=== PATIENT | male | born 1985 | race Two or more races ===

== ENCOUNTER 2020-05-29 01:31 | Emergency (ER) | payer MEDICAID, SELFPAY ==
[2020-05-29 01:34] VITALS: BP 135/74; PULSE 59; RESP 16; TEMP 36.5; O2SAT 98; BMI 35.4
--- NOTE | 2020-05-29 02:01 | PC.NURSE ---
REPORTS LEFT SIDED MID BACK PAIN STARTING 4 HOURS AGO. DENIES HISTORY OF KIDNEY STONES.
--- NOTE | 2020-05-29 03:25 | ED_ITS ---
HPI - Back Pain/Injury General Chief Complaint: Back Pain/Injury Stated Complaint: Back pain/No inj Time Seen by Provider: 05/29/20 03:25 History of Present Illness HPI Narrative: This is a 34-year-old male who presents with persistent back pain since 4:00 p.m. yesterday and history of known back problems. He states he took a muscle relaxer prior to coming in but was not getting good pain relief. He describes it is localized to the left back area without radiation and not associated with fevers, chills, nausea, vomiting, diarrhea, urinary pain /burning / frequency. Related Data Allergies Allergy/AdvReac Type Severity Reaction Status Date / Time No Known Allergies Allergy Verified 05/29/20 01:36 Review of Systems Review of Systems: Pertinent positives and negatives as stated in HPI 10 point review of systems is otherwise negative. PMFSH Past Medical History Source: nursing notes reviewed Social History Social History Advance Directives: No Physical Exam Vital Signs: Vital Signs: Vital Signs Temp Pulse Resp BP Pulse Ox 05/29/20 01:34 97.7 F 59 16 135/74 98 Body Mass Index 35.4 VITAL SIGNS: Reviewed. GENERAL: Well developed, well nourished, in no acute distress. HEAD: Normocephalic/atraumatic, EYES: PERRLA, EOMI intact without pain, no nystagmus/pallor/icterus noted EARS: Ext canals without abnormality, TMs non-bulging and non-erythematous NOSE: Nares patent bilateral OROPHARYNX: no oral lesions noted, posterior pharynx clear and non-erythematous without noted tonsillar enlargement/erythema/exudates NECK: Supple, no adenopathy LUNGS: Normal breath sounds. No adventitious sounds or accessory muscle use. SpO2<98%> CARDIOVASCULAR: Regular rate and rhythm without noted murmurs, no JVD or lower extremity edema. ABDOMEN: Soft, non-tender, non-distended with bowel sounds. No rigidity. No guarding. No palpable masses or hernias noted MUSCULOSKELETAL: No tenderness, deformities, or effusions noted on gross inspection. EXTREMITIES: No cyanosis, clubbing or edema. SKIN: Inspection of the skin reveals no rashes, ulcerations, jaundice, pallor, or petechiae. NEUROLOGIC: Alert and oriented x 4. Strength and sensation to light touch were grossly intact x 4. Course Course Course Narrative: This is a 34-year-old male with history and clinical presentation suggestive of possible renal colic but suspect more likely muscle spasm and doubt any acute intra-abdominal infection. On review of all investigation despite finding a leukocytosis there is no corresponding left shift and neither the CT scan or urinalysis indicate any source. Patient has had good pain control on re-evaluation will be discharged home for suspected muscle spasm. MDM - Back Pain/Injury Lab Data Result diagrams: 05/29/20 03:38 05/29/20 03:38 Labs: Lab Results 05/29/20 05/29/20 05/29/20 Range/Units 03:15 03:38 03:38 WBC 13.9 H (4.8-10.8) X10*3/uL RBC 4.31 L (4.60-5.80) X10*6/uL Hgb 13.2 L (14.0-18.0) g/dl Hct 38.5 L (42-52) % MCV 89.3 (80-98) fL MCH 30.6 (27.0-33.0) pg MCHC 34.3 (31.0-36.0) g/dl RDW 13.0 (11.0-16.0) % Plt Count 322 (160-400) X10*3/uL MPV 9.3 L (9.4-12.4) fL Immature Gran % (Auto) 0.2 (0.0-0.4) % Neut % (Auto) 62.8 (45-73) % Lymph % (Auto) 24.9 (20-40) % [place] % (Auto) 10.0 (2-11) % Eos % (Auto) 1.5 (0-4) % Baso % (Auto) 0.6 (0-2) % Lymph # (Auto) 3.5 (1.2-4.9) X10*3/uL [place] # (Auto) 1.4 H (0.1-1.2) X10*3/uL Eos # (Auto) 0.2 (0.0-0.4) X10*3/uL Baso # (Auto) 0.1 (0.0-0.2) X10*3/uL Abs Immat Gran (auto) 0.03 (0.00-0.03) X10*3/uL Absolute Neuts (auto) 8.7 H (2.0-8.3) X10*3/uL Absolute Nucleated RBC 0.000 (0.0-0.012) X10*3/uL Nucleated RBC % (auto) 0.0 (0.0-0.2) /100WBC Sodium 139 (135-145) mmol/L Potassium 4.0 (3.3-5.1) mmol/l Chloride 104 (96-108) mmol/L Carbon Dioxide 27 (22-29) mmol/L Anion Gap 12 (12-20) BUN 13 (9-16) mg/dL Creatinine 0.77 (0.5-1.4) mg/dL Estim Creat Clear Calc 165.9 Estimated GFR > 60 Random Glucose 98 (60-115) mg/dL Calcium 8.8 (8.4-10.2) mg/dL Urine Color YELLOW Urine Appearance CLEAR Urine pH 6.0 (5.0-8.0) Ur Specific [place] >= 1.030 H (1.005-1.025) Urine Protein NEG (NEG-TRACE) MG/DL Urine Glucose (UA) NEG (NEG) MG/DL Urine Ketones NEG (NEG) MG/DL Urine Blood NEG (NEG) Urine Nitrite NEG (NEG) Ur Leukocyte Esterase NEG (NEG) Discharge Plan Discharge Clinical Impression: Muscle spasm Patient Disposition: Home, Self-Care Instructions: Lower Back Exercises (ED), Back Pain (ED) Additional Instructions: 1. Tylenol 1000 mg, por v?a oral, cada 6 horas seg?n sea necesario para controlar el dolor. No exceda los 4000 mg en 24 horas. 2. ibuprofeno 400 mg, por v?a oral con leche o alimentos, cada 6 horas seg?n sea necesario para controlar el dolor. 3. parche de lidoca?na, est? disponible en todas las farmacias y se puede aplicar en el ?katelyn de m?xima sensibilidad mauricio se indica en el empaque exterior. El paciente y / o la lea reconocen que comprenden los resultados (seg?n corresponda), el diagn?stico, el plan de tratamiento, la necesidad de seguimiento y los s?ntomas que deber?an impulsar el regreso a la ronald de emergencias. Referrals: Ngozi Payne, [Primary Care Provider] - 2 days (Back pain)
[2020-05-29 03:30] LABS: Glucose Urine UA NEG (NEG); Leukocyte Esterase Urine NEG (NEG); Nitrite Urine NEG (NEG); Specific Gravity - Urine >= 1.030 (1.005-1.025); Urine Blood NEG (NEG); Urine Ketones NEG (NEG); Urine Protein NEG (NEG-TRACE)
[2020-05-29 03:38] LABS: Appearance Urine CLEAR; Color Urine YELLOW; UACC Culture Trigger NO
[2020-05-29 03:42] LABS: MANUAL DIFF FLAG NO
[2020-05-29 03:43] LABS: Basophils Absolute Auto 0.1 X10*3/uL (0.0-0.2); Basophils Percent Auto 0.6 % (0-2); Eosinophils Absolute Auto 0.2 X10*3/uL (0.0-0.4); Eosinophils Percent Auto 1.5 % (0-4); Hematocrit 38.5 % (42-52); Hemoglobin 13.2 g/dl (14.0-18.0); Imm Gran Abs Auto 0.03 X10*3/uL (0.00-0.03); Imm Gran Pct Auto 0.2 % (0.0-0.4); Lymphocytes Absolute Auto 3.5 X10*3/uL (1.2-4.9); Lymphocytes Percent Auto 24.9 % (20-40); Mean Corpuscular HGB Conc 34.3 g/dl (31.0-36.0); Mean Corpuscular Hemoglobin 30.6 pg (27.0-33.0); Mean Corpuscular Volume 89.3 fL (80-98); Mean Platelet Volume 9.3 fL (9.4-12.4); Monocytes Absolute Auto 1.4 X10*3/uL (0.1-1.2); Neutrophils Absolute Auto 8.7 X10*3/uL (2.0-8.3); Neutrophils Percent Auto 62.8 % (45-73); Platelet Count 322 X10*3/uL (160-400); Red Blood Count 4.31 X10*6/uL (4.60-5.80); White Blood Count 13.9 X10*3/uL (4.8-10.8)
--- NOTE | 2020-05-29 03:53 | CT_ITS ---
EXAMINATION: CT ABDOMEN AND PELVIS WITHOUT CONTRAST CLINICAL INFORMATION: Left flank pain COMPARISON: 04/30/2010 TECHNIQUE: Multidetector volumetric imaging was performed from the superior aspect of the liver through the pubic symphysis. Sagittal and coronal reformatted images were obtained on the technologist's workstation. This CT examination was performed using dose optimization techniques as appropriate, variously including the following: *Automated exposure control *Adjustment of mA and/or kV according to patient size (this includes techniques or standardized protocols for targeted exams where dose is matched to indication/reason for exam; i.e. extremities or head) *Use of iterative reconstruction technique DLP: 780 mGy-cm FINDINGS: LUNG BASES: There is curvilinear left basilar atelectasis along with a calcified granuloma. LIVER, GALLBLADDER, AND BILIARY TREE: The liver is normal in size, shape, and attenuation. No focal hepatic lesion or biliary ductal dilatation is present. The gallbladder is unremarkable with no evidence of radiopaque gallstones, gallbladder wall thickening, or obvious pericholecystic inflammatory changes. PANCREAS: Unremarkable. SPLEEN: Unremarkable. ADRENAL GLANDS: Unremarkable. KIDNEYS AND URETERS: The kidneys are normal in size, shape, and attenuation. No hydronephrosis, hydroureter, or calculi seen. No perinephric stranding. BLADDER: Unremarkable. GASTROINTESTINAL TRACT: The small and large bowel are unremarkable. The appendix is unremarkable. No free fluid or free air is seen. ABDOMINAL WALL: No significant hernia is appreciated. LYMPH NODES: Normal. VASCULAR: Unremarkable. PELVIC VISCERA: Unremarkable. OSSEOUS STRUCTURES: Unremarkable. IMPRESSION: No acute findings identified in the abdomen/pelvis. No hydronephrosis or calculus seen.
[2020-05-29 04:25] LABS: Anion Gap 12 (12-20); Blood Urea Nitrogen 13 mg/dL (9-16); Calcium 8.8 mg/dL (8.4-10.2); Carbon Dioxide 27 mmol/L (22-29); Chloride 104 mmol/L (96-108); Creatinine Clr Calc Pharmacy 165.9; Estimated Glomerular Filt Rate > 60; Glucose Random 98 mg/dL (60-115); Sodium 139 mmol/L (135-145)
[2020-05-29] MEDS: Ketorolac Tromethamine 15 MG/ML VIAL IM (04:34)
[2020-05-29] MEDS: Acetaminophen 325 MG TABLET 975 MG PO (04:35)
[2020-05-29] MEDS: Lidocaine 4 % Patch ADH..PATCH 1 PATCH TRANSDERMA (04:35)
--- NOTE | 2020-05-29 05:02 | PC.NURSE ---
pt back from ct, medicated and sound asleep with snoring heard from room.
== END 2020-05-29 05:57 | disposition home or self-care (01) ==
PROVIDERS: Emergency Provider Student in an Organized Health Care Education/Training Program; PCP Family Medicine
DX: M62.830 Muscle spasm of back (principal); M54.5 Low back pain
CPT/HCPCS: 36415; 74176; 80048; 81003; 85025; 96372; 99283; 99284; J1885

== ENCOUNTER 2020-07-24 10:36 | Outpatient (REF) | payer MEDICAID, SELFPAY | END 2020-07-24 10:37 | disposition home or self-care (01) | LOC: HO.LAB 10:36 | PROVIDERS: PCP Family Medicine; Visit Provider Internal Medicine | DX: Z20.828 Contact with and (suspected) exposure to other viral communicable diseases (principal) | CPT/HCPCS: C9803; U0003 ==

== ENCOUNTER 2020-08-25 08:50 | Outpatient (REF) | payer MEDICAID, SELFPAY | END 2020-08-25 08:51 | disposition home or self-care (01) | LOC: HO.LAB 08:50 | PROVIDERS: Visit Provider Internal Medicine | DX: Z20.822 Contact with and (suspected) exposure to COVID-19 (principal) | CPT/HCPCS: 36415; C9803; U0003 ==

== ENCOUNTER 2020-09-05 13:52 | Outpatient (REF) | payer MEDICAID, SELFPAY ==
--- NOTE | 2020-09-05 13:57 | XR_ITS ---
EXAMINATION: XR CHEST CLINICAL INFORMATION: Chest pain COMPARISON: Previous chest x-ray February 2019 TECHNIQUE: 2 views of the chest were obtained. FINDINGS: No significant abnormality is noted involving the heart, lungs, mediastinum, bony thorax or soft tissues. XR/XR chest 2V IMPRESSION: Unremarkable examination.
== END 2020-09-05 13:53 | disposition home or self-care (01) ==
LOC: HO.LAB 13:52
PROVIDERS: Referring Provider Family Medicine; Visit Provider Family Medicine
DX: R07.1 Chest pain on breathing (principal)
CPT/HCPCS: 71046

== ENCOUNTER 2020-09-18 11:13 | Outpatient (REF) | payer MEDICAID, SELFPAY | END 2020-09-18 11:14 | disposition home or self-care (01) | LOC: HO.LAB 11:13 | PROVIDERS: Visit Provider Internal Medicine | DX: Z20.822 Contact with and (suspected) exposure to COVID-19 (principal) | CPT/HCPCS: 36415; C9803; U0003; U0005 ==

== ENCOUNTER 2020-10-16 08:21 | Outpatient (REF) | payer MEDICAID, SELFPAY | END 2020-10-16 08:22 | disposition home or self-care (01) | LOC: HO.LAB 08:21 | PROVIDERS: Visit Provider Internal Medicine | DX: Z20.822 Contact with and (suspected) exposure to COVID-19 (principal) | CPT/HCPCS: 36415; C9803; U0003; U0005 ==

== ENCOUNTER 2020-10-30 08:21 | Outpatient (REF) | payer MEDICAID, SELFPAY | END 2020-10-30 08:22 | disposition home or self-care (01) | LOC: HO.LAB 08:21 | PROVIDERS: Visit Provider Internal Medicine | DX: Z20.822 Contact with and (suspected) exposure to COVID-19 (principal) | CPT/HCPCS: 36415; C9803; U0003; U0005 ==

== ENCOUNTER 2020-12-01 07:57 | Outpatient (REF) | payer MEDICAID, SELFPAY | END 2020-12-01 07:58 | disposition home or self-care (01) | LOC: HO.LAB 07:57 | PROVIDERS: Visit Provider Internal Medicine | DX: Z20.822 Contact with and (suspected) exposure to COVID-19 (principal) | CPT/HCPCS: C9803; U0003; U0005 ==

== ENCOUNTER 2021-04-20 15:28 | Outpatient (REF) | payer MEDICAID, SELFPAY | END 2021-04-20 15:29 | disposition home or self-care (01) | LOC: HO.LAB 15:28 | PROVIDERS: Visit Provider Internal Medicine | DX: Z20.822 Contact with and (suspected) exposure to COVID-19 (principal) | CPT/HCPCS: C9803; U0003; U0005 ==

== ENCOUNTER 2021-05-01 10:32 | Outpatient (REF) | payer MEDICAID, SELFPAY ==
[2021-05-01 11:46] LABS: MANUAL DIFF FLAG NO
[2021-05-01 11:52] LABS: Basophils Absolute Auto 0.1 X10*3/uL (0.0-0.2); Basophils Percent Auto 0.7 % (0-2); Eosinophils Absolute Auto 0.2 X10*3/uL (0.0-0.4); Eosinophils Percent Auto 1.3 % (0-4); Hematocrit 45.3 % (42-52); Hemoglobin 15.4 g/dl (14.0-18.0); Imm Gran Abs Auto 0.02 X10*3/uL (0.00-0.03); Imm Gran Pct Auto 0.2 % (0.0-0.4); Lymphocytes Percent Auto 34.6 % (20-40); Mean Corpuscular Volume 88.1 fL (80-98); Mean Platelet Volume 10.7 fL (9.4-12.4); Monocytes Percent Auto 8.7 % (2-11); Neutrophils Absolute Auto 6.4 X10*3/uL (2.0-8.3); Neutrophils Percent Auto 54.5 % (45-73); Platelet Count 320 X10*3/uL (160-400); Red Blood Count 5.14 X10*6/uL (4.60-5.80); Red Cell Distribution Width 12.8 % (11.0-16.0); White Blood Count 11.7 X10*3/uL (4.8-10.8)
== END 2021-05-01 10:33 | disposition home or self-care (01) ==
LOC: HO.LAB 10:32
PROVIDERS: PCP Family Medicine; Visit Provider Internal Medicine Pulmonary Disease
DX: J45.909 Unspecified asthma, uncomplicated (principal); Z91.09 Other allergy status, other than to drugs and biological substances; R94.2 Abnormal results of pulmonary function studies; J84.9 Interstitial pulmonary disease, unspecified; G47.33 Obstructive sleep apnea (adult) (pediatric)
CPT/HCPCS: 36415; 82785; 85025; 86003; 99202

== ENCOUNTER 2021-05-01 11:09 | Outpatient (REF) | payer MEDICAID, SELFPAY | END 2021-05-01 11:10 | disposition home or self-care (01) | LOC: HO.LAB 11:09 | PROVIDERS: PCP Family Medicine; Visit Provider Internal Medicine | DX: Z20.822 Contact with and (suspected) exposure to COVID-19 (principal) | CPT/HCPCS: C9803; U0003; U0005 ==

== ENCOUNTER 2021-06-01 08:20 | Outpatient (REF) | payer MEDICAID, SELFPAY ==
--- NOTE | ~2021-06-01 | CT_ITS ---
EXAMINATION: CT CHEST WITHOUT CONTRAST CLINICAL INFORMATION: Interstitial pulmonary disease COMPARISON: Previous chest x-rays most recent August [address] of the abdomen and pelvis May 2020 TECHNIQUE: Multidetector volumetric CT imaging of the chest was done. Axial MIP volume rendering provided. Sagittal and coronal reformatted images were obtained. This CT examination was performed using dose optimization techniques as appropriate, variously including the following: *Automated exposure control *Adjustment of mA and/or kV according to patient size (this includes techniques or standardized protocols for targeted exams where dose is matched to indication/reason for exam; i.e. 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 There is a 2 mm right upper lobe nodule axial image 31 series 9. There is a 2 mm right upper lobe nodule axial image 33 series 9. There is a 3 mm right upper lobe nodule axial image 48 series 9. There is a 3 mm right lower lobe nodule axial image 74 series 9. There is a 3 x 7 mm heterogeneous or semisolid right upper lobe nodule axial image 79 series 9. There are clustered small right upper lobe nodules largest measuring 3 mm axial image 81 series 9 suggestive of tree-in-bud appearance or airways disease. There is a 3 mm semisolid peripheral right upper lobe nodule axial image 85 series 9. There is a 2 mm right middle lobe nodule axial image 99 series 9. There is a 2 mm peripheral or subpleural left lower lobe nodule axial image 99 series 9. There are 2 clustered 3 mm right lower lobe nodules axial image 99 series 9. There is a 2 mm peripheral or subpleural right middle lobe nodule axial image 110 series 9. There is a 3 mm peripheral or subpleural semisolid right lower lobe nodule axial image 111 series 9. There is a 5 mm calcified left lower lobe nodule axial image 11 series 9. There is no evidence of emphysema, interstitial lung disease or bronchiectasis. No endobronchial or endotracheal lesion is seen. MEDIASTINUM: The mediastinum is normal. There is increased attenuation in the anterior superior mediastinum likely representing residual thymic tissue that is appropriate for age. PLEURA: There is no pleural effusion. No pleural mass or thickening. AXILLA: No lymphadenopathy. There is bilateral gynecomastia. UPPER ABDOMEN: There may be fatty infiltration of the liver. OSSEOUS STRUCTURES: Unremarkable. CT/CT chest wo con IMPRESSION: No evidence of interstitial lung disease. Small bilateral pulmonary nodules. Largest pulmonary nodule is a 5 mm calcified left lower lobe nodule. According to the UPDATED 2017 Fleischner Society recommendations, the advised follow-up imaging for less than 6 mm nodule: Low risk, no chest CT follow-up and high risk, optional chest CT follow-up in one year. Bilateral gynecomastia.
--- NOTE | 2021-06-01 17:15 | PFT_ITS ---
INDICATIONS: ILD and asthma. SPIROMETRY: The FEV1 to FVC 91% with an FEV1 of 4.08 L, which is 96% predicted, and an FVC of 4.5 L, which is predicted. No significant response to bronchodilators noted. Maximum voluntary ventilation 105% predicted. LUNG VOLUMES: Total lung capacity 90% predicted with an expiratory reserve volume of 38% predicted. DIFFUSION CAPACITY: DLCO 71% predicted. It does correct to 81% when corrected for the alveolar volume. COMPARISONS: PFTs from 2019. INTERPRETATION: No obstructive nor restrictive ventilatory defects have been identified. No significant response to bronchodilators noted. Normal maximum voluntary ventilation. Lung volumes with a decrease in the expiratory reserve volume secondary to an elevated BMI. The patient also has a mild diffusion impairment likely to some degree secondary to his body habitus, although need to also consider his underlying interstitial lung disease history. When compared to his previous PFTs in 2019, there is a significant decrease in his FVC, a significant decrease in the FEV1, a trend increase in the total lung capacity, and trend decrease in the diffusing capacity. Clinical correlation warranted. MD YANDEL Montalvo/BRENDAN / [id number]
== END 2021-06-01 08:21 | disposition home or self-care (01) ==
LOC: HO.CT 08:20
PROVIDERS: PCP Family Medicine; Visit Provider Internal Medicine Pulmonary Disease
DX: J84.9 Interstitial pulmonary disease, unspecified (principal); J45.909 Unspecified asthma, uncomplicated
CPT/HCPCS: 71250; 94060; 94727; 94729

== ENCOUNTER → 2021-06-14 14:44 | Outpatient (BNVA) | payer MEDICAID, SELFPAY | PROVIDERS: PCP Family Medicine; Visit Provider Internal Medicine Pulmonary Disease | DX: J45.909 Unspecified asthma, uncomplicated (principal); G47.33 Obstructive sleep apnea (adult) (pediatric); R91.8 Other nonspecific abnormal finding of lung field | CPT/HCPCS: 99212 ==

== ENCOUNTER 2021-08-11 14:42 | Emergency (ER) | payer MEDICAID, SELFPAY ==
[2021-08-11 16:18] LABS: COVID-19 Test Negative (Negative)
[2021-08-11 18:02] VITALS: BP 131/66; PULSE 84; RESP 18; TEMP 36.6; O2SAT 98; BMI 38.4
--- NOTE | 2021-08-11 18:42 | ED.GENADULT ---
HPI - General Adult General Chief complaint: General Medical Stated complaint: headache abd pain exposed to COVID Time Seen by Provider: 08/11/21 18:42 History of Present Illness HPI narrative: Patient without complaint is here for COVID testing after COVID exposure, no cough no shortness of breath no nausea Related Data Previous Rx's Medication Instructions Recorded fluticasone 250 mcg-salmeterol 50 1 inh INHALATION BID 30 Days #1 ea 05/01/21 mcg/dose blistr powdr for inhalation (Wixela Inhub) Allergies Allergy/AdvReac Type Severity Reaction Status Date / Time No Known Allergies Allergy Verified 08/11/21 18:02 Review of Systems Review of Systems: No fever no chills no runny nose no headache cough no sore throat no difficulty breathing no nausea no vomiting Yes all other systems are reviewed and are negative PMFSH Past Medical History Source: nursing notes reviewed Social History Social History Advance Directives: No Advance Directives Information Provided: Yes Physical Exam Vital Signs: Vital Signs: Last Vital Signs Temp 97.9 F 08/11/21 18:02 Pulse 84 08/11/21 18:02 Resp 18 08/11/21 18:02 BP 131/66 08/11/21 18:02 Pulse Ox 98 08/11/21 18:02 BMI result Body Mass Index 38.4 General appearance no acute distress The neck is supple Respiratory no distress Extremities full range of motion x4 Course Course Course Narrative: Well-appearing patient who denies any symptom or complaint had a negative COVID test Medical Decision Making Lab Data Labs: Lab Results 08/11/21 Range/Units 15:51 COVID-19 ([facility]) Negative (Negative) COVID-19 Clin Com See Note Discharge Plan Discharge Clinical Impression: Encounter for laboratory testing for COVID-19 virus Patient Disposition: Home, Self-Care Additional Instructions: COVID test was negative, return any time if worse Prescriptions: No Action fluticasone propion-salmeterol [Wixela Inhub] 250-50 mcg/dose blister with device 1 inh inhalation BID 30 Days Qty: 1 RF: 6
== END 2021-08-11 18:55 | disposition home or self-care (01) ==
PROVIDERS: Emergency Provider Internal Medicine
DX: R51.9 Headache, unspecified (principal); R10.9 Unspecified abdominal pain; Z20.822 Contact with and (suspected) exposure to COVID-19; Z79.899 Other long term (current) drug therapy
CPT/HCPCS: 36415; 87635; 99282; 99283

== ENCOUNTER 2021-09-03 11:21 | Outpatient (REF) | payer MEDICAID, SELFPAY ==
[2021-09-03 12:01] LABS: Binax Internal Control QC Valid; Binax Now Covid-19 Ag Negative (Negative)
== END 2021-09-03 11:22 | disposition home or self-care (01) ==
LOC: HO.LAB 11:21
PROVIDERS: Visit Provider Internal Medicine
DX: Z20.822 Contact with and (suspected) exposure to COVID-19 (principal)
CPT/HCPCS: C9803

== ENCOUNTER 2021-12-13 09:00 | Outpatient (REF) | payer MEDICAID, SELFPAY ==
--- NOTE | ~2021-12-13 | CT_ITS ---
EXAMINATION: CT chest wo con. CLINICAL INFORMATION: Reason for Exam PULMONARY NODULE COMPARISON: Multiple prior CTs most recent May 2021 TECHNIQUE: Multidetector volumetric CT imaging of the chest was done. Axial MIP volume rendering provided. Sagittal and coronal reformatted images were obtained. This CT examination was performed using dose optimization techniques as appropriate, variously including the following: *Automated exposure control *Adjustment of mA and/or kV according to patient size (this includes techniques or standardized protocols for targeted exams where dose is matched to indication/reason for exam; i.e. extremities or head) *Use of iterative reconstruction technique CONTRAST: Noncontrasted study. 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 LUNGS: Lung parenchyma: No evidence of significant interstitial disease. Lung nodules/masses: 3 mm density right upper lobe image 26 series 8 unchanged. There are several additional calcified and noncalcified nodules bilaterally the largest is a calcified nodule left lower lobe image 91 series 8, they have not significantly changed from prior exams. No suspicious spiculated nodule. AIRWAYS: Trachea and bronchi are normal. PLEURA: No pleural effusion or pneumothorax. MEDIASTINUM AND ROXANA: No mediastinal, hilar or axillary lymphadenopathy. No mediastinal mass. VESSELS: HEART AND PERICARDIUM: Thoracic aorta is normal in size. Heart is normal in size. No pericardial effusion. Pulmonary arteries are normal in size. LOWER NECK, AXILLA: The visualized thyroid gland is unremarkable. No axillary mass or adenopathy. VISUALIZED ABDOMEN: Diffusely hypodense liver suggesting hepatic steatosis. Otherwise unremarkable. CHEST WALL AND BONES: No chest wall mass. The visualized bony thorax is within normal limits. CT/CT chest wo con IMPRESSION: *No suspicious lung mass or suspicious nodules. *Redemonstration of scattered tiny calcified and noncalcified lung nodules 5 mm or less, they have not significantly changed from prior exam. *Diffusely hypodense liver suggesting hepatic steatosis. Various management parameters for solitary pulmonary nodules are in the literature. According to the UPDATED 2017 Fleischner Society recommendations, the advised follow-up imaging for solid nodules < 6 mm is: LOW RISK PATIENT: No routine follow-up. HIGH RISK PATIENT: Optional CT at 12 months. Reference: Guidelines for Management of Incidental Pulmonary Nodules Detected on CT Images: From the Fleischner Society 2017.
== END 2021-12-13 09:01 | disposition home or self-care (01) ==
LOC: HO.CT 09:00
PROVIDERS: PCP Family Medicine; Visit Provider Internal Medicine Pulmonary Disease
DX: R91.8 Other nonspecific abnormal finding of lung field (principal)
CPT/HCPCS: 71250

== ENCOUNTER → 2021-12-19 15:24 | Outpatient (BNVA) | payer MEDICAID, SELFPAY | PROVIDERS: PCP Family Medicine; Visit Provider Internal Medicine Pulmonary Disease | DX: J45.909 Unspecified asthma, uncomplicated (principal); G47.33 Obstructive sleep apnea (adult) (pediatric); R91.8 Other nonspecific abnormal finding of lung field | CPT/HCPCS: 99212 ==

== ENCOUNTER 2021-12-25 12:15 | Emergency (ER) | payer MEDICAID, SELFPAY ==
--- NOTE | 2021-12-25 | ECG_ITS ---
Test Reason : CHEST PAIN Blood Pressure : / mmHG Vent. Rate : 065 BPM Atrial Rate : 065 BPM P-R Int : 128 ms QRS Dur : 098 ms QT Int : 398 ms P-R-T Axes : 045 051 034 degrees QTc Int : 413 ms Normal sinus rhythm Normal ECG When compared with ECG of 01-MAY-2016 12:42, No significant change was found Referred By: Harshal Causey Electronically Signed By:QUAN PENNINGTON
--- NOTE | ~2021-12-25 | XR_ITS ---
EXAMINATION: XR CHEST CLINICAL INFORMATION: Chest pain COMPARISON: Previous chest CT 12/13/2021 and chest x-ray August 2020 TECHNIQUE: Frontal view of the chest was obtained. FINDINGS: The cardiac silhouette is upper normal in size. Hilar and mediastinal contours are normal.. The lungs are clear. There is no pleural effusion or pneumothorax. Bony structures are normal. XR/XR chest 1V IMPRESSION: Upper normal-size cardiac silhouette.
[2021-12-25 12:28] VITALS: BP 110/80; PULSE 80; O2SAT 98
[2021-12-25 12:33] VITALS: BP 109/73; PULSE 69; RESP 20; TEMP 36.7; BMI 37.8
--- NOTE | 2021-12-25 12:47 | ED_ITS ---
HPI - Chest Pain General Chief Complaint: Chest Pain Stated Complaint: L CP X'S 1 WEEK FROM WALK IN CLINIC Time Seen by Provider: 12/25/21 12:45 Source: patient Mode of arrival: ambulatory Limitations: no limitations History of Present Illness HPI narrative: this is a 36 years old male presented to the emergency department with a chief complaint of left-sided chest pain which has been going on for about a week. He was seen in the urgent care referred her to the ED for evaluation. He states the there is no radiation of the pain, pt is not diaphoretic; there is no exertional pain complaint: chest pain Onset (ago): week(s) (1) Timing of current episode: episodic Prior episodes: No Onset: during rest Pain location: substernal Pain radiation: none Quality: aching Exacerbating factors: nothing Risk Factors Coronary artery disease risk factors: hypertension Thoracic aortic dissection risk factors: none Related Data Previous Rx's Medication Instructions Recorded fluticasone furoate 200 1 inh INHALATION DAILY 30 Days #1 12/19/21 mcg-vilanterol 25 mcg/dose ea inhalation powder (Breo Ellipta) Allergies Allergy/AdvReac Type Severity Reaction Status Date / Time No Known Allergies Allergy Verified 12/19/21 15:26 Review of Systems Review of Systems: Yes all other systems are reviewed and are negative ENT: Reports system reviewed and no additional complaints, except as documented Cardiovascular: Cardiovascular: Reports no additional cardiovascular complaints Respiratory: Respiratory: Reports no additional respiratory complaints Gastrointestinal: Gastrointestinal: Reports no additional gastrointestinal complaints Neurologic: Reports system reviewed and no additional complaints, except as documented PENDING SALE TO [facility] Social History Social History Patient Tobacco Use Status: Current everyday Tobacco user Use of substances other than those prescribed or required for medical reasons: Yes Substance Use Type: Marijuana Substance Use Frequency: Daily Advance Directives: No Physical Exam Vital Signs: Vital Signs: Last Vital Signs Temp 98.2 F 12/25/21 14:57 Pulse 86 12/25/21 16:05 Resp 16 12/25/21 16:05 BP 123/73 12/25/21 16:05 Pulse Ox 99 12/25/21 16:05 BMI result Body Mass Index 37.8 Const: General: cooperative Orientation/consciousness: patient oriented x3 HEENT: Head: Yes normal to inspection Ears: hearing grossly normal bilaterally General nose exam: Normal external nose present Face and sinus: Yes normal facial exam Mouth: Normal oral and palatal mucosa present Neck: Neck: Yes normal visual inspection Chest: Chest palpation & inspection: normal inspection of the chest and normal palpation of entire chest wall Resp: Effort & Inspection: normal respiratory effort and able to speak in complete sentences Auscultation: clear to auscultation bilaterally Percussion: percussion normal Cardio: Jugular venous distension: no JVD Rate: regular rate Rhythm: regular rhythm GI: Inspection: Yes normal to inspection Palpation (GI): Soft to palpation, not firm, nontender and no guarding Auscultation: normal bowel sounds Skin: General skin exam: no rashes or lesions noted Lesions: no lesions Rashes: no rashes Neuro: General: patient oriented x3 Course Reevaluation(s) Reevaluation #1: re-examining is doing well his pain is been going on for a week, delta trochanter a D-dimer is negative I think he can be discharged home with follow- up with Cardiology in the outpatient the ETT MDM - Chest Pain Lab Data Attestation: I reviewed the patient's lab results. Result diagrams: 12/25/21 13:00 12/25/21 13:00 Labs: Lab Results 12/25/21 12/25/21 12/25/21 Range/Units 13:00 13:00 13:00 WBC 10.1 (4.8-10.8) X10*3/uL RBC 4.68 (4.60-5.80) X10*6/uL Hgb 14.2 (14.0-18.0) g/dl Hct 41.3 L (42.0-52.0) % MCV 88.2 (80.0-98.0) fL MCH 30.3 (27.0-33.0) pg MCHC 34.4 (31.0-36.0) g/dl RDW 12.8 (11.0-16.0) % Plt Count 276 (160-400) X10*3/uL MPV 10.1 (9.4-12.4) fL Immature Gran % (Auto) 0.3 (0.0-0.4) % Neut % (Auto) 57.1 (45-73) % Lymph % (Auto) 31.3 (20-40) % [place]eman % (Auto) 9.4 (2-11) % Eos % (Auto) 1.3 (0-4) % Baso % (Auto) 0.6 (0-2) % Lymph # (Auto) 3.2 (1.2-4.9) X10*3/uL [place]eman # (Auto) 1.0 (0.1-1.2) X10*3/uL Eos # (Auto) 0.1 (0.0-0.4) X10*3/uL Baso # (Auto) 0.1 (0.0-0.2) X10*3/uL Abs Immat Gran (auto) 0.03 (0.00-0.03) X10*3/uL Absolute Neuts (auto) 5.8 (2.0-8.3) x10*3/uL Absolute Nucleated RBC 0.000 (0.0-0.012) X10*3/uL Nucleated RBC % (auto) 0.0 (0.0-0.2) /100WBC D-Dimer High Sensitivty < 150 NG/ML Sodium 139 (135-145) mmol/L Potassium 4.8 (3.3-5.1) mmol/L Chloride 107 (96-108) mmol/L Carbon Dioxide 24 (22-29) mmol/L Anion Gap 13 (12-20) BUN 11 (9-16) mg/dL Creatinine 0.81 (0.5-1.4) mg/dL Estim Creat Clear Calc 159.9 Estimated GFR > 60 Random Glucose 101 (60-115) mg/dL Calcium 9.4 D (8.4-10.2) mg/dL Total Bilirubin 0.6 (0.0-1.0) mg/dL AST 35 (5-37) U/L ALT 46 H (0-40) U/L Alkaline Phosphatase 91 (39-117) U/L Troponin I High Sens (<3.5-35.0) ng/L Total Protein 6.8 (6.5-8.0) g/dL Albumin 4.2 (3.5-5.0) g/dL 12/25/21 12/25/21 Range/Units 13:00 15:01 WBC (4.8-10.8) X10*3/uL RBC (4.60-5.80) X10*6/uL Hgb (14.0-18.0) g/dl Hct (42.0-52.0) % MCV (80.0-98.0) fL MCH (27.0-33.0) pg MCHC (31.0-36.0) g/dl RDW (11.0-16.0) % Plt Count (160-400) X10*3/uL MPV (9.4-12.4) fL Immature Gran % (Auto) (0.0-0.4) % Neut % (Auto) (45-73) % Lymph % (Auto) (20-40) % [place]eman % (Auto) (2-11) % Eos % (Auto) (0-4) % Baso % (Auto) (0-2) % Lymph # (Auto) (1.2-4.9) X10*3/uL [place]eman # (Auto) (0.1-1.2) X10*3/uL Eos # (Auto) (0.0-0.4) X10*3/uL Baso # (Auto) (0.0-0.2) X10*3/uL Abs Immat Gran (auto) (0.00-0.03) X10*3/uL Absolute Neuts (auto) (2.0-8.3) x10*3/uL Absolute Nucleated RBC (0.0-0.012) X10*3/uL Nucleated RBC % (auto) (0.0-0.2) /100WBC D-Dimer High Sensitivty NG/ML Sodium (135-145) mmol/L Potassium (3.3-5.1) mmol/L Chloride (96-108) mmol/L Carbon Dioxide (22-29) mmol/L Anion Gap (12-20) BUN (9-16) mg/dL Creatinine (0.5-1.4) mg/dL Estim Creat Clear Calc Estimated GFR Random Glucose (60-115) mg/dL Calcium (8.4-10.2) mg/dL Total Bilirubin (0.0-1.0) mg/dL AST (5-37) U/L ALT (0-40) U/L Alkaline Phosphatase (39-117) U/L Troponin I High Sens 6.0 9.5 D (<3.5-35.0) ng/L Total Protein (6.5-8.0) g/dL Albumin (3.5-5.0) g/dL Imaging Data Chest x-ray: Radiologist's impression: EXAMINATION: XR CHEST CLINICAL INFORMATION: Chest pain COMPARISON: Previous chest CT 12/13/2021 and chest x-ray August 2020 TECHNIQUE: Frontal view of the chest was obtained. FINDINGS: The cardiac silhouette is upper normal in size. Hilar and mediastinal contours are normal.. The lungs are clear. There is no pleural effusion or pneumothorax. Bony structures are normal. XR/XR chest 1V IMPRESSION: Upper normal-size cardiac silhouette. ? Dictated By: Iris Ambriz MD Signed By: <Electronically signed by Iris Ambriz MD in OV> 12/25/21 1323 ECG Data ECG #1: ECG interpretation date: 12/25/21 ECG interpretation time: 12:51 Interpretation: normal sinus rhythm a rate is 65 intraventricular conduction delay present Discharge Plan Discharge Clinical Impression: Chest pain Patient Disposition: Home, Self-Care Instructions: Chest Pain (DC) Additional Instructions: follow-up with laboratory monitor please return to emergency room if you worse any concern Prescriptions: No Action Breo Ellipta 200-25 mcg/dose blister with device 1 inh inhalation DAILY 30 Days Qty: 1 6RF Referrals: Brandon Seaman MD [Physician] - 2 days Interventions: ED Discharge Assessment Last Done: 12/25/21 16:05 Discharge Date/Time: 12/25/21 16:06
[2021-12-25 13:04] LABS: MANUAL DIFF FLAG NO
[2021-12-25 13:05] LABS: Basophils Absolute Auto 0.1 X10*3/uL (0.0-0.2); Basophils Percent Auto 0.6 % (0-2); Eosinophils Absolute Auto 0.1 X10*3/uL (0.0-0.4); Eosinophils Percent Auto 1.3 % (0-4); Hematocrit 41.3 % (42.0-52.0); Hemoglobin 14.2 g/dl (14.0-18.0); Imm Gran Abs Auto 0.03 X10*3/uL (0.00-0.03); Imm Gran Pct Auto 0.3 % (0.0-0.4); Lymphocytes Absolute Auto 3.2 X10*3/uL (1.2-4.9); Lymphocytes Percent Auto 31.3 % (20-40); Mean Corpuscular HGB Conc 34.4 g/dl (31.0-36.0); Mean Corpuscular Hemoglobin 30.3 pg (27.0-33.0); Mean Corpuscular Volume 88.2 fL (80.0-98.0); Mean Platelet Volume 10.1 fL (9.4-12.4); Monocytes Percent Auto 9.4 % (2-11); Neutrophils Absolute Auto 5.8 x10*3/uL (2.0-8.3); Neutrophils Percent Auto 57.1 % (45-73); Platelet Count 276 X10*3/uL (160-400); Red Blood Count 4.68 X10*6/uL (4.60-5.80); Red Cell Distribution Width 12.8 % (11.0-16.0); White Blood Count 10.1 X10*3/uL (4.8-10.8)
[2021-12-25 13:14] LABS: D Dimer High Sensitivity < 150 NG/ML
[2021-12-25 13:31] LABS: Alanine Aminotransferase 46 U/L (0-40); Albumin Level 4.2 g/dL (3.5-5.0); Alkaline Phosphatase 91 U/L (39-117); Anion Gap 13 (12-20); Aspartate Amino Transferase 35 U/L (5-37); Bilirubin Total 0.6 mg/dL (0.0-1.0); Blood Urea Nitrogen 11 mg/dL (9-16); Calcium 9.4 mg/dL (8.4-10.2); Carbon Dioxide 24 mmol/L (22-29); Chloride 107 mmol/L (96-108); Creatinine Clr Calc Pharmacy 159.9; Estimated Glomerular Filt Rate > 60; Glucose Random 101 mg/dL (60-115); Potassium 4.8 mmol/L (3.3-5.1); Sodium 139 mmol/L (135-145); Total Protein 6.8 g/dL (6.5-8.0)
[2021-12-25 14:57] VITALS: BP 116/76; PULSE 58; RESP 12; TEMP 36.8; O2SAT 97
[2021-12-25 15:28] LABS: Troponin-I High Sensitivity 9.5 ng/L (<3.5-35.0)
[2021-12-25 16:05] VITALS: BP 123/73; PULSE 86; RESP 16; O2SAT 99
== END 2021-12-25 16:06 | disposition home or self-care (01) ==
PROVIDERS: Emergency Provider Emergency Medicine; PCP Family Medicine
DX: R07.89 Other chest pain (principal); I10 Essential (primary) hypertension; Z79.899 Other long term (current) drug therapy; F17.200 Nicotine dependence, unspecified, uncomplicated; Z71.6 Tobacco abuse counseling
CPT/HCPCS: 36415; 71045; 80053; 84484; 85025; 85379; 93005; 99283; 99284

== ENCOUNTER 2021-12-28 20:52 | Emergency (ER) | payer MEDICAID, SELFPAY ==
--- NOTE | ~2021-12-28 | XR_ITS ---
EXAMINATION: XR CHEST CLINICAL INFORMATION: Chest pain. COMPARISON: 12/25/2021 TECHNIQUE: Frontal view of the chest was obtained. FINDINGS: Cardiac leads overlie the chest. The lungs are well expanded. There is no focal consolidation, edema, or effusion. No pneumothorax. The cardiomediastinal silhouette is within normal limits. No acute osseous abnormality. XR/XR chest 1V IMPRESSION: Clear lungs.
--- NOTE | 2021-12-28 20:53 | ECG_ITS ---
Test Reason : CHEST PAIN Blood Pressure : / mmHG Vent. Rate : 082 BPM Atrial Rate : 082 BPM P-R Int : 136 ms QRS Dur : 104 ms QT Int : 390 ms P-R-T Axes : 067 073 046 degrees QTc Int : 455 ms Sinus rhythm with sinus arrhythmia with occasional Premature ventricular complexes Otherwise normal ECG When compared with ECG of 25-DEC-2021 12:21, Premature ventricular complexes are now Present Referred By: Generic ED Physician Electronically Signed By:QUAN PENNINGTON
--- NOTE | 2021-12-28 21:06 | ED.CHESTPAIN ---
HPI - Chest Pain General Chief Complaint: Chest Pain Stated Complaint: CP Time Seen by Provider: 12/28/21 21:05 Source: patient Mode of arrival: EMS Limitations: no limitations History of Present Illness MD complaint: chest pain (dizziness, HR was 40 to 60 on his machine at home today ) Onset (ago): day(s) (happened last week and then again today ) Timing of current episode: episodic Prior episodes: Yes Onset: during rest Pain location: substernal Pain radiation: left arm Severity: mild Quality: heaviness Relieving factors: nothing Exacerbating factors: nothing Associated symptoms: dyspnea Treatment prior to arrival: aspirin and nitroglycerin Related Data Previous Rx's Medication Instructions Recorded fluticasone furoate 200 1 inh INHALATION DAILY 30 Days #1 12/19/21 mcg-vilanterol 25 mcg/dose ea inhalation powder (Breo Ellipta) Allergies Allergy/AdvReac Type Severity Reaction Status Date / Time No Known Allergies Allergy Verified 12/28/21 21:13 Review of Systems Review of Systems: Constitutional : No Weight loss, No Fever, No Chills ENT/Mouth : No sore throat, No Rhinorrhea Eyes: No Eye Pain, No Swelling Cardiovascular : pos Chest Pain, pos SOB, no Dyspnea on Exertion, No Orthopnea, No Edema, No Palpitations Respiratory : No Cough, No Sputum Gastrointestinal : pos Nausea, No Vomiting, No Diarrhea, No abdominal Pain, No Hematochezia, No Melena Genitourinary : No Dysuria, No Urinary Frequency Musculoskeletal : No joint pain, No Myalgias, No Joint Swelling Skin : No Skin Lesions, No rash Neuro : No Weakness, No Numbness, pos Dizziness, No Headache Psych : pos Anxiety/Panic, No Depression Heme/Lymph: No Bruising, No Lymphadenopathy Endocrine : No Polyuria, No Polydipsia All other systems reviewed and are negative [facility] Past Medical History Attestation statement: The following information was validated with the patient. Medical History (Updated 12/29/21 @ 03:54 by Helen Matthews DO) Asthma High cholesterol HTN (hypertension) Social History Social History Patient Tobacco Use Status: Current everyday Tobacco user Substance Use Type: Marijuana Advance Directives: No Advance Directives Information Provided: Yes Physical Exam Vital Signs: Vital Signs: Last Vital Signs Temp 97.8 F 12/29/21 02:00 Pulse 62 12/29/21 02:00 Resp 9 L 12/29/21 02:00 BP 107/57 L 12/29/21 02:00 Pulse Ox 99 12/29/21 02:00 BMI result Body Mass Index 38.0 Appearance: Alert. Oriented X3. No acute distress. Anxious Eyes: Pupils equal, round and reactive to light. ENT: Pharynx normal. Neck: Normal inspection. Neck supple. CVS: Normal heart rate and rhythm. Pulses normal. HR 70s during interview intermittent PVCs Respiratory: No respiratory distress. Breath sounds normal. Abdomen: Soft and nontender. Skin: Skin warm and dry. Normal skin color. Normal skin turgor. Extremities: No lower extremity edema. No calf ttp Neuro: Oriented X 3. No motor deficit. No sensory deficit. Course Course Course Narrative: patient observed x 7 hours no events has intermittent PVCs, 3 troponins in nonischemic range and under delta marker at this time can be DC and follow up with cardiology MDM - Chest Pain MDM Narrative Medical decision making narrative: 36 yo male hx of asthma, anxiety, HTN, HLD who was seen last week for chest pain negative workup in ED with troponins and ddimer he comes in today with c/o of feeling dizzy and having some chest pain at home. 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 His BP is stable at this time. He will need basic labs, EKG, CXR, PO ativan at his request for anxiety. Will monitor on tele while in ED Lab Data Result diagrams: 12/28/21 21:06 12/28/21 21:06 Labs: Lab Results 12/28/21 12/28/21 12/28/21 Range/Units 21:06 21:06 21:06 WBC 13.5 H (4.8-10.8) X10*3/uL RBC 4.67 (4.60-5.80) X10*6/uL Hgb 14.2 (14.0-18.0) g/dl Hct 40.4 L (42.0-52.0) % MCV 86.5 (80.0-98.0) fL MCH 30.4 (27.0-33.0) pg MCHC 35.1 (31.0-36.0) g/dl RDW 12.4 (11.0-16.0) % Plt Count 297 (160-400) X10*3/uL MPV 10.5 (9.4-12.4) fL Immature Gran % (Auto) 0.3 (0.0-0.4) % Neut % (Auto) 57.3 (45-73) % Lymph % (Auto) 31.3 (20-40) % Weber % (Auto) 9.7 (2-11) % Eos % (Auto) 0.7 (0-4) % Baso % (Auto) 0.7 (0-2) % Lymph # (Auto) 4.2 (1.2-4.9) X10*3/uL Weber # (Auto) 1.3 H (0.1-1.2) X10*3/uL Eos # (Auto) 0.1 (0.0-0.4) X10*3/uL Baso # (Auto) 0.1 (0.0-0.2) X10*3/uL Abs Immat Gran (auto) 0.04 H (0.00-0.03) X10*3/uL Absolute Neuts (auto) 7.7 (2.0-8.3) x10*3/uL Absolute Nucleated RBC 0.000 (0.0-0.012) X10*3/uL Nucleated RBC % (auto) 0.0 (0.0-0.2) /100WBC Sodium 139 (135-145) mmol/L Potassium 3.6 D (3.3-5.1) mmol/L Chloride 107 (96-108) mmol/L Carbon Dioxide 23 (22-29) mmol/L Anion Gap 13 (12-20) BUN 15 (9-16) mg/dL Creatinine 0.89 (0.5-1.4) mg/dL Estim Creat Clear Calc 146.1 Estimated GFR > 60 Random Glucose 114 (60-115) mg/dL Calcium 9.6 (8.4-10.2) mg/dL Magnesium 1.8 (1.6-2.6) mg/dL Troponin I High Sens 10.3 (<3.5-35.0) ng/L TSH 3.52 (0.32-4.0) uIU/mL Urine Opiates Screen (Not Detect) Urine Fentanyl Screen (Not Detect) Ur Barbiturates Screen (Not Detect) Ur Phencyclidine Scrn (Not Detect) Ur Amphetamines Screen (Not Detect) U Benzodiazepines Scrn (Not Detect) Urine Cocaine Screen (Not Detect) U Marijuana (THC) Screen (Not Detect) 12/28/21 12/29/21 12/29/21 Range/Units 21:56 00:28 03:20 WBC (4.8-10.8) X10*3/uL RBC (4.60-5.80) X10*6/uL Hgb (14.0-18.0) g/dl Hct (42.0-52.0) % MCV (80.0-98.0) fL MCH (27.0-33.0) pg MCHC (31.0-36.0) g/dl RDW (11.0-16.0) % Plt Count (160-400) X10*3/uL MPV (9.4-12.4) fL Immature Gran % (Auto) (0.0-0.4) % Neut % (Auto) (45-73) % Lymph % (Auto) (20-40) % Weber % (Auto) (2-11) % Eos % (Auto) (0-4) % Baso % (Auto) (0-2) % Lymph # (Auto) (1.2-4.9) X10*3/uL Weber # (Auto) (0.1-1.2) X10*3/uL Eos # (Auto) (0.0-0.4) X10*3/uL Baso # (Auto) (0.0-0.2) X10*3/uL Abs Immat Gran (auto) (0.00-0.03) X10*3/uL Absolute Neuts (auto) (2.0-8.3) x10*3/uL Absolute Nucleated RBC (0.0-0.012) X10*3/uL Nucleated RBC % (auto) (0.0-0.2) /100WBC Sodium (135-145) mmol/L Potassium (3.3-5.1) mmol/L Chloride (96-108) mmol/L Carbon Dioxide (22-29) mmol/L Anion Gap (12-20) BUN (9-16) mg/dL Creatinine (0.5-1.4) mg/dL Estim Creat Clear Calc Estimated GFR Random Glucose (60-115) mg/dL Calcium (8.4-10.2) mg/dL Magnesium (1.6-2.6) mg/dL Troponin I High Sens 12.3 14.6 (<3.5-35.0) ng/L TSH (0.32-4.0) uIU/mL Urine Opiates Screen Not Detected (Not Detect) Urine Fentanyl Screen Not Detected (Not Detect) Ur Barbiturates Screen Not Detected (Not Detect) Ur Phencyclidine Scrn Not Detected (Not Detect) Ur Amphetamines Screen Not Detected (Not Detect) U Benzodiazepines Scrn Not Detected (Not Detect) Urine Cocaine Screen Not Detected (Not Detect) U Marijuana (THC) Screen POSITIVE H (Not Detect) ECG Data ECG #1: Attestation: I personally reviewed and interpreted this ECG as follows: ECG interpretation date: 12/28/21 ECG interpretation time: 21:07 Interpretation: Rate: 82 Rhythm: NSR with PVCs [place]: normal Normal P waves. Normal MARTHA. Normal QRS complex. ST T wave : normal no JANA qTC: normal prior studies: no sig change from prior The study has been interpreted contemporaneously by me. . Discharge Plan Discharge Clinical Impression: Frequent PVCs, Chest pain Patient Disposition: Home, Self-Care Instructions: Chest Pain (ED), Premature Ventricular Contractions (ED) Additional Instructions: return to ED for any worsening symptoms or concerns Prescriptions: No Action Breo Ellipta 200-25 mcg/dose blister with device 1 inh inhalation DAILY 30 Days Qty: 1 6RF Referrals: [facility] [Primary Care Provider] - 12/31/21 Bharathi Francois MD [Physician] - 1 week Stand Alone Forms: Work/School Release Print Language: Macanese
[2021-12-28 21:09] VITALS: BP 137/74; PULSE 75; RESP 18; TEMP 36.6; O2SAT 98; BMI 38.0
[2021-12-28 21:10] LABS: MANUAL DIFF FLAG NO
[2021-12-28 21:11] LABS: Basophils Absolute Auto 0.1 X10*3/uL (0.0-0.2); Basophils Percent Auto 0.7 % (0-2); Eosinophils Absolute Auto 0.1 X10*3/uL (0.0-0.4); Eosinophils Percent Auto 0.7 % (0-4); Hematocrit 40.4 % (42.0-52.0); Hemoglobin 14.2 g/dl (14.0-18.0); Imm Gran Abs Auto 0.04 X10*3/uL (0.00-0.03); Imm Gran Pct Auto 0.3 % (0.0-0.4); Lymphocytes Absolute Auto 4.2 X10*3/uL (1.2-4.9); Lymphocytes Percent Auto 31.3 % (20-40); Mean Corpuscular HGB Conc 35.1 g/dl (31.0-36.0); Mean Corpuscular Hemoglobin 30.4 pg (27.0-33.0); Mean Corpuscular Volume 86.5 fL (80.0-98.0); Mean Platelet Volume 10.5 fL (9.4-12.4); Monocytes Absolute Auto 1.3 X10*3/uL (0.1-1.2); Monocytes Percent Auto 9.7 % (2-11); Neutrophils Absolute Auto 7.7 x10*3/uL (2.0-8.3); Neutrophils Percent Auto 57.3 % (45-73); Platelet Count 297 X10*3/uL (160-400); Red Blood Count 4.67 X10*6/uL (4.60-5.80); Red Cell Distribution Width 12.4 % (11.0-16.0); White Blood Count 13.5 X10*3/uL (4.8-10.8)
[2021-12-28 21:25] LABS: Anion Gap 13 (12-20); Blood Urea Nitrogen 15 mg/dL (9-16); Calcium 9.6 mg/dL (8.4-10.2); Carbon Dioxide 23 mmol/L (22-29); Chloride 107 mmol/L (96-108); Creatinine Clr Calc Pharmacy 146.1; Estimated Glomerular Filt Rate > 60; Glucose Random 114 mg/dL (60-115); Potassium 3.6 mmol/L (3.3-5.1); Sodium 139 mmol/L (135-145)
[2021-12-28 21:39] LABS: Troponin-I High Sensitivity 10.3 ng/L (<3.5-35.0)
[2021-12-28 21:55] LABS: Magnesium 1.8 mg/dL (1.6-2.6)
[2021-12-28] MEDS: LORazepam 1 MG TABLET PO (21:58)
[2021-12-28 22:15] LABS: Thyroid Stimulating Hormone 3.52 uIU/mL (0.32-4.0)
[2021-12-28 22:23] LABS: Amphetamine Screen Urine Not Detected (Not Detect); Barbiturates, Urine Not Detected (Not Detect); Benzodiazepines Screen Urine Not Detected (Not Detect); Cannabinoid Screen Urine POSITIVE (Not Detect); Cocaine Screen Urine Not Detected (Not Detect); Fentanyl, urine Not Detected (Not Detect); Opiate Screen Urine Not Detected (Not Detect); Phencyclidine Screen Urine Not Detected (Not Detect)
[2021-12-28 22:44] VITALS: BP 124/69; PULSE 60; RESP 15; TEMP 36.2; O2SAT 98
--- NOTE | 2021-12-28 23:15 | PC.NURSE ---
Addendum entered by Shruthi Isbell 12/28/21 23:29: pt is alert and oriented. resting in bed. pt on continuos cardiac monitoring. pt report that he still have 3/10 chest pain, report it as pressure. denies any sob. provider made aware Original Note: report received from LAVELLE Bowling
[2021-12-28 23:28] VITALS: BP 111/65; PULSE 73; RESP 12; TEMP 36.6; O2SAT 98
[2021-12-29] VITALS: BP 128/77; PULSE 66; RESP 18; TEMP 36.6; O2SAT 99
[2021-12-29 01:05] LABS: Troponin-I High Sensitivity 12.3 ng/L (<3.5-35.0)
[2021-12-29 02:00] VITALS: BP 107/57; PULSE 62; RESP 9; TEMP 36.6; O2SAT 99
[2021-12-29 03:46] LABS: Troponin-I High Sensitivity 14.6 ng/L (<3.5-35.0)
[2021-12-29 04:00] VITALS: BP 127/74; PULSE 64; RESP 16; O2SAT 99
== END 2021-12-29 04:23 | disposition home or self-care (01) ==
PROVIDERS: Emergency Provider Emergency Medicine
DX: R07.9 Chest pain, unspecified (principal); I49.3 Ventricular premature depolarization; I10 Essential (primary) hypertension; J45.909 Unspecified asthma, uncomplicated
CPT/HCPCS: 36415; 71045; 80048; 80307; 83735; 84443; 84484; 85025; 93005; 99284

== ENCOUNTER → 2022-01-23 08:15 | Outpatient (BNVA) | payer MEDICAID, SELFPAY | PROVIDERS: PCP Family Medicine; Visit Provider Internal Medicine | DX: R07.2 Precordial pain (principal); R00.2 Palpitations; I49.3 Ventricular premature depolarization; G47.33 Obstructive sleep apnea (adult) (pediatric); E66.01 Morbid (severe) obesity due to excess calories; F17.200 Nicotine dependence, unspecified, uncomplicated | CPT/HCPCS: 99202 ==

== ENCOUNTER → 2022-01-24 11:09 | Outpatient (REF) | payer MEDICAID, SELFPAY ==
--- NOTE | 2022-01-24 11:15 | CA_ITS ---
Transthoracic Echocardiogram Patient (Last, First, Middle): Don Good E Gender: Male Date of : 1985 Age: 36 Procedure Date: 01/24/2022 Procedure Type: Transthoracic Echocardiogram Location: OP Height: 175.26 cm Weight: 112.49 kg BSA: 2.26 m2 Heart Rate: bpm BP: 124 / 68 mmHg News Department Intern: ABHILASH Tse MD: Ngozi Payne DO [place]in Sewer: Brandon Seaman MD Symptoms: CHEST PAIN Study Quality: Fair ECG Rhythm: Sinus Conclusions: - 1. Mildly reduced LV systolic function with LVEF of 45-50% with possible basal inferior wall motion abnormality with grade 1 diastolic dysfunction 2. Normal cardiac valvular Doppler 3. Normal RV systolic pressure 4. No pericardial effusion Findings Left Ventricle Normal left ventricular cavity size. There is normal left ventricular wall thickness. The left ventricular systolic function is mildly decreased. The visually estimated ejection fraction is between 45-50%. Spectral Doppler is indicative of an impaired relaxation filling pattern. E/E prime ratio is <8, consistent with normal filling pressures. Peak GLS is -17.2%, borderline. Wall Motion Rest Echo Findings The basal inferior segment is hypokinetic. All other scored wall segments showed normal motion. Right Ventricle Normal right ventricular cavity size and systolic function. Atria The left atrium is likely dilated. There is no evidence of interatrial shunt. The right atrium is normal in size. Aortic Valve Normal aortic valve structure and function. There is no aortic valve stenosis. There is no aortic valve regurgitation. Mitral Valve Normal mitral valve structure and function. There is trace mitral valve regurgitation. There is no mitral valve stenosis. Pulmonic Valve The pulmonic valve was not well visualized. Tricuspid Valve Normal tricuspid valve structure. There is trace tricuspid valve regurgitation. The right ventricular systolic pressure is normal. The right ventricular systolic pressure is 17 mmHg. Normal right atrial pressure. There is no evidence of pulmonary hypertension. Great Vessels All visible segments of the aorta are normal in size. The pulmonary artery was not well visualized. Venous The inferior vena cava is normal in size and collapses greater than 50% with inspiration. Pericardium/Pleural There is no evidence of pericardial effusion. Prior Study Comparison Changes noted compared to prior study dated: 02/24/2019. LV systolic function is mildly reduced Measurements 2D Linear Measurements IVSd: 1.05 0.6-0.9/0.6-1.0 cm LVIDd: 6.33 3.9-5.3/4.2-5.9 cm LVIDd Index: 2.80 2.4-3.2/2.2-3.1 cm/m2 LVIDs: 3.95 2.0-3.6 cm LVPWd: 1.00 0.7-1.1 cm LA Diam: 4.10 2.7-3.8/3.0-4.0 cm LAIDs Index: 1.81 1.5-2.3 cm/m2 LV Mass: 348.24 67-162/88-224 g LV Mass Index: 154.09 43-95/49-115 g/m2 LVOT Diam: 2.40 3.0+(-)1.3 cm 2D Systolic Function EF 4C: 45.50 >55% EF 2C: 51.20 >55% EF BiP: 47.20 >55% Mitral Valve MV Pk E: 0.67 MV PK A: 0.76 MV Decel Time: 235.00 E/A: 0.90 E'Lateral: 6.74 E'Medial: 5.55 E/E' Med: 12.00 E/E' Lat: 9.90 PHT: 69.00 MVA PHT: 3.19 Decel [place]: 2.84 Aortic Valve AoV Pk Richard: 1.23 AoV Mn Richard: 0.89 AoV VTI: 0.25 AoV Pk Grad: 6.00 Aov Mn Grad: 4.00 ART Cont.VTI: 3.94 LVOT LVOT Pk Richard: 0.92 LVOT Mn Richard: 0.67 LVOT VTI: 0.22 LVOT Pk Grad: 3.00 LVOT Mn Grad: 2.00 LVOT Diam: 2.40 LVOT Area: 4.52 Diastolic Function MV Pk E: 0.67 MV Pk A: 0.76 E/A: 0.90 E'Medial: 5.55 E/E' Med: 12.00 E' Laterial: 6.74 E/E' Lat: 9.90 Right Ventricle TAPSE (mm): 22.80 TVS' Richard: 14.50 Tricuspid Valve TR Pk Richard: 1.89 TR Pk Grad: 14.00 RA Press: 3.00 RVSP: 17.00 Great Vessels Aorta Sinus of Valsalva: 3.43 2.0-3.[address] [place]: 2.75 1.7-3.4 cm Ao Asc: 2.90 2.1-3.4 cm Ao Arch: 2.60 Updated in Other Vendor System with Status of Final Brandon Seaman MD electronically signed on 01/24/2022 12:25:17 PM with status of Final
--- NOTE | 2022-01-24 11:17 | ECG_ITS ---
Hook-up date: 2022-01-24 10:52:00 Duration: 25:13:00 Test Indications: UNSPEC. CHEST PAIN Medications: 376291 QRS complexes 80780 Ventricular ectopics which represent 10 % of total QRS comp. * Supraventricular ectopics which represent % of total QRS comp. * Paced QRS complexs which represent % of total QRS comp. VENTRICULAR ECTOPY 14725 Isolated 2638 Bigeminal Cycles 12 Couplets 2 Runs 6 Beats in Runs 3 Beats LONGEST at 148 BPM at 13:32:28 2022-01-24 3 Beats FASTEST at 166 BPM at 10:03:25 2022-01-25 SUPRAVENTRICULAR ECTOPY * Isolated * Couplets * Runs * Beats in Runs * Beats LONGEST at * BPM at :: -- * Beats FASTEST at * BPM at :: -- HEART RATES 60 MIN at 22:18:40 2022-01-24 80 AVG 132 MAX at 09:58:43 2022-01-25 LONGEST RR 0.9920 secs at 07:49:33 2022-01-25 S-T LEVELS Channel 1 - 128 mm at 10:52:00 2022-01-24 - 128 mm at 10:52:00 2022-01-24 Channel 2 - 128 mm at 10:52:00 2022-01-24 - 128 mm at 10:52:00 2022-01-24 Channel 3 - 128 mm at 03:01:11 -- - 128 mm at 03:01:11 Basic rhythm Normal sinus rhythm No long pause or profound bradycardia Frequent Premature ventricular complexes , 10% of total beats 2 three beat salvos of NSVT noted, fastest 166 bpm Patient did not report any symptoms in the diary Referred By: Ngozi Payne Overread By: LUCY HAZEL MD
== END ==
LOC: HO.CARD 11:09
PROVIDERS: PCP Family Medicine; Visit Provider Family Medicine
DX: R07.9 Chest pain, unspecified (principal)
CPT/HCPCS: 93225; 93226; 93306; 93356

== ENCOUNTER → 2022-02-05 09:40 | Outpatient (REF) | payer MEDICAID, SELFPAY ==
--- NOTE | 2022-02-05 12:18 | CA_ITS ---
Acquisition Time: 2022-02-05 10:00:31 Total Exercise Time: 00:06:08 Test Indications: CHEST PAIN Medications: Protocol: DONTE Max HR: 148 BPM 80% of Pred: 185 BPM Max BP: 134/082 mmHG Max Work Load: 7.1 METS Exercise stress test with exercise 6 min 8 sec of Donte protocol, acheiving 81% MPHR, with report of fatigue, mild sob, no chest discomfort, with occassional isolated PVCs at baseline and trigeminy noted as soon as he got up onto treadmill, then had ventricular bigeminy throughout most of exercise, once in recovery his PVCs lessened and returned to baseline, with normotensive response to exercise, without EKG changes of ischemia. Test reviewed with Dr Francois Referred By: Bharathi Francois Overread By: ADY WILLIAM
== END ==
LOC: HO.CARD 09:40
PROVIDERS: PCP Family Medicine; Visit Provider Internal Medicine
DX: R07.2 Precordial pain (principal); I49.3 Ventricular premature depolarization
CPT/HCPCS: 93017

== ENCOUNTER → 2022-03-05 14:59 | Outpatient (BNVA) | payer MEDICAID, SELFPAY | PROVIDERS: PCP Family Medicine; Referring Provider Family Medicine; Visit Provider Nurse Practitioner Family | DX: I49.3 Ventricular premature depolarization (principal); R00.2 Palpitations; R07.2 Precordial pain; I42.9 Cardiomyopathy, unspecified; G47.33 Obstructive sleep apnea (adult) (pediatric); Z79.899 Other long term (current) drug therapy | CPT/HCPCS: 99212 ==

== ENCOUNTER 2022-03-25 13:53 | Outpatient (REF) | payer MEDICAID, SELFPAY ==
--- NOTE | ~2022-03-25 | XR_ITS ---
EXAMINATION: XR FOOT, RIGHT CLINICAL INFORMATION: History right third hammertoe repair. Recurrent symptoms. COMPARISON: Radiographs right foot 03/28/2016, 07/24/2015 TECHNIQUE: Right foot is imaged in 3 views. FINDINGS: No fracture, dislocation, or destructive process. Normal bony mineralization. There is mild posterior and plantar calcaneal spurring. The retrocalcaneal recess is preserved. Mild dorsal spurring mid foot stable. Again, there is hallux valgus first MTP. Osteotomy head third metatarsal appears similar to prior studies. No interval degenerative changes and no destructive process or erosion or periostitis. There is no interval joint narrowing or erosive changes. No acute abnormality. XR/XR foot RT min 3V IMPRESSION: -Hallux valgus first MTP. -Postsurgical changes head third metatarsal stable. -Tiny posterior and plantar calcaneal spurs. -No acute or healing fracture, destructive process, or arthropathy.
== END 2022-03-25 13:54 | disposition home or self-care (01) ==
LOC: HO.XRAY 13:53
PROVIDERS: PCP Family Medicine; Visit Provider Family Medicine
DX: M20.11 Hallux valgus (acquired), right foot (principal); Z98.890 Other specified postprocedural states
CPT/HCPCS: 73630

== ENCOUNTER → 2022-04-03 08:19 | Outpatient (REF) | payer MEDICAID, SELFPAY ==
--- NOTE | ~2022-04-03 | NM_ITS ---
Myocardial perfusion study Indication: Cardiomyopathy with chest pain to evaluate for myocardial ischemia Technique: The patient was brought in for a Lexiscan perfusion study on 04/03/2025. Patient performed low-level exercise and was injected 0.4 mg of Lexiscan intravenously. Within a minute of injection, 40 mCi of sestamibi was given intravenously. Images were obtained using the SPECT gamma camera interlaced with the gating device. Images were obtained in supine position. Resting perfusion study was performed on 04/04/2025. Patient was administered 40 mCi of sestamibi intravenously at rest. Images were then obtained in supine position. Images obtained with and without CT attenuation. Total DLP 174 mGy-cm. Images were processed with the software and compared side to side in short axis, horizontal long axis and vertical long axis views. Findings: The stress perfusion study showed non attenuated images show large area of mildly mid and distal anterior as well as lateral, anterolateral, basal and mid inferolateral wall of the LV myocardium. Remainder of the LV myocardium is normally perfused. Attenuation corrected images show mild thinning of the distal septum and apex of the LV myocardium otherwise normal uptake in lateral, could be old correction. The gated study shows reduced LV systolic function with calculated LVEF of 41%. LV cavity is mildly to moderately size. The gated study shows normal wall thickening and contraction of segments. Resting study shows non attenuated images show improved uptake in the lateral, mid and distal anterior. as well as the anterolateral wall Gating at rest reveals normal systolic wall motion with ejection fraction at 39%. The findings are consistent with on attenuated images show large area of mild to moderate intensity reversible defect of the mid and distal anterior, anterolateral and lateral wall of the LV myocardium suggestive of ischemia in LAD territory. NM/NM cardiolite stress test Impression: 1. Myocardial perfusion imaging study shows large area of mild to moderate intensity ischemia in LAD territory 2. Gated LVEF is 41% 3. Transient ischemic dilatation present EKG is nondiagnostic for ischemia
--- NOTE | 2022-04-03 08:22 | CA_ITS ---
Acquisition Time: 2022-04-03 08:33:44 Total Exercise Time: 00:06:09 Test Indications: Dyspnea Medications: SEE H Protocol: DONTE Max HR: 146 BPM 78% of Pred: 185 BPM Max BP: 144/082 mmHG Max Work Load: 7.2 METS Exercise stress test with exercise 6 min 9 sec of Donte protocol, achieving 76% MPHR and request to stop due to fatigue and feeling sob, no chest discomfort. Isolated PVCs and runs of ventricular bigeminy noted during exercise. Treadmill placed in recovery, stopped and pt assisted to sitting position. Once breathing improved, testing changed to a pharmacological stress test with Lexiscan injection, while sitting and kicking his legs, without anginal symptoms, with isolated PVCs and runs of ventricular bigeminy, with normotensive response to injection, with nondiagnostic EKG for ischemia. In recovery he was treated with Aminophylline 75mg IVP to reverse Lexiscan. Nuclear images pending. Test reviewed with Dr Francois. Referred By: Lashawn Boston Overread By: LASHAWN BOSTON
== END ==
LOC: HO.CARD 08:19
PROVIDERS: Visit Provider Nurse Practitioner Family
DX: R07.2 Precordial pain (principal); R00.2 Palpitations; I42.9 Cardiomyopathy, unspecified; I49.3 Ventricular premature depolarization; J45.909 Unspecified asthma, uncomplicated; R91.8 Other nonspecific abnormal finding of lung field
CPT/HCPCS: 78452; 93017; 99212; A9500; J0280; J2785

== ENCOUNTER 2022-04-10 16:40 | Outpatient (REF) | payer MEDICAID, SELFPAY ==
[2022-04-10 16:54] LABS: MANUAL DIFF FLAG NO
[2022-04-10 17:45] LABS: Prothrombin Time 11.8 SEC (10.0-13.1)
[2022-04-10 17:48] LABS: Basophils Absolute Auto 0.1 X10*3/uL (0.0-0.2); Basophils Percent Auto 0.9 % (0-2); Eosinophils Absolute Auto 0.1 X10*3/uL (0.0-0.4); Eosinophils Percent Auto 0.8 % (0-4); Hematocrit 38.8 % (42.0-52.0); Hemoglobin 13.4 g/dl (14.0-18.0); Imm Gran Abs Auto 0.04 X10*3/uL (0.00-0.03); Imm Gran Pct Auto 0.4 % (0.0-0.4); Lymphocytes Absolute Auto 3.7 X10*3/uL (1.2-4.9); Lymphocytes Percent Auto 32.4 % (20-40); Mean Corpuscular HGB Conc 34.5 g/dl (31.0-36.0); Mean Corpuscular Hemoglobin 30.2 pg (27.0-33.0); Mean Corpuscular Volume 87.6 fL (80.0-98.0); Mean Platelet Volume 10.7 fL (9.4-12.4); Monocytes Absolute Auto 1.3 X10*3/uL (0.1-1.2); Monocytes Percent Auto 11.8 % (2-11); Neutrophils Absolute Auto 6.1 x10*3/uL (2.0-8.3); Neutrophils Percent Auto 53.7 % (45-73); Platelet Count 339 X10*3/uL (160-400); Red Blood Count 4.43 X10*6/uL (4.60-5.80); Red Cell Distribution Width 12.9 % (11.0-16.0); White Blood Count 11.3 X10*3/uL (4.8-10.8)
[2022-04-10 17:53] LABS: Anion Gap 14 (12-20); Blood Urea Nitrogen 16 mg/dL (9-16); Calcium 9.5 mg/dL (8.4-10.2); Carbon Dioxide 26 mmol/L (22-29); Chloride 108 mmol/L (96-108); Estimated Glomerular Filt Rate > 60; Glucose Random 91 mg/dL (60-115); Potassium 4.1 mmol/L (3.3-5.1); Sodium 144 mmol/L (135-145)
== END 2022-04-10 16:41 | disposition home or self-care (01) ==
LOC: HO.LAB 16:40
PROVIDERS: PCP Family Medicine; Visit Provider Nurse Practitioner Family
DX: R94.39 Abnormal result of other cardiovascular function study (principal)
CPT/HCPCS: 36415; 80048; 85025; 85610

== ENCOUNTER 2022-04-16 10:15 | Outpatient (REF) | payer MEDICAID, SELFPAY ==
--- NOTE | ~2022-04-16 | US_ITS ---
EXAMINATION: US VENOUS WITH DOPPLER UPPER EXTREMITY, RIGHT CLINICAL INFORMATION: Pain right forearm COMPARISON: None TECHNIQUE: Ultrasound of the upper extremity is performed using compression sonography and color and pulse Doppler flow with assessment of augmentation of flow. There is also imaging and Doppler assessment of the jugular and subclavian veins. Spectral analysis with color-flow imaging is performed. FINDINGS: Respiratory variation, normal compression, and augmented flow are noted throughout the upper extremity including the axillary, brachial, cubital, and radial and ulnar veins. There is normal flow in the internal jugular and subclavian veins. There is no visible deep or superficial thrombophlebitis. There is no finding of acute thrombus in mid to distal right radial artery. Patient complains of pain If the patient's symptoms progress, a followup ultrasound in 5 -7 days might be of value to exclude proximal propagation from a nonvisualized distal arm vein. US/US venous duplex UE RT IMPRESSION: No DVT demonstrated in the upper extremity. There is acute thrombus seen in the right mid to distal radial artery. Needs immediate vascular attention. Results will be called to Panchito Pyle by phone at 12:36 PM. In addition results will be called by PSA to the Doctor's office.
== END 2022-04-16 10:16 | disposition home or self-care (01) ==
LOC: HO.US 10:15
PROVIDERS: Visit Provider Emergency Medicine
DX: M79.631 Pain in right forearm (principal)
CPT/HCPCS: 93971

== ENCOUNTER 2022-04-16 13:20 | Inpatient (IN) | payer MEDICAID, SELFPAY ==
[2022-04-16] VITALS (9 sets, daily range): BP systolic 145–194; BP diastolic 50–109; PULSE 52–98; RESP 16–20; TEMP 36.1–37.1; O2SAT 93–98; BMI 39.6; BMI 39.3
--- NOTE | 2022-04-16 17:54 | ED.GENADULT ---
HPI - General Adult General Chief complaint: General Medical Stated complaint: Blood clot Time Seen by Provider: 04/16/22 17:43 Source: patient Mode of arrival: ambulatory Limitations: no limitations History of Present Illness HPI narrative: 36-year-old right hand dominant male with history of HTN, ESTEVAN, cardiomyopathy presenting from [facility] stating that a ultrasound of his right arm showed a blood clot. Patient states that he had a cardiac catheterization at [facility] x 5 days ago and has had pain in his right forarm x 3 days. Reports pain is 10/10 and is located in his distal right lateral forearm. Reports tingling over the thenar aspect of his right thumb. Reports full sensation on the rest of his hand and arm. Denies any swelling of the right upper extremity. Denies any anticoagulation treatment. Denies headache, dizziness, changes in vision, nausea, vomiting, shortness of breath, chest pain, weakness. MD complaint: right forearm pain Onset (ago): day(s) Location: right and upper extremity Radiation: extremity Severity: severe Severity scale (1-10): >10 Quality: constant Pain Consistency: constant Relieving factors: none Exacerbating factors: movement Associated symptoms: denies other symptoms Treatments prior to arrival: none Related Data Home Medications Medication Instructions Recorded Confirmed blood pressure kit-extra large #1 ea 03/05/22 03/05/22 clonazepam 1 mg tablet 1 mg PO BID PRN Anxiety 03/05/22 03/05/22 fenofibrate 160 mg tablet 160 mg PO DAILY 03/05/22 03/05/22 fluticasone propionate 50 2 spray intranasal DAILY 03/05/22 03/05/22 mcg/actuation nasal spray,suspension gabapentin 300 mg capsule 300 mg PO TID 03/05/22 03/05/22 loratadine 10 mg tablet 10 mg PO DAILY 03/05/22 03/05/22 nicotine 21 mg/24 hr daily 1 patch topical DAILY 03/05/22 03/05/22 transdermal patch omeprazole 20 mg capsule,delayed 20 mg PO BID 03/05/22 03/05/22 release zolpidem 10 mg tablet 10 mg PO BEDTIME PRN Insomnia 03/05/22 03/05/22 cholecalciferol (vitamin D3) 50 1 tab PO DAILY 04/16/22 mcg (2,000 unit) tablet quetiapine 200 mg tablet 1 tab PO BEDTIME 04/16/22 tamsulosin 0.4 mg capsule 1 cap PO DAILY 04/16/22 Previous Rx's Medication Instructions Recorded amlodipine 5 mg tablet 5 mg PO DAILY #30 tabs 03/05/22 metoprolol succinate 50 mg 50 mg PO DAILY #30 tabs 03/05/22 tablet,extended release 24 hr budesonide-formoterol HFA 160 2 puff inhalation BID 30 days 04/03/22 mcg-4.5 mcg/actuation aerosol #10.2 grams inhaler (Symbicort) Allergies Allergy/AdvReac Type Severity Reaction Status Date / Time No Known Allergies Allergy Verified 04/16/22 14:48 Review of Systems Review of Systems: Constitutional: No Fever, No Chills ENT/Mouth: No sore throat, No Rhinorrhea, No Swallowing Difficulty Eyes: No Eye Pain, No Swelling, No Redness Cardiovascular: No Chest Pain, No SOB, No Orthopnea, No Edema Respiratory: No Cough, No Sputum, No Wheezing, No dyspnea Gastrointestinal: No Nausea, No Vomiting, No Diarrhea, No abdominal Pain, No Hematochezia, No Melena Genitourinary: No Dysuria, No Urinary Frequency, No Hematuria Musculoskeletal: No joint pain, No Myalgias Skin: + right upper extrmiety pain. No Skin Lesions, No rash Neuro: + right hand tingling. No Weakness, No Numbness, No Dizziness, No Headache PMFSH Past Medical History Medical History (Updated 04/16/22 @ 19:03 by FELICIANO Masterson) Asthma High cholesterol HTN (hypertension) Family History Family History Mother Diabetes 1.5, managed as type 2 Arthritis Social History Social History Patient Tobacco Use Status: Former Tobacco user Quit Date: November 2021 Substance Use Type: Marijuana Advance Directives: No Advance Directives Information Provided: No Physical Exam ED Vital Signs: Vital Signs - 24 hr 04/16/22 14:48 04/16/22 17:53 Temperature 97.0 F 98.0 F Pulse Rate 60 52 Respiratory Rate 18 16 Blood Pressure 145/50 H 162/70 H Pulse Oximetry 98 98 Oxygen Delivery Method Room Air Room Air BMI result Body Mass Index 39.3 Const Other: Appearance: Alert. Oriented X3. appears uncomfortable Eyes: Pupils equal, round and reactive to light. ENT: Pharynx normal. Neck: Normal inspection. Neck supple. CVS: Normal heart rate and rhythm. Respiratory: No respiratory distress. Breath sounds normal. Abdomen: Soft and nontender. +BS x4 Skin: Skin warm and dry. Normal skin turgor. No rashes. Extremities: Pain in right upper extremity, tingling over thenar aspect of right thumb. Erythema and tenderness of right forearm. Appropriate capillary refill, skin warm, 3/5 strength in right hand, 5/5 strength in left hand. right extremity with 1+ pulse distal to radial artery puncture site, no pulses appreciated proximal to puncture site. No lower extremity edema. Neuro: Oriented X 3. No motor deficit. No sensory deficit. Course Course Course Narrative: 36-year-old male presents after ultrasound at [facility] revealed blood clot and right upper arm. Reports having cardiac catheterizations x5 days ago at [facility], and has had pain x3 days. Patient having 10/10 pain and tingling in the thenar aspect of right thumb. On physical exam, patient neurovascularly intact in upper right extremity. Skin is warm and dry, capillary refill intact, no edema. Full range of motion, 3/5 strength in right hand limited by pain. Per Dr. Betts, heparin drip started with no bolus. Patient made NPO as he may need operative intervention tonight. US venous duplex UE RT IMPRESSION: No DVT demonstrated in the upper extremity. ? There is acute thrombus seen in the right mid to distal radial artery. Needs immediate vascular attention. Reevaluation(s) Reevaluation #1: Dr. Betts at the bedside. Patient is to go to the OR tonight. Time: 19:35 Consultations Consultation #1: Dr. Betts - Vascular surgery Medical Decision Making Lab Data Result diagrams: 04/16/22 18:08 04/16/22 18:08 Labs: Lab Results 04/16/22 04/16/22 04/16/22 Range/Units 18:08 18:08 18:08 WBC 10.3 (4.8-10.8) X10*3/uL RBC 4.90 (4.60-5.80) X10*6/uL Hgb 14.6 (14.0-18.0) g/dl Hct 43.2 (42.0-52.0) % MCV 88.2 (80.0-98.0) fL MCH 29.8 (27.0-33.0) pg MCHC 33.8 (31.0-36.0) g/dl RDW 12.7 (11.0-16.0) % Plt Count 354 (160-400) X10*3/uL MPV 10.1 (9.4-12.4) fL Immature Gran % (Auto) 0.2 (0.0-0.4) % Neut % (Auto) 58.9 (45-73) % Lymph % (Auto) 27.6 (20-40) % [place] % (Auto) 11.4 H (2-11) % Eos % (Auto) 1.0 (0-4) % Baso % (Auto) 0.9 (0-2) % Lymph # (Auto) 2.9 (1.2-4.9) X10*3/uL [place] # (Auto) 1.2 (0.1-1.2) X10*3/uL Eos # (Auto) 0.1 (0.0-0.4) X10*3/uL Baso # (Auto) 0.1 (0.0-0.2) X10*3/uL Abs Immat Gran (auto) 0.02 (0.00-0.03) X10*3/uL Absolute Neuts (auto) 6.1 (2.0-8.3) x10*3/uL Absolute Nucleated RBC 0.000 (0.0-0.012) X10*3/uL Nucleated RBC % (auto) 0.0 (0.0-0.2) /100WBC PT 11.7 (10.0-13.1) SEC INR 1.0 (0.9-1.1) APTT 32.7 (26.0-36.4) SEC Sodium 141 (135-145) mmol/L Potassium 4.2 (3.3-5.1) mmol/L Chloride 104 (96-108) mmol/L Carbon Dioxide 26 (22-29) mmol/L Anion Gap 15 (12-20) BUN 14 (9-16) mg/dL Creatinine 1.04 (0.5-1.4) mg/dL Estim Creat Clear Calc 127.2 Estimated GFR > 60 Random Glucose 110 (60-115) mg/dL Calcium 9.6 (8.4-10.2) mg/dL Magnesium 1.8 (1.6-2.6) mg/dL Total Bilirubin < 0.2 (0.0-1.0) mg/dL Direct Bilirubin < 0.2 (0.0-0.5) mg/dL AST 27 (5-37) U/L ALT 33 (0-40) U/L Alkaline Phosphatase 77 (39-117) U/L Total Protein 7.4 (6.5-8.0) g/dL Albumin 4.5 (3.5-5.0) g/dL COVID-19 ([facility]) (Negative) COVID-19 Clin Com 04/16/22 Range/Units 18:08 WBC (4.8-10.8) X10*3/uL RBC (4.60-5.80) X10*6/uL Hgb (14.0-18.0) g/dl Hct (42.0-52.0) % MCV (80.0-98.0) fL MCH (27.0-33.0) pg MCHC (31.0-36.0) g/dl RDW (11.0-16.0) % Plt Count (160-400) X10*3/uL MPV (9.4-12.4) fL Immature Gran % (Auto) (0.0-0.4) % Neut % (Auto) (45-73) % Lymph % (Auto) (20-40) % [place] % (Auto) (2-11) % Eos % (Auto) (0-4) % Baso % (Auto) (0-2) % Lymph # (Auto) (1.2-4.9) X10*3/uL [place] # (Auto) (0.1-1.2) X10*3/uL Eos # (Auto) (0.0-0.4) X10*3/uL Baso # (Auto) (0.0-0.2) X10*3/uL Abs Immat Gran (auto) (0.00-0.03) X10*3/uL Absolute Neuts (auto) (2.0-8.3) x10*3/uL Absolute Nucleated RBC (0.0-0.012) X10*3/uL Nucleated RBC % (auto) (0.0-0.2) /100WBC PT (10.0-13.1) SEC INR (0.9-1.1) APTT (26.0-36.4) SEC Sodium (135-145) mmol/L Potassium (3.3-5.1) mmol/L Chloride (96-108) mmol/L Carbon Dioxide (22-29) mmol/L Anion Gap (12-20) BUN (9-16) mg/dL Creatinine (0.5-1.4) mg/dL Estim Creat Clear Calc Estimated GFR Random Glucose (60-115) mg/dL Calcium (8.4-10.2) mg/dL Magnesium (1.6-2.6) mg/dL Total Bilirubin (0.0-1.0) mg/dL Direct Bilirubin (0.0-0.5) mg/dL AST (5-37) U/L ALT (0-40) U/L Alkaline Phosphatase (39-117) U/L Total Protein (6.5-8.0) g/dL Albumin (3.5-5.0) g/dL COVID-19 ([facility]) Negative (Negative) COVID-19 Clin Com See Note Critical Care Time Critical Care Time Critical Care Time: Yes Total Critical Care Time: 35 Attestation: I have personally provided critical care time exclusive of time spent on separately billable procedures. Time includes review of lab data, radiology results, discussion with consultants, and monitoring for potential decompensation. Intervention performed as documented. Discharge Plan Discharge Clinical Impression: Radial artery thrombosis, right Patient Disposition: Admitted As Inpatient
[2022-04-16] MEDS: HYDROmorphone HCl 1 MG/ML SYRINGE IVPUSH (18:07)
[2022-04-16 18:12] LABS: MANUAL DIFF FLAG NO
[2022-04-16 18:22] LABS: Basophils Absolute Auto 0.1 X10*3/uL (0.0-0.2); Basophils Percent Auto 0.9 % (0-2); Eosinophils Absolute Auto 0.1 X10*3/uL (0.0-0.4); Hematocrit 43.2 % (42.0-52.0); Hemoglobin 14.6 g/dl (14.0-18.0); Imm Gran Abs Auto 0.02 X10*3/uL (0.00-0.03); Imm Gran Pct Auto 0.2 % (0.0-0.4); Lymphocytes Absolute Auto 2.9 X10*3/uL (1.2-4.9); Lymphocytes Percent Auto 27.6 % (20-40); Mean Corpuscular HGB Conc 33.8 g/dl (31.0-36.0); Mean Corpuscular Hemoglobin 29.8 pg (27.0-33.0); Mean Corpuscular Volume 88.2 fL (80.0-98.0); Mean Platelet Volume 10.1 fL (9.4-12.4); Monocytes Absolute Auto 1.2 X10*3/uL (0.1-1.2); Monocytes Percent Auto 11.4 % (2-11); Neutrophils Absolute Auto 6.1 x10*3/uL (2.0-8.3); Neutrophils Percent Auto 58.9 % (45-73); Platelet Count 354 X10*3/uL (160-400); Red Cell Distribution Width 12.7 % (11.0-16.0); White Blood Count 10.3 X10*3/uL (4.8-10.8)
[2022-04-16 18:23] LABS: Prothrombin Time 11.7 SEC (10.0-13.1)
[2022-04-16 18:26] LABS: Partial Thromboplastin Time 32.7 SEC (26.0-36.4)
[2022-04-16 18:31] LABS: COVID-19 Test Negative (Negative); IDNOW Serial# 16C4AD1C
[2022-04-16 18:45] LABS: Alanine Aminotransferase 33 U/L (0-40); Albumin Level 4.5 g/dL (3.5-5.0); Alkaline Phosphatase 77 U/L (39-117); Anion Gap 15 (12-20); Aspartate Amino Transferase 27 U/L (5-37); Bilirubin Direct < 0.2 mg/dL (0.0-0.5); Bilirubin Total < 0.2 mg/dL (0.0-1.0); Blood Urea Nitrogen 14 mg/dL (9-16); Calcium 9.6 mg/dL (8.4-10.2); Carbon Dioxide 26 mmol/L (22-29); Chloride 104 mmol/L (96-108); Creatinine Clr Calc Pharmacy 127.2; Estimated Glomerular Filt Rate > 60; Glucose Random 110 mg/dL (60-115); Magnesium 1.8 mg/dL (1.6-2.6); Potassium 4.2 mmol/L (3.3-5.1); Sodium 141 mmol/L (135-145); Total Protein 7.4 g/dL (6.5-8.0)
[2022-04-16] MEDS: Heparin Sodium,Porcine/1/2NS 25,000 UNIT/250 ML IV.SOLN 17.02 UNIT IVCONT (19:10)
--- NOTE | 2022-04-16 19:51 | HO.VASCH&P ---
History of Present Illness History of Present Illness Date of Service: 04/16/22 Chief complaint: Blood clot Narrative: Don Champagne is a 36 year old male Who originally was treated at [facility] this past where he had a cardiac catheterization through a right radial artery approach. He was doing well postprocedure and this past Friday he started experiencing pain in the right upper extremity. It had continued to progress. It became to a point where he was concerned and got an arterial ultrasound earlier today which was concerning for arterial thrombosis. Pain continue to progress in he was subsequently seen and treated in the emergency room. He was treated with heparin arm seem to be doing better but there was concern of this upper extremity. He now presents to us for vascular evaluation. Of note at the time of my examination He noted pain radiating from the thenar eminence all the way up to the antecubital fossa. It did improve with some heparin. He was subsequently seen and examined with the anesthesia team along with the cardiology team. Review of Systems Review of Systems: Yes all other systems are reviewed and are negative Constitutional: Constitutional: Reports no additional constitutional complaints ENT: Reports Normal hearing present Cardiovascular: Cardiovascular: Denies chest pain, Denies chest pain at rest, Denies chest pain with activity and Denies pedal edema Respiratory: Respiratory: Denies cough Gastrointestinal: Gastrointestinal: Denies abdominal pain Musculoskeletal: Musculoskeletal: Denies abnormal gait, Denies muscle cramps and Denies radiating pain into limb Integumentary/Breasts: Skin/Breast: Denies skin ulcer and Denies wounds Neurologic: Reports Normal hearing present and Denies abnormal gait Psychiatric: Psychiatric: Reports no additional psychiatric complaints [facility] Past Medical History Medical History (Updated 04/16/22 @ 19:03 by FELICIANO Masterson) Asthma High cholesterol HTN (hypertension) Family History Family History Mother Diabetes 1.5, managed as type 2 Arthritis Social History Social History Patient Tobacco Use Status: Former Tobacco user Quit Date: November 2021 Substance Use Type: Marijuana Advance Directives: No Advance Directives Information Provided: No Meds Allergies Allergy/AdvReac Type Severity Reaction Status Date / Time No Known Allergies Allergy Verified 04/16/22 14:48 Active Medications: Current Medications Heparin Sodium (Porcine) (Heparin Sodium,Porcine 5,000 Unit/Ml Vial) 4,900 unit 40 unit/kg (4900 unit) IVPUSH PROTOCOL BOLUS PRN; Protocol PRN Reason: 40 unit/kg - Heparin Protocol Heparin Sodium (Porcine) (Heparin Sodium,Porcine 5,000 Unit/Ml Vial) 9,700 unit 80 unit/kg (9700 unit) IVPUSH PROTOCOL BOLUS PRN; Protocol PRN Reason: 80 unit/kg - Heparin Protocol Heparin Sodium/Sodium Chloride (Heparin Sodium,Porcine/1/2ns) 25,000 unit in 250 mls @ 0 mls/hr IVCONT .Q0M STEPHAN; Protocol Last Admin: 04/16/22 19:10 Dose: 14 units/kg/hr, 17.02 mls/hr Cefazolin Sodium/Dextrose (Ancef) 2 gm in 50 mls @ 100 mls/hr IV PREOP ONE Stop: 04/16/22 20:16 Pharmacy Consult (Consult Rx Perform Med Rec) 1 each MISCELLANE ONCE PRN PRN Reason: Consult order Home Medications Medication Instructions Recorded Confirmed Last Taken Type blood pressure kit-extra large #1 ea 03/05/22 03/05/22 Unknown History clonazepam 1 mg tablet 1 mg PO BID PRN Anxiety 03/05/22 03/05/22 Unknown History fenofibrate 160 mg tablet 160 mg PO DAILY 03/05/22 03/05/22 Unknown History fluticasone propionate 50 2 spray intranasal DAILY 03/05/22 03/05/22 Unknown History mcg/actuation nasal spray,suspension gabapentin 300 mg capsule 300 mg PO TID 03/05/22 03/05/22 Unknown History loratadine 10 mg tablet 10 mg PO DAILY 03/05/22 03/05/22 Unknown History nicotine 21 mg/24 hr daily 1 patch topical DAILY 03/05/22 03/05/22 Unknown History transdermal patch omeprazole 20 mg capsule,delayed 20 mg PO BID 03/05/22 03/05/22 Unknown History release zolpidem 10 mg tablet 10 mg PO BEDTIME PRN Insomnia 03/05/22 03/05/22 Unknown History cholecalciferol (vitamin D3) 50 1 tab PO DAILY 04/16/22 Unknown History mcg (2,000 unit) tablet quetiapine 200 mg tablet 1 tab PO BEDTIME 04/16/22 Unknown History tamsulosin 0.4 mg capsule 1 cap PO DAILY 04/16/22 Unknown History Physical Exam Vital Signs: Vital Signs: Last Vital Signs Temp 98.0 F 04/16/22 17:53 Pulse 52 04/16/22 17:53 Resp 16 04/16/22 17:53 BP 162/70 H 04/16/22 17:53 Pulse Ox 98 04/16/22 17:53 O2 Del Method 04/16/22 17:53 BMI result Body Mass Index 39.3 Const: General: cooperative, healthy appearing and comfortable Orientation/consciousness: oriented to person, oriented to place and oriented to time HEENT: Head: Yes normal to inspection Neck: Neck: Yes normal visual inspection Carotids: no bruits Chest: Chest palpation & inspection: normal inspection of the chest Resp: Effort & Inspection: normal respiratory effort and able to speak in complete sentences Auscultation: clear to auscultation bilaterally, no crackles, no rales, no rhonchi and no wheezes Cardio: Other: right upper extremity I am able to appreciate a brachial pulse do not appreciate a radial and ulnar pulse Rate: regular rate Rhythm: regular rhythm Heart sounds: S1 normal heart sound present and S2 normal heart sound present Bruits: no carotid bruits Peripheral pulses: Peripheral pulses 2+ throughout GI: Inspection: Yes normal to inspection Skin: Wounds: no wounds Hair: normal Neuro: General: oriented to person, oriented to place and oriented to time Cranial nerves: Yes CN's II-XII intact bilaterally and Yes Normal hearing present Cognition (Neuro): normal cognition Motor exam (neuro): 5/5 motor strength present throughout Extrem: Other: right are motor and sensation are still intact, pain noted General: No clubbing, No cyanosis and No edema Psych: Appearance: grossly normal Mental Status: mental status grossly normal Speech and movement: Normal speech and movement present Results Results Labs: Short CBC 04/16/22 Range/Units 18:08 WBC 10.3 (4.8-10.8) X10*3/uL Hgb 14.6 (14.0-18.0) g/dl Hct 43.2 (42.0-52.0) % Plt Count 354 (160-400) X10*3/uL BMP 04/16/22 18:08 Sodium 141 Potassium 4.2 Chloride 104 Carbon Dioxide 26 BUN 14 Creatinine 1.04 Calcium 9.6 Liver Function 04/16/22 Range/Units 18:08 Total Bilirubin < 0.2 (0.0-1.0) mg/dL Direct Bilirubin < 0.2 (0.0-0.5) mg/dL AST 27 (5-37) U/L ALT 33 (0-40) U/L Alkaline Phosphatase 77 (39-117) U/L Albumin 4.5 (3.5-5.0) g/dL Assessment and Plan (1) Radial artery thrombosis, right: Status: Acute Plan In short patient has right radial artery thrombosis. Unclear duration of this thrombus but he is in a fair amount of pain. He will need right upper extremity thrombectomy. Risks benefits complications were discussed in detail with the patient and the patients who was at bedside. They agreed and consented with electronic publishing specialist present. Will proceed from there. Anesthesia and OR teams have been called in. Please note over 60 minutes was required in direct examination of patient, coordination of teams admission of patient and scheduling and coordinating evening surgery. Quality Stroke Does the patient have a stroke diagnosis?: No VTE Prior VTE?: No VTE Risk Level:: Surgical - high VTE Device Contraindication: Treatment Not Indicated VTE Drug Contraindication: N/A - Med Ordered Procedures Date of Service Date of Service: 04/16/22
--- NOTE | 2022-04-16 19:57 | MHC.SHP ---
Pre-Procedural Eval Section A Date of Service: 04/16/22 The patient is an INPATIENT: No Changes since office visit: Yes Patient answered all questions The History & Physical has been completed within 30 days and I have reviewed it.: Yes Section B Chief Complaint: Blood clot Allergies: Allergies Allergy/AdvReac Type Severity Reaction Status Date / Time No Known Allergies Allergy Verified 04/16/22 14:48 Plan I have reviewed the history and physical and performed a pertinent physical examination on my patient. No changes have occurred unless specified.
--- NOTE | 2022-04-16 20:31 | P.CONCA_ITS ---
History of Present Illness History of Present Illness Date of Service: 04/16/22 Chief complaint: Right radial artery occlusion Narrative: 36-year-old gentleman who underwent cardiac cath on 04/11/22. He had abnormal nuclear perfusion study. He didnt have any coronary disease. He did fine till Friday04/14/22 when he started noticing radial site pain as well as forearm pain. He went to his PCP and US radial artery showed radial artery thrombosis. He has been seen by vascular surgery and a thrombectomy is being planned. Patient has radial site pain and tenderness over the forearm. No numbness, weakness or pain in the hand. [facility] Past Medical History Medical History (Updated 04/16/22 @ 19:03 by FELICIANO Masterson) Asthma High cholesterol HTN (hypertension) Family History Family History Mother Diabetes 1.5, managed as type 2 Arthritis Social History Social History Patient Tobacco Use Status: Former Tobacco user Quit Date: November 2021 Use of substances other than those prescribed or required for medical reasons: No Substance Use Type: Marijuana Are you DNR?: No Advance Directives: No Advance Directives Information Provided: No Meds Allergies Allergy/AdvReac Type Severity Reaction Status Date / Time No Known Allergies Allergy Verified 04/16/22 14:48 Active Medications: Current Medications Heparin Sodium (Porcine) (Heparin Sodium,Porcine 5,000 Unit/Ml Vial) 4,900 unit 40 unit/kg (4900 unit) IVPUSH PROTOCOL BOLUS PRN; Protocol PRN Reason: 40 unit/kg - Heparin Protocol Heparin Sodium (Porcine) (Heparin Sodium,Porcine 5,000 Unit/Ml Vial) 9,700 unit 80 unit/kg (9700 unit) IVPUSH PROTOCOL BOLUS PRN; Protocol PRN Reason: 80 unit/kg - Heparin Protocol Heparin Sodium/Sodium Chloride (Heparin Sodium,Porcine/1/2ns) 25,000 unit in 250 mls @ 0 mls/hr IVCONT .Q0M [facility]; Protocol Last Admin: 04/16/22 19:10 Dose: 14 units/kg/hr, 17.02 mls/hr Pharmacy Consult (Consult Rx Perform Med Rec) 1 each MISCELLANE ONCE PRN PRN Reason: Consult order Home Medications Medication Instructions Recorded Confirmed Last Taken Type blood pressure kit-extra large #1 ea 03/05/22 03/05/22 Unknown History clonazepam 1 mg tablet 1 mg PO BID PRN Anxiety 03/05/22 03/05/22 Unknown History fenofibrate 160 mg tablet 160 mg PO DAILY 03/05/22 03/05/22 Unknown History fluticasone propionate 50 2 spray intranasal DAILY 03/05/22 03/05/22 Unknown History mcg/actuation nasal spray,suspension gabapentin 300 mg capsule 300 mg PO TID 03/05/22 03/05/22 Unknown History loratadine 10 mg tablet 10 mg PO DAILY 03/05/22 03/05/22 Unknown History nicotine 21 mg/24 hr daily 1 patch topical DAILY 03/05/22 03/05/22 Unknown History transdermal patch omeprazole 20 mg capsule,delayed 20 mg PO BID 03/05/22 03/05/22 Unknown History release zolpidem 10 mg tablet 10 mg PO BEDTIME PRN Insomnia 03/05/22 03/05/22 Unknown History albuterol sulfate 90 mcg/actuation 2 puff inhalation Q4-6H PRN 04/16/22 04/16/22 Unknown History aerosol inhaler (ProAir HFA) wheezing cholecalciferol (vitamin D3) 50 1 tab PO DAILY 04/16/22 Unknown History mcg (2,000 unit) tablet quetiapine 200 mg tablet 1 tab PO BEDTIME 04/16/22 Unknown History tamsulosin 0.4 mg capsule 1 cap PO DAILY 04/16/22 Unknown History Physical Exam Vital Signs: Vital Signs: Last Vital Signs Temp 98.7 F 04/16/22 20:13 Pulse 95 04/16/22 20:13 Resp 20 04/16/22 20:13 BP 149/62 H 04/16/22 20:13 Pulse Ox 97 04/16/22 20:13 O2 Del Method 04/16/22 20:13 BMI result Body Mass Index 39.3 GENERAL APPEARANCE: in no acute distress, pleasant. NECK: no carotid bruit, no jugular venous distention. SKIN: no suspicious lesions, warm and dry. HEART: no murmurs, regular rate and rhythm. LUNGS: clear to auscultation bilaterally. ABDOMEN: soft, nontender. EXTREMITIES: no edema. PERIPHERAL PULSES: Right radial pulse absent. Tenderness along the course of radial artery. Patent ulnar artery. Normal reverse Sean test with normal hand perfusion. Normal capillary refill. NEUROLOGIC: No gross deficits, AAO X 3 Objective Labs and Meds Result diagrams: 04/16/22 18:08 04/16/22 18:08 Lab results: Laboratory Results - last 24 hr 04/16/22 04/16/22 04/16/22 18:08 18:08 18:08 WBC 10.3 RBC 4.90 Hgb 14.6 Hct 43.2 MCV 88.2 MCH 29.8 MCHC 33.8 RDW 12.7 Plt Count 354 MPV 10.1 Immature Gran % (Auto) 0.2 Neut % (Auto) 58.9 Lymph % (Auto) 27.6 [place] % (Auto) 11.4 H Eos % (Auto) 1.0 Baso % (Auto) 0.9 Lymph # (Auto) 2.9 [place] # (Auto) 1.2 Eos # (Auto) 0.1 Baso # (Auto) 0.1 Abs Immat Gran (auto) 0.02 Absolute Neuts (auto) 6.1 Absolute Nucleated RBC 0.000 Nucleated RBC % (auto) 0.0 PT 11.7 INR 1.0 APTT 32.7 Sodium 141 Potassium 4.2 Chloride 104 Carbon Dioxide 26 Anion Gap 15 BUN 14 Creatinine 1.04 Estim Creat Clear Calc 127.2 Estimated GFR > 60 Random Glucose 110 Calcium 9.6 Magnesium 1.8 Total Bilirubin < 0.2 Direct Bilirubin < 0.2 AST 27 ALT 33 Alkaline Phosphatase 77 Total Protein 7.4 Albumin 4.5 COVID-19 ([facility]) COVID-19 Clin Com Blood Type Antibody Screen 04/16/22 04/16/22 18:08 19:00 WBC RBC Hgb Hct MCV MCH MCHC RDW Plt Count MPV Immature Gran % (Auto) Neut % (Auto) Lymph % (Auto) [place] % (Auto) Eos % (Auto) Baso % (Auto) Lymph # (Auto) [place] # (Auto) Eos # (Auto) Baso # (Auto) Abs Immat Gran (auto) Absolute Neuts (auto) Absolute Nucleated RBC Nucleated RBC % (auto) PT INR APTT Sodium Potassium Chloride Carbon Dioxide Anion Gap BUN Creatinine Estim Creat Clear Calc Estimated GFR Random Glucose Calcium Magnesium Total Bilirubin Direct Bilirubin AST ALT Alkaline Phosphatase Total Protein Albumin COVID-19 ([facility]) Negative COVID-19 Clin Com See Note Blood Type O Positive Antibody Screen NEGATIVE Assessment and Plan (1) Radial artery thrombosis, right: Status: Acute Plan 36 male post radial access for cardiac cath presenting with radial artery thrombosis. 3-5% risk of RRA occlusion with radial access. He has normal hand perfusion. Options are anticoagulation vs surgical thrombectomy. Vascular surgery is seeing him for thrombectomy. Overall his surgical risk is low. We will follow along with you. Procedures Date of Service Date of Service: 04/16/22
--- NOTE | 2022-04-16 20:42 | PHA.MEDREC ---
Pharmacy Consult ? Medication Reconciliation Pharmacy has completed the medication reconciliation. Unable to speak with patient- not in room and possibly in surgery- used medication claim history.
--- NOTE | 2022-04-16 20:55 | PC.NURSE ---
no appreciable radial pulse via palpation. dr. candelario aware. dr. candelario also aware of cardiac ectopy bigeminy sb in preop area.
--- NOTE | 2022-04-16 23:13 | HO.ANESPROP2 ---
[facility] Active Problems Active Problems: All Active Problems (Updated 04/16/22 @ 19:03 by FELICIANO Masterson) Radial artery thrombosis, right (Acute) Abnormal nuclear stress test (Acute) Asthma (Acute) Cardiomyopathy (Acute) Smoking (Acute) Morbid obesity (Acute) Heart palpitations (Acute) PVC (premature ventricular contraction) (Acute) Precordial chest pain (Acute) Decreased diffusion capacity (Acute) ESTEVAN (obstructive sleep apnea) (Acute) Pulmonary nodules (Acute) Encounter for laboratory testing for COVID-19 virus (Acute) Past Medical History Medical History (Updated 04/16/22 @ 19:03 by FELICIANO Masterson) Asthma High cholesterol HTN (hypertension) Family History Family History Mother Diabetes 1.5, managed as type 2 Arthritis Family history of problems with anesthesia: No Surgical History History of Problems with Anesthesia: No Social History Social History Patient Tobacco Use Status: Former Tobacco user Quit Date: November 2021 Use of substances other than those prescribed or required for medical reasons: No Substance Use Type: Marijuana Are you DNR?: No Advance Directives: No Advance Directives Information Provided: No Meds Allergies Allergy/AdvReac Type Severity Reaction Status Date / Time No Known Allergies Allergy Verified 04/16/22 14:48 Active Medications: Current Medications Acetaminophen (Acetaminophen 325 Mg Tablet) 650 mg PO Q6H PRN PRN Reason: Pain, Mild (Pain Scale 1-3) Fentanyl (Fentanyl Citrate/Pf 100 Mcg/2 Ml Vial) 50 mcg IVPUSH Q5M PRN; Protocol PRN Reason: Pain, Severe (Pain Scale 7-10) Heparin Sodium (Porcine) (Heparin Sodium,Porcine 5,000 Unit/Ml Vial) 4,900 unit 40 unit/kg (4900 unit) IVPUSH PROTOCOL BOLUS PRN; Protocol PRN Reason: 40 unit/kg - Heparin Protocol Heparin Sodium (Porcine) (Heparin Sodium,Porcine 5,000 Unit/Ml Vial) 9,700 unit 80 unit/kg (9700 unit) IVPUSH PROTOCOL BOLUS PRN; Protocol PRN Reason: 80 unit/kg - Heparin Protocol Heparin Sodium/Sodium Chloride (Heparin Sodium,Porcine/1/2ns) 25,000 unit in 250 mls @ 0 mls/hr IVCONT .Q0M [facility]; Protocol Last Admin: 04/16/22 19:10 Dose: 14 units/kg/hr, 17.02 mls/hr Sodium Chloride (Ns) 1,000 mls @ 80 mls/hr IVCONT .[id number] [facility] Cefazolin Sodium/Dextrose (Ancef) 2 gm in 50 mls @ 100 mls/hr IV POSTOP ONE Stop: 04/16/22 23:37 Morphine Sulfate (Morphine Sulfate 2 Mg/Ml Cartridge) 2 mg IVPUSH Q4H PRN; Protocol PRN Reason: Pain, Severe (Pain Scale 7-10) Oxycodone HCl (Oxycodone Hcl Immed Release 5 Mg Tablet) 5 mg PO Q4H PRN PRN Reason: Pain, Moderate (Pain Scale 4-6 Pharmacy Consult (Consult Rx Perform Med Rec) 1 each MISCELLANE ONCE PRN PRN Reason: Consult order Sodium Chloride (0.9 % Sodium Chloride Flush 3 Ml Syringe) 3 ml IVFLUSH QSHIFT [facility] Home Medications Medication Instructions Recorded Confirmed Last Taken Type blood pressure kit-extra large #1 ea 03/05/22 03/05/22 Unknown History clonazepam 1 mg tablet 1 mg PO BID PRN Anxiety 03/05/22 04/16/22 Unknown History fenofibrate 160 mg tablet 160 mg PO DAILY 03/05/22 04/16/22 Unknown History fluticasone propionate 50 2 spray intranasal DAILY 03/05/22 04/16/22 Unknown History mcg/actuation nasal spray,suspension gabapentin 300 mg capsule 300 mg PO TID 03/05/22 04/16/22 Unknown History loratadine 10 mg tablet 10 mg PO DAILY 03/05/22 04/16/22 Unknown History nicotine 21 mg/24 hr daily 1 patch topical DAILY 03/05/22 04/16/22 Unknown History transdermal patch omeprazole 20 mg capsule,delayed 20 mg PO BID@0630,1630 03/05/22 04/16/22 Unknown History release zolpidem 10 mg tablet 10 mg PO BEDTIME PRN Insomnia 03/05/22 04/16/22 Unknown History albuterol sulfate 90 mcg/actuation 2 puff inhalation Q4-6H PRN 04/16/22 04/16/22 Unknown History aerosol inhaler (ProAir HFA) wheezing cholecalciferol (vitamin D3) 50 1 tab PO DAILY 04/16/22 04/16/22 Unknown History mcg (2,000 unit) tablet quetiapine 200 mg tablet 1 tab PO BEDTIME 04/16/22 04/16/22 Unknown History tamsulosin 0.4 mg capsule 1 cap PO DAILY@1700 04/16/22 04/16/22 Unknown History Exam Exam Date and Time: April 16, 20222312 Height,Weight and Vital Signs: Height 5 ft 9 in Weight 120.9 kg Last Vital Signs Temp 98.7 F 04/16/22 20:13 Pulse 95 04/16/22 20:13 Resp 20 04/16/22 20:13 BP 149/62 H 04/16/22 20:13 Pulse Ox 97 04/16/22 20:13 O2 Del Method 04/16/22 20:13 Pertinent Lab Results Pertinent Lab Results: Laboratory Tests 04/16/22 04/16/22 04/16/22 18:08 18:08 18:08 WBC 10.3 RBC 4.90 Hgb 14.6 Hct 43.2 MCV 88.2 MCH 29.8 MCHC 33.8 RDW 12.7 Plt Count 354 MPV 10.1 Immature Gran % (Auto) 0.2 Neut % (Auto) 58.9 Lymph % (Auto) 27.6 [place] % (Auto) 11.4 H Eos % (Auto) 1.0 Baso % (Auto) 0.9 Lymph # (Auto) 2.9 [place] # (Auto) 1.2 Eos # (Auto) 0.1 Baso # (Auto) 0.1 Abs Immat Gran (auto) 0.02 Absolute Neuts (auto) 6.1 Absolute Nucleated RBC 0.000 Nucleated RBC % (auto) 0.0 PT 11.7 INR 1.0 APTT 32.7 Sodium 141 Potassium 4.2 Chloride 104 Carbon Dioxide 26 Anion Gap 15 BUN 14 Creatinine 1.04 Estim Creat Clear Calc 127.2 Estimated GFR > 60 Random Glucose 110 Calcium 9.6 Magnesium 1.8 Total Bilirubin < 0.2 Direct Bilirubin < 0.2 AST 27 ALT 33 Alkaline Phosphatase 77 Total Protein 7.4 Albumin 4.5 COVID-19 ([facility]) COVID-19 Clin Com Blood Type Antibody Screen 04/16/22 04/16/22 18:08 19:00 WBC RBC Hgb Hct MCV MCH MCHC RDW Plt Count MPV Immature Gran % (Auto) Neut % (Auto) Lymph % (Auto) [place] % (Auto) Eos % (Auto) Baso % (Auto) Lymph # (Auto) [place] # (Auto) Eos # (Auto) Baso # (Auto) Abs Immat Gran (auto) Absolute Neuts (auto) Absolute Nucleated RBC Nucleated RBC % (auto) PT INR APTT Sodium Potassium Chloride Carbon Dioxide Anion Gap BUN Creatinine Estim Creat Clear Calc Estimated GFR Random Glucose Calcium Magnesium Total Bilirubin Direct Bilirubin AST ALT Alkaline Phosphatase Total Protein Albumin COVID-19 ([facility]) Negative COVID-19 Clin Com See Note Blood Type O Positive Antibody Screen NEGATIVE Airway Mallampati Class: III Assessment and Plan Assessment Anesthesia Assessment: Anesthesia Plan Discussed and Chart Reviewed Final Anesthetic Review Family History of Problems with Anesthesia: No History of Problems with Anesthesia: No NPO: Yes ASA Class: III and Emergency Final Preanesthetic Review: Meds/Allgs Chart Reviewed, Consent Obtained/Reviewed and Anes Risks/Benef Reviewed Patient Risk: Intermediate Procedure Risk: Intermediate Anesthetic Plan Anesthetic Plan: GA Disposition: Inp. Admit - ICU
--- NOTE | 2022-04-16 23:15 | P.OP_ITS ---
Operative Note Operative Note Date of Service: 04/16/22 Narrative: Operative note by [facility] Preoperative diagnosis: Acute right upper extremity ischemia Postoperative diagnosis: Same Procedure: 1. Cutdown of right brachial artery 2. Thrombectomy of brachial artery 3 thrombectomy of radial artery 4. Thrombectomy of ulnar artery Surgeon:Tres Betts M.D. Lease Broker: None Anesthesia: General Specimens: 1 Drains: None Estimated blood loss: Minimal Indications: 36-year-old gentleman status post cardiac catheterization presented with acute on chronic right upper extremity ischemia. Had progressive pain since Friday. His cardiac catheterization was this past . He now presents with right upper extremity pain. On ultrasound was found to have thrombosis of the radial artery. He now presents for operative intervention this was discussed with the and organ builder present The patient has signed the informed consent after reviewing risks, complications, benefits, and a lternatives previously discussed with the patient. The patient was given the opportunity to ask any additional questions or voice any concerns. All questions were answered to the patient's satisfaction. Procedure in detail: Patient was brought to the operating room prior to which a time-out was called for patient identification site verification. Right upper extremity was prepped and draped in standard surgical fashion. Cutdown was created over the brachial artery. We obtain proximal and distal control with silastic loops. We then made a transverse incision. There was occluded flow. We did not appreciate anything. We 1st plasty the 3. Ginger more proximally into the brachial artery and this immediately established this flow. We tried to pass it distally had a difficult time. In a appear to passed down the radial artery and the ulnar artery appeared to be chronically occluded. We did several passes with this coming down the radial artery and appeared to be doing relatively well. Once this was accomplished we then closed off arteriotomy with interrupted 6 0 sutures. We made a new arteriotomy on the ulnar artery. We tried to pass Ginger is a up and down the ulnar artery directly home we were able to remove a little bit of clot from this area but we were unable to completely plasty the Ginger distally. We tried as much as we could to clear. We did establish reasonable radial artery flow. Good flow in return were achieved. We then closed the 2nd arteriotomy with a 6 0 Prolene. Adequate hemostasis was achieved. Deep layer was reapproximated using 2 0 Polysorb superficial layer with 3-0 poly Sorb and finally skin with a running subcuticular 4-0 Monocryl. At the end the case sponge instrument counts were correct. Patient tolerated the procedure well. Returned to recovery with stable vitals. Right upper extremity motor and sensation of the hand was intact. This note is constructed using voice recognition software. While every effort has been made to ensure accuracy, oncology consultant errors may have been included. Thank you for allowing me to participate in the care of your patient. Yours sincerely, Tres Betts MD, FACS, R.P.V.I.
--- NOTE | 2022-04-16 23:28 | ECG_ITS ---
Test Reason : CP Blood Pressure : / mmHG Vent. Rate : 084 BPM Atrial Rate : 084 BPM P-R Int : 136 ms QRS Dur : 106 ms QT Int : 392 ms P-R-T Axes : 054 063 041 degrees QTc Int : 463 ms Sinus rhythm with sinus arrhythmia with frequent , and consecutive Premature ventricular complexes Abnormal ECG When compared with ECG of 28-DEC-2021 20:50, No significant change was found Referred By: Tres Betts Electronically Signed By:ELIZABETH ROMERO
--- NOTE | 2022-04-16 23:32 | PM.CCHP ---
History of Present Illness Date of Service: 04/16/22 Chief Complaint: Right extremity pain 36-year-old male with past medical history of? asthma, cardiomyopathy, hypertension, hypercholesterolemia,? and obstructive sleep apnea? who recently? underwent cardiac catheterization on 04/11/22? at [facility]? after nuclear perfusion study.? Cardiac catheterization did not show any coronary disease? who presented to the emergency room with? pain in his right forearm.? Patient states? he? did okay until friday04/14/2022? where he developed right radial site pain well as forearm pain that has progressively been getting worse. Today, In The ED,ultrasound of the right upper extremity? showed acute thrombus seen in the right mid to distal radial artery. Dr Betts, vascular surgeon, consulted and took patient to operating room for thrombectomy.? ? Patient is now post Thrombectomy of brachial artery, radial artery and ulnar artery by Dr Betts. Patient admitted to ICU? for closely hemodynamically monitoring Review of Systems Constitutional: Constitutional: Denies fatigue, Denies fever(s), Denies headache(s) and Denies weakness ENT: Denies dizziness and Denies headache(s) Cardiovascular: Cardiovascular: Reports chest pain ( states he had chest pressure when first arrived to the ED) and Denies dyspnea Respiratory: Respiratory: Denies cough and Denies dyspnea Gastrointestinal: Gastrointestinal: Denies diarrhea and Denies nausea Musculoskeletal: Musculoskeletal: Denies tingling Comments: right upper extremity pain, adhesion from brachial to radial. denies numbness, tingling Neurologic: Denies dizziness, Denies headache(s), Denies tingling and Denies weakness Endocrine: Endocrine: Denies fatigue [facility] Past Medical History Medical History (Updated 04/17/22 @ 00:29 by Teresa Juares NP) Asthma High cholesterol HTN (hypertension) Family History Family History Mother Diabetes 1.5, managed as type 2 Arthritis Social History Social History Patient Tobacco Use Status: Former Tobacco user Quit Date: November 2021 Use of substances other than those prescribed or required for medical reasons: No Substance Use Type: Marijuana Are you DNR?: No Advance Directives: No Advance Directives Information Provided: No Meds Allergies Allergy/AdvReac Type Severity Reaction Status Date / Time No Known Allergies Allergy Verified 04/16/22 14:48 Active Medications: Current Medications Acetaminophen (Acetaminophen 325 Mg Tablet) 650 mg PO Q6H PRN PRN Reason: Pain, Mild (Pain Scale 1-3) Fentanyl (Fentanyl Citrate/Pf 100 Mcg/2 Ml Vial) 50 mcg IVPUSH Q5M PRN; Protocol PRN Reason: Pain, Severe (Pain Scale 7-10) Heparin Sodium (Porcine) (Heparin Sodium,Porcine 5,000 Unit/Ml Vial) 4,900 unit 40 unit/kg (4900 unit) IVPUSH PROTOCOL BOLUS PRN; Protocol PRN Reason: 40 unit/kg - Heparin Protocol Heparin Sodium (Porcine) (Heparin Sodium,Porcine 5,000 Unit/Ml Vial) 9,700 unit 80 unit/kg (9700 unit) IVPUSH PROTOCOL BOLUS PRN; Protocol PRN Reason: 80 unit/kg - Heparin Protocol Heparin Sodium/Sodium Chloride (Heparin Sodium,Porcine/1/2ns) 25,000 unit in 250 mls @ 0 mls/hr IVCONT .Q0M [facility]; Protocol Last Admin: 04/16/22 19:10 Dose: 14 units/kg/hr, 17.02 mls/hr Sodium Chloride (Ns) 1,000 mls @ 80 mls/hr IVCONT .[id number] [facility] Cefazolin Sodium/Dextrose (Ancef) 2 gm in 50 mls @ 100 mls/hr IV POSTOP ONE Stop: 04/16/22 23:37 Morphine Sulfate (Morphine Sulfate 2 Mg/Ml Cartridge) 2 mg IVPUSH Q4H PRN; Protocol PRN Reason: Pain, Severe (Pain Scale 7-10) Ondansetron HCl (Ondansetron Hcl 4 Mg/2 Ml Vial) 4 mg IVPUSH ONCE PRN PRN Reason: Nausea and Vomiting Oxycodone HCl (Oxycodone Hcl Immed Release 5 Mg Tablet) 5 mg PO Q4H PRN PRN Reason: Pain, Moderate (Pain Scale 4-6 Oxycodone HCl (Oxycodone Hcl Immed Release 5 Mg Tablet) 5 mg PO ONCE PRN PRN Reason: Pain, Severe (Pain Scale 7-10) Pharmacy Consult (Consult Rx Perform Med Rec) 1 each MISCELLANE ONCE PRN PRN Reason: Consult order Sodium Chloride (0.9 % Sodium Chloride Flush 3 Ml Syringe) 3 ml IVFLUSH [facility] Home Medications Medication Instructions Recorded Confirmed Last Taken Type blood pressure kit-extra large #1 ea 03/05/22 03/05/22 Unknown History clonazepam 1 mg tablet 1 mg PO BID PRN Anxiety 03/05/22 04/16/22 Unknown History fenofibrate 160 mg tablet 160 mg PO DAILY 03/05/22 04/16/22 Unknown History fluticasone propionate 50 2 spray intranasal DAILY 03/05/22 04/16/22 Unknown History mcg/actuation nasal spray,suspension gabapentin 300 mg capsule 300 mg PO TID 03/05/22 04/16/22 Unknown History loratadine 10 mg tablet 10 mg PO DAILY 03/05/22 04/16/22 Unknown History nicotine 21 mg/24 hr daily 1 patch topical DAILY 03/05/22 04/16/22 Unknown History transdermal patch omeprazole 20 mg capsule,delayed 20 mg PO BID@0630,1630 03/05/22 04/16/22 Unknown History release zolpidem 10 mg tablet 10 mg PO BEDTIME PRN Insomnia 03/05/22 04/16/22 Unknown History albuterol sulfate 90 mcg/actuation 2 puff inhalation Q4-6H PRN 04/16/22 04/16/22 Unknown History aerosol inhaler (ProAir HFA) wheezing cholecalciferol (vitamin D3) 50 1 tab PO DAILY 04/16/22 04/16/22 Unknown History mcg (2,000 unit) tablet quetiapine 200 mg tablet 1 tab PO BEDTIME 04/16/22 04/16/22 Unknown History tamsulosin 0.4 mg capsule 1 cap PO DAILY@1700 04/16/22 04/16/22 Unknown History Physical Exam Vital Signs: Vital Signs: Last Vital Signs Temp 97.2 F 04/16/22 23:02 Pulse 84 04/16/22 23:17 Resp 18 04/16/22 23:17 BP 167/89 H 04/16/22 23:17 Pulse Ox 98 04/16/22 23:17 O2 Del Method 04/16/22 23:17 O2 Flow Rate 4 04/16/22 23:17 BMI result Body Mass Index 39.3 Constitutional: Alert, in no distress. Sitting comfortably on the hospital bed. Mental Status: Oriented to person, place and time. Head: Normocephalic. Eyes: Pupils are equal, round and reactive to light. Extraocular muscles intact. Ear, Nose and Throat: Oropharynx clear, mucous membranes moist. Ears and nose without masses, lesions or deformities. Trachea midline. Neck: Supple, Full range of motion. Respiratory: Lungs CTA.? ? Cardiovascular: Sinus rhythm. S1 S2 regular. R Radial pulse intermittently with doppler . R Ulnar faint on doppler . + R brachial. No murmurs, rubs or gallops. Gastrointestinal: Abdomen soft, non-tender, non-distended. Normal bowel sounds. No pulsatile mass. No hepatosplenomegaly. Genitourinary: No costovertebral angle tenderness. Neurologic: Cranial nerves II-XII grossly intact. No focal neurological deficits. Moves all extremities on command. Sensation intact bilaterally. Skin: No rashes or lesions. No petechiae or purpura. No edema Musculoskeletal: No cyanosis or clubbing. No gross deformities. Normal range of motion. Psychiatric: Normal mood and affect Results Labs CBC and Chem 7: 04/16/22 18:08 04/16/22 18:08 Labs: Laboratory Results - last 24 hr 04/16/22 04/16/22 04/16/22 18:08 18:08 18:08 MCV 88.2 MCH 29.8 MCHC 33.8 RDW 12.7 Plt Count 354 MPV 10.1 Immature Gran % (Auto) 0.2 Neut % (Auto) 58.9 Lymph % (Auto) 27.6 [place] % (Auto) 11.4 H Eos % (Auto) 1.0 Baso % (Auto) 0.9 Lymph # (Auto) 2.9 [place] # (Auto) 1.2 Eos # (Auto) 0.1 Baso # (Auto) 0.1 Abs Immat Gran (auto) 0.02 Absolute Neuts (auto) 6.1 Absolute Nucleated RBC 0.000 Nucleated RBC % (auto) 0.0 PT 11.7 INR 1.0 APTT 32.7 Anion Gap 15 Estim Creat Clear Calc 127.2 Estimated GFR > 60 Random Glucose 110 Calcium 9.6 Magnesium 1.8 Total Bilirubin < 0.2 Direct Bilirubin < 0.2 AST 27 ALT 33 Alkaline Phosphatase 77 Total Protein 7.4 Albumin 4.5 COVID-19 ([facility]) COVID-19 Clin Com Blood Type Antibody Screen 04/16/22 04/16/22 18:08 19:00 MCV MCH MCHC RDW Plt Count MPV Immature Gran % (Auto) Neut % (Auto) Lymph % (Auto) [place] % (Auto) Eos % (Auto) Baso % (Auto) Lymph # (Auto) [place] # (Auto) Eos # (Auto) Baso # (Auto) Abs Immat Gran (auto) Absolute Neuts (auto) Absolute Nucleated RBC Nucleated RBC % (auto) PT INR APTT Anion Gap Estim Creat Clear Calc Estimated GFR Random Glucose Calcium Magnesium Total Bilirubin Direct Bilirubin AST ALT Alkaline Phosphatase Total Protein Albumin COVID-19 ([facility]) Negative COVID-19 Clin Com See Note Blood Type O Positive Antibody Screen NEGATIVE Assessment and Plan (1) Radial artery thrombosis, right: Status: Acute (2) Ischemia of right upper extremity: Status: Acute Plan 36-year-old male with past medical history of? asthma, cardiomyopathy, hypertension, hypercholesterolemia,? and obstructive sleep apnea? who recently underwent cardiac catheterization on 04/11/22? at [facility], now presents with right mid to distal radial artery thrombosis requiring emergent thrombectomy? by Dr. Betts.? Problem list? Acute right upper extremity ischemia Right radial artery thrombosis s/p? thrombectomy HTN? Plan:? patient underwent with Dr. Betts.? per Dr. Betts will continue heparin.? Postop EKG? with no acute ischemic changes. will obtain postop labs.
[2022-04-17] VITALS (24 sets, daily range): BP systolic 119–160; BP diastolic 55–75; PULSE 53–109; RESP 12–20; TEMP 36.3–37.5; O2SAT 93–98
[2022-04-17] MEDS: 0.9 % Sodium Chloride 1,000 ML 80 ML IVCONT ×2 (00:22→12:37)
[2022-04-17 01:16] LABS: MANUAL DIFF FLAG NO
[2022-04-17 01:25] LABS: Basophils Absolute Auto 0.1 X10*3/uL (0.0-0.2); Basophils Percent Auto 0.5 % (0-2); Eosinophils Percent Auto 0.1 % (0-4); Hemoglobin 14.3 g/dl (14.0-18.0); Imm Gran Abs Auto 0.03 X10*3/uL (0.00-0.03); Imm Gran Pct Auto 0.3 % (0.0-0.4); Lymphocytes Absolute Auto 1.3 X10*3/uL (1.2-4.9); Lymphocytes Percent Auto 12.4 % (20-40); Mean Corpuscular Volume 88.2 fL (80.0-98.0); Mean Platelet Volume 11.4 fL (9.4-12.4); Monocytes Absolute Auto 0.2 X10*3/uL (0.1-1.2); Monocytes Percent Auto 1.8 % (2-11); Neutrophils Absolute Auto 9.1 x10*3/uL (2.0-8.3); Neutrophils Percent Auto 84.9 % (45-73); Platelet Count 192 X10*3/uL (160-400); Red Blood Count 4.76 X10*6/uL (4.60-5.80); Red Cell Distribution Width 12.7 % (11.0-16.0); White Blood Count 10.7 X10*3/uL (4.8-10.8)
[2022-04-17 01:42] LABS: Troponin-I High Sensitivity 14.2 ng/L (<3.5-35.0)
[2022-04-17 01:50] LABS: Prothrombin Time 11.7 SEC (10.0-13.1)
[2022-04-17 01:56] LABS: Anion Gap 16 (12-20); Blood Urea Nitrogen 13 mg/dL (9-16); Carbon Dioxide 24 mmol/L (22-29); Chloride 104 mmol/L (96-108); Creatinine Clr Calc Pharmacy 127.2; Estimated Glomerular Filt Rate > 60; Glucose Random 157 mg/dL (60-115); Magnesium 1.7 mg/dL (1.6-2.6); Phosphorus 2.6 mg/dL (2.7-4.5); Potassium 4.3 mmol/L (3.3-5.1); Sodium 140 mmol/L (135-145)
[2022-04-17] MEDS: Magnesium Sulfate/D5W 1 GM/100 ML PIGGYBACK IV (02:25)
[2022-04-17] MEDS: Sodium,Potassium Phosphates POWD.PACK 2 PACKET PO (02:26)
[2022-04-17 03:16] LABS: PTT Heparin Drip 55.7 SEC (53-77.9)
[2022-04-17] MEDS: ceFAZolin Sodium/Dextrose,Iso 2 GM/50 ML PIGGYBACK IV (03:36)
--- NOTE | 2022-04-17 04:00 | PC.NURSE ---
Pt admitted to ICU at approx 0000 from PACU. Pt A&Ox4. NSR/SB on tele, HR 50-70s, occasional PVCs/bigemeny. BP WNL. R brachial surgical site dressing changed d/t small amount of sanguinous drainage- steri strips/sutures intact. R radial pulse present intermittently, slightly diminished- doppler required to obtain. R ulnar pulse present, slightly diminished- doppler required to obtain. NETBACKUP ENGINEER aware. RUE warm and good sensation per pt. Heparing gtt running per protocol. Otherwise pt offers no complaints. Aware of plan of care.
[2022-04-17] MEDS: Acetaminophen 325 MG TABLET 650 MG PO (06:11)
[2022-04-17 07:15] LABS: MANUAL DIFF FLAG NO
[2022-04-17 07:19] LABS: Basophils Percent Auto 0.2 % (0-2); Hemoglobin 14.4 g/dl (14.0-18.0); Imm Gran Abs Auto 0.05 X10*3/uL (0.00-0.03); Imm Gran Pct Auto 0.4 % (0.0-0.4); Lymphocytes Absolute Auto 1.5 X10*3/uL (1.2-4.9); Lymphocytes Percent Auto 11.3 % (20-40); Mean Corpuscular HGB Conc 34.3 g/dl (31.0-36.0); Mean Corpuscular Hemoglobin 29.9 pg (27.0-33.0); Mean Corpuscular Volume 87.3 fL (80.0-98.0); Mean Platelet Volume 9.7 fL (9.4-12.4); Monocytes Absolute Auto 0.6 X10*3/uL (0.1-1.2); Monocytes Percent Auto 4.5 % (2-11); Neutrophils Absolute Auto 11.4 x10*3/uL (2.0-8.3); Neutrophils Percent Auto 83.6 % (45-73); Platelet Count 361 X10*3/uL (160-400); Red Blood Count 4.81 X10*6/uL (4.60-5.80); Red Cell Distribution Width 12.5 % (11.0-16.0); White Blood Count 13.7 X10*3/uL (4.8-10.8)
[2022-04-17 07:27] LABS: PTT Heparin Drip 81.9 SEC (53-77.9)
[2022-04-17 07:37] LABS: Anion Gap 17 (12-20); Blood Urea Nitrogen 11 mg/dL (9-16); Carbon Dioxide 21 mmol/L (22-29); Chloride 104 mmol/L (96-108); Creatinine Clr Calc Pharmacy 148.7; Estimated Glomerular Filt Rate > 60; Glucose Random 158 mg/dL (60-115); Magnesium 1.7 mg/dL (1.6-2.6); Phosphorus 2.7 mg/dL (2.7-4.5); Potassium 4.4 mmol/L (3.3-5.1); Sodium 138 mmol/L (135-145)
[2022-04-17] MEDS: Heparin Sodium,Porcine/1/2NS 25,000 UNIT/250 ML IV.SOLN 14.59 UNIT IVCONT ×2 (08:03→12:57)
--- NOTE | 2022-04-17 08:11 | HO.POSTANES ---
Post Anesthesia Evaluation Post Anesthesia Evaluation Vital Signs: Vital Signs Temp Pulse Pulse Pulse Resp BP Pulse Ox 04/17/22 07:42 86 86 04/17/22 07:00 91 12 132/55 L 93 04/17/22 06:00 92 19 135/66 94 04/17/22 05:00 81 14 123/72 95 04/17/22 04:00 66 16 123/75 94 04/17/22 03:00 97.3 F 84 18 132/69 95 04/17/22 02:00 82 20 122/65 95 04/17/22 01:00 83 20 134/72 94 04/17/22 00:00 97.8 F 75 19 147/70 H 95 04/17/22 00:27 62 62 04/16/22 23:12 93 04/16/22 23:45 97.7 F 84 18 158/81 H 95 04/17/22 03:58 70 70 04/16/22 23:30 79 18 155/96 H 96 04/16/22 23:17 84 18 167/89 H 98 04/16/22 23:12 83 17 170/83 H 98 04/16/22 23:07 89 17 194/99 H 98 04/16/22 23:02 97.2 F 98 17 171/109 H 98 04/16/22 20:13 98.7 F 95 20 149/62 H 97 O2 Del Method O2 Flow Rate 04/17/22 07:42 04/17/22 07:00 Room Air 04/17/22 06:00 Room Air 04/17/22 05:00 Room Air 04/17/22 04:00 Room Air 04/17/22 03:00 Room Air 04/17/22 02:00 Room Air 04/17/22 01:00 Room Air 04/17/22 00:00 Room Air 04/17/22 00:27 04/16/22 23:12 Room Air 04/16/22 23:45 Nasal Cannula 2 04/17/22 03:58 04/16/22 23:30 Simple Mask 4 04/16/22 23:17 Simple Mask 4 04/16/22 23:12 Simple Mask 6 04/16/22 23:07 Simple Mask 6 04/16/22 23:02 Simple Mask 6 04/16/22 20:13 Room Air Anesthesia: General Mental Status: Awake Pain Control: Satisfactory Nausea/Vomiting: None Hydration: Adequate Anesthesia-Related Issues: No Anes. Related Issues
--- NOTE | 2022-04-17 09:57 | HO.VASCPN ---
Subjective Subjective Date of Service: 04/17/22 Patient reports: no new complaints and feels better Interval history: Patient seen examined. No significant events overnight. Reports pain an arm function is significantly better this morning. He is currently being maintained on a heparin drip. Currently in the ICU. Physical Exam Vital Signs: Vital Signs: Last Vital Signs Temp 97.5 F 04/17/22 08:00 Pulse 99 04/17/22 09:00 Resp 15 04/17/22 09:00 BP 130/67 04/17/22 09:00 Pulse Ox 95 04/17/22 09:00 O2 Del Method 04/17/22 09:00 O2 Flow Rate 2 04/16/22 23:45 BMI result Body Mass Index 39.3 Const: General: cooperative, healthy appearing and no acute distress Orientation/consciousness: oriented to person, oriented to place and oriented to time HEENT: Head: Yes normal to inspection Neck: Carotids: no bruits Chest: Chest palpation & inspection: normal inspection of the chest Resp: Effort & Inspection: normal respiratory effort and able to speak in complete sentences Auscultation: clear to auscultation bilaterally Cardio: Other: Right upper extremity palpable brachial intact radial and ulnar signal Rate: regular rate Heart sounds: S1 normal heart sound present and S2 normal heart sound present GI: Inspection: Yes normal to inspection Skin: General skin exam: no rashes or lesions noted Wounds: no wounds Neuro: General: oriented to person, oriented to place, oriented to time and CN's II-XI intact bilaterally Extrem: General: Yes normal to inspection, Yes full ROM and Yes no clubbing, cyanosis or edema Psych: Appearance: grossly normal and well kempt Speech and movement: Normal speech and movement present Affect: normal affect Progress Note: A&P Assessment and plan (1) Ischemia of right upper extremity: Status: Acute Assessment and Plan: in short patient is doing well. stable for transfer up to [facility]. Will continue on heparin drip. Will need to be transition to long-term oral anticoagulant. advanced diet and activity as tolerated. Time Spent With Patient Time: Total time spent is greater than 50% in coordination of care (as documented) at patient's floor/unit and/or counseling patient: Procedures Date of Service Date of Service: 04/17/22 Quality Stroke Does the patient have a stroke diagnosis?: No VTE Prior VTE?: No VTE Risk Level:: Surgical - high VTE Device Contraindication: Treatment Not Indicated VTE Drug Contraindication: N/A - Med Ordered
[2022-04-17] MEDS: 0.9 % Sodium Chloride Flush 3 ML SYRINGE IVFLUSH ×3 (10:25→20:24)
--- NOTE | 2022-04-17 11:31 | MHC.CM.PN ---
Meet with patient and plant control operator to complete CM Assessment. A&O x3. Lives @ home w/ . No services in the home. Vax'd and boosted. PCP Verified. Plan to D/C home w/ . to transport.
[2022-04-17] MEDS: oxyCODONE HCl Immed Release 5 MG TABLET PO ×2 (12:35→16:30)
--- NOTE | 2022-04-17 12:47 | PM.PNCARD ---
Subjective Subjective Date of Service: 04/17/22 Interval history: Status post upper extremity thrombectomy yesterday. Complaining of pain in the arm and at the surgical site. Dopplerable radial pulse as per nurse. Physical Exam Vital Signs: Last Vital Signs Temp 98 F 04/17/22 10:42 Pulse 53 04/17/22 10:42 Resp 18 04/17/22 10:42 BP 160/63 H 04/17/22 10:42 Pulse Ox 95 04/17/22 10:42 O2 Del Method 04/17/22 10:42 O2 Flow Rate 2 04/16/22 23:45 BMI result Body Mass Index 39.3 GENERAL APPEARANCE: in no acute distress, pleasant. NECK: no carotid bruit, no jugular venous distention. SKIN: Dressing over the right antecubital fossa due to recent thrombectomy. HEART: no murmurs, regular rate and rhythm. LUNGS: clear to auscultation bilaterally. ABDOMEN: soft, nontender. EXTREMITIES: no edema. PERIPHERAL PULSES: Right radial artery is Doppler able as per nurse. I could not palpate it. Good hand perfusion as yesterday. NEUROLOGIC: No gross deficits, AAO X 3 Objective Labs and Meds Result diagrams: 04/17/22 07:12 04/17/22 07:12 Lab results: Laboratory Results - last 24 hr 04/16/22 04/16/22 04/16/22 18:08 18:08 18:08 WBC 10.3 RBC 4.90 Hgb 14.6 Hct 43.2 MCV 88.2 MCH 29.8 MCHC 33.8 RDW 12.7 Plt Count 354 MPV 10.1 Immature Gran % (Auto) 0.2 Neut % (Auto) 58.9 Lymph % (Auto) 27.6 [place] % (Auto) 11.4 H Eos % (Auto) 1.0 Baso % (Auto) 0.9 Lymph # (Auto) 2.9 [place] # (Auto) 1.2 Eos # (Auto) 0.1 Baso # (Auto) 0.1 Abs Immat Gran (auto) 0.02 Absolute Neuts (auto) 6.1 Absolute Nucleated RBC 0.000 Nucleated RBC % (auto) 0.0 PT 11.7 INR 1.0 APTT 32.7 aPTT Heparin Protocol Sodium 141 Potassium 4.2 Chloride 104 Carbon Dioxide 26 Anion Gap 15 BUN 14 Creatinine 1.04 Estim Creat Clear Calc 127.2 Estimated GFR > 60 Random Glucose 110 Calcium 9.6 Phosphorus Magnesium 1.8 Total Bilirubin < 0.2 Direct Bilirubin < 0.2 AST 27 ALT 33 Alkaline Phosphatase 77 Troponin I High Sens Total Protein 7.4 Albumin 4.5 COVID-19 ([facility]) COVID-19 Clin Com Blood Type Antibody Screen 04/16/22 04/16/22 04/17/22 18:08 19:00 01:05 WBC 10.7 RBC 4.76 Hgb 14.3 Hct 42.0 MCV 88.2 MCH 30.0 MCHC 34.0 RDW 12.7 Plt Count 192 D MPV 11.4 Immature Gran % (Auto) 0.3 Neut % (Auto) 84.9 H Lymph % (Auto) 12.4 L [place] % (Auto) 1.8 L Eos % (Auto) 0.1 Baso % (Auto) 0.5 Lymph # (Auto) 1.3 [place] # (Auto) 0.2 Eos # (Auto) 0.0 Baso # (Auto) 0.1 Abs Immat Gran (auto) 0.03 Absolute Neuts (auto) 9.1 H Absolute Nucleated RBC 0.000 Nucleated RBC % (auto) 0.0 PT INR APTT aPTT Heparin Protocol Sodium Potassium Chloride Carbon Dioxide Anion Gap BUN Creatinine Estim Creat Clear Calc Estimated GFR Random Glucose Calcium Phosphorus Magnesium Total Bilirubin Direct Bilirubin AST ALT Alkaline Phosphatase Troponin I High Sens Total Protein Albumin COVID-19 ([facility]) Negative COVID-19 Clin Com See Note Blood Type O Positive Antibody Screen NEGATIVE 04/17/22 04/17/22 04/17/22 01:05 01:05 01:05 WBC RBC Hgb Hct MCV MCH MCHC RDW Plt Count MPV Immature Gran % (Auto) Neut % (Auto) Lymph % (Auto) [place] % (Auto) Eos % (Auto) Baso % (Auto) Lymph # (Auto) [place] # (Auto) Eos # (Auto) Baso # (Auto) Abs Immat Gran (auto) Absolute Neuts (auto) Absolute Nucleated RBC Nucleated RBC % (auto) PT 11.7 INR 1.0 APTT aPTT Heparin Protocol Sodium 140 Potassium 4.3 Chloride 104 Carbon Dioxide 24 Anion Gap 16 BUN 13 Creatinine 1.04 Estim Creat Clear Calc 127.2 Estimated GFR > 60 Random Glucose 157 H D Calcium 9.0 D Phosphorus 2.6 L Magnesium 1.7 Total Bilirubin Direct Bilirubin AST ALT Alkaline Phosphatase Troponin I High Sens 14.2 Total Protein Albumin COVID-19 ([facility]) COVID-19 [facility] Blood Type Antibody Screen 04/17/22 04/17/22 04/17/22 01:05 07:12 07:12 WBC 13.7 H RBC 4.81 Hgb 14.4 Hct 42.0 MCV 87.3 MCH 29.9 MCHC 34.3 RDW 12.5 Plt Count 361 D MPV 9.7 Immature Gran % (Auto) 0.4 Neut % (Auto) 83.6 H Lymph % (Auto) 11.3 L [place] % (Auto) 4.5 Eos % (Auto) 0.0 Baso % (Auto) 0.2 Lymph # (Auto) 1.5 [place] # (Auto) 0.6 Eos # (Auto) 0.0 Baso # (Auto) 0.0 Abs Immat Gran (auto) 0.05 H Absolute Neuts (auto) 11.4 H Absolute Nucleated RBC 0.000 Nucleated RBC % (auto) 0.0 PT INR APTT aPTT Heparin Protocol 55.7 Sodium 138 Potassium 4.4 Chloride 104 Carbon Dioxide 21 L Anion Gap 17 BUN 11 Creatinine 0.89 Estim Creat Clear Calc 148.7 Estimated GFR > 60 Random Glucose 158 H Calcium 9.0 Phosphorus Magnesium Total Bilirubin Direct Bilirubin AST ALT Alkaline Phosphatase Troponin I High Sens Total Protein Albumin COVID-19 ([facility]) COVID-19 [facility] Blood Type Antibody Screen 04/17/22 04/17/22 07:12 07:12 WBC RBC Hgb Hct MCV MCH MCHC RDW Plt Count MPV Immature Gran % (Auto) Neut % (Auto) Lymph % (Auto) [place] % (Auto) Eos % (Auto) Baso % (Auto) Lymph # (Auto) [place] # (Auto) Eos # (Auto) Baso # (Auto) Abs Immat Gran (auto) Absolute Neuts (auto) Absolute Nucleated RBC Nucleated RBC % (auto) PT INR APTT aPTT Heparin Protocol 81.9 H D Sodium Potassium Chloride Carbon Dioxide Anion Gap BUN Creatinine Estim Creat Clear Calc Estimated GFR Random Glucose Calcium Phosphorus 2.7 Magnesium 1.7 Total Bilirubin Direct Bilirubin AST ALT Alkaline Phosphatase Troponin I High Sens Total Protein Albumin COVID-19 ([facility]) COVID-Contractually [facility] Blood Type Antibody Screen Progress Note: A&P Assessment and plan (1) Radial artery thrombosis, right: Status: Acute Plan 36-year-old gentleman who underwent cardiac catheterization on last week for abnormal nuclear perfusion study and cardiomyopathy. He developed arm pain on Friday and eventually saw his primary care physician yesterday on April 16 and underwent ultrasound which showed radial artery thrombosis. He was seen by vascular surgery and underwent thrombectomy. He has pain in his arm as well as the surgical site currently. Vascular surgery is going to follow him. Blood pressure currently high but he is complaining of pain and may be this is the reason for his elevated blood pressure. Would avoid titrating medications currently. Further management as per vascular surgery. Time Spent With Patient Time: Total time spent is greater than 50% in coordination of care (as documented) at patient's floor/unit and/or counseling patient: Progress Note: Quality Stroke Does the patient have a stroke diagnosis?: No Procedures Date of Service Date of Service: 04/17/22
[2022-04-17] MEDS: Morphine Sulfate 2 MG/ML CARTRIDGE IVPUSH ×2 (12:50→21:39)
--- NOTE | 2022-04-17 12:50 | PM.CCPN ---
Subjective Subjective Date of Service: 04/17/22 Interval History: 36-year-old gentleman with underlying history of asthma, cardiomyopathy hypertension, ESTEVAN admitted on 04/16/2022 with 3 day history of right forearm pain that started 3 days after he had a cardiac catheterization through right radial artery at [facility]. On ER evaluation patient was noted to have an acute thrombus in the right mid to distal radial artery and had and emergent thrombectomy on 04/16/2022 by vascular surgery. Patient admitted to intensive care unit for close monitoring in the postop appropriate and continued on heparin drip. No events overnight. Critical Care Time (minutes): 0 Physical Exam Vital Signs: Vital Signs: Last Vital Signs Temp 98 F 04/17/22 10:42 Pulse 53 04/17/22 10:42 Resp 18 04/17/22 12:50 BP 160/63 H 04/17/22 10:42 Pulse Ox 95 04/17/22 10:42 O2 Del Method 04/17/22 10:42 O2 Flow Rate 2 04/16/22 23:45 BMI result Body Mass Index 39.3 Const: General: no acute distress, alert and awake Eyes: Sclerae: sclerae normal EOM: EOMs intact bilaterally Neck: Neck: Yes no lymphadenopathy, Yes trachea midline and Yes supple Resp: Effort & Inspection: normal respiratory effort and no respiratory distress Auscultation: clear to auscultation bilaterally Cardio: Rate: regular rate Rhythm: regular rhythm Heart sounds: no gallops, no murmurs and no rubs GI: Palpation (GI): Soft to palpation and Other GI palpation findings present ( Nontender) Auscultation: normal bowel sounds Extrem: General: Yes no pedal edema, No clubbing, No cyanosis and Yes other (Right arm with mild surgical site pain, full sensation/motion) Objective Data Labs CBC & Chem 7: 04/17/22 07:12 04/17/22 07:12 Labs: Laboratory Results - last 24 hr 04/16/22 04/16/22 04/16/22 18:08 18:08 18:08 WBC 10.3 RBC 4.90 Hgb 14.6 Hct 43.2 MCV 88.2 MCH 29.8 MCHC 33.8 RDW 12.7 Plt Count 354 MPV 10.1 Immature Gran % (Auto) 0.2 Neut % (Auto) 58.9 Lymph % (Auto) 27.6 [place] % (Auto) 11.4 H Eos % (Auto) 1.0 Baso % (Auto) 0.9 Lymph # (Auto) 2.9 [place] # (Auto) 1.2 Eos # (Auto) 0.1 Baso # (Auto) 0.1 Abs Immat Gran (auto) 0.02 Absolute Neuts (auto) 6.1 Absolute Nucleated RBC 0.000 Nucleated RBC % (auto) 0.0 PT 11.7 INR 1.0 APTT 32.7 aPTT Heparin Protocol Sodium 141 Potassium 4.2 Chloride 104 Carbon Dioxide 26 Anion Gap 15 BUN 14 Creatinine 1.04 Estim Creat Clear Calc 127.2 Estimated GFR > 60 Random Glucose 110 Calcium 9.6 Phosphorus Magnesium 1.8 Total Bilirubin < 0.2 Direct Bilirubin < 0.2 AST 27 ALT 33 Alkaline Phosphatase 77 Troponin I High Sens Total Protein 7.4 Albumin 4.5 COVID-19 (JOSE LUIS) COVID-19 Clin Com Blood Type Antibody Screen 04/16/22 04/16/22 04/17/22 18:08 19:00 01:05 WBC 10.7 RBC 4.76 Hgb 14.3 Hct 42.0 MCV 88.2 MCH 30.0 MCHC 34.0 RDW 12.7 Plt Count 192 D MPV 11.4 Immature Gran % (Auto) 0.3 Neut % (Auto) 84.9 H Lymph % (Auto) 12.4 L [place] % (Auto) 1.8 L Eos % (Auto) 0.1 Baso % (Auto) 0.5 Lymph # (Auto) 1.3 [place] # (Auto) 0.2 Eos # (Auto) 0.0 Baso # (Auto) 0.1 Abs Immat Gran (auto) 0.03 Absolute Neuts (auto) 9.1 H Absolute Nucleated RBC 0.000 Nucleated RBC % (auto) 0.0 PT INR APTT aPTT Heparin Protocol Sodium Potassium Chloride Carbon Dioxide Anion Gap BUN Creatinine Estim Creat Clear Calc Estimated GFR Random Glucose Calcium Phosphorus Magnesium Total Bilirubin Direct Bilirubin AST ALT Alkaline Phosphatase Troponin I High Sens Total Protein Albumin COVID-19 (JOSE LUIS) Negative COVID-19 Clin Com See Note Blood Type O Positive Antibody Screen NEGATIVE 04/17/22 04/17/22 04/17/22 01:05 01:05 01:05 WBC RBC Hgb Hct MCV MCH MCHC RDW Plt Count MPV Immature Gran % (Auto) Neut % (Auto) Lymph % (Auto) [place] % (Auto) Eos % (Auto) Baso % (Auto) Lymph # (Auto) [place] # (Auto) Eos # (Auto) Baso # (Auto) Abs Immat Gran (auto) Absolute Neuts (auto) Absolute Nucleated RBC Nucleated RBC % (auto) PT 11.7 INR 1.0 APTT aPTT Heparin Protocol Sodium 140 Potassium 4.3 Chloride 104 Carbon Dioxide 24 Anion Gap 16 BUN 13 Creatinine 1.04 Estim Creat Clear Calc 127.2 Estimated GFR > 60 Random Glucose 157 H D Calcium 9.0 D Phosphorus 2.6 L Magnesium 1.7 Total Bilirubin Direct Bilirubin AST ALT Alkaline Phosphatase Troponin I High Sens 14.2 Total Protein Albumin COVID-19 ([facility]) [facility] [place] [facility] Type Antibody Screen 04/17/22 04/17/22 04/17/22 01:05 07:12 07:12 WBC 13.7 H RBC 4.81 Hgb 14.4 Hct 42.0 MCV 87.3 MCH 29.9 MCHC 34.3 RDW 12.5 Plt Count 361 D MPV 9.7 Immature Gran % (Auto) 0.4 Neut % (Auto) 83.6 H Lymph % (Auto) 11.3 L [place] % (Auto) 4.5 Eos % (Auto) 0.0 Baso % (Auto) 0.2 Lymph # (Auto) 1.5 [place] # (Auto) 0.6 Eos # (Auto) 0.0 Baso # (Auto) 0.0 Abs Immat Gran (auto) 0.05 H Absolute Neuts (auto) 11.4 H Absolute Nucleated RBC 0.000 Nucleated RBC % (auto) 0.0 PT INR APTT aPTT Heparin Protocol 55.7 Sodium 138 Potassium 4.4 Chloride 104 Carbon Dioxide 21 L Anion Gap 17 BUN 11 Creatinine 0.89 Estim Creat Clear Calc 148.7 Estimated GFR > 60 Random Glucose 158 H Calcium 9.0 Phosphorus Magnesium Total Bilirubin Direct Bilirubin AST ALT Alkaline Phosphatase Troponin I High Sens Total Protein Albumin COVID-19 ([facility]SE [facility]) [facility] [place] Blood Type Antibody Screen 04/17/22 04/17/22 07:12 07:12 WBC RBC Hgb Hct MCV MCH MCHC RDW Plt Count MPV Immature Gran % (Auto) Neut % (Auto) Lymph % (Auto) [place] % (Auto) Eos % (Auto) Baso % (Auto) Lymph # (Auto) [place] # (Auto) Eos # (Auto) Baso # (Auto) Abs Immat Gran (auto) Absolute Neuts (auto) Absolute Nucleated RBC Nucleated RBC % (auto) PT INR APTT aPTT Heparin Protocol 81.9 H D Sodium Potassium Chloride Carbon Dioxide Anion Gap BUN Creatinine Estim Creat Clear Calc Estimated GFR Random Glucose Calcium Phosphorus 2.7 Magnesium 1.7 Total Bilirubin Direct Bilirubin AST ALT Alkaline Phosphatase Troponin I High Sens Total Protein Albumin COVID-19 (JOSE LUIS) COVID-19 Clin Com Blood Type Antibody Screen Progress Note: A&P Assessment and plan (1) Ischemia of right upper extremity: Status: Acute (2) Radial artery thrombosis, right: Status: Acute (3) Abnormal nuclear stress test: Status: Acute (4) Morbid obesity: Status: Acute (5) ESTEVAN (obstructive sleep apnea): Status: Acute Plan Assessment: 36-year-old gentleman admitted with acute right radial artery thrombosis, now status post thrombectomy with normal sensation and movement in his right upper extremity Plan: Neuro: No acute issues. Cardiovascular: Acute right radial artery thrombosis status post thrombectomy. Vascular surgery service care appreciated. Continue with heparin drip as per vascular surgery. Pulmonary: No acute issues. Underlying ESTEVAN, continue with CPAP of 12 at night. Renal: No acute issues. Endo: No acute issues. GI: No acute issues. ID: No acute issues Heme/Onc: No acute issues. Psych: No acute issues. Miscellaneous: No acute issues. Prophylaxis: Heparin drip Diet: Regular Quality Stroke Does the patient have a stroke diagnosis?: No VTE Prior VTE?: No VTE Risk Level:: Surgical - high VTE Device Contraindication: Treatment Not Indicated VTE Drug Contraindication: N/A - Med Ordered
[2022-04-17 14:41] LABS: PTT Heparin Drip 57.5 SEC (53-77.9)
[2022-04-17] MEDS: Omeprazole 20 MG CAPSULE.DR PO (16:30)
[2022-04-17] MEDS: Gabapentin 300 MG CAPSULE PO ×2 (16:30→20:24)
[2022-04-17] MEDS: Tamsulosin HCL 0.4 MG CAPSULE PO (16:30)
--- NOTE | 2022-04-17 16:45 | P.EN_ITS ---
Event Note Date of Service: 04/17/22 Event Note: patient seen and examined. ?history of asthma, cardiomyopathy hypertension, ESTEVAN admitted on 04/16/2022 with 3 day history of right forearm pain that started 3 days after he had a cardiac catheterization through right radial artery at [facility].? On ER evaluation patient was noted to have an acute thrombus in the right mid to distal radial artery and had and emergent thrombectomy on 04/16/2022 by vascular surgery.? physical exam: Appearance: Alert.? Oriented X3.? not in distress.? cvs: [id number], [id number] , no murmur res: clear to auscultation ,no rhonchii or wheezing abd: no rebound or guarding ,nt, bs present. ext : no cyanosis , Right arm with mild surgical site pain, full sensation/motion neuro: axo3 , nonfocal. Assessment and plan coordinated in ICU note . 36-year-old gentleman admitted with acute right radial artery thrombosis, now status post thrombectomy? ?Acute right radial artery thrombosis status post thrombectomy.? ? Continue with heparin drip as per vascular surgery. d/w vascular estevan /cpap at night
[2022-04-17 19:35] LABS: PTT Heparin Drip 44.3 SEC (53-77.9)
[2022-04-17] MEDS: QUEtiapine Fumarate 200 MG TABLET PO (20:24)
[2022-04-17] MEDS: Heparin Sodium,Porcine 5,000 UNIT/ML VIAL 4900 UNIT IVPUSH (20:24)
[2022-04-17] MEDS: Zolpidem Tartrate 5 MG TABLET 10 MG PO (21:39)
[2022-04-18] VITALS (8 sets, daily range): BP systolic 133–135; BP diastolic 69–82; PULSE 54–94; RESP 16–18; TEMP 36.8; O2SAT 80–97; BMI 40.0
[2022-04-18 03:23] LABS: MANUAL DIFF FLAG NO
[2022-04-18 03:25] LABS: Basophils Percent Auto 0.3 % (0-2); Eosinophils Percent Auto 0.2 % (0-4); Hematocrit 37.9 % (42.0-52.0); Hemoglobin 12.8 g/dl (14.0-18.0); Imm Gran Abs Auto 0.05 X10*3/uL (0.00-0.03); Imm Gran Pct Auto 0.4 % (0.0-0.4); Lymphocytes Absolute Auto 3.5 X10*3/uL (1.2-4.9); Lymphocytes Percent Auto 27.9 % (20-40); Mean Corpuscular HGB Conc 33.8 g/dl (31.0-36.0); Mean Corpuscular Hemoglobin 29.8 pg (27.0-33.0); Mean Corpuscular Volume 88.1 fL (80.0-98.0); Monocytes Absolute Auto 1.2 X10*3/uL (0.1-1.2); Monocytes Percent Auto 9.8 % (2-11); Neutrophils Absolute Auto 7.8 x10*3/uL (2.0-8.3); Neutrophils Percent Auto 61.4 % (45-73); Platelet Count 273 X10*3/uL (160-400); Red Cell Distribution Width 12.9 % (11.0-16.0); White Blood Count 12.6 X10*3/uL (4.8-10.8)
[2022-04-18 03:34] LABS: PTT Heparin Drip 98.8 SEC (53-77.9)
[2022-04-18] MEDS: 0.9 % Sodium Chloride 1,000 ML 80 ML IVCONT (05:57)
[2022-04-18] MEDS: Omeprazole 20 MG CAPSULE.DR PO (05:58)
[2022-04-18 07:04] LABS: Anion Gap 14 (12-20); Blood Urea Nitrogen 12 mg/dL (9-16); Calcium 8.7 mg/dL (8.4-10.2); Carbon Dioxide 26 mmol/L (22-29); Chloride 104 mmol/L (96-108); Estimated Glomerular Filt Rate > 60; Glucose Random 111 mg/dL (60-115); Potassium 4.1 mmol/L (3.3-5.1); Sodium 140 mmol/L (135-145)
[2022-04-18] MEDS: Fluticasone/Vilanterol 200/25 BLST.W.DEV 1 PUFF INHALE (07:27)
[2022-04-18] MEDS: Heparin Sodium,Porcine/1/2NS 25,000 UNIT/250 ML IV.SOLN 13.38 UNIT IVCONT (07:48)
[2022-04-18] MEDS: Gabapentin 300 MG CAPSULE PO (07:57)
[2022-04-18] MEDS: Fenofibrate 160 MG TABLET PO (07:57)
[2022-04-18] MEDS: Loratadine 10 MG TABLET PO (07:58)
[2022-04-18] MEDS: Metoprolol Succinate ER 50 MG TAB.ER.24H PO (08:00)
[2022-04-18] MEDS: amLODIPine Besylate 5 MG TABLET PO (08:00)
[2022-04-18] MEDS: Cholecalciferol (Vitamin D3) 25 MCG TABLET 50 MCG PO (08:00)
[2022-04-18] MEDS: Apixaban 5 MG TABLET 10 MG PO (11:26)
[2022-04-18 11:27] LABS: PTT Heparin Drip 37.8 SEC (53-77.9)
--- NOTE | 2022-04-18 12:27 | MHC.CM.PN ---
Patient is discharged to home no services. Patient has arranged for transportation home. Eliquis has been ordered @ discharge. The Eliquis coupon was provided. AC therapy management education provided via interpreter translator. Patient verbalized understanding of all instructions provided.
--- NOTE | 2022-04-18 12:50 | P.DS_ITS ---
DS: Providers Provider Date of Service: 04/18/22 Date of admission: 04/16/22 23:09 Primary care physician: Ngozi Payne DO DS: Diagnosis Discharge Diagnosis (1) Ischemia of right upper extremity: Status: Acute (2) Radial artery thrombosis, right: Status: Acute (3) Abnormal nuclear stress test: Status: Acute (4) Morbid obesity: Status: Acute (5) ESTEVAN (obstructive sleep apnea): Status: Acute DS: Summary Hospital Course Hospital Course: 36-year-old gentleman who actually underwent cardiac catheterization through right upper extremity radial approach presented to hospital with pain and discomfort. He was seen as an outpatient by his primary care physician and ultrasound was obtained. He was subsequently sent in for treatment. He noted significant pain and discomfort some numbness and tingling of the arm. He was immediately started on heparin drip. He underwent operative intervention and thrombectomy of the right upper extremity on April 16. Postoperatively he was transferred to the ICU that night. Maintained on a heparin drip postop day 1 he was transferred up to the floor tolerating a regular diet pain had significantly improved in the right upper extremity. Postop day 2 he was transition to [facility] and subsequently discharged. He was stable on discharge. Right upper extremity motor and sensation were intact. All discharge instructions were given to the patient with school occupational therapist present. Time Spent with Patient Time attestation: Total time spent providing and/or coordinating discharge services: Discharge coordination time: Greater than 30 minutes Quality: Safe Use of Opioids Does Pt have an Active Cancer Diagnosis on the Problem List?: No Quality: Stroke Does the patient have a stroke diagnosis?: No Physical Exam Vital Signs: Vital Signs: Last Vital Signs Temp 98.2 F 04/18/22 12:00 Pulse 54 04/18/22 12:00 Resp 16 04/18/22 12:00 BP 135/82 04/18/22 12:00 Pulse Ox 96 04/18/22 12:00 O2 Del Method 04/18/22 12:00 O2 Flow Rate 2 04/16/22 23:45 BMI result Body Mass Index 40.0 Const: General: cooperative, healthy appearing and no acute distress Orientation/consciousness: oriented to person, oriented to place and oriented to time HEENT: Head: Yes normal to inspection Neck: Carotids: no bruits Chest: Chest palpation & inspection: normal inspection of the chest Resp: Effort & Inspection: normal respiratory effort and able to speak in complete sentences Auscultation: clear to auscultation bilaterally Cardio: Other: Right upper extremity radial and ulnar signals palpable brachial pulse Rate: regular rate Heart sounds: S1 normal heart sound present and S2 normal heart sound present GI: Inspection: Yes normal to inspection Skin: General skin exam: no rashes or lesions noted Wounds: no wounds Neuro: General: oriented to person, oriented to place, oriented to time and CN's II-XI intact bilaterally Extrem: General: Yes normal to inspection, Yes full ROM and Yes no clubbing, cyanosis or edema Psych: Appearance: grossly normal and well kempt Speech and movement: Normal speech and movement present Affect: normal affect DS: Data Data Completed and Pending Pending studies at discharge: Pending at discharge 04/16/22 22:35 Surgical [PTH] Routine Labs on day of discharge: Laboratory Results - last 24 hr 04/17/22 04/17/22 04/18/22 14:16 18:32 02:44 WBC RBC Hgb Hct MCV MCH MCHC RDW Plt Count MPV Immature Gran % (Auto) Neut % (Auto) Lymph % (Auto) [place] % (Auto) Eos % (Auto) Baso % (Auto) Lymph # (Auto) [place] # (Auto) Eos # (Auto) Baso # (Auto) Abs Immat Gran (auto) Absolute Neuts (auto) Absolute Nucleated RBC Nucleated RBC % (auto) aPTT Heparin Protocol 57.5 D 44.3 L D 98.8 H D Sodium Potassium Chloride Carbon Dioxide Anion Gap BUN Creatinine Estim Creat Clear Calc Estimated GFR Random Glucose Calcium 04/18/22 04/18/22 04/18/22 02:44 05:52 11:06 WBC 12.6 H RBC 4.30 L Hgb 12.8 L Hct 37.9 L MCV 88.1 MCH 29.8 MCHC 33.8 RDW 12.9 Plt Count 273 MPV 11.0 Immature Gran % (Auto) 0.4 Neut % (Auto) 61.4 Lymph % (Auto) 27.9 [place] % (Auto) 9.8 Eos % (Auto) 0.2 Baso % (Auto) 0.3 Lymph # (Auto) 3.5 [place] # (Auto) 1.2 Eos # (Auto) 0.0 Baso # (Auto) 0.0 Abs Immat Gran (auto) 0.05 H Absolute Neuts (auto) 7.8 Absolute Nucleated RBC 0.000 Nucleated RBC % (auto) 0.0 aPTT Heparin Protocol 37.8 L D Sodium 140 Potassium 4.1 Chloride 104 Carbon Dioxide 26 Anion Gap 14 BUN 12 Creatinine 0.84 Estim Creat Clear Calc 159.0 Estimated GFR > 60 Random Glucose 111 Calcium 8.7 Discharge Plan Discharge Patient Disposition: Home, Self-Care Discharge Diagnosis: Status post thrombectomy right upper extremity Referrals: Ngozi Payne DO [Primary Care Provider] - 1 Week Discharge Medications: New Armani DVT-PE Treat 30D Start 5 mg (74 tabs) tablets,dose pack 5 mg PO BID Qty: 74 0RF oxycodone-acetaminophen [Percocet] 5-325 mg tablet 1 tab PO Q8H PRN (Reason: pain) Qty: 14 0RF Rx Instructions: Partial Fill upon patient request. Continued quetiapine 200 mg tablet 1 tab PO BEDTIME tamsulosin 0.4 mg capsule 1 cap PO DAILY@1700 cholecalciferol (vitamin D3) 50 mcg (2,000 unit) tablet 1 tab PO DAILY albuterol sulfate [ProAir HFA] 90 mcg/actuation HFA aerosol inhaler 2 puff INHALATION Q4-6H PRN (Reason: wheezing) zolpidem 10 mg tablet 10 mg PO BEDTIME PRN (Reason: Insomnia) nicotine 21 mg/24 hr patch 24 hour 1 patch topical DAILY clonazepam 1 mg tablet 1 mg PO BID PRN (Reason: Anxiety) (DME) blood pressure kit-extra large Kit See Rx Instructions .ROUTE DAILY Qty: 1 Rx Instructions: As directed fenofibrate 160 mg tablet 160 mg PO DAILY loratadine 10 mg tablet 10 mg PO DAILY fluticasone propionate 50 mcg/actuation spray,suspension 2 spray intranasal DAILY omeprazole 20 mg capsule,delayed release(DR/EC) 20 mg PO BID@0630,1630 gabapentin 300 mg capsule 300 mg PO TID amlodipine 5 mg tablet 5 mg PO DAILY Qty: 30 5RF metoprolol succinate 50 mg tablet extended release 24 hr 50 mg PO DAILY Qty: 30 5RF budesonide-formoterol [Symbicort] 160-4.5 mcg/actuation HFA aerosol inhaler 2 puff inhalation BID 30 Days Qty: 10.2 6RF Discharge Orders: Discharge Order (Routine); Ordered 04/18/22 Ordered By: Tres Betts Diet: Advance to usual diet Activity on Discharge: As tolerated Stand Alone Forms: Patient Portal Discharge page Care Plan Goals: make sure right arm is good Health Concerns: in short flow to right arm is good Plan of Treatment: postop. He will require Eliquis Assessment: right upper extremity arterial thrombosis
--- NOTE | 2022-04-18 13:04 | HO.PM.IMPN ---
Subjective Subjective Date of Service: 04/18/22 Interval History: right radial artery thrombosis Review of Systems arm pain improving denies any chest pain or shortness breath or fever or chills or cough or phlegm. Physical Exam Vital Signs: Vital Signs: Last Vital Signs Temp 98.2 F 04/18/22 12:00 Pulse 54 04/18/22 12:00 Resp 16 04/18/22 12:00 BP 135/82 04/18/22 12:00 Pulse Ox 96 04/18/22 12:00 O2 Del Method 04/18/22 12:00 O2 Flow Rate 2 04/16/22 23:45 BMI result Body Mass Index 40.0 Appearance: Alert.? Oriented X3.? not in distress.? cvs: [id number], [id number] , no murmur res: clear to auscultation ,no rhonchii or wheezing abd: no rebound or guarding ,nt, bs present. ext : no cyanosis , Right arm with mild surgical site pain, full sensation/motion neuro: axo3 , nonfocal. Objective Data Active Medications Acetaminophen (Acetaminophen 325 Mg Tablet) 650 mg PO Q6H PRN PRN Reason: Pain, Mild (Pain Scale 1-3) Last Admin: 04/17/22 06:11 Dose: 650 mg Documented By: RUBI Albuterol Sulfate (Albuterol Sulfate 90 Mcg 8 Gm Inhaler) 2 puff INHALE Q4H PRN PRN Reason: wheezing Amlodipine Besylate (Amlodipine Besylate 5 Mg Tablet) 5 mg PO DAILY [facility]; Protocol Last Admin: 04/18/22 08:00 Dose: 5 mg Documented By: CRYSTAL Apixaban (Apixaban 5 Mg Tablet) 10 mg PO BID [facility] Stop: 04/24/22 21:01 Last Admin: 04/18/22 11:26 Dose: 10 mg Documented By: CRYSTAL Clonazepam (Clonazepam 1 Mg Tablet) 1 mg PO BID PRN PRN Reason: Anxiety Fenofibrate (Fenofibrate 160 Mg Tablet) 160 mg PO DAILY [facility] Last Admin: 04/18/22 07:57 Dose: 160 mg Documented By: CRYSTAL Fentanyl (Fentanyl Citrate/Pf 100 Mcg/2 Ml Vial) 50 mcg IVPUSH Q5M PRN; Protocol PRN Reason: Pain, Severe (Pain Scale 7-10) Fluticasone Propionate (Fluticasone Propionate Nasal 16 Gm [place]) 2 spray NOSTRIL-B DAILY [facility] Last Admin: 04/18/22 11:26 Dose: Not Given Documented By: CRYSTAL Non-Admin Reason: Patient Refused Fluticasone/Vilanterol (Fluticasone/Vilanterol 200/25 Blst.W.Dev) 1 puff INHALE RDAILY [facility] Last Admin: 04/18/22 07:27 Dose: 1 puff Documented By: ISMAEL Gabapentin (Gabapentin 300 Mg Capsule) 300 mg PO TID [facility] Last Admin: 04/18/22 07:57 Dose: 300 mg Documented By: CRYSTAL Sodium Chloride (Ns) 1,000 mls @ 80 mls/hr IVCONT .[id number] [facility] Last Admin: 04/18/22 05:57 Dose: 80 mls/hr Documented By: CECILY Loratadine (Loratadine 10 Mg Tablet) 10 mg PO DAILY [facility] Last Admin: 04/18/22 07:58 Dose: 10 mg Documented By: CRYSTAL Metoprolol Succinate (Metoprolol Succinate Er 50 Mg Tab.Er.24h) 50 mg PO DAILY [facility]; Protocol Last Admin: 04/18/22 08:00 Dose: 50 mg Documented By: CRYSTAL Morphine Sulfate (Morphine Sulfate 2 Mg/Ml Cartridge) 2 mg IVPUSH Q4H PRN; Protocol PRN Reason: Pain, Severe (Pain Scale 7-10) Last Admin: 04/17/22 21:39 Dose: 2 mg Documented By: JOAQUÍN Nicotine (Nicotine 21 Mg Patch.Td24) 21 mg TRANSDERMA DAILY [facility] Last Admin: 04/18/22 08:02 Dose: Not Given Documented By: CRYSTAL Non-Admin Reason: Patient Refused Omeprazole (Omeprazole 20 Mg Capsule.) 20 mg PO BID@0630,1630 [facility] Last Admin: 04/18/22 05:58 Dose: 20 mg Documented By: CECILY Ondansetron HCl (Ondansetron Hcl 4 Mg/2 Ml Vial) 4 mg IVPUSH ONCE PRN PRN Reason: Nausea and Vomiting Oxycodone HCl (Oxycodone Hcl Immed Release 5 Mg Tablet) 5 mg PO Q4H PRN PRN Reason: Pain, Moderate (Pain Scale 4-6 Last Admin: 04/17/22 16:30 Dose: 5 mg Documented By: SERGIO Oxycodone HCl (Oxycodone Hcl Immed Release 5 Mg Tablet) 5 mg PO ONCE PRN PRN Reason: Pain, Severe (Pain Scale 7-10) Pharmacy Consult (Consult Rx Perform Med Rec) 1 each MISCELLANE ONCE PRN PRN Reason: Consult order Quetiapine Fumarate (Quetiapine Fumarate 200 Mg Tablet) 200 mg PO BEDTIME [facility] Last Admin: 04/17/22 20:24 Dose: 200 mg Documented By: JOAQUÍN Sodium Chloride (0.9 % Sodium Chloride Flush 3 Ml Syringe) 3 ml IVFLUSH QSHIFT [facility] Last Admin: 04/18/22 10:15 Dose: Not Given Documented By: CRYSTAL Non-Admin Reason: IV Running Tamsulosin HCl (Tamsulosin Hcl 0.4 Mg Capsule) 0.4 mg PO DAILY@1700 [facility] Last Admin: 04/17/22 16:30 Dose: 0.4 mg Documented By: SERGIO Vitamin D (Cholecalciferol (Vitamin D3) 25 Mcg Tablet) 50 mcg PO DAILY [facility] Last Admin: 04/18/22 08:00 Dose: 50 mcg Documented By: CRYSTAL Zolpidem Tartrate (Zolpidem Tartrate 5 Mg Tablet) 10 mg PO BEDTIME PRN PRN Reason: Insomnia Last Admin: 04/17/22 21:39 Dose: 10 mg Documented By: JOAQUÍN Labs CBC & Chem 7: 04/18/22 02:44 04/18/22 05:52 Labs: Laboratory Results - last 24 hr 04/17/22 04/17/22 04/18/22 14:16 18:32 02:44 MCV MCH MCHC RDW Plt Count MPV Immature Gran % (Auto) Neut % (Auto) Lymph % (Auto) [place] % (Auto) Eos % (Auto) Baso % (Auto) Lymph # (Auto) [place] # (Auto) Eos # (Auto) Baso # (Auto) Abs Immat Gran (auto) Absolute Neuts (auto) Absolute Nucleated RBC Nucleated RBC % (auto) aPTT Heparin Protocol 57.5 D 44.3 L D 98.8 H D Anion Gap Estim Creat Clear Calc Estimated GFR Random Glucose Calcium 04/18/22 04/18/22 04/18/22 02:44 05:52 11:06 MCV 88.1 MCH 29.8 MCHC 33.8 RDW 12.9 Plt Count 273 MPV 11.0 Immature Gran % (Auto) 0.4 Neut % (Auto) 61.4 Lymph % (Auto) 27.9 [place] % (Auto) 9.8 Eos % (Auto) 0.2 Baso % (Auto) 0.3 Lymph # (Auto) 3.5 [place] # (Auto) 1.2 Eos # (Auto) 0.0 Baso # (Auto) 0.0 Abs Immat Gran (auto) 0.05 H Absolute Neuts (auto) 7.8 Absolute Nucleated RBC 0.000 Nucleated RBC % (auto) 0.0 aPTT Heparin Protocol 37.8 L D Anion Gap 14 Estim Creat Clear Calc 159.0 Estimated GFR > 60 Random Glucose 111 Calcium 8.7 Assessment and Plan (1) Ischemia of right upper extremity: Status: Acute (2) Cardiomyopathy: Status: Acute (3) Morbid obesity: Status: Acute Plan 36-year-old male with past medical history of? asthma,? cardiomyopathy,? hypertension, hypercholesterolemia,? and obstructive sleep apnea? who recently underwent cardiac catheterization on 04/11/22? at [facility], now presents with right mid to distal radial artery thrombosis requiring emergent thrombectomy? by vascular. 1.acute right radial artery thrombosis, now status post thrombectomy? ?Acute right radial artery thrombosis status post thrombectomy.? s/p heparin drip improving-arm pain improivng,with normal sensation and movement in his right upper extremity vascular following 2.htn/cmp: continue home meds -metoprorlol,amlodipine follow-up with Cardiology outpatient. 3. History of asthma: Continue home medications. 4. Hypercholesteremia: continue fenofibrate. 5.morbid obesity: Advised to lose weight and cut down calories. will sign off now please call us for any further questions. Quality Stroke Does the patient have a stroke diagnosis?: No VTE Prior VTE?: No VTE Risk Level:: Surgical - high VTE Device Contraindication: Treatment Not Indicated VTE Drug Contraindication: N/A - Med Ordered
== END 2022-04-18 14:16 | disposition home or self-care (01) | DRG 182 ==
LOC: HO.ED 19:03 → HO.SSS 19:53 → HO.ICU 23:51 → HO.IMC 04-17 09:14
PROVIDERS: Internal Medicine Pulmonary Disease; Physician Assistant; Registered Nurse Community Health; Admitting Provider Surgery Vascular Surgery; Emergency Provider Emergency Medicine; PCP Family Medicine; Visit Provider Surgery Vascular Surgery
PROC: 03CB0ZZ Extirpation of Matter from Right Radial Artery, Open Approach (ICD-10-PCS; principal; 2022-04-16 19:30)
DX: I74.2 Embolism and thrombosis of arteries of the upper extremities (principal); I42.9 Cardiomyopathy, unspecified; I70.228 Atherosclerosis of native arteries of extremities with rest pain, other extremity; J45.909 Unspecified asthma, uncomplicated; G47.33 Obstructive sleep apnea (adult) (pediatric); E66.01 Morbid (severe) obesity due to excess calories; Z68.41 Body mass index [BMI] 40.0-44.9, adult; E78.00 Pure hypercholesterolemia, unspecified; I10 Essential (primary) hypertension; Z20.822 Contact with and (suspected) exposure to COVID-19; Z79.51 Long term (current) use of inhaled steroids; Z87.891 Personal history of nicotine dependence; Z79.899 Other long term (current) drug therapy
CPT/HCPCS: 36415; 80048; 80076; 83735; 84100; 84484; 85025; 85610; 85730; 86850; 86900; 86901; 87635; 88304; 93005; 94660; 99285; C1757; J0690; J1100; J1170; J2250; J2270; J2405; J2795; J3010; J3475

== ENCOUNTER → 2022-04-23 14:53 | Outpatient (BNVA) | payer MEDICAID, SELFPAY | PROVIDERS: PCP Family Medicine; Referring Provider Family Medicine; Visit Provider Nurse Practitioner Family | DX: I49.3 Ventricular premature depolarization (principal); I74.2 Embolism and thrombosis of arteries of the upper extremities; I42.9 Cardiomyopathy, unspecified; R00.2 Palpitations; R07.2 Precordial pain; I10 Essential (primary) hypertension; E78.5 Hyperlipidemia, unspecified; G47.33 Obstructive sleep apnea (adult) (pediatric); Z98.890 Other specified postprocedural states | CPT/HCPCS: 99212 ==

== ENCOUNTER 2022-04-26 12:33 | Emergency (ER) | payer MEDICAID, SELFPAY ==
[2022-04-26 12:36] VITALS: BP 123/69; PULSE 82; RESP 19; TEMP 36.6; O2SAT 98; BMI 32.5
[2022-04-26] MEDS: cephALEXin 500 MG CAPSULE PO (13:56)
[2022-04-26] MEDS: oxyCODONE HCl Immed Release 5 MG TABLET PO (13:57)
--- NOTE | 2022-04-26 14:22 | ED_ITS ---
HPI - Recheck/Abnormal Lab/Rx General Chief Complaint: Wound/Laceration Stated Complaint: infected wound on R arm Time Seen by Provider: 04/26/22 13:29 Source: patient Mode of arrival: ambulatory Limitations: no limitations History of Present Illness HPI narrative: 36-year-old male with PMH of HTN, asthma, recent cardiac catheterization and radial artery thrombus s/p thrombectomy of brachial artery/radial artery and ulnar artery postop day [address] Betts presenting today with pain and purulent drainage from surgical site on right arm that he noticed today. Patient reports his Steri-Strips got wet in the shower, and then he noticed a ?bump that popped ?and drained pus that had a bed smell. Denies any fevers, chest pain, shortness of breath, cough, headache, abdominal pain, nausea, vomiting, diarrhea. States the pain is severe, worse with movement of his arm and with palpation. Still has full sensation and range of motion of his hand and fingers. MD complaint: wound re-check Initial visit (ago): week(s) Returns today for: wound recheck Symptoms since prior visit: worsening pain and worsening discharge Associated symptoms: none Related Data Home Medications Medication Instructions Recorded Confirmed blood pressure kit-extra large #1 ea 03/05/22 04/23/22 clonazepam 1 mg tablet 1 mg PO BID PRN Anxiety 03/05/22 04/23/22 fenofibrate 160 mg tablet 160 mg PO DAILY 03/05/22 04/23/22 fluticasone propionate 50 2 spray intranasal DAILY 03/05/22 04/23/22 mcg/actuation nasal spray,suspension gabapentin 300 mg capsule 300 mg PO TID 03/05/22 04/23/22 loratadine 10 mg tablet 10 mg PO DAILY 03/05/22 04/23/22 nicotine 21 mg/24 hr daily 1 patch topical DAILY 03/05/22 04/23/22 transdermal patch omeprazole 20 mg capsule,delayed 20 mg PO BID@0630,1630 03/05/22 04/23/22 release zolpidem 10 mg tablet 10 mg PO BEDTIME PRN Insomnia 03/05/22 04/23/22 albuterol sulfate 90 mcg/actuation 2 puff inhalation Q4-6H PRN 04/16/22 04/23/22 aerosol inhaler (ProAir HFA) wheezing cholecalciferol (vitamin D3) 50 1 tab PO DAILY 04/16/22 04/23/22 mcg (2,000 unit) tablet quetiapine 200 mg tablet 200 mg PO BEDTIME 04/23/22 04/23/22 tamsulosin 0.4 mg capsule 0.4 mg PO DAILY@1700 04/23/22 04/23/22 Previous Rx's Medication Instructions Recorded amlodipine 5 mg tablet 5 mg PO DAILY #30 tabs 03/05/22 metoprolol succinate 50 mg 50 mg PO DAILY #30 tabs 03/05/22 tablet,extended release 24 hr budesonide-formoterol HFA 160 2 puff inhalation BID 30 days 04/03/22 mcg-4.5 mcg/actuation aerosol #10.2 grams inhaler (Symbicort) apixaban 5 mg (74 tabs) tablets in 5 mg PO BID #74 ea 04/18/22 a dose pack ([employer] DVT-PE Treat 30D Start) oxycodone-acetaminophen 5 mg-325 1 tab PO Q8H PRN pain #14 tabs 04/18/22 mg tablet (Percocet) cephalexin 500 mg capsule 500 mg PO Q6H 10 days #40 caps 04/26/22 doxycycline monohydrate 100 mg 100 mg PO BID 10 days #20 tabs 04/26/22 tablet oxycodone 5 mg tablet 5 mg PO Q6H PRN pain #14 tabs 04/26/22 Allergies Allergy/AdvReac Type Severity Reaction Status Date / Time No Known Allergies Allergy Verified 04/23/22 15:08 Review of Systems Review of Systems: Constitutional : No Fever, No Chills, Cardiovascular : No Chest Pain, No SOB Respiratory : No Dyspnea Gastrointestinal : No abdominal pain Musculoskeletal : No Joint Swelling Skin : + pain,+ redness, + drainage of surgical site on right forearm. Neuro : No Weakness, No Numbness/tingling Psych : No SI/HI/thoughts of self injury Yes all other systems are reviewed and are negative [facility] Past Medical History Attestation statement: The following information was validated with the patient. Source: old records reviewed and nursing notes reviewed Medical History Abnormal nuclear stress test Asthma High cholesterol HTN (hypertension) Radial artery thrombosis, right Surgical History S/P cardiac catheterization Family History Family History Mother Diabetes 1.5, managed as type 2 Arthritis Social History Social History Household Members: Spouse Housing: House Do you presently have visiting nurse or other home services: No Patient Tobacco Use Status: Former Tobacco user Quit Date: November 2021 Substance Use Type: Marijuana Advance Directives: No Advance Directives Information Provided: No service: No Current occupational status: disabled Physical Exam Vital Signs: Vital Signs: Last Vital Signs Temp 98 F 04/26/22 12:36 Pulse 82 04/26/22 12:36 Resp 19 04/26/22 12:36 BP 123/69 04/26/22 12:36 Pulse Ox 98 04/26/22 12:36 O2 Del Method 04/26/22 12:36 BMI result Body Mass Index 32.5 vital signs have been reviewed as normal and appeared to be correct. Blood pressure normal Heart rate normal. Respiration rate normal. Temperature normal. Oxygen saturation normal. Appearance: Alert. Oriented X3. No acute distress. Head: Normal external exam. Normocephalic. Atraumatic. Eyes: PERRLA. EOMI. Conjunctiva and sclera normal. Eyelids normal. ENT: Pharynx normal. Uvula midline. Moist mucous membranes. Neck: Normal inspection. Neck supple. FROM. CVS: Normal heart rate and rhythm. Respiratory: No respiratory distress. Painless inspiration. Skin: Steri-Strips present over surgical site on right forearm. purulent Drainage, erythema from distal apex of surgical site, exquisitely tender to palpation. No tracking, no obvious fluctuance. No streaking noted. Extremities: No lower extremity edema. Extremities exhibit normal range of motion. Extremities nontender. Neuro: Oriented X 3. No motor deficit. No sensory deficit. Reflexes normal. Normal steady gait. No focal neuro deficits noted. Course Course Course Narrative: 36-year-old male presenting with pain and drainage from surgical site status post radial arterial thrombus status post thrombectomy by Dr. Betts status post 8 days out. Steri-Strips removed and area of erythema and drainage noted at the distal apex of surgical site. Skin otherwise well approximated. No systemic signs of infection. Needle aspiration attempted with minimal drainage of pus mainly bloody discharge. I discussed this case with Dr. Betts and he is agreeable we do not believe the patient needs any labs or IV antibiotics at this time will place the patient on antibiotics and symptomatic treatment instructions follow-up with Dr. Betts on outpatient basis. Patient understands agrees with this plan. MDM - Recheck/Abnormal Lab/Rx Medical Records Attestation: I reviewed the patient's medical records. Discharge Plan Discharge Clinical Impression: Postoperative cellulitis of surgical wound Patient Disposition: Home, Self-Care Instructions: Wound Infection (ED), Surgical Site Infections (ED) Prescriptions: New cephalexin 500 mg capsule 500 mg PO Q6H 10 Days Qty: 40 0RF doxycycline monohydrate 100 mg tablet 100 mg PO BID 10 Days Qty: 20 0RF oxycodone 5 mg tablet 5 mg PO Q6H PRN (Reason: pain) Qty: 14 0RF Rx Instructions: Partial Fill upon patient request. No Action cholecalciferol (vitamin D3) 50 mcg (2,000 unit) tablet 1 tab PO DAILY albuterol sulfate [ProAir HFA] 90 mcg/actuation HFA aerosol inhaler 2 puff INHALATION Q4-6H PRN (Reason: wheezing) Eliquis DVT-PE Treat 30D Start 5 mg (74 tabs) tablets,dose pack 5 mg PO BID Qty: 74 0RF oxycodone-acetaminophen [Percocet] 5-325 mg tablet 1 tab PO Q8H PRN (Reason: pain) Qty: 14 0RF Rx Instructions: Partial Fill upon patient request. quetiapine 200 mg tablet 200 mg PO BEDTIME tamsulosin 0.4 mg capsule 0.4 mg PO DAILY@1700 zolpidem 10 mg tablet 10 mg PO BEDTIME PRN (Reason: Insomnia) nicotine 21 mg/24 hr patch 24 hour 1 patch topical DAILY clonazepam 1 mg tablet 1 mg PO BID PRN (Reason: Anxiety) (DME) blood pressure kit-extra large Kit See Rx Instructions .ROUTE DAILY Qty: 1 Rx Instructions: As directed fenofibrate 160 mg tablet 160 mg PO DAILY loratadine 10 mg tablet 10 mg PO DAILY fluticasone propionate 50 mcg/actuation spray,suspension 2 spray intranasal DAILY omeprazole 20 mg capsule,delayed release(DR/EC) 20 mg PO BID@0630,1630 gabapentin 300 mg capsule 300 mg PO TID amlodipine 5 mg tablet 5 mg PO DAILY Qty: 30 5RF metoprolol succinate 50 mg tablet extended release 24 hr 50 mg PO DAILY Qty: 30 5RF budesonide-formoterol [Symbicort] 160-4.5 mcg/actuation HFA aerosol inhaler 2 puff inhalation BID 30 Days Qty: 10.2 6RF Referrals: Ngozi Payne DO [Primary Care Provider] - 2 days Tres Betts MD [Physician] - 2 days Interventions: ED Discharge Assessment Last Done: 04/26/22 14:54 Discharge Date/Time: 04/26/22 15:06
== END 2022-04-26 15:06 | disposition home or self-care (01) ==
PROVIDERS: Emergency Provider Emergency Medicine Emergency Medical Services; PCP Family Medicine
DX: T81.49XA Infection following a procedure, other surgical site, initial encounter (principal); Y82.9 Unspecified medical devices associated with adverse incidents; L03.113 Cellulitis of right upper limb; I10 Essential (primary) hypertension; E78.00 Pure hypercholesterolemia, unspecified; F17.200 Nicotine dependence, unspecified, uncomplicated; Z98.890 Other specified postprocedural states; I74.2 Embolism and thrombosis of arteries of the upper extremities; Z79.01 Long term (current) use of anticoagulants; Z79.899 Other long term (current) drug therapy
CPT/HCPCS: 99283

== ENCOUNTER 2022-05-03 13:10 | Emergency (ER) | payer MEDICAID, SELFPAY ==
--- NOTE | ~2022-05-03 | CT_ITS ---
EXAMINATION: CT ANGIOGRAM OF THE CHEST WITH AND WITHOUT CONTRAST (CT PULMONARY ANGIOGRAM FOR PE) CLINICAL INFORMATION: Reason for Exam chest pain worse with respirations COMPARISON: Chest CT 12/13/2021 TECHNIQUE: Prior to contrast administration, noncontrast localization images were obtained. Subsequently, multidetector volumetric imaging was performed from the thoracic inlet to below the diaphragms following the administration of 71 mL Omnipaque 350 intravenous contrast. No contrast reaction reported Sagittal, coronal, and MIP oblique sagittal reformatted images were obtained on the CT workstation, uploaded to PACS, and reviewed. This CT examination was performed using dose optimization techniques as appropriate, variously including the following: *Automated exposure control *Adjustment of mA and/or kV according to patient size (this includes techniques or standardized protocols for targeted exams where dose is matched to indication/reason for exam; i.e. extremities or head) *Use of iterative reconstruction technique Total exam dose-length product 500 mGy-cm FINDINGS: QUALITY OF STUDY/CONTRAST BOLUS: Satisfactory. PULMONARY ARTERIES: There are nonenhancement of lingular segmental pulmonary arterial branches is felt secondary to respiratory motion artifact at this level. No appreciable central or segmental pulmonary embolus. THORACIC AORTA: No aneurysm or dissection. LUNG: No airspace consolidation. Minimal dependent bibasilar atelectasis. 6 mm calcified granuloma in the posterior left lower lobe. Several scattered small bilateral pulmonary nodules, sub-4 mm in size are unchanged. Central airways are clear. PLEURA: No pleural effusion or pneumothorax. MEDIASTINUM: No cardiomegaly. No appreciable coronary calcification. No mediastinal or hilar lymphadenopathy. No evidence of septal bowing or right heart strain. CHEST WALL/AXILLA: No axillary or internal mammary lymphadenopathy. Symmetrically increased subareolar soft tissue densities bilaterally compatible with gynecomastia. OSSEOUS STRUCTURES: No acute or suspicious osseous abnormality. Mild multilevel degenerative disc disease in the lower thoracic spine. UPPER ABDOMEN: Diffuse hepatic hypoattenuation/steatosis. Focal fatty sparing about the gallbladder. Imaged upper abdominal viscera otherwise grossly unremarkable. No reflux of contrast into the hepatic veins to suggest elevated right heart pressures. CT/CT angio chest PE protocol IMPRESSION: 1. No central or segmental pulmonary embolus identified. Apparent enhancement of lingular segmental pulmonary artery branches is felt related to respiratory motion artifact. 2. No airspace consolidation or effusions. 3. Hepatic steatosis. 4. Unchanged small lateral pulmonary nodules. VTE:
--- NOTE | 2022-05-03 13:11 | ECG_ITS ---
Test Reason : chest pain Blood Pressure : / mmHG Vent. Rate : 079 BPM Atrial Rate : 079 BPM P-R Int : 132 ms QRS Dur : 102 ms QT Int : 372 ms P-R-T Axes : 055 054 028 degrees QTc Int : 426 ms Sinus rhythm with frequent Premature ventricular complexes Otherwise normal ECG When compared with ECG of 16-APR-2022 23:24, No significant change was found Referred By: Generic ED Physician Electronically Signed By:ELIZABETH ROMERO
[2022-05-03 13:12] VITALS: BP 132/66; PULSE 59; RESP 18; TEMP 36.2; O2SAT 100; BMI 39.9
[2022-05-03 13:42] LABS: MANUAL DIFF FLAG NO
[2022-05-03 13:44] LABS: Basophils Absolute Auto 0.1 X10*3/uL (0.0-0.2); Basophils Percent Auto 1.1 % (0-2); Eosinophils Absolute Auto 0.1 X10*3/uL (0.0-0.4); Eosinophils Percent Auto 0.8 % (0-4); Hematocrit 39.5 % (42.0-52.0); Hemoglobin 13.5 g/dl (14.0-18.0); Imm Gran Abs Auto 0.02 X10*3/uL (0.00-0.03); Imm Gran Pct Auto 0.2 % (0.0-0.4); Lymphocytes Absolute Auto 2.7 X10*3/uL (1.2-4.9); Mean Corpuscular HGB Conc 34.2 g/dl (31.0-36.0); Mean Corpuscular Hemoglobin 29.9 pg (27.0-33.0); Mean Corpuscular Volume 87.6 fL (80.0-98.0); Mean Platelet Volume 9.3 fL (9.4-12.4); Monocytes Percent Auto 10.9 % (2-11); Neutrophils Absolute Auto 5.2 x10*3/uL (2.0-8.3); Platelet Count 403 X10*3/uL (160-400); Red Blood Count 4.51 X10*6/uL (4.60-5.80); Red Cell Distribution Width 12.3 % (11.0-16.0)
[2022-05-03 14:02] LABS: Alanine Aminotransferase 30 U/L (0-40); Albumin Level 4.4 g/dL (3.5-5.0); Alkaline Phosphatase 71 U/L (39-117); Anion Gap 13 (12-20); Aspartate Amino Transferase 25 U/L (5-37); Bilirubin Direct < 0.2 mg/dL (0.0-0.5); Bilirubin Total 0.3 mg/dL (0.0-1.0); Blood Urea Nitrogen 13 mg/dL (9-16); Calcium 9.9 mg/dL (8.4-10.2); Carbon Dioxide 27 mmol/L (22-29); Chloride 105 mmol/L (96-108); Creatinine Clr Calc Pharmacy 158.6; Estimated Glomerular Filt Rate > 60; Glucose Random 96 mg/dL (60-115); Lipase 17 U/L (8-78); Potassium 4.1 mmol/L (3.3-5.1); Sodium 141 mmol/L (135-145); Total Protein 7.2 g/dL (6.5-8.0)
[2022-05-03 14:10] LABS: Troponin-I High Sensitivity 20.9 ng/L (<3.5-35.0)
--- NOTE | 2022-05-03 15:42 | ED.CHESTPAIN ---
HPI - Chest Pain General Chief Complaint: Chest Pain Stated Complaint: chest pain into l shoulder Time Seen by Provider: 05/03/22 15:41 Source: patient Mode of arrival: ambulatory Limitations: no limitations Related Data Home Medications Medication Instructions Recorded Confirmed blood pressure kit-extra large #1 ea 03/05/22 04/23/22 clonazepam 1 mg tablet 1 mg PO BID PRN Anxiety 03/05/22 04/23/22 fenofibrate 160 mg tablet 160 mg PO DAILY 03/05/22 04/23/22 fluticasone propionate 50 2 spray intranasal DAILY 03/05/22 04/23/22 mcg/actuation nasal spray,suspension gabapentin 300 mg capsule 300 mg PO TID 03/05/22 04/23/22 loratadine 10 mg tablet 10 mg PO DAILY 03/05/22 04/23/22 nicotine 21 mg/24 hr daily 1 patch topical DAILY 03/05/22 04/23/22 transdermal patch omeprazole 20 mg capsule,delayed 20 mg PO BID@0630,1630 03/05/22 04/23/22 release zolpidem 10 mg tablet 10 mg PO BEDTIME PRN Insomnia 03/05/22 04/23/22 albuterol sulfate 90 mcg/actuation 2 puff inhalation Q4-6H PRN 04/16/22 04/23/22 aerosol inhaler (ProAir HFA) wheezing cholecalciferol (vitamin D3) 50 1 tab PO DAILY 04/16/22 04/23/22 mcg (2,000 unit) tablet quetiapine 200 mg tablet 200 mg PO BEDTIME 04/23/22 04/23/22 tamsulosin 0.4 mg capsule 0.4 mg PO DAILY@1700 04/23/22 04/23/22 apixaban 5 mg tablet (Eliquis) 0 mg PO 04/30/22 Previous Rx's Medication Instructions Recorded amlodipine 5 mg tablet 5 mg PO DAILY #30 tabs 03/05/22 metoprolol succinate 50 mg 50 mg PO DAILY #30 tabs 03/05/22 tablet,extended release 24 hr budesonide-formoterol HFA 160 2 puff inhalation BID 30 days 04/03/22 mcg-4.5 mcg/actuation aerosol #10.2 grams inhaler (Symbicort) oxycodone-acetaminophen 5 mg-325 1 tab PO Q8H PRN pain #14 tabs 04/18/22 mg tablet (Percocet) cephalexin 500 mg capsule 500 mg PO Q6H 10 days #40 caps 04/26/22 doxycycline monohydrate 100 mg 100 mg PO BID 10 days #20 tabs 04/26/22 tablet oxycodone 5 mg tablet 5 mg PO Q6H PRN pain #14 tabs 04/26/22 Allergies Allergy/AdvReac Type Severity Reaction Status Date / Time No Known Allergies Allergy Verified 04/30/22 10:55 Review of Systems Review of Systems: Constitutional : No Weight loss, No Fever, No Chills, No Fatigue, No Malaise ENT/Mouth : No sore throat, No Rhinorrhea Eyes: No Eye Pain, No Swelling, No Redness Cardiovascular : + Chest Pain, No SOB, No Dyspnea on Exertion, No Orthopnea, No Edema, No Palpitations Respiratory : No Cough, No Sputum, No Wheezing Gastrointestinal : No Nausea, No Vomiting, No Diarrhea, No Constipation, No abdominal Pain, No Hematochezia, No Melena Genitourinary : No Dysuria, No Urinary Frequency, No Hematuria, Musculoskeletal : No joint pain, No Myalgias, No Joint Swelling Skin : No Skin Lesions, No rash Neuro : No Weakness, No Numbness, No Dizziness, No Headache Psych : No Anxiety/Panic, No Depression All other systems reviewed and are negative Yes all other systems are reviewed and are negative [facility] Past Medical History Attestation statement: The following information was validated with the patient. Source: old records reviewed and nursing notes reviewed Medical History Abnormal nuclear stress test Asthma High cholesterol HTN (hypertension) Radial artery thrombosis, right Surgical History S/P cardiac catheterization Family History Family History Mother Diabetes 1.5, managed as type 2 Arthritis Social History Social History Household Members: Spouse Housing: House Do you presently have visiting nurse or other home services: No Patient Tobacco Use Status: Former Tobacco user Quit Date: November 2021 Substance Use Type: Marijuana service: No Current occupational status: disabled Physical Exam Vital Signs: Vital Signs: Last Vital Signs Temp 97.2 F 05/03/22 13:12 Pulse 59 05/03/22 13:12 Resp 18 05/03/22 13:12 BP 132/66 05/03/22 13:12 Pulse Ox 100 05/03/22 13:12 O2 Del Method 05/03/22 13:12 BMI result Body Mass Index 39.9 vss Appearance: Alert.? Oriented X3.? No acute distress.? Head: Normocephalic, atraumatic, no step-offs or deformities Eyes: Pupils equal, round and reactive to light.? ENT: Pharynx normal.? Neck: Normal inspection.? Neck supple.? CVS: Normal heart rate and rhythm.? Pulses normal.? Respiratory: No respiratory distress.? Breath sounds normal.? Abdomen: Soft and nontender.? Skin: Skin warm and dry.? Normal skin color.? Normal skin turgor.? Extremities: No lower extremity edema.? No calf ttp. 5/5 strength to bilateral upper and lower extremities Neuro: Oriented X 3.? No motor deficit.? No sensory deficit. CN 2-12 intact MDM - Chest Pain MDM Narrative Medical decision making narrative: 1546 PE benign Concerns for possible pericarditis. Unlikley PE, ACS, myocarditis. Plan- Medical Records Data Attestation: I reviewed the patient's medical records. Lab Data Attestation: I reviewed the patient's lab results. Result diagrams: 05/03/22 13:37 05/03/22 13:37 Labs: Lab Results 05/03/22 05/03/22 05/03/22 Range/Units 13:37 13:37 13:37 WBC 9.0 (4.8-10.8) X10*3/uL RBC 4.51 L (4.60-5.80) X10*6/uL Hgb 13.5 L (14.0-18.0) g/dl Hct 39.5 L (42.0-52.0) % MCV 87.6 (80.0-98.0) fL MCH 29.9 (27.0-33.0) pg MCHC 34.2 (31.0-36.0) g/dl RDW 12.3 (11.0-16.0) % Plt Count 403 H D (160-400) X10*3/uL MPV 9.3 L (9.4-12.4) fL Immature Gran % (Auto) 0.2 (0.0-0.4) % Neut % (Auto) 57.0 (45-73) % Lymph % (Auto) 30.0 (20-40) % [place] % (Auto) 10.9 (2-11) % Eos % (Auto) 0.8 (0-4) % Baso % (Auto) 1.1 (0-2) % Lymph # (Auto) 2.7 (1.2-4.9) X10*3/uL [place] # (Auto) 1.0 (0.1-1.2) X10*3/uL Eos # (Auto) 0.1 (0.0-0.4) X10*3/uL Baso # (Auto) 0.1 (0.0-0.2) X10*3/uL Abs Immat Gran (auto) 0.02 (0.00-0.03) X10*3/uL Absolute Neuts (auto) 5.2 (2.0-8.3) x10*3/uL Absolute Nucleated RBC 0.000 (0.0-0.012) X10*3/uL Nucleated RBC % (auto) 0.0 (0.0-0.2) /100WBC Sodium 141 (135-145) mmol/L Potassium 4.1 (3.3-5.1) mmol/L Chloride 105 (96-108) mmol/L Carbon Dioxide 27 (22-29) mmol/L Anion Gap 13 (12-20) BUN 13 (9-16) mg/dL Creatinine 0.84 (0.5-1.4) mg/dL Estim Creat Clear Calc 158.6 Estimated GFR > 60 Random Glucose 96 (60-115) mg/dL Calcium 9.9 D (8.4-10.2) mg/dL Total Bilirubin 0.3 (0.0-1.0) mg/dL Direct Bilirubin < 0.2 (0.0-0.5) mg/dL AST 25 (5-37) U/L ALT 30 (0-40) U/L Alkaline Phosphatase 71 (39-117) U/L Troponin I High Sens 20.9 (<3.5-35.0) ng/L Total Protein 7.2 (6.5-8.0) g/dL Albumin 4.4 (3.5-5.0) g/dL Lipase 17 (8-78) U/L Critical Care Time Critical Care Time Critical Care Time: No Discharge Plan Discharge Prescriptions: No Action cholecalciferol (vitamin D3) 50 mcg (2,000 unit) tablet 1 tab PO DAILY albuterol sulfate [ProAir HFA] 90 mcg/actuation HFA aerosol inhaler 2 puff INHALATION Q4-6H PRN (Reason: wheezing) oxycodone-acetaminophen [Percocet] 5-325 mg tablet 1 tab PO Q8H PRN (Reason: pain) Qty: 14 0RF Rx Instructions: Partial Fill upon patient request. quetiapine 200 mg tablet 200 mg PO BEDTIME tamsulosin 0.4 mg capsule 0.4 mg PO DAILY@1700 cephalexin 500 mg capsule 500 mg PO Q6H 10 Days Qty: 40 0RF doxycycline monohydrate 100 mg tablet 100 mg PO BID 10 Days Qty: 20 0RF oxycodone 5 mg tablet 5 mg PO Q6H PRN (Reason: pain) Qty: 14 0RF Rx Instructions: Partial Fill upon patient request. zolpidem 10 mg tablet 10 mg PO BEDTIME PRN (Reason: Insomnia) nicotine 21 mg/24 hr patch 24 hour 1 patch topical DAILY clonazepam 1 mg tablet 1 mg PO BID PRN (Reason: Anxiety) (DME) blood pressure kit-extra large Kit See Rx Instructions .ROUTE DAILY Qty: 1 Rx Instructions: As directed fenofibrate 160 mg tablet 160 mg PO DAILY loratadine 10 mg tablet 10 mg PO DAILY fluticasone propionate 50 mcg/actuation spray,suspension 2 spray intranasal DAILY omeprazole 20 mg capsule,delayed release(DR/EC) 20 mg PO BID@0630,1630 gabapentin 300 mg capsule 300 mg PO TID amlodipine 5 mg tablet 5 mg PO DAILY Qty: 30 5RF metoprolol succinate 50 mg tablet extended release 24 hr 50 mg PO DAILY Qty: 30 5RF budesonide-formoterol [Symbicort] 160-4.5 mcg/actuation HFA aerosol inhaler 2 puff inhalation BID 30 Days Qty: 10.2 6RF Eliquis 5 mg tablet 0 mg PO
--- NOTE | 2022-05-03 15:48 | ED_ITS ---
HPI - Chest Pain General Chief Complaint: Chest Pain Stated Complaint: chest pain into l shoulder Time Seen by Provider: 05/03/22 15:41 Source: patient Mode of arrival: ambulatory Limitations: no limitations History of Present Illness HPI narrative: 36-year-old male approximately 3 weeks status post cardiac catheterization for palpitations. Patient is morbidly obese he is on Eliquis but is unable to tell me why he states he has extra heartbeats maybe this is for atrial fibrillation since he is on the thighs and Toprol as well patient denies any falls or injuries he denies shortness of breath. MD complaint: chest pain Related Data Home Medications Medication Instructions Recorded Confirmed blood pressure kit-extra large #1 ea 03/05/22 04/23/22 clonazepam 1 mg tablet 1 mg PO BID PRN Anxiety 03/05/22 04/23/22 fenofibrate 160 mg tablet 160 mg PO DAILY 03/05/22 04/23/22 fluticasone propionate 50 2 spray intranasal DAILY 03/05/22 04/23/22 mcg/actuation nasal spray,suspension gabapentin 300 mg capsule 300 mg PO TID 03/05/22 04/23/22 loratadine 10 mg tablet 10 mg PO DAILY 03/05/22 04/23/22 nicotine 21 mg/24 hr daily 1 patch topical DAILY 03/05/22 04/23/22 transdermal patch omeprazole 20 mg capsule,delayed 20 mg PO BID@0630,1630 03/05/22 04/23/22 release zolpidem 10 mg tablet 10 mg PO BEDTIME PRN Insomnia 03/05/22 04/23/22 albuterol sulfate 90 mcg/actuation 2 puff inhalation Q4-6H PRN 04/16/22 04/23/22 aerosol inhaler (ProAir HFA) wheezing cholecalciferol (vitamin D3) 50 1 tab PO DAILY 04/16/22 04/23/22 mcg (2,000 unit) tablet quetiapine 200 mg tablet 200 mg PO BEDTIME 04/23/22 04/23/22 tamsulosin 0.4 mg capsule 0.4 mg PO DAILY@1700 04/23/22 04/23/22 apixaban 5 mg tablet (Eliquis) 0 mg PO 04/30/22 Previous Rx's Medication Instructions Recorded amlodipine 5 mg tablet 5 mg PO DAILY #30 tabs 03/05/22 metoprolol succinate 50 mg 50 mg PO DAILY #30 tabs 03/05/22 tablet,extended release 24 hr budesonide-formoterol HFA 160 2 puff inhalation BID 30 days 04/03/22 mcg-4.5 mcg/actuation aerosol #10.2 grams inhaler (Symbicort) oxycodone-acetaminophen 5 mg-325 1 tab PO Q8H PRN pain #14 tabs 04/18/22 mg tablet (Percocet) cephalexin 500 mg capsule 500 mg PO Q6H 10 days #40 caps 04/26/22 doxycycline monohydrate 100 mg 100 mg PO BID 10 days #20 tabs 04/26/22 tablet oxycodone 5 mg tablet 5 mg PO Q6H PRN pain #14 tabs 04/26/22 Allergies Allergy/AdvReac Type Severity Reaction Status Date / Time No Known Allergies Allergy Verified 04/30/22 10:55 Review of Systems Review of Systems: Review of systems: General: Patient denies any fever chills recent illness or falls Musculoskeletal: Denies back pain or body aches or other injuries HEENT: denies headache, runny nose, ear pain Respiratory: denies shortness of breath, cough Cardiovascular:chest pain no palpitations : denies dysuria, frequency Abdomen: no nausea vomiting denies abdominal pain Extremities: no swelling, no pain Skin: no diaphoresis Yes all other systems are reviewed and are negative [facility] Past Medical History Medical History Abnormal nuclear stress test Asthma High cholesterol HTN (hypertension) Radial artery thrombosis, right Surgical History S/P cardiac catheterization Family History Family History Mother Diabetes 1.5, managed as type 2 Arthritis Social History Social History Household Members: Spouse Housing: House Do you presently have visiting nurse or other home services: No Alcohol intake: never Patient Tobacco Use Status: Former Tobacco user Quit Date: November 2021 Use of substances other than those prescribed or required for medical reasons: No Substance Use Type: Marijuana Advance Directives: No Advance Directives Information Provided: Yes service: No Current occupational status: disabled Physical Exam Vital Signs: Vital Signs: Last Vital Signs Temp 98.4 F 05/03/22 16:33 Pulse 62 05/03/22 16:33 Resp 12 05/03/22 16:33 BP 132/74 05/03/22 16:33 Pulse Ox 100 05/03/22 16:33 O2 Del Method 05/03/22 16:33 BMI result Body Mass Index 39.9 General: Well-appearing well-nourished in no signs of distress HEENT: Normocephalic atraumatic Neck: No signs of JVD, no masses no tenderness or lymphadenopathy Cardiovascular: Regular rate and rhythm Respiratory: Clear to auscultation bilaterally Abdomen: Soft nontender no masses rectal exam performed guia negative quality reviewer confirmed. Extremities: Normal pedal pulses no signs of edema Skin: Dry warm no rashes Back: No tenderness full ROM MDM - Chest Pain MDM Narrative Medical decision making narrative: Patient is on Eliquis unlikely the patient has PE risk patient for study otherwise labs are okay I will get repeat troponin Pain is well controlled labs and CT are all negative I will discharge home Differential Diagnosis Differential diagnosis: Likely fracture of rib, pneumothorax, unstable angina pectoris and chest pain Differential diagnosis: PE.+ Medical Records Data Attestation: I reviewed the patient's medical records. Lab Data Attestation: I reviewed the patient's lab results. Result diagrams: 05/03/22 13:37 05/03/22 13:37 Labs: Lab Results 05/03/22 05/03/22 05/03/22 Range/Units 13:37 13:37 13:37 WBC 9.0 (4.8-10.8) X10*3/uL RBC 4.51 L (4.60-5.80) X10*6/uL Hgb 13.5 L (14.0-18.0) g/dl Hct 39.5 L (42.0-52.0) % MCV 87.6 (80.0-98.0) fL MCH 29.9 (27.0-33.0) pg MCHC 34.2 (31.0-36.0) g/dl RDW 12.3 (11.0-16.0) % Plt Count 403 H D (160-400) X10*3/uL MPV 9.3 L (9.4-12.4) fL Immature Gran % (Auto) 0.2 (0.0-0.4) % Neut % (Auto) 57.0 (45-73) % Lymph % (Auto) 30.0 (20-40) % Dundy % (Auto) 10.9 (2-11) % Eos % (Auto) 0.8 (0-4) % Baso % (Auto) 1.1 (0-2) % Lymph # (Auto) 2.7 (1.2-4.9) X10*3/uL Dundy # (Auto) 1.0 (0.1-1.2) X10*3/uL Eos # (Auto) 0.1 (0.0-0.4) X10*3/uL Baso # (Auto) 0.1 (0.0-0.2) X10*3/uL Abs Immat Gran (auto) 0.02 (0.00-0.03) X10*3/uL Absolute Neuts (auto) 5.2 (2.0-8.3) x10*3/uL Absolute Nucleated RBC 0.000 (0.0-0.012) X10*3/uL Nucleated RBC % (auto) 0.0 (0.0-0.2) /100WBC D-Dimer High Sensitivty NG/ML Sodium 141 (135-145) mmol/L Potassium 4.1 (3.3-5.1) mmol/L Chloride 105 (96-108) mmol/L Carbon Dioxide 27 (22-29) mmol/L Anion Gap 13 (12-20) BUN 13 (9-16) mg/dL Creatinine 0.84 (0.5-1.4) mg/dL Estim Creat Clear Calc 158.6 Estimated GFR > 60 Random Glucose 96 (60-115) mg/dL Calcium 9.9 D (8.4-10.2) mg/dL Total Bilirubin 0.3 (0.0-1.0) mg/dL Direct Bilirubin < 0.2 (0.0-0.5) mg/dL AST 25 (5-37) U/L ALT 30 (0-40) U/L Alkaline Phosphatase 71 (39-117) U/L Troponin I High Sens 20.9 (<3.5-35.0) ng/L Total Protein 7.2 (6.5-8.0) g/dL Albumin 4.4 (3.5-5.0) g/dL Lipase 17 (8-78) U/L 05/03/22 05/03/22 Range/Units 16:04 16:04 WBC (4.8-10.8) X10*3/uL RBC (4.60-5.80) X10*6/uL Hgb (14.0-18.0) g/dl Hct (42.0-52.0) % MCV (80.0-98.0) fL MCH (27.0-33.0) pg MCHC (31.0-36.0) g/dl RDW (11.0-16.0) % Plt Count (160-400) X10*3/uL MPV (9.4-12.4) fL Immature Gran % (Auto) (0.0-0.4) % Neut % (Auto) (45-73) % Lymph % (Auto) (20-40) % Dundy % (Auto) (2-11) % Eos % (Auto) (0-4) % Baso % (Auto) (0-2) % Lymph # (Auto) (1.2-4.9) X10*3/uL Dundy # (Auto) (0.1-1.2) X10*3/uL Eos # (Auto) (0.0-0.4) X10*3/uL Baso # (Auto) (0.0-0.2) X10*3/uL Abs Immat Gran (auto) (0.00-0.03) X10*3/uL Absolute Neuts (auto) (2.0-8.3) x10*3/uL Absolute Nucleated RBC (0.0-0.012) X10*3/uL Nucleated RBC % (auto) (0.0-0.2) /100WBC D-Dimer High Sensitivty < 150 NG/ML Sodium (135-145) mmol/L Potassium (3.3-5.1) mmol/L Chloride (96-108) mmol/L Carbon Dioxide (22-29) mmol/L Anion Gap (12-20) BUN (9-16) mg/dL Creatinine (0.5-1.4) mg/dL Estim Creat Clear Calc Estimated GFR Random Glucose (60-115) mg/dL Calcium (8.4-10.2) mg/dL Total Bilirubin (0.0-1.0) mg/dL Direct Bilirubin (0.0-0.5) mg/dL AST (5-37) U/L ALT (0-40) U/L Alkaline Phosphatase (39-117) U/L Troponin I High Sens 20.0 (<3.5-35.0) ng/L Total Protein (6.5-8.0) g/dL Albumin (3.5-5.0) g/dL Lipase (8-78) U/L Scores Heart Score History: -0- slightly suspicious ECG: -0- normal Age: -0- < or = 45 Risk factory: -1- 1 or 2 risk factors Troponin: -0- < or = normal limit Score: 1 Risk: 1.7% Discharge Plan Discharge Clinical Impression: Chest pain Patient Disposition: Home, Self-Care Instructions: Chest Pain (DC) Additional Instructions: Please call to follow up with your doctor. If you have any other concerns please return to the ED. Prescriptions: No Action cholecalciferol (vitamin D3) 50 mcg (2,000 unit) tablet 1 tab PO DAILY albuterol sulfate [ProAir HFA] 90 mcg/actuation HFA aerosol inhaler 2 puff INHALATION Q4-6H PRN (Reason: wheezing) oxycodone-acetaminophen [Percocet] 5-325 mg tablet 1 tab PO Q8H PRN (Reason: pain) Qty: 14 0RF Rx Instructions: Partial Fill upon patient request. quetiapine 200 mg tablet 200 mg PO BEDTIME tamsulosin 0.4 mg capsule 0.4 mg PO DAILY@1700 cephalexin 500 mg capsule 500 mg PO Q6H 10 Days Qty: 40 0RF doxycycline monohydrate 100 mg tablet 100 mg PO BID 10 Days Qty: 20 0RF oxycodone 5 mg tablet 5 mg PO Q6H PRN (Reason: pain) Qty: 14 0RF Rx Instructions: Partial Fill upon patient request. zolpidem 10 mg tablet 10 mg PO BEDTIME PRN (Reason: Insomnia) nicotine 21 mg/24 hr patch 24 hour 1 patch topical DAILY clonazepam 1 mg tablet 1 mg PO BID PRN (Reason: Anxiety) (DME) blood pressure kit-extra large Kit See Rx Instructions .ROUTE DAILY Qty: 1 Rx Instructions: As directed fenofibrate 160 mg tablet 160 mg PO DAILY loratadine 10 mg tablet 10 mg PO DAILY fluticasone propionate 50 mcg/actuation spray,suspension 2 spray intranasal DAILY omeprazole 20 mg capsule,delayed release(DR/EC) 20 mg PO BID@0630,1630 gabapentin 300 mg capsule 300 mg PO TID amlodipine 5 mg tablet 5 mg PO DAILY Qty: 30 5RF metoprolol succinate 50 mg tablet extended release 24 hr 50 mg PO DAILY Qty: 30 5RF budesonide-formoterol [Symbicort] 160-4.5 mcg/actuation HFA aerosol inhaler 2 puff inhalation BID 30 Days Qty: 10.2 6RF Eliquis 5 mg tablet 0 mg PO
[2022-05-03 15:57] VITALS: BP 128/65; PULSE 64; RESP 16; TEMP 36.6; O2SAT 98
[2022-05-03 16:18] LABS: D Dimer High Sensitivity < 150 NG/ML
[2022-05-03 16:33] VITALS: BP 132/74; PULSE 62; RESP 12; TEMP 36.9; O2SAT 100
[2022-05-03] MEDS: iohexoL 350 MG/ML 100 ML INFUS..BTL IV (17:36)
== END 2022-05-03 18:28 | disposition home or self-care (01) ==
PROVIDERS: Physician Assistant; Emergency Provider Student in an Organized Health Care Education/Training Program; PCP Family Medicine
DX: R07.9 Chest pain, unspecified (principal); I10 Essential (primary) hypertension; E78.00 Pure hypercholesterolemia, unspecified; F12.90 Cannabis use, unspecified, uncomplicated; E66.01 Morbid (severe) obesity due to excess calories; Z68.39 Body mass index [BMI] 39.0-39.9, adult; Z79.01 Long term (current) use of anticoagulants; Z79.899 Other long term (current) drug therapy; Z87.891 Personal history of nicotine dependence
CPT/HCPCS: 36415; 71275; 80053; 82248; 83690; 84484; 85025; 85379; 93005; 99284; 99285; Q9967

== ENCOUNTER → 2022-05-07 22:26 | Outpatient (REF) | payer MEDICAID, SELFPAY | LOC: HO.SL 22:26 | PROVIDERS: PCP Family Medicine; Visit Provider Family Medicine | DX: G47.33 Obstructive sleep apnea (adult) (pediatric) (principal) | CPT/HCPCS: 95811 ==

== ENCOUNTER 2022-05-22 20:14 | Emergency (ER) | payer MEDICAID, SELFPAY ==
--- NOTE | ~2022-05-22 | US_ITS ---
EXAMINATION: ULTRASOUND ARTERIAL DUPLEX UPPER EXTREMITY RIGHT CLINICAL INFORMATION: Pain, swelling, history thrombectomy COMPARISON: 04/16/2022 TECHNIQUE: Doppler evaluation of the right upper extremity arteries including color flow and spectral analysis. FINDINGS: Subclavian artery proximal: Peak systolic velocity 232 cm/s, triphasic flow Subclavian artery mid: Peak systolic velocity 238 cm/s, triphasic flow Subclavian artery distal: Peak systolic velocity 132 cm/s, triphasic flow Axillary artery: Peak systolic velocity 78 cm/s, triphasic flow Brachial artery proximal: Peak systolic velocity 84 cm/s, biphasic flow Brachial artery mid: Peak systolic velocity 85 cm/s, biphasic flow Brachial artery distal: Peak systolic velocity 60 cm/s, biphasic flow Radial artery: Endoluminal material in the mid and distal radial artery is consistent with residual thrombus. Limited evaluation for color and Doppler flow in the right radial artery; peak systolic velocity 22 cm/s, monophasic flow Ulnar artery: Peak systolic velocity 31 cm/s, biphasic flow US/US arterial duplex UE RT IMPRESSION: Residual thrombus in the right radial artery; there is suboptimal assessment for arterial flow in this region, though some radial artery flow is identified.
--- NOTE | ~2022-05-22 | US_ITS ---
EXAMINATION: US VENOUS WITH DOPPLER UPPER EXTREMITY, RIGHT CLINICAL INFORMATION: Swelling, history thrombectomy COMPARISON: 04/16/2022 TECHNIQUE: Ultrasound of the upper extremity is performed using compression sonography and color and pulse Doppler flow with assessment of augmentation of flow. There is also imaging and Doppler assessment of the jugular and subclavian veins. Spectral analysis with color-flow imaging is performed. FINDINGS: Respiratory variation, normal compression, and augmented flow are noted throughout the upper extremity including the axillary, brachial, cephalic, and radial and ulnar veins. There is normal flow in the internal jugular and subclavian veins. There is no visible deep or superficial thrombophlebitis. If the patient's symptoms progress, a followup ultrasound in 5 -7 days might be of value to exclude proximal propagation from a nonvisualized distal arm vein. US/US venous duplex UE RT IMPRESSION: No DVT demonstrated in the right upper extremity.
[2022-05-22 21:27] LABS: Hematocrit 39.3 % (42.0-52.0); Hemoglobin 13.4 g/dl (14.0-18.0); Mean Corpuscular HGB Conc 34.1 g/dl (31.0-36.0); Mean Corpuscular Hemoglobin 29.7 pg (27.0-33.0); Mean Corpuscular Volume 87.1 fL (80.0-98.0); Mean Platelet Volume 9.2 fL (9.4-12.4); Platelet Count 324 X10*3/uL (160-400); Red Blood Count 4.51 X10*6/uL (4.60-5.80); Red Cell Distribution Width 12.7 % (11.0-16.0); White Blood Count 9.7 X10*3/uL (4.8-10.8)
[2022-05-22 21:33] VITALS: BP 145/79; PULSE 65; RESP 65; TEMP 36.3; O2SAT 93; BMI 39.9
[2022-05-22 21:51] LABS: Alanine Aminotransferase 55 U/L (0-40); Albumin Level 4.7 g/dL (3.5-5.0); Alkaline Phosphatase 84 U/L (39-117); Anion Gap 15 (12-20); Aspartate Amino Transferase 49 U/L (5-37); Bilirubin Total < 0.2 mg/dL (0.0-1.0); Blood Urea Nitrogen 16 mg/dL (9-16); Calcium 9.6 mg/dL (8.4-10.2); Carbon Dioxide 25 mmol/L (22-29); Chloride 104 mmol/L (96-108); Creatinine Clr Calc Pharmacy 138.8; Estimated Glomerular Filt Rate > 60; Glucose Random 116 mg/dL (60-115); Sodium 140 mmol/L (135-145); Total Protein 7.5 g/dL (6.5-8.0)
--- NOTE | 2022-05-22 22:14 | ED.GENADULT ---
HPI - General Adult General Chief complaint: General Medical Stated complaint: [facility] sent; re-thrombosis of radial artery Time Seen by Provider: 05/22/22 22:06 Source: patient Mode of arrival: ambulatory Limitations: language barrier History of Present Illness HPI narrative: 36-year-old male presents from [facility] for evaluation for suspected thrombus of the radial artery of the right arm. Patient presents with pain, swelling, difficulty moving digits, patient was evaluated at [facility] and was noted to have positive pulses by Doppler. Onset (ago): day(s) (1) Location: right and upper extremity Radiation: non-radiation Severity: moderate Severity scale (1-10): 7 Quality: aching Pain Consistency: constant Relieving factors: none Exacerbating factors: movement Related Data Home Medications Medication Instructions Recorded Confirmed blood pressure kit-extra large #1 ea 03/05/22 04/23/22 clonazepam 1 mg tablet 1 mg PO BID PRN Anxiety 03/05/22 04/23/22 fenofibrate 160 mg tablet 160 mg PO DAILY 03/05/22 04/23/22 fluticasone propionate 50 2 spray intranasal DAILY 03/05/22 04/23/22 mcg/actuation nasal spray,suspension gabapentin 300 mg capsule 300 mg PO TID 03/05/22 04/23/22 loratadine 10 mg tablet 10 mg PO DAILY 03/05/22 04/23/22 nicotine 21 mg/24 hr daily 1 patch topical DAILY 03/05/22 04/23/22 transdermal patch omeprazole 20 mg capsule,delayed 20 mg PO BID@0630,1630 03/05/22 04/23/22 release zolpidem 10 mg tablet 10 mg PO BEDTIME PRN Insomnia 03/05/22 04/23/22 albuterol sulfate 90 mcg/actuation 2 puff inhalation Q4-6H PRN 04/16/22 04/23/22 aerosol inhaler (ProAir HFA) wheezing cholecalciferol (vitamin D3) 50 1 tab PO DAILY 04/16/22 04/23/22 mcg (2,000 unit) tablet quetiapine 200 mg tablet 200 mg PO BEDTIME 04/23/22 04/23/22 tamsulosin 0.4 mg capsule 0.4 mg PO DAILY@1700 04/23/22 04/23/22 apixaban 5 mg tablet (Eliquis) 0 mg PO 04/30/22 Previous Rx's Medication Instructions Recorded amlodipine 5 mg tablet 5 mg PO DAILY #30 tabs 03/05/22 metoprolol succinate 50 mg 50 mg PO DAILY #30 tabs 03/05/22 tablet,extended release 24 hr budesonide-formoterol HFA 160 2 puff inhalation BID 30 days 04/03/22 mcg-4.5 mcg/actuation aerosol #10.2 grams inhaler (Symbicort) oxycodone-acetaminophen 5 mg-325 1 tab PO Q8H PRN pain #14 tabs 04/18/22 mg tablet (Percocet) cephalexin 500 mg capsule 500 mg PO Q6H 10 days #40 caps 04/26/22 doxycycline monohydrate 100 mg 100 mg PO BID 10 days #20 tabs 04/26/22 tablet oxycodone 5 mg tablet 5 mg PO Q6H PRN pain #14 tabs 04/26/22 Allergies Allergy/AdvReac Type Severity Reaction Status Date / Time No Known Allergies Allergy Verified 04/30/22 10:55 Review of Systems Review of Systems: Constitutional: No Fever, No Chills ENT/Mouth: No Ear Pain, No Hoarseness, No sore throat Eyes: No Eye Pain, No Swelling, No Redness, No Foreign Body Cardiovascular: No Chest Pain, No SOB Respiratory: No Cough, No Dyspnea Gastrointestinal: No Nausea, No Vomiting, No Diarrhea, No abdominal Pain Genitourinary: No Dysuria, No Hematuria Musculoskeletal: positive right upper extremity swelling and pain, No Myalgias, No Joint Swelling Skin: No Skin lacerations, No rash Neuro: No Weakness, No Numbness, No Paresthesias, No Loss of Consciousness, No Dizziness, No Headache Psych: No Anxiety/Panic, No Depression Heme/Lymph: no easy bruising, no Lymphadenopathy Endocrine: No Polyuria, No Polydipsia Yes all other systems are reviewed and are negative [facility] Past Medical History Attestation statement: The following information was validated with the patient. Source: old records reviewed Medical History Abnormal nuclear stress test Asthma High cholesterol HTN (hypertension) Radial artery thrombosis, right Surgical History S/P cardiac catheterization Family History Family History Mother Diabetes 1.5, managed as type 2 Arthritis Social History Social History Household Members: Spouse Housing: House Do you presently have visiting nurse or other home services: No Alcohol intake: never Patient Tobacco Use Status: Former Tobacco user Quit Date: November 2021 Substance Use Type: Marijuana Advance Directives: No Advance Directives Information Provided: Yes service: No Current occupational status: disabled Physical Exam ED Vital Signs: Vital Signs - 24 hr 05/22/22 21:33 05/23/22 01:00 Temperature 97.3 F 98.2 F Pulse Rate 65 68 Respiratory Rate 65 H 16 Blood Pressure 145/79 H 135/75 Pulse Oximetry 93 97 Oxygen Delivery Method Room Air Room Air BMI result Body Mass Index 39.9 Appearance: Alert. Oriented X3. No acute distress. Eyes: Pupils equal, round and reactive to light. ENT: Pharynx normal. Neck: Normal inspection. Neck supple. CVS: Normal heart rate and rhythm. Pulses normal. Respiratory: No respiratory distress. Breath sounds normal. Abdomen: Soft and nontender. Skin: Lobulation at the right antecubital surgical scar, scar is well approximated, healing appropriately. Skin warm and dry. Normal skin color. Normal skin turgor. Extremities: No lower extremity edema. Gait well-balanced well coordinated Neuro: No motor deficit. No sensory deficit. Cranial nerves 2-12 intact Course Course Course Narrative: 36-year-old male presents for evaluation of right upper extremity pain, hard area to the antecubital fossa the surgical incision site, and difficulty moving his fingers due to swelling. He was evaluated at [facility] I was referred to the emergency department to rule out thrombus. Patient had a procedure with Dr. Betts on 04/16/2022 with a cutdown of the right brachial artery, thrombectomy of the brachial artery, thrombectomy of the radial artery, thrombectomy of the ulnar artery. Patient had a cardiac catheterization via the right radial artery on 04/11/2022. Patient does have full range of motion, full flexion extension of the digits, has a lobulated area to the surgical site without indication of infection cellulitis or indurated area. Will order duplex and arteriogram. 01:21 DVT study negative. Arteriogram indicates residual thrombus of the right radial artery. Will have patient follow-up with Dr. Betts in the morning. Patient will continue to take his Eliquis. Patient continue brisk capillary refill, and equal pulses although thready on the right side. Patient verbalized understanding of and agrees to plan of care discharge home. Verbalized understanding of signs and symptoms indicating need for emergent intervention. swimming pool servicer utilized for all correspondence. Google translate utilized for discharge instructions. Medical Decision Making Differential Diagnosis Differential Diagnosis: DVT, phlebitis, abscess Medical Records Medical records reviewed: Yes I reviewed the patient's medical records. Lab Data Lab results reviewed: Yes I reviewed the patient's lab results. Result diagrams: 05/22/22 21:20 05/22/22 21:20 Labs: Lab Results 05/22/22 05/22/22 Range/Units 21:20 21:20 WBC 9.7 (4.8-10.8) X10*3/uL RBC 4.51 L (4.60-5.80) X10*6/uL Hgb 13.4 L (14.0-18.0) g/dl Hct 39.3 L (42.0-52.0) % MCV 87.1 (80.0-98.0) fL MCH 29.7 (27.0-33.0) pg MCHC 34.1 (31.0-36.0) g/dl RDW 12.7 (11.0-16.0) % Plt Count 324 (160-400) X10*3/uL MPV 9.2 L (9.4-12.4) fL Absolute Nucleated RBC 0.000 (0.0-0.012) X10*3/uL Nucleated RBC % (auto) 0.0 (0.0-0.2) /100WBC Sodium 140 (135-145) mmol/L Potassium 4.0 (3.3-5.1) mmol/L Chloride 104 (96-108) mmol/L Carbon Dioxide 25 (22-29) mmol/L Anion Gap 15 (12-20) BUN 16 (9-16) mg/dL Creatinine 0.96 (0.5-1.4) mg/dL Estim Creat Clear Calc 138.8 Estimated GFR > 60 Random Glucose 116 H (60-115) mg/dL Calcium 9.6 (8.4-10.2) mg/dL Total Bilirubin < 0.2 (0.0-1.0) mg/dL AST 49 H D (5-37) U/L ALT 55 H (0-40) U/L Alkaline Phosphatase 84 (39-117) U/L Total Protein 7.5 (6.5-8.0) g/dL Albumin 4.7 (3.5-5.0) g/dL Imaging Data Right upper extremity duplex and arteriogram: Attestation: I personally reviewed and interpreted this imaging study as follows: Radiologist's impression: TECHNIQUE: Ultrasound of the upper extremity is performed using compression sonography and color and pulse Doppler flow with assessment of augmentation of flow. There is also imaging and Doppler assessment of the jugular and subclavian veins. Spectral analysis with color-flow imaging is performed. FINDINGS: Respiratory variation, normal compression, and augmented flow are noted throughout the upper extremity including the axillary, brachial, cephalic, and radial and ulnar veins. There is normal flow in the internal jugular and subclavian veins. There is no visible deep or superficial thrombophlebitis. If the patient's symptoms progress, a followup ultrasound in 5 -7 days might be of value to exclude proximal propagation from a nonvisualized distal arm vein. US/US venous duplex UE RT IMPRESSION: No DVT demonstrated in the right upper extremity. FINDINGS: Subclavian artery proximal: Peak systolic velocity 232 cm/s, triphasic flow Subclavian artery mid: Peak systolic velocity 238 cm/s, triphasic flow Subclavian artery distal: Peak systolic velocity 132 cm/s, triphasic flow Axillary artery: Peak systolic velocity 78 cm/s, triphasic flow Brachial artery proximal: Peak systolic velocity 84 cm/s, biphasic flow Brachial artery mid: Peak systolic velocity 85 cm/s, biphasic flow Brachial artery distal: Peak systolic velocity 60 cm/s, biphasic flow Radial artery: Endoluminal material in the mid and distal radial artery is consistent with residual thrombus. Limited evaluation for color and Doppler flow in the right radial artery; peak systolic velocity 22 cm/s, monophasic flow Ulnar artery: Peak systolic velocity 31 cm/s, biphasic flow US/US arterial duplex UE RT IMPRESSION: Residual thrombus in the right radial artery; there is suboptimal assessment for arterial flow in this region, though some radial artery flow is identified. Discharge Plan Discharge Clinical Impression: Right radial artery thrombus Patient Disposition: Home, Self-Care Instructions: Deep Vein Thrombosis (ED), Apixaban (By mouth) Additional Instructions: Fue evaluado por dolor en el antebrazo derecho despu?s de un procedimiento de trombectom?a el 01/17/2022. D?plex venoso negativo, g arterial positivo para trombo residual de arteria radial derecha. Por favor, mague un seguimiento con el Dr. Betts ma?deb por la ma?deb. Contin?e tomando stewart Eliquis seg?n las indicaciones. Contin?e tomando todos los dem?s medicamentos seg?n lo prescrito. Ab por elegir saw departamento de emergencias para stewart evaluaci?n. Por favor, mague un seguimiento con el m?dico de atenci?n primaria seg?n sea necesario. Regrese al departamento de emergencias por cualquier s?ntoma nuevo, preocupante o que empeore. You were evaluated for pain in the right forearm after a thrombectomy procedure on 04/16/2022. Venous duplex was negative, arterial g was positive for residual thrombus of the right radial artery. Please follow-up with Dr. Betts tomorrow morning. Continue to take your Eliquis as directed. Continue to take all other medications as prescribed. Thank you for choosing this emergency department for evaluation. Please follow-up with primary care physician as needed. Return to the emergency department for any new, concerning, or worsening symptoms. Prescriptions: No Action cholecalciferol (vitamin D3) 50 mcg (2,000 unit) tablet 1 tab PO DAILY albuterol sulfate [ProAir HFA] 90 mcg/actuation HFA aerosol inhaler 2 puff INHALATION Q4-6H PRN (Reason: wheezing) oxycodone-acetaminophen [Percocet] 5-325 mg tablet 1 tab PO Q8H PRN (Reason: pain) Qty: 14 0RF Rx Instructions: Partial Fill upon patient request. quetiapine 200 mg tablet 200 mg PO BEDTIME tamsulosin 0.4 mg capsule 0.4 mg PO DAILY@1700 cephalexin 500 mg capsule 500 mg PO Q6H 10 Days Qty: 40 0RF doxycycline monohydrate 100 mg tablet 100 mg PO BID 10 Days Qty: 20 0RF oxycodone 5 mg tablet 5 mg PO Q6H PRN (Reason: pain) Qty: 14 0RF Rx Instructions: Partial Fill upon patient request. zolpidem 10 mg tablet 10 mg PO BEDTIME PRN (Reason: Insomnia) nicotine 21 mg/24 hr patch 24 hour 1 patch topical DAILY clonazepam 1 mg tablet 1 mg PO BID PRN (Reason: Anxiety) (DME) blood pressure kit-extra large Kit See Rx Instructions .ROUTE DAILY Qty: 1 Rx Instructions: As directed fenofibrate 160 mg tablet 160 mg PO DAILY loratadine 10 mg tablet 10 mg PO DAILY fluticasone propionate 50 mcg/actuation spray,suspension 2 spray intranasal DAILY omeprazole 20 mg capsule,delayed release(DR/EC) 20 mg PO BID@0630,1630 gabapentin 300 mg capsule 300 mg PO TID amlodipine 5 mg tablet 5 mg PO DAILY Qty: 30 5RF metoprolol succinate 50 mg tablet extended release 24 hr 50 mg PO DAILY Qty: 30 5RF budesonide-formoterol [Symbicort] 160-4.5 mcg/actuation HFA aerosol inhaler 2 puff inhalation BID 30 Days Qty: 10.2 6RF Eliquis 5 mg tablet 0 mg PO Referrals: Tres Betts MD [Physician] - 1 day (Redemonstration of a right radial artery thrombus)
[2022-05-23 01:00] VITALS: BP 135/75; PULSE 68; RESP 16; TEMP 36.8; O2SAT 97
== END 2022-05-23 01:47 | disposition home or self-care (01) ==
PROVIDERS: Emergency Provider Emergency Medicine; PCP Family Medicine
DX: I74.2 Embolism and thrombosis of arteries of the upper extremities (principal); M79.601 Pain in right arm; R60.0 Localized edema; Z87.891 Personal history of nicotine dependence; Z79.899 Other long term (current) drug therapy
CPT/HCPCS: 36415; 80053; 85027; 93931; 93971; 99283; 99284

== ENCOUNTER → 2022-05-28 13:17 | Outpatient (BNVA) | payer MEDICAID, SELFPAY | PROVIDERS: PCP Family Medicine; Visit Provider Nurse Practitioner Family | DX: G47.33 Obstructive sleep apnea (adult) (pediatric) (principal); R40.0 Somnolence; I10 Essential (primary) hypertension; E78.00 Pure hypercholesterolemia, unspecified; E66.01 Morbid (severe) obesity due to excess calories; Z68.41 Body mass index [BMI] 40.0-44.9, adult | CPT/HCPCS: 99202 ==

== ENCOUNTER → 2022-06-13 12:56 | Outpatient (BNVA) | payer MEDICAID, SELFPAY | PROVIDERS: PCP Family Medicine; Visit Provider Surgery Vascular Surgery | DX: I74.2 Embolism and thrombosis of arteries of the upper extremities (principal) | CPT/HCPCS: 99212 ==

== ENCOUNTER → 2022-06-14 12:59 | Outpatient (BNVA) | payer MEDICAID, SELFPAY | PROVIDERS: PCP Family Medicine; Visit Provider Urology | DX: R35.1 Nocturia (principal); R39.15 Urgency of urination | CPT/HCPCS: 51798; 99202 ==

== ENCOUNTER 2022-07-02 14:43 | Outpatient (REF) | payer MEDICAID, SELFPAY ==
--- NOTE | ~2022-07-02 | XR_ITS ---
EXAMINATION: XR CHEST CLINICAL INFORMATION: Shortness of breath COMPARISON: Previous chest x-ray most recent December 2021 TECHNIQUE: 2 views of the chest were obtained. FINDINGS: The cardiac and mediastinal contours are stable. There is a 6 mm left lower lobe nodule that is stable. The lungs are otherwise clear. No pleural effusion or pneumothorax. Bony structures are unremarkable. XR/XR chest 2V IMPRESSION: No evidence for acute disease in the chest.
== END 2022-07-02 14:44 | disposition home or self-care (01) ==
LOC: HO.XRAY 14:43
PROVIDERS: Absent Provider Family Medicine; PCP Family Medicine; Visit Provider Emergency Medicine
DX: R06.02 Shortness of breath (principal)
CPT/HCPCS: 71046

== ENCOUNTER 2022-07-15 18:23 | Emergency (ER) | payer MEDICAID, SELFPAY ==
--- NOTE | 2022-07-15 | ECG_ITS ---
Test Reason : PAIN Blood Pressure : / mmHG Vent. Rate : 084 BPM Atrial Rate : 084 BPM P-R Int : 126 ms QRS Dur : 102 ms QT Int : 366 ms P-R-T Axes : 054 049 024 degrees QTc Int : 432 ms Normal sinus rhythm Normal ECG When compared to the previous EKG of No significant changes seen Referred By: Generic ED Physician Electronically Signed By:LUCY HAZEL MD
--- NOTE | ~2022-07-15 | XR_ITS ---
EXAMINATION: XR CHEST CLINICAL INFORMATION: Chest pain. COMPARISON: Chest x-ray 07/02/2022 TECHNIQUE: Frontal portable view of the chest was obtained. 2248 hours FINDINGS: No significant abnormality is noted involving the heart, lungs, mediastinum, bony thorax or soft tissues. XR/XR chest 1V IMPRESSION: Unremarkable examination.
[2022-07-15 20:15] VITALS: BP 158/66; PULSE 51; RESP 16; TEMP 36.6; O2SAT 96; BMI 41.6
--- NOTE | 2022-07-15 20:23 | ED_ITS ---
HPI - General Adult General Chief complaint: Chest Pain <Iris Nguyen MD - Last Filed: 07/15/22 20:24> Stated complaint: chest pain,dizziness arm numbness x2days <Iris Nguyen MD - Last Filed: 07/15/22 20:24> Time Seen by Provider: 07/15/22 20:40 <Iris Nguyen MD - Last Filed: 07/15/22 20:24> Source: patient <Harshal Causey MD - Last Filed: 07/16/22 02:25> Mode of arrival: ambulatory <Harshal Causey MD - Last Filed: 07/16/22 02:25> Limitations: no limitations <Harshal Causey MD - Last Filed: 07/16/22 02:25> History of Present Illness HPI narrative: Mr. Saini is a is 37 years old male who presented to the ED with a chief complaint of chest pain since yesterday 17:00. he also feel dizzy he described the dizziness as tired . Patient was evaluated by Cardiology for is chest pain he had a cardiac catheterization which showed normal coronary artery <Harshal Causey MD - Last Filed: 07/16/22 02:25> Onset (ago): day(s) (1) <Harshal Causey MD - Last Filed: 07/16/22 02:25> Radiation: non-radiation <Harshal Causey MD - Last Filed: 07/16/22 02:25> Severity: moderate <Harshal Causey MD - Last Filed: 07/16/22 02:25> Relieving factors: none <Harshal Causey MD - Last Filed: 07/16/22 02:25> Exacerbating factors: none <Harshal Causey MD - Last Filed: 07/16/22 02:25> Related Data Home medications: Home Medications Medication Instructions Recorded Confirmed blood pressure kit-extra large #1 ea 03/05/22 04/23/22 clonazepam 1 mg tablet 1 mg PO BID PRN Anxiety 03/05/22 04/23/22 fenofibrate 160 mg tablet 160 mg PO DAILY 03/05/22 04/23/22 fluticasone propionate 50 2 spray intranasal DAILY 03/05/22 04/23/22 mcg/actuation nasal spray,suspension gabapentin 300 mg capsule 300 mg PO TID 03/05/22 04/23/22 loratadine 10 mg tablet 10 mg PO DAILY 03/05/22 04/23/22 omeprazole 20 mg capsule,delayed 20 mg PO BID@0630,1630 03/05/22 04/23/22 release zolpidem 10 mg tablet 10 mg PO BEDTIME PRN Insomnia 03/05/22 04/23/22 albuterol sulfate 90 mcg/actuation 2 puff inhalation Q4-6H PRN 04/16/22 04/23/22 aerosol inhaler (ProAir HFA) wheezing cholecalciferol (vitamin D3) 50 1 tab PO DAILY 04/16/22 04/23/22 mcg (2,000 unit) tablet quetiapine 200 mg tablet 200 mg PO BEDTIME 04/23/22 04/23/22 tamsulosin 0.4 mg capsule 0.4 mg PO DAILY@1700 04/23/22 04/23/22 apixaban 5 mg tablet (Eliquis) 0 mg PO 04/30/22 cephalexin 500 mg capsule 500 mg PO Q6H 05/28/22 lidocaine 5 % topical patch 0 patch topical 05/28/22 (Lidoderm) Previous Rx's Medication Instructions Recorded amlodipine 5 mg tablet 5 mg PO DAILY #30 tabs 03/05/22 metoprolol succinate 50 mg 50 mg PO DAILY #30 tabs 03/05/22 tablet,extended release 24 hr budesonide-formoterol HFA 160 2 puff inhalation BID 30 days 04/03/22 mcg-4.5 mcg/actuation aerosol #10.2 grams inhaler (Symbicort) oxycodone-acetaminophen 5 mg-325 1 tab PO Q8H PRN pain #14 tabs 04/18/22 mg tablet (Percocet) doxycycline monohydrate 100 mg 100 mg PO BID 10 days #20 tabs 04/26/22 tablet oxybutynin chloride 10 mg 10 mg PO DAILY #90 tabs 06/24/22 tablet,extended release 24 hr <Iris Nguyen MD - Last Filed: 07/15/22 20:24> Allergies/adverse reactions: Allergies Allergy/AdvReac Type Severity Reaction Status Date / Time No Known Allergies Allergy Verified 06/14/22 13:13 <Iris Nguyen MD - Last Filed: 07/15/22 20:24> Review of Systems Constitutional: Constitutional: Reports no additional constitutional complaints <Harshal Causey MD - Last Filed: 07/16/22 02:25> Cardiovascular: Cardiovascular: Reports no additional cardiovascular complaints <Harshal Causey MD - Last Filed: 07/16/22 02:25> Gastrointestinal: Gastrointestinal: Reports no additional gastrointestinal complaints <Hasrhal Causey MD - Last Filed: 07/16/22 02:25> [facility] Past Medical History Medical History: Medical History Abnormal nuclear stress test Asthma High cholesterol HTN (hypertension) Hx of blood clots Radial artery thrombosis, right <Iris Nguyen MD - Last Filed: 07/15/22 20:24> Surgical History: Surgical History S/P cardiac catheterization <Iris Nguyen MD - Last Filed: 07/15/22 20:24> Family History Family History: Family History Mother Diabetes 1.5, managed as type 2 Arthritis <Iris Nguyen MD - Last Filed: 07/15/22 20:24> Social History Social History: Social History Household Members: Spouse Housing: House Do you presently have visiting nurse or other home services: No Alcohol intake: never Patient Tobacco Use Status: Former Tobacco user Quit Date: November 2021 Substance Use Type: Marijuana Advance Directives: No Advance Directives Information Provided: No service: No Current occupational status: disabled <Iris Nguyen MD - Last Filed: 07/15/22 20:24> Physical Exam ED Vital Signs: Vital Signs - 24 hr 07/15/22 20:15 07/15/22 21:55 07/15/22 23:53 Temperature 97.8 F 98.7 F 98.5 F Pulse Rate 51 88 62 Respiratory Rate 16 18 20 Blood Pressure 158/66 H 120/58 L 115/69 Pulse Oximetry 96 98 98 Oxygen Delivery Method Room Air Room Air Room Air 07/16/22 00:29 Temperature Pulse Rate 90 Respiratory Rate 20 Blood Pressure 121/63 Pulse Oximetry 96 Oxygen Delivery Method Room Air BMI result Body Mass Index 41.6 <Iris Nguyen MD - Last Filed: 07/15/22 20:24> Vital Signs - 24 hr 07/15/22 20:15 07/15/22 21:55 07/15/22 23:53 Temperature 97.8 F 98.7 F 98.5 F Pulse Rate 51 88 62 Respiratory Rate 16 18 20 Blood Pressure 158/66 H 120/58 L 115/69 Pulse Oximetry 96 98 98 Oxygen Delivery Method Room Air Room Air Room Air 07/16/22 00:29 Temperature Pulse Rate 90 Respiratory Rate 20 Blood Pressure 121/63 Pulse Oximetry 96 Oxygen Delivery Method Room Air BMI result Body Mass Index 41.6 <Harshal Causey MD - Last Filed: 07/16/22 02:25> Const General: cooperative <Harshal Causey MD - Last Filed: 07/16/22 02:25> Nutritional Appearance: average body habitus <Harshal Causey MD - Last Filed: 07/16/22 02:25> Orientation/consciousness: patient oriented x3 <Harshal Causey MD - Last Filed: 07/16/22 02:25> HENMT Head: Yes normal to inspection <Harshal Causey MD - Last Filed: 07/16/22 02:25> Ears: hearing grossly normal bilaterally <Harshal Causey MD - Last Filed: 07/16/22 02:25> General nose exam: Normal external nose present <Harshal Causey MD - Last Filed: 07/16/22 02:25> Face and sinus: Yes normal facial exam <Harshal Causey MD - Last Filed: 07/16/22 02:25> Mouth: Normal oral and palatal mucosa present <Harshal Causey MD - Last Filed: 07/16/22 02:25> Throat: Yes posterior oropharynx normal <Harshal Causey MD - Last Filed: 07/16/22 02:25> Neck Neck: Yes normal visual inspection and Yes full ROM <Harshal Causey MD - Last Filed: 07/16/22 02:25> Chest Chest palpation & inspection: normal inspection of the chest <Harshal Causey MD - Last Filed: 07/16/22 02:25> Resp Effort & Inspection: normal respiratory effort <Harshal Causey MD - Last Filed: 07/16/22 02:25> Auscultation: clear to auscultation bilaterally <Harshal Causey MD - Last Filed: 07/16/22 02:25> Cardio Jugular venous distension: no JVD <Harshal Causey MD - Last Filed: 07/16/22 02:25> Rate: regular rate <Harshal Causey MD - Last Filed: 07/16/22 02:25> Rhythm: regular rhythm <Harshal Causey MD - Last Filed: 07/16/22 02:25> GI Inspection: Yes normal to inspection <Harshal Causey MD - Last Filed: 07/16/22 02:25> Palpation (GI): Soft to palpation, not firm and nontender <Harshal Causey MD - Last Filed: 07/16/22 02:25> Auscultation: normal bowel sounds <Harshal Causey MD - Last Filed: 07/16/22 02:25> Skin General skin exam: no rashes or lesions noted <Harshal Causey MD - Last Filed: 07/16/22 02:25> Lesions: no lesions <Harshal Causey MD - Last Filed: 07/16/22 02:25> Rashes: no rashes <Harshal Causey MD - Last Filed: 07/16/22 02:25> Neuro General: patient oriented x3 <Harshal Causey MD - Last Filed: 07/16/22 02:25> Course Course Course Narrative: 37M dizziness with chest pain last night and havong some fatigue. Denies fevers, chills, GI/ symptoms. On lopressor for cardiac issues and HR in the 40s in Triage. VS Reviewed GEN: NAD PULM: CTAB CVS: RRR, SB, no murmurs - Labs, EKG, Trop <Iris Nguyen MD - Last Filed: 07/15/22 20:24> Reevaluation(s) Reevaluation #1: Patient is chest pain-free his troponin is negative after few days of chest pain plastic he has normal coronary arteries by catheterization I think is reasonable to discharge the patient home a <Harshal Causey MD - Last Filed: 07/16/22 02:25> Medical Decision Making Medical Decision Making MDM Narrative: Patient has history of chest pains in the past but he has normal coronary so I do not think this pain is cardiac regardless will do troponin <Harshal Causey MD - Last Filed: 07/16/22 02:25> Independent interpretation of EKG, rhythm strip, radiology study: Independent interp EKG,rhythm strip, radiology study I performed an independent interpretation of the: EKG My interpretation is Normal sinus rhythm rate [address]-T changes <Harshal Causey MD - Last Filed: 07/16/22 02:25> Discussion of test interpretation with radiology: Discussion of test interpretation with radiology Discussed with radiology regarding test interpretation. EXAMINATION: XR CHEST CLINICAL INFORMATION: Chest pain. COMPARISON: Chest x-ray 07/02/2022 TECHNIQUE: Frontal portable view of the chest was obtained. 2248 hours FINDINGS: No significant abnormality is noted involving the heart, lungs, mediastinum, bony thorax or soft tissues. XR/XR chest 1V IMPRESSION: Unremarkable examination. ? 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 quetiapine 200 mg tablet 200 mg PO BEDTIME tamsulosin 0.4 mg capsule 0.4 mg PO DAILY@1700 doxycycline monohydrate 100 mg tablet 100 mg PO BID 10 Days Qty: 20 0RF zolpidem 10 mg tablet 10 mg PO BEDTIME PRN (Reason: Insomnia) clonazepam 1 mg tablet 1 mg PO BID PRN (Reason: Anxiety) (DME) blood pressure kit-extra large Kit See Rx Instructions .ROUTE DAILY Qty: 1 Rx Instructions: As directed fenofibrate 160 mg tablet 160 mg PO DAILY loratadine 10 mg tablet 10 mg PO DAILY fluticasone propionate 50 mcg/actuation spray,suspension 2 spray intranasal DAILY omeprazole 20 mg capsule,delayed release(DR/EC) 20 mg PO BID@0630,1630 gabapentin 300 mg capsule 300 mg PO TID amlodipine 5 mg tablet 5 mg PO DAILY Qty: 30 5RF metoprolol succinate 50 mg tablet extended release 24 hr 50 mg PO DAILY Qty: 30 5RF budesonide-formoterol [Symbicort] 160-4.5 mcg/actuation HFA aerosol inhaler 2 puff inhalation BID 30 Days Qty: 10.2 6RF oxybutynin chloride 10 mg tablet extended release 24hr 10 mg PO DAILY Qty: 90 0RF cephalexin 500 mg capsule 500 mg PO Q6H lidocaine [Lidoderm] 5 % adhesive patch,medicated 0 patch topical Eliquis 5 mg tablet 0 mg PO <Iris Nguyen MD - Last Filed: 07/15/22 20:24> Referrals: Ngozi Payne DO [Primary Care Provider] - 2 days <Iris Nguyen MD - Last Filed: 07/15/22 20:24> Interventions: ED Discharge Assessment Last Done: 07/16/22 00:30 <Iris Nguyen MD - Last Filed: 07/15/22 20:24> Discharge Date/Time: 07/16/22 00:31 <Iris Nguyen MD - Last Filed: 07/15/22 20:24>
[2022-07-15 20:35] LABS: MANUAL DIFF FLAG NO
[2022-07-15 20:38] LABS: Basophils Absolute Auto 0.1 X10*3/uL (0.0-0.2); Basophils Percent Auto 0.9 % (0-2); Eosinophils Absolute Auto 0.1 X10*3/uL (0.0-0.4); Eosinophils Percent Auto 0.9 % (0-4); Hemoglobin 14.8 g/dl (14.0-18.0); Imm Gran Abs Auto 0.04 X10*3/uL (0.00-0.03); Imm Gran Pct Auto 0.3 % (0.0-0.4); Lymphocytes Absolute Auto 3.5 X10*3/uL (1.2-4.9); Lymphocytes Percent Auto 27.3 % (20-40); Mean Corpuscular HGB Conc 34.4 g/dl (31.0-36.0); Mean Corpuscular Hemoglobin 30.2 pg (27.0-33.0); Mean Corpuscular Volume 87.8 fL (80.0-98.0); Mean Platelet Volume 10.1 fL (9.4-12.4); Monocytes Absolute Auto 1.4 X10*3/uL (0.1-1.2); Monocytes Percent Auto 10.7 % (2-11); Neutrophils Absolute Auto 7.7 x10*3/uL (2.0-8.3); Neutrophils Percent Auto 59.9 % (45-73); Platelet Count 376 X10*3/uL (160-400); Red Cell Distribution Width 12.7 % (11.0-16.0); White Blood Count 12.9 X10*3/uL (4.8-10.8)
[2022-07-15 20:54] LABS: Alanine Aminotransferase 85 U/L (0-40); Albumin Level 4.6 g/dL (3.5-5.0); Alkaline Phosphatase 84 U/L (39-117); Anion Gap 12 (12-20); Aspartate Amino Transferase 55 U/L (5-37); Bilirubin Total 0.3 mg/dL (0.0-1.0); Blood Urea Nitrogen 16 mg/dL (9-16); Calcium 9.8 mg/dL (8.4-10.2); Carbon Dioxide 27 mmol/L (22-29); Chloride 105 mmol/L (96-108); Creatinine Clr Calc Pharmacy 110.8; Estimated Glomerular Filt Rate > 60; Glucose Random 102 mg/dL (60-115); Potassium 4.2 mmol/L (3.3-5.1); Sodium 140 mmol/L (135-145); Total Protein 7.4 g/dL (6.5-8.0)
[2022-07-15 21:00] LABS: Troponin-I High Sensitivity 22.4 ng/L (<3.5-35.0)
[2022-07-15 21:15] LABS: Influenza A PCR NEGATIVE (Negative); Influenza B PCR NEGATIVE (Negative); Resp Syncy Virus RNA Qual PCR NEGATIVE (Negative); SARS COV2 PCR INHOUSE NEGATIVE (Negative)
[2022-07-15 21:55] VITALS: BP 120/58; PULSE 88; RESP 18; TEMP 37.1; O2SAT 98
[2022-07-15 23:53] VITALS: BP 115/69; PULSE 62; RESP 20; TEMP 36.9; O2SAT 98
[2022-07-16 00:29] VITALS: BP 121/63; PULSE 90; RESP 20; O2SAT 96
== END 2022-07-16 00:31 | disposition home or self-care (01) ==
PROVIDERS: Student in an Organized Health Care Education/Training Program; Emergency Provider Emergency Medicine; PCP Family Medicine
DX: R07.89 Other chest pain (principal); R42 Dizziness and giddiness; Z20.822 Contact with and (suspected) exposure to COVID-19; Z79.899 Other long term (current) drug therapy
CPT/HCPCS: 0241U; 36415; 71045; 80053; 84484; 85025; 93005; 99283; 99284

== ENCOUNTER → 2022-07-25 13:52 | Outpatient (BNVA) | payer MEDICAID, SELFPAY | PROVIDERS: PCP Family Medicine; Visit Provider Internal Medicine Pulmonary Disease | DX: R91.8 Other nonspecific abnormal finding of lung field (principal); J45.40 Moderate persistent asthma, uncomplicated | CPT/HCPCS: 99212 ==

== ENCOUNTER → 2022-08-27 09:14 | Outpatient (BNVA) | payer MEDICAID, SELFPAY | PROVIDERS: PCP Family Medicine; Referring Provider Family Medicine; Visit Provider Internal Medicine | DX: I42.8 Other cardiomyopathies (principal); I49.3 Ventricular premature depolarization; I74.2 Embolism and thrombosis of arteries of the upper extremities; G47.33 Obstructive sleep apnea (adult) (pediatric); E66.01 Morbid (severe) obesity due to excess calories; Z68.41 Body mass index [BMI] 40.0-44.9, adult | CPT/HCPCS: 99212 ==

== ENCOUNTER 2022-09-18 15:09 | Outpatient (REF) | payer MEDICAID, SELFPAY ==
--- NOTE | ~2022-09-18 | US_ITS ---
EXAMINATION: US RETROPERITONEAL LIMITED (RENAL ONLY) CLINICAL INFORMATION: Urgency of urination. COMPARISON: CT abdomen and pelvis without contrast 05/29/2020. Ultrasound abdomen complete 10/22/2018 and 08/08/2016. TECHNIQUE: Real-time imaging of the kidneys. FINDINGS: RIGHT KIDNEY: 12.1 x 6.3 x 6.0 cm (SAG x AP x TRV). The kidney is normal in size, contour, and echogenicity. Renal cortical thickness is normal. No calculi or focal parenchymal lesions. No hydronephrosis. LEFT KIDNEY: 11.1 x 6.0 x 5.3 cm (SAG x AP x TRV). The kidney is normal in size, contour, and echogenicity. Renal cortical thickness is normal. No calculi or focal parenchymal lesions. No hydronephrosis. Incidental note made of hepatic steatosis which can also be seen on the patient's prior CT scan. US/US renal BI IMPRESSION: Normal-appearing kidneys. Incidentally noted hepatic steatosis.
== END 2022-09-18 15:10 | disposition home or self-care (01) ==
LOC: HO.US 15:09
PROVIDERS: PCP Family Medicine; Visit Provider Urology
DX: R39.15 Urgency of urination (principal)
CPT/HCPCS: 76775

== ENCOUNTER 2022-09-24 13:47 | Outpatient (REF) | payer MEDICAID, SELFPAY ==
--- NOTE | ~2022-09-24 | US_ITS ---
EXAMINATION: US PELVIS LIMITED (BLADDER) CLINICAL INFORMATION: Urgency of urination. COMPARISON: Ultrasound retroperitoneal limited (renal only) 09/18/2022. CT of the abdomen and pelvis without contrast 05/29/2020. Ultrasound abdomen complete 10/22/2018. TECHNIQUE: Real-time imaging of the bladder. FINDINGS: BLADDER: Well distended and normal. Bilateral ureteral jets are not demonstrated. Prevoid bladder volume is 590 mL. Postvoid bladder volume is 14.2 mL. The prostate volume is 4.9 mL. US/US bladder IMPRESSION: Normal-appearing bladder with small prostate.
== END 2022-09-24 13:48 | disposition home or self-care (01) ==
LOC: HO.US 13:47
PROVIDERS: Visit Provider Urology
DX: R39.15 Urgency of urination (principal)
CPT/HCPCS: 76857

== ENCOUNTER → 2022-10-31 15:03 | Outpatient (BNVA) | payer MEDICAID, SELFPAY | PROVIDERS: PCP Family Medicine; Visit Provider Urology | DX: R35.1 Nocturia (principal); R39.15 Urgency of urination; R32 Unspecified urinary incontinence | CPT/HCPCS: 99212 ==

== ENCOUNTER → 2022-11-26 09:16 | Outpatient (BNVA) | payer MEDICAID, SELFPAY | PROVIDERS: PCP Family Medicine; Visit Provider Nurse Practitioner Family | DX: G47.33 Obstructive sleep apnea (adult) (pediatric) (principal) | CPT/HCPCS: 99212 ==

== ENCOUNTER 2022-12-27 13:06 | Outpatient (REF) | payer MEDICAID, SELFPAY ==
--- NOTE | ~2022-12-27 | CT_ITS ---
EXAMINATION: CT CHEST WITHOUT CONTRAST CLINICAL INFORMATION: Nonspecific lung nodules COMPARISON: Chest CT from 05/03/2020 TECHNIQUE: Multidetector volumetric CT imaging of the chest was done. Axial MIP volume rendering provided. Sagittal and coronal reformatted images were obtained. This CT examination was performed using dose optimization techniques as appropriate, variously including the following: *Automated exposure control *Adjustment of mA and/or kV according to patient size (this includes techniques or standardized protocols for targeted exams where dose is matched to indication/reason for exam; i.e. extremities or head) *Use of iterative reconstruction technique DLP: 318 mGy-cm FINDINGS: INSPECTOR REPAIRER SANDSTONE: Unremarkable LUNGS: There is stable calcified subpleural 0.8 cm granuloma in the left lower lobe there is stable right upper lobe 0.3 cm nodule seen on image 16 series 4 and groundglass opacity nodule measured 0.4 cm seen subpleural in the right middle lobe on image 27 series 4 as well as right upper lobe groundglass opacity nodule on image 26 and measured 0.3 cm. MEDIASTINUM: The mediastinum is normal. CORONARY ARTERY CALCIFICATION: None visualized on this study. PLEURA: There is no pleural effusion. No pleural mass or thickening. AXILLA: No lymphadenopathy. UPPER ABDOMEN: Liver is of very low attenuation and enlarged due to severe hepatic steatosis.. Attenuation of nonenhanced liver is 5HU OSSEOUS STRUCTURES: Unremarkable. There is incidental findings of extensive CT/CT chest wo IV con IMPRESSION: Stable benign-appearing lung nodules. Hepatic steatosis and hepatomegaly Fleischner guidelines were followed.
== END 2022-12-27 13:07 | disposition home or self-care (01) ==
LOC: HO.CT 13:06
PROVIDERS: Visit Provider Internal Medicine Pulmonary Disease
DX: R91.8 Other nonspecific abnormal finding of lung field (principal)
CPT/HCPCS: 71250

== ENCOUNTER → 2023-01-30 10:31 | Outpatient (BNVA) | payer MEDICAID, SELFPAY | PROVIDERS: PCP Family Medicine; Visit Provider Internal Medicine Pulmonary Disease | DX: J45.909 Unspecified asthma, uncomplicated (principal); R91.8 Other nonspecific abnormal finding of lung field; Z79.899 Other long term (current) drug therapy | CPT/HCPCS: 99212 ==

== ENCOUNTER → 2023-02-13 10:07 | Outpatient (REF) | payer MEDICAID, SELFPAY ==
--- NOTE | 2023-02-13 10:10 | HM_ITS ---
* Total monitoring time 2 days. * Underlying rhythm is sinus. Average ventricular rate 87/. Range 51 to 164/Min. About 22% the time, rate > 100/Min. * Frequent ventricular ectopy with a burden of 8%. Possibly 1 run of 3 beats. Otherwise generally isolated. Rare couplets. Evidence of bigeminy. * Very rare supraventricular ectopy. * No significant pauses or AV blocks. * No patient diary. MTDD
== END ==
LOC: HO.CARD 10:07
PROVIDERS: PCP Family Medicine; Visit Provider Internal Medicine
DX: I42.8 Other cardiomyopathies (principal); I49.3 Ventricular premature depolarization
CPT/HCPCS: 93242; 93306; 93356

== ENCOUNTER → 2023-02-13 10:10 | Outpatient (BNV) | payer MEDICAID, SELFPAY | PROVIDERS: PCP Family Medicine; Visit Provider Internal Medicine | DX: I47.20 Ventricular tachycardia, unspecified (principal) | CPT/HCPCS: 93244; 93306 ==

== ENCOUNTER 2023-02-25 12:03 | Emergency (ER) | payer MEDICAID, SELFPAY ==
--- NOTE | ~2023-02-25 | US_ITS ---
EXAMINATION: US SCROTUM CLINICAL INFORMATION: Left testicular pain. COMPARISON: None available. TECHNIQUE: A sonogram of the scrotum was performed assessing schaeffer-scale appearance and color Doppler flow. Spectral Doppler analysis of the arterial and venous flow were performed in the testes bilaterally. FINDINGS: RIGHT: Right testicle measures 4.0 x 1.8 x 2.6 cm, volume 19.7 mL. No focal testicular parenchymal lesions are visualized. Spectral Doppler analysis of the arterial and venous flow is normal in the right testis. Right epididymal head is normal in size. 0.4 x 0.3 x 0.5 cm right epididymal head cyst is seen. No right hydrocele or varicocele is seen. Right epididymal Doppler flow is normal. LEFT: Left testicle measures 3.8 x 1.6 x 2.3 cm, volume 7.4 mL. No focal testicular parenchymal lesions are visualized. Spectral Doppler analysis of the arterial and venous flow is normal in the left testis. Multiple epididymal head cysts are seen, largest 2 measure 0.5 x 0.3 x 0.4 cm and 0.5 x 0.4 x 0.5 cm. No left hydrocele or varicocele is seen. Left epididymal Doppler flow is normal. US/US scrotum doppler IMPRESSION: Unremarkable testes. Bilateral epididymal cysts.
--- NOTE | ~2023-02-25 | US_ITS ---
EXAMINATION: US SCROTUM CLINICAL INFORMATION: Left testicular pain. COMPARISON: None available. TECHNIQUE: A sonogram of the scrotum was performed assessing schaeffer-scale appearance and color Doppler flow. Spectral Doppler analysis of the arterial and venous flow were performed in the testes bilaterally. FINDINGS: RIGHT: Right testicle measures 4.0 x 1.8 x 2.6 cm, volume 19.7 mL. No focal testicular parenchymal lesions are visualized. Spectral Doppler analysis of the arterial and venous flow is normal in the right testis. Right epididymal head is normal in size. 0.4 x 0.3 x 0.5 cm right epididymal head cyst is seen. No right hydrocele or varicocele is seen. Right epididymal Doppler flow is normal. LEFT: Left testicle measures 3.8 x 1.6 x 2.3 cm, volume 7.4 mL. No focal testicular parenchymal lesions are visualized. Spectral Doppler analysis of the arterial and venous flow is normal in the left testis. Multiple epididymal head cysts are seen, largest 2 measure 0.5 x 0.3 x 0.4 cm and 0.5 x 0.4 x 0.5 cm. No left hydrocele or varicocele is seen. Left epididymal Doppler flow is normal. US/US scrotum IMPRESSION: Unremarkable testes. Bilateral epididymal cysts.
--- NOTE | 2023-02-25 12:34 | ED.ABDPAIN ---
HPI - Abdominal Pain General Chief Complaint: Back Pain/Injury Stated Complaint: back and testicle pain pain upon bowel movement Time Seen by Provider: 02/25/23 14:05 Source: patient Mode of arrival: ambulatory Limitations: no limitations History of Present Illness HPI narrative: 37 yold male with pmh PVC, ESTEVAN, radial arther thromobsis present to the ED for lower back pain and left testicular pain since last week friday. patient denies abdominal pain, nuasea, vomitting, flank pain, fever, chills, penile discharge, penile lesions, testicular swelling, or recent trauma. Related Data Home Medications Medication Instructions Recorded Confirmed blood pressure kit-extra large #1 ea 03/05/22 02/27/23 clonazepam 1 mg tablet 1 mg PO BID PRN Anxiety 03/05/22 02/27/23 fenofibrate 160 mg tablet 160 mg PO DAILY 03/05/22 02/27/23 fluticasone propionate 50 2 spray intranasal DAILY 03/05/22 02/27/23 mcg/actuation nasal spray,suspension gabapentin 300 mg capsule 300 mg PO TID 03/05/22 02/27/23 loratadine 10 mg tablet 10 mg PO DAILY 03/05/22 02/27/23 omeprazole 20 mg capsule,delayed 20 mg PO BID@0630,1630 03/05/22 02/27/23 release zolpidem 10 mg tablet 10 mg PO BEDTIME PRN Insomnia 03/05/22 02/27/23 albuterol sulfate 90 mcg/actuation 2 puff inhalation Q4-6H PRN 04/16/22 02/27/23 aerosol inhaler (ProAir HFA) wheezing cholecalciferol (vitamin D3) 50 1 tab PO DAILY 04/16/22 02/27/23 mcg (2,000 unit) tablet quetiapine 200 mg tablet 200 mg PO BEDTIME 04/23/22 02/27/23 hydrochlorothiazide 25 mg tablet 25 mg PO DAILY 07/26/22 02/27/23 oxymetazoline 0.05 % nasal spray spray intranasal 07/26/22 02/27/23 (Nasal [place] (oxymetazoline)) baclofen 10 mg tablet 10 mg PO TID PRN muscle spasm 08/27/22 02/27/23 Previous Rx's Medication Instructions Recorded budesonide-formoterol HFA 160 2 puff PO BID 30 days #10.2 grams 10/28/22 mcg-4.5 mcg/actuation aerosol inhaler (Symbicort) oxybutynin chloride 10 mg 10 mg PO DAILY #90 tabs 10/31/22 tablet,extended release 24 hr metoprolol succinate 50 mg 50 mg PO DAILY 90 days #90 tabs 02/24/23 tablet,extended release 24 hr naproxen 500 mg tablet 500 mg PO BID PRN pain 7 days #14 02/25/23 tabs Allergies Allergy/AdvReac Type Severity Reaction Status Date / Time No Known Allergies Allergy Verified 02/27/23 10:23 Review of Systems Review of Systems low back pain and left testicular pain Yes all other systems are reviewed and are negative [facility] Past Medical History Medical History Abnormal nuclear stress test Asthma High cholesterol HTN (hypertension) Hx of blood clots Radial artery thrombosis, right Surgical History S/P cardiac catheterization Family History Family History Mother Diabetes 1.5, managed as type 2 Arthritis Social History Social History Household Members: Spouse Housing: House Do you presently have visiting nurse or other home services: No Alcohol intake: never Patient Tobacco Use Status: Former Tobacco user Quit Date: November 2021 Substance Use Type: Marijuana service: No Current occupational status: disabled Physical Exam ED Vital Signs: Vital Signs - 24 hr 02/25/23 12:35 Temperature 97.5 F Pulse Rate 86 Respiratory Rate 18 Blood Pressure 142/70 H Pulse Oximetry 94 Oxygen Delivery Method Room Air BMI result Body Mass Index 39.9 Const General: cooperative, healthy appearing, comfortable, no acute distress, well developed, alert, awake and Physically active Orientation/consciousness: oriented to person, oriented to place, oriented to time and patient oriented x3 HENMT Head: Yes normal to inspection, Yes No palpable skull fracture present, Yes normocephalic, Yes atraumatic and No abrasion Eyes General: appearance normal, both eyes and all related structures Neck Neck: Yes normal visual inspection, Yes full ROM, Yes no lymphadenopathy, Yes no meningeal signs, Yes trachea midline, Yes supple, No anterior neck swelling and No tender Chest Chest palpation & inspection: normal inspection of the chest and normal palpation of entire chest wall Resp Effort & Inspection: normal respiratory effort and able to speak in complete sentences Auscultation: clear to auscultation bilaterally Cardio Jugular venous distension: no JVD Heart sounds: S1 normal heart sound present and S2 normal heart sound present GI Inspection: Yes normal to inspection and No abdominal wall ecchymosis Palpation (GI): Soft to palpation, not firm, nontender, no guarding and not rigid General: No CVA tenderness and Yes no CVA tenderness Male General Exam: Yes normal external exam Penis: normal penis and uncircumcised Meatus: meatus normal Scrotum: scrotum normal Testes: Testes normal and testicular lie normal Back/Spine/Pelvis Back: no CVA tenderness, No CVA tenderness and No back tenderness Skin General skin exam: no rashes or lesions noted and elasticity normal Neuro General: oriented to person, oriented to place, oriented to time, patient oriented x3, gait normal, tone normal, moves all extremities, Normal light touch and pain sensation, no meningeal signs, no focal motor deficits, CN's II-XI intact bilaterally and normal sensation to monofilament Extrem General: Yes normal to inspection and Yes full ROM Psych Appearance: grossly normal, well kempt and not disheveled Course Course Course Narrative: This is a rapid medical exam. Deferred additional HPI, ROS, PE to primary provider. 37 yo male with past medical history of pre-diabetes, ESTEVAN, HTN, asthma. Since Friday c/o mid back pain, worsened with bowel movements, since Friday/ left testicle pain w/ dysuria. No fevers, vomiting. No new sexual partners. Will need labs, UA, CT NG, scrotal US. VSS Medical Decision Making Medical Decision Making MDM Narrative: 37-year-old male presents to ED for back pain and left testicular pain since last week Friday. Patient denies any nausea, vomiting, dysuria, hematuria, flank pain, fever, chills, recent long travel, recent surgery, urinary / bowel incontinence, or IV drug use. Physical exam benign. Labs and ultrasound normal. Urine negative for blood not suspecting kidney stones. Differential Diagnosis Differential Diagnoses: The differential diagnosis associated with the presentation includes ( Testicular torsion, epididymitis, kidney stones, variceal, hydrocele, STD, muscular back pain, arthritis, epidural abscess, cauda equinus syndrome.) Admission/Observation Consideration of admission/observation: Escalation of care including admission/observation considered Lab Data MDM Lab Attestation statement: I reviewed the patient's lab results. 02/25/23 13:15 02/25/23 13:15 Labs: Lab Results 02/25/23 02/25/23 02/25/23 Range/Units 13:15 13:15 16:34 WBC 9.8 (4.8-10.8) X10*3/uL RBC 4.44 L (4.60-5.80) X10*6/uL Hgb 13.3 L (14.0-18.0) g/dl Hct 40.1 L (42.0-52.0) % MCV 90.3 (80.0-98.0) fL MCH 30.0 (27.0-33.0) pg MCHC 33.2 (31.0-36.0) g/dl RDW 12.5 (11.0-16.0) % Plt Count 329 (160-400) X10*3/uL MPV 10.2 (9.4-12.4) fL Immature Gran % (Auto) 0.2 (0.0-0.4) % Neut % (Auto) 66.9 (45-73) % Lymph % (Auto) 23.8 (20-40) % [place] % (Auto) 7.5 (2-11) % Eos % (Auto) 0.8 (0-4) % Baso % (Auto) 0.8 (0-2) % Lymph # (Auto) 2.3 (1.2-4.9) X10*3/uL [place] # (Auto) 0.7 (0.1-1.2) X10*3/uL Eos # (Auto) 0.1 (0.0-0.4) X10*3/uL Baso # (Auto) 0.1 (0.0-0.2) X10*3/uL Abs Immat Gran (auto) 0.02 (0.00-0.03) X10*3/uL Absolute Neuts (auto) 6.6 (2.0-8.3) x10*3/uL Absolute Nucleated RBC 0.000 (0.0-0.012) X10*3/uL Nucleated RBC % (auto) 0.0 (0.0-0.2) /100WBC Sodium 137 (135-145) mmol/L Potassium 3.7 (3.3-5.1) mmol/L Chloride 104 (96-108) mmol/L Carbon Dioxide 25 (22-29) mmol/L Anion Gap 12 (12-20) BUN 14 (9-16) mg/dL Creatinine 0.84 (0.5-1.4) mg/dL Estim Creat Clear Calc 157.1 Estimated GFR > 60 Random Glucose 142 H (60-115) mg/dL Calcium 9.6 (8.4-10.2) mg/dL Total Bilirubin 0.3 (0.0-1.0) mg/dL Direct Bilirubin 0.2 (0.0-0.5) mg/dL AST 60 H (5-37) U/L ALT 56 H (0-40) U/L Alkaline Phosphatase 107 (39-117) U/L Total Protein 7.3 (6.5-8.0) g/dL Albumin 4.1 (3.5-5.0) g/dL Lipase 23 (8-78) U/L Urine Color Yellow Urine Appearance Clear Urine pH 7.0 (5.0-9.0) Ur Specific [place] 1.015 (1.005-1.025) Urine Protein Negative (Neg-Trace) mg/dL Urine Glucose (UA) Negative (Negative) mg/dL Urine Ketones Negative (Negative) mg/dL Urine Blood Negative (Negative) Urine Nitrite Negative (Negative) Ur Leukocyte Esterase Negative (Negative) Chlam trachomat DNA PCR (Not Detect.) N.gonorrhoeae DNA (PCR) (Not Detect.) 02/25/23 Range/Units 16:34 WBC (4.8-10.8) X10*3/uL RBC (4.60-5.80) X10*6/uL Hgb (14.0-18.0) g/dl Hct (42.0-52.0) % MCV (80.0-98.0) fL MCH (27.0-33.0) pg MCHC (31.0-36.0) g/dl RDW (11.0-16.0) % Plt Count (160-400) X10*3/uL MPV (9.4-12.4) fL Immature Gran % (Auto) (0.0-0.4) % Neut % (Auto) (45-73) % Lymph % (Auto) (20-40) % [place] % (Auto) (2-11) % Eos % (Auto) (0-4) % Baso % (Auto) (0-2) % Lymph # (Auto) (1.2-4.9) X10*3/uL [place] # (Auto) (0.1-1.2) X10*3/uL Eos # (Auto) (0.0-0.4) X10*3/uL Baso # (Auto) (0.0-0.2) X10*3/uL Abs Immat Gran (auto) (0.00-0.03) X10*3/uL Absolute Neuts (auto) (2.0-8.3) x10*3/uL Absolute Nucleated RBC (0.0-0.012) X10*3/uL Nucleated RBC % (auto) (0.0-0.2) /100WBC Sodium (135-145) mmol/L Potassium (3.3-5.1) mmol/L Chloride (96-108) mmol/L Carbon Dioxide (22-29) mmol/L Anion Gap (12-20) BUN (9-16) mg/dL Creatinine (0.5-1.4) mg/dL Estim Creat Clear Calc Estimated GFR Random Glucose (60-115) mg/dL Calcium (8.4-10.2) mg/dL Total Bilirubin (0.0-1.0) mg/dL Direct Bilirubin (0.0-0.5) mg/dL AST (5-37) U/L ALT (0-40) U/L Alkaline Phosphatase (39-117) U/L Total Protein (6.5-8.0) g/dL Albumin (3.5-5.0) g/dL Lipase (8-78) U/L Urine Color Urine Appearance Urine pH (5.0-9.0) Ur Specific [place] (1.005-1.025) Urine Protein (Neg-Trace) mg/dL Urine Glucose (UA) (Negative) mg/dL Urine Ketones (Negative) mg/dL Urine Blood (Negative) Urine Nitrite (Negative) Ur Leukocyte Esterase (Negative) Chlam trachomat DNA PCR NOT DETECTED (Not Detect.) N.gonorrhoeae DNA (PCR) NOT DETECTED (Not Detect.) Independent Interpretation I performed an independent interpretation of an: Ultrasound Radiology Impression Discussion of test interpretation with radiology: I have reviewed the radiologist's reading. Independent Historian Clinical information obtained from an independent historian. History obtained from or confirmed by: Other (Intepreter) External Record Review External record reviewed: Other (Prior ED visit) Tests considered The following testing was considered but not selected: CT scan of kidney Prescription Management I considered prescription management with: Pain Medication Discharge Plan Discharge Clinical Impression: Pain in testicle Patient Disposition: Home, Self-Care Instructions: Testicle Pain (ED), Scrotal Pain (ED) Additional Instructions: Regrese al servicio de urgencias de inmediato por cualquier dolor en el escroto, dolor testicular, secreci?n del pene, dolor abdominal, fiebre, escalofr?os, disuria, hematuria, dolor de espalda, dolor en el costado, incontinencia urinaria/intestinal, par?lisis de las extremidades inferiores, hormigueo o cualquier otro s?ntoma preocupante. por favor mague un seguimiento con PCP. Prescriptions: New naproxen 500 mg tablet 500 mg PO BID PRN (Reason: pain) 7 Days Qty: 14 0RF No Action budesonide-formoterol [Symbicort] 160-4.5 mcg/actuation HFA aerosol inhaler 2 puff PO BID 30 Days Qty: 10.2 6RF metoprolol succinate 50 mg tablet extended release 24 hr 50 mg PO DAILY 90 Days Qty: 90 3RF cholecalciferol (vitamin D3) 50 mcg (2,000 unit) tablet 1 tab PO DAILY albuterol sulfate [ProAir HFA] 90 mcg/actuation HFA aerosol inhaler 2 puff INHALATION Q4-6H PRN (Reason: wheezing) quetiapine 200 mg tablet 200 mg PO BEDTIME zolpidem 10 mg tablet 10 mg PO BEDTIME PRN (Reason: Insomnia) clonazepam 1 mg tablet 1 mg PO BID PRN (Reason: Anxiety) (DME) blood pressure kit-extra large Kit See Rx Instructions .ROUTE DAILY Qty: 1 Rx Instructions: As directed fenofibrate 160 mg tablet 160 mg PO DAILY loratadine 10 mg tablet 10 mg PO DAILY fluticasone propionate 50 mcg/actuation spray,suspension 2 spray intranasal DAILY omeprazole 20 mg capsule,delayed release(DR/EC) 20 mg PO BID@0630,1630 gabapentin 300 mg capsule 300 mg PO TID baclofen 10 mg tablet 10 mg PO TID PRN (Reason: muscle spasm) oxybutynin chloride 10 mg tablet extended release 24hr 10 mg PO DAILY Qty: 90 1RF hydrochlorothiazide 25 mg tablet 25 mg PO DAILY oxymetazoline [Nasal [place] (oxymetazoline)] 0.05 % spray,non-aerosol intranasal Stand Alone Forms: Work/School Release Interventions: ED Discharge Assessment Last Done: 02/25/23 18:15 Discharge Date/Time: 02/25/23 18:16 Print Language: [place]ian
[2023-02-25 12:35] VITALS: BP 142/70; PULSE 86; RESP 18; TEMP 36.4; O2SAT 94; BMI 39.9
[2023-02-25 13:33] LABS: MANUAL DIFF FLAG NO
[2023-02-25 13:35] LABS: Basophils Absolute Auto 0.1 X10*3/uL (0.0-0.2); Basophils Percent Auto 0.8 % (0-2); Eosinophils Absolute Auto 0.1 X10*3/uL (0.0-0.4); Eosinophils Percent Auto 0.8 % (0-4); Hematocrit 40.1 % (42.0-52.0); Hemoglobin 13.3 g/dl (14.0-18.0); Imm Gran Abs Auto 0.02 X10*3/uL (0.00-0.03); Imm Gran Pct Auto 0.2 % (0.0-0.4); Lymphocytes Absolute Auto 2.3 X10*3/uL (1.2-4.9); Lymphocytes Percent Auto 23.8 % (20-40); Mean Corpuscular HGB Conc 33.2 g/dl (31.0-36.0); Mean Corpuscular Volume 90.3 fL (80.0-98.0); Mean Platelet Volume 10.2 fL (9.4-12.4); Monocytes Absolute Auto 0.7 X10*3/uL (0.1-1.2); Monocytes Percent Auto 7.5 % (2-11); Neutrophils Absolute Auto 6.6 x10*3/uL (2.0-8.3); Neutrophils Percent Auto 66.9 % (45-73); Platelet Count 329 X10*3/uL (160-400); Red Blood Count 4.44 X10*6/uL (4.60-5.80); Red Cell Distribution Width 12.5 % (11.0-16.0); White Blood Count 9.8 X10*3/uL (4.8-10.8)
[2023-02-25 13:47] LABS: Alanine Aminotransferase 56 U/L (0-40); Albumin Level 4.1 g/dL (3.5-5.0); Alkaline Phosphatase 107 U/L (39-117); Anion Gap 12 (12-20); Aspartate Amino Transferase 60 U/L (5-37); Bilirubin Direct 0.2 mg/dL (0.0-0.5); Bilirubin Total 0.3 mg/dL (0.0-1.0); Blood Urea Nitrogen 14 mg/dL (9-16); Calcium 9.6 mg/dL (8.4-10.2); Carbon Dioxide 25 mmol/L (22-29); Chloride 104 mmol/L (96-108); Creatinine Clr Calc Pharmacy 157.1; Estimated Glomerular Filt Rate > 60; Glucose Random 142 mg/dL (60-115); Lipase 23 U/L (8-78); Potassium 3.7 mmol/L (3.3-5.1); Sodium 137 mmol/L (135-145); Total Protein 7.3 g/dL (6.5-8.0)
[2023-02-25 16:43] LABS: Appearance Urine Clear; Color Urine Yellow; Glucose Urine UA Negative (Negative); Leukocyte Esterase Urine Negative (Negative); Nitrite Urine Negative (Negative); Specific Gravity - Urine 1.015 (1.005-1.025); Urine Blood Negative (Negative); Urine Ketones Negative (Negative); Urine Protein Negative (Neg-Trace)
[2023-02-26 09:55] LABS: CT PCR NOT DETECTED (Not Detect.); NG PCR NOT DETECTED (Not Detect.)
== END 2023-02-25 18:16 | disposition home or self-care (01) ==
PROVIDERS: Nurse Practitioner Family; Emergency Provider Student in an Organized Health Care Education/Training Program; PCP Family Medicine
DX: M54.50 Low back pain, unspecified (principal); N50.812 Left testicular pain; N50.811 Right testicular pain; R10.2 Pelvic and perineal pain; Z79.899 Other long term (current) drug therapy
CPT/HCPCS: 0353U; 36415; 76870; 80048; 80076; 81003; 83690; 85025; 93975; 99282; 99284

== ENCOUNTER 2023-02-27 10:20 | Outpatient (AMB) | payer MEDICAID, SELFPAY ==
[2023-02-27 10:21] VITALS: BP 116/78; PULSE 84; BMI 40.1
--- NOTE | 2023-02-27 10:21 | A.OFFVIS_ITS ---
Intake Vital Signs 02/27/23 10:21 Height 5 ft 9 in Weight 271 lb 9.752 oz BMI 40.1 BP 116/78 Blood Pressure Location Lt brachial Position Sitting Pulse 84 Intake Visit Reasons: 6 mth fu after echo/holter Intake Note: 6 month follow up Hose Builder Required: Yes Hose Builder Language: Manager Law Name: [id number] Octavio Accompanied by: Self / Same As Patient Allergies No Known Allergies Allergy (Verified 02/27/23 10:23) Medication List - Last Reconciled 02/27/23 by Bharathi Francois MD albuterol sulfate 90 mcg/actuation (ProAir HFA) 2 puffs inhalation Q4-6H PRN baclofen 10 mg PO TID PRN blood pressure kit-extra large As directed budesonide-formoterol 160-4.5 mcg/actuation (Symbicort) 2 puffs PO BID 30 days cholecalciferol (vitamin D3) 1 tab PO DAILY clonazepam 1 mg PO BID PRN fenofibrate 160 mg PO DAILY fluticasone propionate 50 mcg/actuation 2 sprays intranasal DAILY gabapentin 300 mg PO TID hydrochlorothiazide 25 mg PO DAILY loratadine 10 mg PO DAILY metoprolol succinate ER 50 mg PO DAILY 90 days naproxen 500 mg PO BID PRN 7 days omeprazole 20 mg PO BID@0630,1630 oxybutynin chloride ER 10 mg PO DAILY oxymetazoline 0.05% (Nasal [place] (oxymetazoline)) sprays intranasal quetiapine 200 mg PO BEDTIME zolpidem 10 mg PO BEDTIME PRN HPI HPI Comments History of Present Illness Details Don returns for follow-up. In the past, was seen regarding palpitations and chest pain. Morbidly obese. He underwent a stress test that was abnormal leading to cardiac catheterization. However, no significant coronary disease. [place] to be a false-positive stress test. Then there was complication of radial artery thrombosis post catheterization. This led to vascular surgery involvement and intervention. Overall, doing fine from cardiac. No new concerns. [facility] Medical History Abnormal nuclear stress test Asthma High cholesterol HTN (hypertension) Hx of blood clots Radial artery thrombosis, right Surgical History S/P cardiac catheterization Family History Mother Diabetes 1.5, managed as type 2 Arthritis Social History Household Members: Spouse Housing: House Do you presently have visiting nurse or other home services: No Alcohol intake: never Patient Tobacco Use Status: Former Tobacco user Quit Date: November 2021 Substance Use Type: Marijuana service: No Current occupational status: disabled Review of Systems Const Denies weakness ENT Denies dizziness Card Denies chest pain, Denies chest pain with activity, Denies syncope, Denies rapid heart rate, Denies pedal edema, Denies edema, Denies leg edema, Denies lightheadedness, Denies palpitations, Denies dyspnea, Denies dyspnea on exertion and Denies orthopnea Resp Denies cough, Denies dyspnea and Denies dyspnea on exertion GI Denies hematochezia and Denies change in stool character Musc Denies abnormal gait, Denies muscle weakness, Denies numbness, Denies radiating pain into limb and Denies tingling Neuro Denies abnormal gait, Denies dizziness, Denies syncope, Denies numbness, Denies tingling and Denies weakness Endo Denies palpitations Physical Exam Vital Signs: Last Vital Signs Pulse 84 02/27/23 10:21 BP 116/78 02/27/23 10:21 BMI result Body Mass Index 40.1 Const General: comfortable and no acute distress Orientation/consciousness: patient oriented x3 HEENT Other: Unremarkable Head: Yes normal to inspection Neck Neck: Yes normal visual inspection Chest Chest palpation & inspection: normal inspection of the chest Resp Auscultation: clear to auscultation bilaterally Cardio Palpation: normal PMI Heart sounds: S1 normal heart sound present, S2 normal heart sound present, no gallops, no murmurs and no rubs GI Palpation (GI): Soft to palpation Back/Spine/Pelvis Other: unremarkable Skin General skin exam: no rashes or lesions noted Neuro General: patient oriented x3 Extrem General: Yes normal to inspection Psych Mental Status: mental status grossly normal Assessment & Plan Assessment & Plan (1) NICM (nonischemic cardiomyopathy): Code(s): I42.8 - Other cardiomyopathies Plan: Most recent LVEF 48%. However, in the cardiac catheterization, coronary arteries thought to be angiographically normal. Hence false positive stress test. Could be related to his body habitus. As LVEF is only slightly low, no specific interventions. Could be related to obesity/PVCs. (2) PVC (premature ventricular contraction): Code(s): I49.3 - Ventricular premature depolarization Plan: In the most recent Holter, frequent ventricular ectopy with a burden of 8%. No malignant findings. Continue beta-blockers. (3) ESTEVAN (obstructive sleep apnea): Comment: Severe degree of sleep apnea. The total AHI was 90/hr and oxygen janice was 82%. Code(s): G47.33 - Obstructive sleep apnea (adult) (pediatric) Plan: Continue CPAP. (4) Morbid obesity: Code(s): E66.01 - Morbid (severe) obesity due to excess calories Plan: Weight loss will be highly beneficial but unclear how much he would be able to achieve. Coding Level of Care Code Est Pt Level 4 (63477) Diagnoses NICM (nonischemic cardiomyopathy) I42.8 PVC (premature ventricular contraction) I49.3 ESTEVAN (obstructive sleep apnea) G47.33 Morbid obesity E66.01
== END 2023-02-27 10:37 | disposition home or self-care (01) ==
PROVIDERS: Visit Provider Internal Medicine
DX: I42.8 Other cardiomyopathies (principal); I49.3 Ventricular premature depolarization; G47.33 Obstructive sleep apnea (adult) (pediatric); E66.01 Morbid (severe) obesity due to excess calories
CPT/HCPCS: 99214

== ENCOUNTER → 2023-02-27 10:20 | Outpatient (BNVA) | payer MEDICAID, SELFPAY | PROVIDERS: Visit Provider Internal Medicine | DX: I42.8 Other cardiomyopathies (principal); I49.3 Ventricular premature depolarization; G47.33 Obstructive sleep apnea (adult) (pediatric); E66.01 Morbid (severe) obesity due to excess calories; Z68.41 Body mass index [BMI] 40.0-44.9, adult | CPT/HCPCS: 99212 ==

== ENCOUNTER 2023-05-05 15:10 | Outpatient (AMB) | payer MEDICAID, SELFPAY ==
--- NOTE | 2023-05-05 15:14 | MHC.OFFVIS ---
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 05/05/2023--- The patient is a Filipino speaking male. 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 He is followed today for urinary symptoms of frequency, urgency. He has been prescribed Oxybutynin 10 mg once a day. He complained of testicular pain. I reviewed the scrotum US results from 02/25/2023 revealed bilateral epididymal cysts. He reports nocturia 5 x. He denies any urinary leakage at this time. He admits 2-3 cans of coke daily. Review of charts:? Bladder USG results reviewed--09/24/2022--Normal-appearing bladder with small prostate. Prostate volume 4.9 mL.? Renal USG results reviewed--09/18/2022--Kidneys: WNL, no renal calculi present.? 05/05/2023: Plan: Discussed lifestyle modifications specifically cutting back on caffeine intake. Will continue oxybutynin for now, discussed with the patient that if he cuts back on caffeine intake, he may not need to continue oxybutynin. Follow up in 1 year. [facility] Medical History Abnormal nuclear stress test Asthma High cholesterol HTN (hypertension) Hx of blood clots Radial artery thrombosis, right Surgical History S/P cardiac catheterization Family History Mother Diabetes 1.5, managed as type 2 Arthritis Social History Household Members: Spouse Housing: House Do you presently have visiting nurse or other home services: No Alcohol intake: never Patient Tobacco Use Status: Former Tobacco user Quit Date: November 2021 Substance Use Type: Marijuana service: No Current occupational status: disabled Review of Systems Const Reports no additional complaints Eyes Reports no additional complaints ENT Denies neck pain Card Denies leg edema Resp Denies cough GI Denies constipation Musc Reports no additional complaints and Denies neck pain Skin/Breast Denies rash and Denies unusual bruising Neuro Reports no additional complaints Psych Reports no additional complaints Endo Reports no additional complaints Sky/Lymph Reports no additional complaints Aller/Immun Reports no additional complaints Office Procedures Post Void Residual Post Residual Void Post Void Residual (PVR): 55 11501-Mpfh Void Residual by ultrasound Results AMB Urinalysis, Automated UA Leukoctes 0 Alejandro/uL Last Edit by Leighton Lewis Debbie on 05/05/23 16:04 UA Nitrite Negative Last Edit by Leighton Lewis [facility] on 05/05/23 16:04 UA Urobilinogen 0 mg/dL Last Edit by Leighton Lewis [facility] on 05/05/23 16:04 UA Protein 0.2 mg/dL Last Edit by Leighton Lewis [facility] on 05/05/23 16:04 UA pH 6.0 Last Edit by Leighton Lewis [facility] on 05/05/23 16:04 UA Blood 0 Shon/uL Last Edit by Leighton Lewis [facility] on 05/05/23 16:04 UA Specific [place] 1.025 Last Edit by Leighton Lewis [facility] on 05/05/23 16:04 UA Ketone Negative Last Edit by Leighton Lewis [facility] on 05/05/23 16:04 UA Bilirubin 0 mg/dL Last Edit by Leighton Lewis [facility] on 05/05/23 16:04 UA Glucose 0 mg/dL Last Edit by Leighton Lewis [facility] on 05/05/23 16:04 Results Reviewed Results Reviewed: Laboratory Last Values Urine pH (Auto) 6.0 05/05/23 16:02 Specific [place] (Auto) 1.025 05/05/23 16:02 Urine Protein (Auto) 0.2 mg/dL 05/05/23 16:02 Glucose (UA)(Auto) 0 mg/dL 05/05/23 16:02 Urine Ketones (Auto) Negative 05/05/23 16:02 Urine Blood (Auto) 0 Shon/uL 05/05/23 16:02 Urine Nitrite (Auto) Negative 05/05/23 16:02 Urine Bilirubin (Auto) 0 mg/dL 05/05/23 16:02 Urine Urobilinogen (Auto) 0 mg/dL 05/05/23 16:02 Leukocyte Esterase (Auto) 0 Alejandro/uL 05/05/23 16:02 Date of Service: 02/25/23 EXAMINATION: US SCROTUM CLINICAL INFORMATION:? Left testicular pain. COMPARISON:? None available. FINDINGS: RIGHT: Right testicle measures 4.0 x 1.8 x 2.6 cm, volume 19.7 mL. No focal testicular parenchymal lesions are visualized. Spectral Doppler analysis of the arterial and venous flow is normal in the right testis. Right epididymal head is normal in size. 0.4 x 0.3 x 0.5 cm right epididymal head cyst is seen. No right hydrocele or varicocele is seen. Right epididymal Doppler flow is normal. LEFT: Left testicle measures 3.8 x 1.6 x 2.3 cm, volume 7.4 mL. No focal testicular parenchymal lesions are visualized. Spectral Doppler analysis of the arterial and venous flow is normal in the left testis.? Multiple epididymal head cysts are seen, largest 2 measure 0.5 x 0.3 x 0.4 cm and 0.5 x 0.4 x 0.5 cm. No left hydrocele or varicocele is seen. Left epididymal Doppler flow is normal. IMPRESSION: Unremarkable testes.? Bilateral epididymal cysts. Assessment & Plan Assessment & Plan (1) Nocturia: Code(s): R35.1 - Nocturia (2) Urgency of micturition: Code(s): R39.15 - Urgency of urination (3) Urinary incontinence: Code(s): R32 - Unspecified urinary incontinence Plan Discussed lifestyle modifications specifically cutting back on caffeine intake. Will continue oxybutynin for now, discussed with the patient that if he cuts back on caffeine intake, he may not need to continue oxybutynin. Follow up in 1 year. Orders: Orders AMB Post Void Residual by ultrasound 05/05/23 N39.8 - Other specified disorders of urinary system AMB Urinalysis Automated 05/05/23 Z13.9 - Encounter for screening, unspecified Patient Instructions: The patient had an opportunity to ask questions regarding treatment plan. All questions were answered. Imaging, Laboratory studies and physical exam results were discussed and reviewed in detail. No major barriers to understanding were identified. The patient expressed understanding and agreement with the above treatment plan.? ? ? The patient is aware they should contact our office by phone for worsening of their current condition or the appearance of new symptoms. Compliance is encouraged with any medications and followup testing that is ordered.? ? ? It is a privilege to be allowed the opportunity to participate in the urologic care of your patient. If you have any questions or concerns regarding treatment for the above conditions please do not hesitate to contact me. The office telephone contact is [phone].? ? ? This note is constructed in part using voice recognition software. While every effort has been made to ensure accuracy rail track maintainer errors may have been included.? ? ? Yours sincerely,? ? ? Dom Gilliam MD? ? Coding Level of Care Code Est Pt Level 3 (95715) Diagnoses Nocturia R35.1 Urgency of micturition R39.15 Urinary incontinence R32 CPT Codes Post Residual Void - PVR CPT Code: 35173-Aqtr Void Residual by ultrasound ([id number])
== END 2023-05-05 15:56 | disposition home or self-care (01) ==
PROVIDERS: PCP Family Medicine; Visit Provider Urology
DX: R35.1 Nocturia (principal); R39.15 Urgency of urination; R32 Unspecified urinary incontinence
CPT/HCPCS: 99213

== ENCOUNTER → 2023-05-05 15:10 | Outpatient (BNVA) | payer MEDICAID, SELFPAY | PROVIDERS: Visit Provider Urology | DX: R35.1 Nocturia (principal); R39.15 Urgency of urination; R32 Unspecified urinary incontinence | CPT/HCPCS: 51798; 81003; 99212 ==

== ENCOUNTER 2023-07-16 10:49 | Outpatient (REF) | payer MEDICAID, SELFPAY ==
--- NOTE | ~2023-07-16 | XR_ITS ---
EXAMINATION: XR HAND, RIGHT CLINICAL INFORMATION: Pain. COMPARISON: Radiographs dated 03/30/1918. TECHNIQUE: PA, lateral, and oblique views of the right hand. FINDINGS: The bones and soft tissues are normal. No fracture. Alignment is anatomic. There is an ulnar minus variance. Joint spaces are maintained. A minimal periarticular calcification is seen of the second distal interphalangeal joint. No erosions or soft tissue calcifications. XR/XR hand RT min 3V IMPRESSION: Unremarkable right hand. EXAMINATION: XR HAND, LEFT CLINICAL INFORMATION: Pain. COMPARISON: None available. TECHNIQUE: PA, lateral, and oblique views of the left hand. FINDINGS: The bones and soft tissues are normal. No fracture. Alignment is anatomic. There is an ulnar minus variance. Joint spaces are maintained. No erosions or soft tissue calcifications. IMPRESSION: Unremarkable left hand.
--- NOTE | ~2023-07-16 | XR_ITS ---
EXAMINATION: XR FOOT, RIGHT CLINICAL INFORMATION: Pain. COMPARISON: Radiographs dated 03/26/2022. TECHNIQUE: AP, lateral, and oblique views of the right foot. FINDINGS: Bony mineralization is normal. There is a hallux valgus and metatarsus adductus configuration. There has been a prior osteotomy of the third metatarsal head. No fracture, dislocation or right ankle joint effusion is seen. Boehler's angle is normal. There are very small posterior and plantar calcaneal spurs. There is degenerative change of the dorsal midfoot. No focal soft tissue swelling, gas or foreign body is seen. XR/XR foot RT min 3V IMPRESSION: 1. Again, there is a hallux valgus configuration. 2. Postoperative changes are again seen of the third metatarsal head. 3. There are very small posterior plantar calcaneal spurs. 4. No fracture, dislocation or right ankle joint effusion is seen. EXAMINATION: XR FOOT, LEFT CLINICAL INFORMATION: Pain. COMPARISON: None available. TECHNIQUE: AP, lateral, and oblique views of the left foot. FINDINGS: Bony alignment and mineralization are normal. No fracture, dislocation or left ankle joint effusion is seen. Boehler's angle is normal. There is a moderate posterior calcaneal spur. There is mild degenerative change of the dorsal midfoot. No focal soft tissue swelling, gas or foreign body is seen. IMPRESSION: 1. There is a moderate posterior calcaneal spur. 2. No fracture, dislocation or left ankle joint effusion is seen.
--- NOTE | ~2023-07-16 | XR_ITS ---
EXAMINATION: XR HAND, RIGHT CLINICAL INFORMATION: Pain. COMPARISON: Radiographs dated 03/30/1918. TECHNIQUE: PA, lateral, and oblique views of the right hand. FINDINGS: The bones and soft tissues are normal. No fracture. Alignment is anatomic. There is an ulnar minus variance. Joint spaces are maintained. A minimal periarticular calcification is seen of the second distal interphalangeal joint. No erosions or soft tissue calcifications. XR/XR hand LT min 3V IMPRESSION: Unremarkable right hand. EXAMINATION: XR HAND, LEFT CLINICAL INFORMATION: Pain. COMPARISON: None available. TECHNIQUE: PA, lateral, and oblique views of the left hand. FINDINGS: The bones and soft tissues are normal. No fracture. Alignment is anatomic. There is an ulnar minus variance. Joint spaces are maintained. No erosions or soft tissue calcifications. IMPRESSION: Unremarkable left hand.
--- NOTE | ~2023-07-16 | XR_ITS ---
EXAMINATION: XR FOOT, RIGHT CLINICAL INFORMATION: Pain. COMPARISON: Radiographs dated 03/26/2022. TECHNIQUE: AP, lateral, and oblique views of the right foot. FINDINGS: Bony mineralization is normal. There is a hallux valgus and metatarsus adductus configuration. There has been a prior osteotomy of the third metatarsal head. No fracture, dislocation or right ankle joint effusion is seen. Boehler's angle is normal. There are very small posterior and plantar calcaneal spurs. There is degenerative change of the dorsal midfoot. No focal soft tissue swelling, gas or foreign body is seen. XR/XR foot LT min 3V IMPRESSION: 1. Again, there is a hallux valgus configuration. 2. Postoperative changes are again seen of the third metatarsal head. 3. There are very small posterior plantar calcaneal spurs. 4. No fracture, dislocation or right ankle joint effusion is seen. EXAMINATION: XR FOOT, LEFT CLINICAL INFORMATION: Pain. COMPARISON: None available. TECHNIQUE: AP, lateral, and oblique views of the left foot. FINDINGS: Bony alignment and mineralization are normal. No fracture, dislocation or left ankle joint effusion is seen. Boehler's angle is normal. There is a moderate posterior calcaneal spur. There is mild degenerative change of the dorsal midfoot. No focal soft tissue swelling, gas or foreign body is seen. IMPRESSION: 1. There is a moderate posterior calcaneal spur. 2. No fracture, dislocation or left ankle joint effusion is seen.
== END 2023-07-16 10:50 | disposition home or self-care (01) ==
LOC: HO.XRAY 10:49
PROVIDERS: PCP Family Medicine; Visit Provider Family Medicine
DX: M79.671 Pain in right foot (principal); M79.672 Pain in left foot; M79.641 Pain in right hand; M79.642 Pain in left hand
CPT/HCPCS: 73130; 73630

== ENCOUNTER 2023-11-04 08:08 | Outpatient (REF) | payer MEDICAID, SELFPAY ==
--- NOTE | ~2023-11-04 | US_ITS ---
EXAMINATION: US ABDOMEN COMPLETE CLINICAL INFORMATION: Fatty liver follow up. COMPARISON: CT chest 12/27/2022. Renal ultrasound 09/18/2022. CT abdomen and pelvis 05/29/2020. Ultrasound abdomen 10/22/2018. TECHNIQUE: Real-time imaging of the abdominal viscera. Limited visualization due to bowel gas. FINDINGS: PANCREAS: Limited visualization of pancreatic tail and head. Imaged portion of pancreatic body is unremarkable. ABDOMINAL AORTA: Limited visualization INFERIOR VENA CAVA: Visualized portions are normal. LIVER: Hepatomegaly, 20.9 cm. Increased hepatic parenchymal heterogeneity and echogenicity could be associated with hepatocellular disease/hepatic steatosis and severely limits visualization. Correlation with liver function tests and clinical exam recommended to determine further management. GALLBLADDER: No gallstones. No gallbladder wall thickening. COMMON BILE DUCT: Normal in caliber measuring 0.4 cm in diameter. RIGHT KIDNEY: No hydronephrosis. No renal calculi. Limited visualization. The kidney measures 12.1 cm in maximum dimension. LEFT KIDNEY: No hydronephrosis. No renal calculi. Limited visualization. The kidney measures 13.1 cm in maximum dimension. SPLEEN: Normal. The spleen measures 11.1 cm in maximum dimension. FREE FLUID: None. US/US abdomen complete IMPRESSION: Hepatomegaly, 20.9 cm. Increased hepatic parenchymal heterogeneity and echogenicity could be associated with hepatocellular disease/hepatic steatosis and severely limits visualization. Correlation with liver function tests and clinical exam recommended to determine further management.
== END 2023-11-04 08:09 | disposition home or self-care (01) ==
LOC: HO.US 08:08
PROVIDERS: PCP Family Medicine; Visit Provider Family Medicine
DX: K76.0 Fatty (change of) liver, not elsewhere classified (principal)
CPT/HCPCS: 76700

== ENCOUNTER 2024-01-07 14:14 | Emergency (ER) | payer MEDICAID, SELFPAY ==
--- NOTE | 2024-01-07 14:18 | ED_ITS ---
HPI - General Adult General Chief complaint: Wound/Laceration Stated complaint: Bump on neck Time Seen by Provider: 01/07/24 14:24 Source: patient Mode of arrival: ambulatory Limitations: no limitations History of Present Illness ED Provider: Susan HUGHES HPI narrative: 38 year old male presents w/ lump on the back of neck X 1 week he noticed it and it has been slowly getting larger and more uncomfortable. PCP aware of this and told him to follow with a specialist which he has not yet done. Reprots discomfort at the site. No fevers, chills, cp, sob, nausea, vomiting, headache, vision changes, dizziness, weakness. Related Data Home Medications ?Medication ?Instructions ?Recorded ?Confirmed blood pressure kit-extra large #1 ea 03/05/22 02/27/23 clonazepam 1 mg tablet 1 mg PO BID PRN Anxiety 03/05/22 02/27/23 fenofibrate 160 mg tablet 160 mg PO DAILY 03/05/22 02/27/23 fluticasone propionate 50 2 spray intranasal DAILY 03/05/22 02/27/23 mcg/actuation nasal spray,suspension gabapentin 300 mg capsule 300 mg PO TID 03/05/22 02/27/23 loratadine 10 mg tablet 10 mg PO DAILY 03/05/22 02/27/23 omeprazole 20 mg capsule,delayed 20 mg PO BID@0630,1630 03/05/22 02/27/23 release zolpidem 10 mg tablet 10 mg PO BEDTIME PRN Insomnia 03/05/22 02/27/23 albuterol sulfate 90 mcg/actuation 2 puff inhalation Q4-6H PRN 04/16/22 02/27/23 aerosol inhaler (ProAir HFA) wheezing cholecalciferol (vitamin D3) 50 1 tab PO DAILY 04/16/22 02/27/23 mcg (2,000 unit) tablet quetiapine 200 mg tablet 200 mg PO BEDTIME 04/23/22 02/27/23 hydrochlorothiazide 25 mg tablet 25 mg PO DAILY 07/26/22 02/27/23 oxymetazoline 0.05 % nasal spray spray intranasal 07/26/22 02/27/23 (Nasal [place] (oxymetazoline)) baclofen 10 mg tablet 10 mg PO TID PRN muscle spasm 08/27/22 02/27/23 Previous Rx's ?Medication ?Instructions ?Recorded metoprolol succinate 50 mg 50 mg PO DAILY 90 days #90 tabs 02/24/23 tablet,extended release 24 hr naproxen 500 mg tablet 500 mg PO BID PRN pain 7 days #14 02/25/23 tabs oxybutynin chloride 10 mg 10 mg PO DAILY #90 tabs 05/13/23 tablet,extended release 24 hr budesonide-formoterol HFA 160 2 puff inhalation BID #12 grams 11/12/23 mcg-4.5 mcg/actuation aerosol inhaler (Symbicort) acetaminophen 325 mg capsule 325 mg PO Q4H PRN pain #30 caps 01/07/24 (Tylenol) Allergies Allergy/AdvReac Type Severity Reaction Status Date / Time No Known Allergies Allergy Verified 01/07/24 14:19 Review of Systems Review of Systems: Yes all other systems are reviewed and are negative PMFSH Past Medical History Attestation statement: The following information was validated with the patient. Source: old records reviewed and nursing notes reviewed Medical History Hx of blood clots Radial artery thrombosis, right Abnormal nuclear stress test High cholesterol HTN (hypertension) Asthma Surgical History S/P cardiac catheterization Family History Family History Mother Diabetes 1.5, managed as type 2 Arthritis Social History Social History Household Members: Spouse Housing: House Do you presently have visiting nurse or other home services: No Alcohol intake: never Comment: Rt radial pulse present intermittently via doppler Patient Tobacco Use Status: Former Tobacco user Quit Date: November 2021 Substance Use Type: Marijuana Advance Directives: No Advance Directives Information Provided: Yes service: No Current occupational status: disabled Physical Exam ED Vital Signs: Vital Signs - 24 hr 01/07/24 14:19 Temperature 98 F Pulse Rate 87 Respiratory Rate 19 Blood Pressure 133/80 Pulse Oximetry 98 Oxygen Delivery Method Room Air BMI result Body Mass Index 41.3 vss Appearance: Alert.? Oriented X3.? No acute distress.? Head: Normocephalic, atraumatic, no step-offs or deformities Eyes: Pupils equal, round and reactive to light.? Neck: roughly 3 cm x 2 cm round mobile fatty feeling mass in the back of neck ( not tender to palpation) no overlying erythema or warmth CVS: Normal heart rate and rhythm.? Pulses normal.? Respiratory: No respiratory distress.? Breath sounds normal.? Abdomen: Soft and nontender.? Skin: Skin warm and dry.? Normal skin color.? Normal skin turgor.? Extremities: No lower extremity edema.? No calf ttp. 5/5 strength to bilateral upper and lower extremities Neuro: Oriented X 3.? No motor deficit.? No sensory deficit. CN 2-12 intact Course Course Course Narrative: This is an RME done by FELICIANO Figueroa: Additional HPI, ROS, PE not included below will be deferred to primary provider. 38 year old male hx of heart palpitations, pvcs, elma, presents w/ concerns of devloping abscess to his neck x 1 week worsening. No erythema or warmth. Rates the pain a 5/10. Denies fever, chills. Patient states he talked to his PCP about it at one point. Reevaluation(s) Reevaluation #1: Patient will be discharged home with general surgery follow-up. Educated patient on diagnosis and treatment plan, answered all question, patient verbalizes understanding. At this time patient will be discharged home, advised to return with new or worsening symptoms. Educated on worrisome signs and symptoms and when to return. At this time I feel comfortable discharge home. Time: 14:29 Medical Decision Making Medical Decision Making [facility] Narrative: 1422 38 year old male presents w/ lump on neck X 1 week PE roughly 3 cm x 2 cm round mobile fatty feeling mass in the back of neck ( not tender to palpation) no overlying erythema or warmth Hx and pe concerning for lipoma. Unlikely abscess, cellulitis, meningitis, septic joint, encephalitis. Plan- dc w/ general surgery follow up will give tylenol. Differential Diagnosis Differential Diagnoses: The differential diagnosis associated with the presentation includes Hx and pe concerning for lipoma. Unlikely abscess, cellulitis, meningitis, septic joint, encephalitis. Consult Healthcare Provider Management of the patient was discussed with: [employer] (Dr. Matthews) Dr. Matthews evaluated who agrees likely lipoma unlikely abscess or infection. Gen Surgery follow up advised. External Record Review External record reviewed: Inpatient record, Office record, Outpatient record, Prior outpatient labs, Prior outpatient radiology, Primary care record and Outside ED record Prescription Management I considered prescription management with: Pain Medication Chronic Conditions Patient?s care impacted by: Other (elma, pulmonary nodules, pvcs ) Discharge Plan Discharge Clinical Impression: Lipoma Patient Disposition: Home, Self-Care Instructions: Lipoma (ED), Soft Tissue Mass (ED) Additional Instructions: Take your medications as prescribed. If you were prescribed antibiotics today, it is important that you take your medication to their entirety, do not skip any doses, do not finish them early. Follow-up with your primary care provider this week. Return to the emergency department with new or worsening symptoms. Such as fevers, chills, chest pain, shortness of breath, nausea, vomiting, dizziness, headache, vision changes, lethargy In case of emergency call 911 Prescriptions: New acetaminophen [Tylenol] 325 mg capsule 325 mg PO Q4H PRN (Reason: pain) Qty: 30 0RF No Action metoprolol succinate 50 mg tablet extended release 24 hr 50 mg PO DAILY 90 Days Qty: 90 3RF oxybutynin chloride 10 mg tablet extended release 24hr 10 mg PO DAILY Qty: 90 1RF budesonide-formoterol [Symbicort] 160-4.5 mcg/actuation HFA aerosol inhaler 2 puff inhalation BID Qty: 12 3RF cholecalciferol (vitamin D3) 50 mcg (2,000 unit) tablet 1 tab PO DAILY albuterol sulfate [ProAir HFA] 90 mcg/actuation HFA aerosol inhaler 2 puff INHALATION Q4-6H PRN (Reason: wheezing) quetiapine 200 mg tablet 200 mg PO BEDTIME naproxen 500 mg tablet 500 mg PO BID PRN (Reason: pain) 7 Days Qty: 14 0RF zolpidem 10 mg tablet 10 mg PO BEDTIME PRN (Reason: Insomnia) clonazepam 1 mg tablet 1 mg PO BID PRN (Reason: Anxiety) (DME) blood pressure kit-extra large Kit See Rx Instructions .ROUTE DAILY Qty: 1 Rx Instructions: As directed fenofibrate 160 mg tablet 160 mg PO DAILY loratadine 10 mg tablet 10 mg PO DAILY fluticasone propionate 50 mcg/actuation spray,suspension 2 spray intranasal DAILY omeprazole 20 mg capsule,delayed release(DR/EC) 20 mg PO BID@0630,1630 gabapentin 300 mg capsule 300 mg PO TID baclofen 10 mg tablet 10 mg PO TID PRN (Reason: muscle spasm) hydrochlorothiazide 25 mg tablet 25 mg PO DAILY oxymetazoline [Nasal [place] (oxymetazoline)] 0.05 % spray,non-aerosol intranasal Ref[place]: [facility] [place] [facility] [place]Provider Group] - 2 days Ngozi Payne DO [Primary Care Provider] - 2 days Stand Alone Forms: Work/School Release Print Language: Turkmen
[2024-01-07 14:19] VITALS: BP 133/80; PULSE 87; RESP 19; TEMP 36.6; O2SAT 98; BMI 41.3
[2024-01-07 14:32] VITALS: BP 133/80; PULSE 87; RESP 19; TEMP 36.6; O2SAT 98
== END 2024-01-07 14:32 | disposition home or self-care (01) ==
PROVIDERS: Emergency Provider Emergency Medicine; PCP Family Medicine
DX: D17.0 Benign lipomatous neoplasm of skin and subcutaneous tissue of head, face and neck (principal)
CPT/HCPCS: 99282; 99283

== ENCOUNTER 2024-01-14 10:53 | Outpatient (AMB) | payer MEDICAID, SELFPAY ==
--- NOTE | 2024-01-14 11:00 | MHC.OFFVIS ---
Vital Signs 01/14/24 11:10 Height 5 ft 9 in Weight 278 lb BMI 41.0 BP 134/71 Blood Pressure Location Lt brachial Position Sitting Pulse 85 Intake Visit Reasons: Abscess~ Mid post neck Intake Note: Patient referred after ER visit on 01-07-24. Patient c/o abscess on Mid post neck. Present for months. Recently enlarging, tender with touch at times. 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: No Accompanied by: Self / Same As Patient Allergies No Known Allergies Allergy (Verified 01/14/24 11:03) Medication List - Last Reconciled 01/14/24 by Gume Hankins MD acetaminophen (Tylenol) 325 mg PO Q4H PRN albuterol sulfate 90 mcg/actuation (ProAir HFA) 2 puffs inhalation Q4-6H PRN baclofen 10 mg PO TID PRN blood pressure kit-extra large As directed budesonide-formoterol 160-4.5 mcg/actuation (Symbicort) 2 puffs inhalation BID cholecalciferol (vitamin D3) 1 tab PO DAILY clonazepam 1 mg PO BID PRN fenofibrate 160 mg PO DAILY fluticasone propionate 50 mcg/actuation 2 sprays intranasal DAILY gabapentin 300 mg PO TID hydrochlorothiazide 25 mg PO DAILY loratadine 10 mg PO DAILY metoprolol succinate ER 50 mg PO DAILY 90 days naproxen 500 mg PO BID PRN 7 days omeprazole 20 mg PO BID@0630,1630 oxybutynin chloride ER 10 mg PO DAILY oxymetazoline 0.05% (Nasal [place] (oxymetazoline)) sprays intranasal quetiapine 200 mg PO BEDTIME zolpidem 10 mg PO BEDTIME PRN HPI Comments Details: Patient has a longstanding history of left posterior neck cyst type mass which has increased in size and become more symptomatic. Presents here for further evaluation. He would like to have it removed. Patient has no such lesions elsewhere. Chart was reviewed and patient evaluated [facility] Medical History Hx of blood clots Radial artery thrombosis, right Abnormal nuclear stress test High cholesterol HTN (hypertension) Asthma Surgical History S/P cardiac catheterization Family History Mother Diabetes 1.5, managed as type 2 Arthritis Social History Household Members: Spouse Housing: House Do you presently have visiting nurse or other home services: No Alcohol intake: never Comment: Rt radial pulse present intermittently via doppler Patient Tobacco Use Status: Former Tobacco user Substance Use Type: Marijuana service: No Current occupational status: disabled Physical Exam Vital Signs: Last Vital Signs Pulse 85 01/14/24 11:10 BP 134/71 01/14/24 11:10 BMI result Body Mass Index 41.0 Const Other: Very pleasant corpulent patient Neck Other: Patient has left posterior neck proximally 3 x 2 cm mass consistent with a sebaceous cyst with punctum visible. No evidence of overlying erythema or fluctuance. Patient is quite corpulent and bull necked. Risks, benefits, alternatives of excision of the sebaceous cyst reviewed with the patient included but not limited to bleeding, infection, recurrence, numbness, pain, scarring the patient wished to proceed. All questions answered. Consent signed. Office Procedures Excision Details: After appropriate positioning, patient underwent 1% lidocaine and Betadine prep and a transverse by elliptical incision was made around the sebaceous cyst in question carried down through skin, subcutaneous tissue, over a very corpulent neck. Dissection down demonstrated this to be an infected sebaceous cyst. The cyst was excised. Wound was irrigated, secured hemostasis, packed, and dressing applied. The concern was that this were closed primarily, patient was in very high-risk for a wound infection so it was decided to manage the wound is noted above. Patient tolerated procedure well [id number] scalp/neck/hands/feet/genitalia 2.1cm-3cm Procedure code (CPT) selection complete Office Meds lidocaine 1 %-epinephrine 1:100,000 injection solution Performing Provider: Gume Hankins MD Performing Location: [facility] [place] General Surgeons Administered by: Gume Hankins MD on 01/14/24 11:58 Dose Route Admin Location Dispensed Lot Number Expiration Date [facility] Shellfish Checker 15 mL Infiltration 15 mL Assessment & Plan Assessment & Plan (1) Sebaceous cyst: Code(s): L72.3 - Sebaceous cyst Category: Surgical Plan: Patient has been given local instructions, seen by Bear aguirre for wound changes, will be given a script for antibiotics and analgesics and the will then see me in a proximally 1 and half weeks time for follow-up or p.r.n.. Orders: Orders AMB Excision Today L72.3 - Sebaceous cyst Surgical Today L72.3 - Sebaceous cyst Medications: New cephalexin 500 mg PO TID 30 caps 0RF hydrocodone-acetaminophen 5-325 mg Partial Fill upon patient request. 1 tab PO Q4-6H PRN 30 tabs 0RF pain Coding Level of Care Code New Pt Level 5 (89377) Diagnoses Sebaceous cyst L72.3 CPT Codes Scalp/Neck/Hands/Feet/Genetalia - CPT: 14664-Xnuerrxh scalp/neck/hands/feet/genitalia 2.1cm-3cm ([id number])
[2024-01-14 11:10] VITALS: BP 134/71; PULSE 85; BMI 41.0
== END 2024-01-14 12:00 | disposition home or self-care (01) ==
PROVIDERS: PCP Family Medicine; Referring Provider Family Medicine; Visit Provider Surgery
DX: L72.3 Sebaceous cyst (principal)
CPT/HCPCS: 11423

== ENCOUNTER 2024-01-14 10:53 | Outpatient (REF) | payer MEDICAID, SELFPAY | END 2024-01-14 10:54 | disposition home or self-care (01) | LOC: HO.LNP 10:53 | PROVIDERS: PCP Family Medicine; Visit Provider Surgery | DX: L72.3 Sebaceous cyst (principal) | CPT/HCPCS: 11423; 88304 ==

== ENCOUNTER → 2024-01-15 09:57 | Outpatient (BNVA) | payer MEDICAID, SELFPAY | PROVIDERS: PCP Family Medicine; Visit Provider Surgery | DX: Z48.00 Encounter for change or removal of nonsurgical wound dressing (principal) | CPT/HCPCS: 99211 ==

== ENCOUNTER → 2024-01-16 09:20 | Outpatient (BNVA) | payer MEDICAID, SELFPAY | PROVIDERS: PCP Family Medicine; Visit Provider Surgery ==

== ENCOUNTER → 2024-01-19 08:58 | Outpatient (BNVA) | payer MEDICAID, SELFPAY | PROVIDERS: PCP Family Medicine; Visit Provider Surgery | DX: Z48.00 Encounter for change or removal of nonsurgical wound dressing (principal) | CPT/HCPCS: 99211 ==

== ENCOUNTER → 2024-01-20 08:48 | Outpatient (BNVA) | payer MEDICAID, SELFPAY | PROVIDERS: PCP Family Medicine; Visit Provider Surgery ==

== ENCOUNTER → 2024-01-21 09:14 | Outpatient (BNVA) | payer MEDICAID, SELFPAY | PROVIDERS: PCP Family Medicine; Visit Provider Surgery ==

== ENCOUNTER 2024-01-26 10:29 | Outpatient (AMB) | payer MEDICAID, SELFPAY ==
[2024-01-26 10:32] VITALS: BMI 41.0
--- NOTE | 2024-01-26 10:32 | A.OFFVIS_ITS ---
Vital Signs 01/26/24 10:32 Height 5 ft 9 in Weight 278 lb 0.011 oz BMI 41.0 Intake Visit Reasons: wound check posterior neck Intake Note: This patient presents for a wound check posterior neck. Patient c/o; reports itchiness, reports no oozing. Volunteer Services Coordinator Required: Yes Volunteer Services Coordinator Language: Jewel Oliving Machine Operator Name: Susan Accompanied by: Self / Same As Patient Allergies No Known Allergies Allergy (Verified 01/26/24 10:44) HPI Comments Details: Patient presents for follow-up status post I&D posterior neck infected sebaceous cyst/abscess. He is doing quite well. He is minimal incisional discomfort. It is undergoing local wound care and doing well with that. [facility] Medical History Hx of blood clots Radial artery thrombosis, right Abnormal nuclear stress test High cholesterol HTN (hypertension) Asthma Surgical History S/P cardiac catheterization Family History Mother Diabetes 1.5, managed as type 2 Arthritis Social History Household Members: Spouse Housing: House Do you presently have visiting nurse or other home services: No Alcohol intake: never Comment: Rt radial pulse present intermittently via doppler Patient Tobacco Use Status: Former Tobacco user Substance Use Type: Marijuana service: No Current occupational status: disabled Physical Exam Vital Signs: BMI result Body Mass Index 41.0 Neck Other: Wound is granulating well with no evidence of any infection. Dressing was applied. Assessment & Plan Assessment & Plan (1) Postop check: Code(s): Z09 - Encounter for follow-up examination after completed treatment for conditions other than malignant neoplasm Category: Surgical Plan Patient was continue local wound care and will otherwise follow-up p.r.n.. All questions answered. In an next 2 weeks this should hopefully be completely healed. If it persists or patient has any setbacks, he has been started to call the office. Coding Level of Care Code Global (59037) Diagnoses Postop check Z09
== END 2024-01-26 10:43 | disposition home or self-care (01) ==
PROVIDERS: PCP Family Medicine; Visit Provider Surgery
DX: Z09 Encounter for follow-up examination after completed treatment for conditions other than malignant neoplasm (principal)
CPT/HCPCS: 99024

== ENCOUNTER → 2024-01-26 10:29 | Outpatient (BNVA) | payer MEDICAID, SELFPAY | PROVIDERS: PCP Family Medicine; Visit Provider Surgery | DX: Z09 Encounter for follow-up examination after completed treatment for conditions other than malignant neoplasm (principal) | CPT/HCPCS: 99212 ==

== ENCOUNTER 2024-03-02 12:42 | Outpatient (AMB) | payer MEDICAID, SELFPAY ==
[2024-03-02 13:02] VITALS: BP 130/82; PULSE 84; BMI 40.6
--- NOTE | 2024-03-02 13:02 | MHC.OFFVIS ---
Vital Signs 03/02/24 13:02 Height 5 ft 9 in Weight 275 lb 2.19 oz BMI 40.6 BP 130/82 Blood Pressure Location Rt brachial Position Sitting Pulse 84 Pulse Source Monitor Intake Visit Reasons: 1 year follow up Hydro Pneumatic Tester Required: Yes Hydro Pneumatic Tester Name: chantal gilbert [id number] Allergies No Known Allergies Allergy (Verified 03/02/24 13:04) Medication List - Last Reconciled 03/02/24 by CRUZ Neville acetaminophen (Tylenol) 325 mg PO Q4H PRN albuterol sulfate 90 mcg/actuation (ProAir HFA) 2 puffs inhalation Q4-6H PRN baclofen 10 mg PO TID PRN blood pressure kit-extra large As directed budesonide-formoterol 160-4.5 mcg/actuation (Symbicort) 2 puffs inhalation BID cholecalciferol (vitamin D3) 1 tab PO DAILY clonazepam 1 mg PO BID PRN dulaglutide (Trulicity) mg subcut QWEEK fenofibrate 160 mg PO DAILY fluticasone propionate 50 mcg/actuation 2 sprays intranasal DAILY gabapentin 300 mg PO TID hydrochlorothiazide 25 mg PO DAILY loratadine 10 mg PO DAILY metformin ER 500 mg PO metoprolol succinate ER 50 mg PO DAILY 90 days omeprazole 20 mg PO BID@0630,1630 oxybutynin chloride ER 10 mg PO DAILY oxymetazoline 0.05% (Nasal [place] (oxymetazoline)) sprays intranasal quetiapine 200 mg PO BEDTIME zolpidem 10 mg PO BEDTIME PRN HPI HPI 1 year follow up: Details: Don is a 38-year-old male with past medical history of morbid obesity, hypertension, hyperlipidemia, PVCs, non ischemic cardiomyopathy, sleep apnea with CPAP use who presents for follow-up. Today he reports that he has been doing well since his last visit 02/27/2023. He has not had any hospitalizations. He denies chest discomfort at rest or with activity. No shortness of breath, PND, orthopnea or edema. Denies heart palpitations. No lightheadedness, presyncope, syncope, falls. Has been helping his friend work on cars. Routine exercise. No significant weight loss in the last year. He reports compliance with his meds. He has not been using his CPAP mask in quite awhile . Certified interpreter for the deaf used. [facility] Medical History Hx of blood clots Radial artery thrombosis, right Abnormal nuclear stress test High cholesterol HTN (hypertension) Asthma Surgical History S/P cardiac catheterization Family History Mother Diabetes 1.5, managed as type 2 Arthritis Social History Household Members: Spouse Housing: House Do you presently have visiting nurse or other home services: No Alcohol intake: never Comment: Rt radial pulse present intermittently via doppler Patient Tobacco Use Status: Former Tobacco user Substance Use Type: Marijuana service: No Current occupational status: disabled Review of Systems Const All systems reviewed & are unremarkable except as noted in HPI and below ENT Denies dizziness Card Denies chest pain, Denies chest pain at rest, Denies chest pain with activity, Denies rapid heart rate, Denies pedal edema, Denies edema, Denies leg edema, Denies lightheadedness, Denies palpitations, Denies dyspnea, Denies dyspnea on exertion and Denies orthopnea Resp Denies cough, Denies dyspnea and Denies dyspnea on exertion GI Denies hematochezia and Denies change in stool character Musc Denies abnormal gait, Denies limited range of motion, Denies muscle cramps, Denies muscle weakness, Denies numbness, Denies radiating pain into limb, Denies stiffness and Denies tingling Neuro Denies abnormal gait, Denies dizziness, Denies numbness and Denies tingling Endo Denies palpitations Physical Exam Vital Signs: BMI result Body Mass Index 40.6 Const General: cooperative, healthy appearing, comfortable and no acute distress Orientation/consciousness: patient oriented x3 Neck Neck: Yes normal visual inspection and Yes no JVD Resp Effort & Inspection: normal respiratory effort Auscultation: clear to auscultation bilaterally, no crackles, no rales, no rhonchi and no wheezes Cardio Jugular venous distension: no JVD Rate: regular rate Rhythm: regular rhythm Heart sounds: S1 normal heart sound present, S2 normal heart sound present, no murmurs and no rubs Neuro General: patient oriented x3 Extrem General: Yes normal to inspection and No no pedal edema Psych Appearance: grossly normal Mental Status: mental status grossly normal Speech and movement: Normal speech and movement present Office Procedures EKG Details: Today, read by me, sinus rhythm with PVC, rate 84, QTC 441 milliseconds [id number], Complete Assessment & Plan Assessment & Plan (1) NICM (nonischemic cardiomyopathy): Code(s): I42.8 - Other cardiomyopathies Category: Medical Plan: History of nonischemic cardiomyopathy. Last echocardiogram 02/13/2023 showed EF 48%, basal inferior akinetic. He had had a cardiac catheterization 04/11/2022 for abnormal stress test which showed normal coronary arteries. His stress test was thought to be false-positive. He denies any anginal sounding symptoms at this time. No clinical signs of heart failure on examination. He has a history of sleep apnea and tells me he has not been wearing his CPAP mask. The importance of wearing CPAP mask reviewed with him. He does have a history of frequent PVCs as seen on Holter monitor 02/13/2023 which showed PVCs 8% of the time. It was thought that his morbid obesity or possibly his PVCs could be contributing to his cardiac with the. He reports compliance with his metoprolol. Blood pressure is well controlled. He will continue hydrochlorothiazide and metoprolol. Signs and symptoms of heart failure reviewed with him. Benefits of weight loss discussed. Increase physical activity as tolerated. Will check echocardiogram to reassess EF. Cardiology office visit in 1 year, sooner if needed. (2) ESTEVAN (obstructive sleep apnea): Comment: Severe degree of sleep apnea. The total AHI was 90/hr and oxygen janice was 82%. Code(s): G47.33 - Obstructive sleep apnea (adult) (pediatric) Category: Medical Plan: As above. (3) PVC (premature ventricular contraction): Code(s): I49.3 - Ventricular premature depolarization Category: Medical Plan: As above. EKG done today does show 1 PVC on the 10 second tracing. Plan Time spent on chart review, documentation, interview and assessment Orders: Orders CA echo transthoracic complete Today I42.8 - Other cardiomyopathies Coding Level of Care Code Est Pt Level 4 (51270) Diagnoses NICM (nonischemic cardiomyopathy) I42.8 ESTEVAN (obstructive sleep apnea) G47.33 PVC (premature ventricular contraction) I49.3 CPT Codes EKG - CPT: 70708-[id number], Complete ([id number]) Time Spent (min) 28
== END 2024-03-02 13:45 | disposition home or self-care (01) ==
PROVIDERS: PCP Family Medicine; Visit Provider Nurse Practitioner Family
DX: I42.8 Other cardiomyopathies (principal); G47.33 Obstructive sleep apnea (adult) (pediatric); I49.3 Ventricular premature depolarization
CPT/HCPCS: 93010; 99214

== ENCOUNTER → 2024-03-02 12:42 | Outpatient (BNVA) | payer MEDICAID, SELFPAY | PROVIDERS: PCP Family Medicine; Visit Provider Nurse Practitioner Family | DX: I42.8 Other cardiomyopathies (principal); I49.3 Ventricular premature depolarization; G47.33 Obstructive sleep apnea (adult) (pediatric) | CPT/HCPCS: 93005; 99212 ==

== ENCOUNTER 2024-03-11 08:11 | Outpatient (REF) | payer MEDICAID, SELFPAY ==
[2024-03-11 11:19] LABS: Hematocrit 39.3 % (42.0-52.0); Mean Corpuscular HGB Conc 33.1 g/dl (31.0-36.0); Mean Corpuscular Hemoglobin 30.1 pg (27.0-33.0); Mean Platelet Volume 10.8 fL (9.4-12.4); Platelet Count 315 X10*3/uL (160-400); Red Blood Count 4.32 X10*6/uL (4.60-5.80); Red Cell Distribution Width 12.9 % (11.0-16.0); White Blood Count 9.1 X10*3/uL (4.8-10.8)
[2024-03-11 11:26] LABS: Estimated Average Glucose 148 mg/dL; Hemoglobin A1c % 6.8 % (<6.0)
[2024-03-11 11:41] LABS: Microalbum/Creatinine Ratio Ur 3.8 ug/mg cr (<30)
[2024-03-11 11:45] LABS: Alanine Aminotransferase 46 U/L (0-40); Albumin Level 4.1 g/dL (3.5-5.0); Alkaline Phosphatase 88 U/L (39-117); Anion Gap 13 (12-20); Aspartate Amino Transferase 47 U/L (5-37); Bilirubin Direct 0.2 mg/dL (0.0-0.5); Bilirubin Total 0.5 mg/dL (0.0-1.0); Blood Urea Nitrogen 14 mg/dL (9-16); Calcium 9.6 mg/dL (8.4-10.2); Carbon Dioxide 25 mmol/L (22-29); Chloride 104 mmol/L (96-108); Estimated Glomerular Filt Rate > 60; Glucose Random 112 mg/dL (60-115); Potassium 3.6 mmol/L (3.3-5.1); Sodium 138 mmol/L (135-145); Total Protein 7.2 g/dL (6.5-8.0)
[2024-03-11 11:52] LABS: Free T4 (Free Thyroxine) 0.96 ng/dL (0.71-1.85); HBS Num1 0.93 mIU/mL (0-7.99); HBsAGNum1 0.49 S/CO (0.00-0.99); HIV AB/AG Nonreactive (Nonreactive); HIV Num 1 0.07 S/CO (0.00-0.99); Hepatitis B Surface Antigen Negative (Negative); Thyroid Stimulating Hormone 3.18 uIU/mL (0.32-4.0); Vitamin D 25-OH Total 61.2 ng/mL (>30); ~HepC Num1 0.14 S/CO (0.00-0.79); ~Hepatitis B Surface Antibody NONREACTIVE (Nonreactive); ~Hepatitis C Antibody Nonreactive (Nonreactive)
[2024-03-11 11:54] LABS: Vitamin B12 438 pg/mL (200-900)
[2024-03-11 12:39] LABS: CT PCR NOT DETECTED (Not Detect.); NG PCR NOT DETECTED (Not Detect.)
[2024-03-15 14:52] LABS: RPR Rapid Plasma Reagin NON-REACTIVE (NON-REACTIVE)
[2024-03-16 06:28] LABS: Alpha Fetoprotein 2.9 ng/mL (<6.1)
== END 2024-03-11 08:12 | disposition home or self-care (01) ==
LOC: HO.HHCL 08:11
PROVIDERS: Visit Provider Family Medicine
DX: Z00.00 Encounter for general adult medical examination without abnormal findings (principal); K76.0 Fatty (change of) liver, not elsewhere classified; E11.9 Type 2 diabetes mellitus without complications
CPT/HCPCS: 36415; 80048; 80076; 82043; 82105; 82306; 82570; 82607; 83036; 84439; 84443; 85027; 86592; 86706; 86803; 87340; 87389; 87491; 87591

== ENCOUNTER → 2024-04-23 09:54 | Outpatient (REF) | payer MEDICAID, SELFPAY ==
--- NOTE | 2024-04-23 10:00 | CA_ITS ---
Transthoracic Echocardiogram Patient (Last, First, Middle): Don Good E Gender: Male Date of : 1985 Age: 38 Procedure Date: 04/23/2024 Procedure Type: Transthoracic Echocardiogram Location: OP Height: 175.26 cm Weight: 116.01 kg BSA: 2.29 m2 Heart Rate: 61 bpm BP: 138 / 78 mmHg Asphalt Distributor Tender: TO Referring MD: Lashawn Boston STOPPING BUILDER-C Symptoms: I42.8 - Other cardiomyopathies Study Quality: Adequate w/Contrast Conclusions: - Normal left ventricular cavity size. There is mildly increased left ventricular wall thickness. The left ventricular systolic function is mildly decreased. The visually estimated ejection fraction is between 40-45%. - E/E prime ratio is between 8 and 15 consistent with indeterminate filling pressures. - Normal right ventricular cavity size and systolic function. - The left atrium is mildly dilated. Findings Procedure Information Contrast agent, definity, is being given per protocol without apparent complications. Left Ventricle Normal left ventricular cavity size. There is mildly increased left ventricular wall thickness. The left ventricular systolic function is mildly decreased. The visually estimated ejection fraction is between 40-45%. Abnormal diastolic function is noted. Spectral Doppler is indicative of a pseudonormal filling pattern. E/E prime ratio is between 8 and 15 consistent with indeterminate filling pressures. Right Ventricle Normal right ventricular cavity size and systolic function. Atria The left atrium is mildly dilated. The right atrium is likely dilated. Aortic Valve Normal aortic valve structure and function. There is no aortic valve stenosis. There is no aortic valve regurgitation. Mitral Valve The mitral valve appears normal. There is no mitral valve regurgitation. There is no mitral valve stenosis. Pulmonic Valve The pulmonic valve is likely normal. Tricuspid Valve Normal tricuspid valve structure. There is no tricuspid valve regurgitation. Normal right atrial pressure. There is no evidence of pulmonary hypertension. Great Vessels All visible segments of the aorta are normal in size. The visualized portions of the pulmonary artery and branches are normal. Venous The inferior vena cava is normal in size and collapses greater than 50% with inspiration. Pericardium/Pleural There is no evidence of pericardial effusion. Prior Study Comparison No significant change compared to prior study dated: 02/13/2023. Measurements 2D Linear Measurements IVSd: 1.19 0.6-0.9/0.6-1.0 cm LVIDd: 5.75 3.9-5.3/4.2-5.9 cm LVIDd Index: 2.51 2.4-3.2/2.2-3.1 cm/m2 LVIDs: 4.18 2.0-3.6 cm LVPWd: 1.13 0.7-1.1 cm LA Diam: 3.80 2.7-3.8/3.0-4.0 cm LAIDs Index: 1.66 1.5-2.3 cm/m2 LV Mass: 348.87 67-162/88-224 g LV Mass Index: 152.34 43-95/49-115 g/m2 LVOT Diam: 2.70 3.0+(-)1.3 cm 2D Systolic Function EF 4C: 49.10 >55% EF 2C: 45.50 >55% EF BiP: 46.90 >55% Mitral Valve MV Pk E: 0.78 MV PK A: 0.63 MV Decel Time: 223.00 E/A: 1.30 E'Lateral: 8.49 E'Medial: 6.74 E/E' Med: 11.60 E/E' Lat: 9.20 PHT: 65.00 MVA PHT: 3.38 Decel Stanly: 3.51 Aortic Valve AoV Pk Richard: 1.18 AoV Mn Richard: 0.84 AoV VTI: 0.25 AoV Pk Grad: 6.00 Aov Mn Grad: 3.00 ART Cont.VTI: 4.53 LVOT LVOT Pk Richard: 0.87 LVOT Mn Richard: 0.59 LVOT VTI: 0.20 LVOT Pk Grad: 3.00 LVOT Mn Grad: 2.00 LVOT Diam: 2.70 LVOT Area: 5.73 Diastolic Function MV Pk E: 0.78 MV Pk A: 0.63 E/A: 1.30 E'Medial: 6.74 E/E' Med: 11.60 E' Laterial: 8.49 E/E' Lat: 9.20 Right Ventricle TAPSE (mm): 20.40 TVS' Richard: 12.30 Tricuspid Valve RA Press: 3.00 Great Vessels Aorta Sinus of Valsalva: 3.29 2.0-3.5 cm Ao Asc: 2.90 2.1-3.4 cm Updated in Other Vendor System with Status of Final Mario Merchant MD electronically signed on 04/25/2024 8:47:45 PM with status of Final
== END ==
LOC: HO.CARD 09:54
PROVIDERS: PCP Family Medicine; Visit Provider Nurse Practitioner Family
DX: I42.8 Other cardiomyopathies (principal)
CPT/HCPCS: 93306; Q9957

== ENCOUNTER → 2024-04-23 10:00 | Outpatient (BNV) | payer MEDICAID, SELFPAY | PROVIDERS: PCP Family Medicine; Visit Provider Internal Medicine Cardiovascular Disease | DX: I42.8 Other cardiomyopathies (principal) | CPT/HCPCS: 93306 ==

== ENCOUNTER 2024-09-24 12:46 | Outpatient (REF) | payer MEDICAID, SELFPAY ==
--- OUTSIDE RECORDS SUMMARY | 2024-09-24 13:07 | XMS_ITS | Encounter Summary ---
Author Organization [employer] Address [address] [facility] 7t [place] [address] Care Team Providers Care Mechanical Detailer Name Role Phone Ngozi Payne DO Primary Care Provider + [phone] Reason for Visit * Reason Comments Routine Cleaning Dental Exam Encounter Details Date Type Department Care Team ([facility] st Contact Info) Description 09/06/2024 3:00 PM EST Office Visit [facility] ADULT [facility] [address] [place] [address] Jalen Cruz Dental calculus (Primary Dx) Social History Tobacco Use Types Packs/Day Years Used Date Smoking Tobacco: Former Cigarettes Passive Smoke Exposure: Past Smokeless Tobacco: Never Alcohol Use Standard Drinks/Week Comments Never 0 (1 standard drink = 0.6 oz pur e alcohol) Alcohol Answer Date Recorded How often do you have a drink containing alcohol ? 0 03/10/2024 Average Number of Drinks Not on file 024 How often do you have six or more drinks on one occasion? 0 03/10/2024 Depression Answer Date Recorded Patient Health Questionnaire-9 Score 11 10/30/2023 Patient Health Questionnaire-9 Score 11 10/30/2023 Last PHQ-9: Questionnaire Data Not on file 0 10/30/2023 Housing Stability Answer Date Recorded What is your housing situation today? I have gayla sing 10/30/[address] you li ve. Do you have problems with any of the following? None of the above 10/30/2023 Food Insecurity Answer Date Recorded Within the past 12 months, y ou worried that your food would run out before you got money to buy more: Never True 2023 Within the past 12 months,th e food you bought just didn't last and you didn't have enough money to get more: Sometimes True 10/30/2023 Transportation Answer Date Recorded In the past 12 months, has l ack of transportation kept you from medical appts, meetings, work or from getting things needed for daily living? No 10/30/2023 Utilities Answer Date Recorded In the past 12 months, has t he electric, gas, oil or water company threatened to shut off services in your home? No 10/30/2023 Depression Answer Date Recorded Patient Health Questionnaire-2 Score 2 10/30/2023 Sex and Gender Information Value Date Recorded Sex Assigned at Male 06/10/2022 10:19 AM EDT Legal Sex Male 10:19 AM EDT Gender Identity Male 06/10/2022 10:19 AM EDT Sexual Orientation Straight 06/10/2022 10 :19 AM EDT documented as of this encounter Last Filed Vital Signs Vital Sign Reading Time Taken Comments Blood Pressure 122/62 09/06/2024 2:49 PM EST Pulse 65 09/06/2024 2:49 PM EST Temperature - - Respiratory Rate - - Oxygen Saturation - - Inhaled Oxygen Concentration - - Weight - - Height - - Body Mass Index - - documented in this encounter Progress Notes * Jalen Cruz - 09/06/2024 3:00 PM EST Patient ID: Don Champagen is a 39 y.o. male. Time Out: Timeout Date: 09/06/24, Timeout Time: 1452 Location: [facility] Tooth: Maxilla and Mandible Procedure: Exam, X-rays, and Prophylaxis Verified the above with patient, certified registered dental assistant, and provider. Confirmed via patient's chart, intraorally and by radiographs. Per Diem Interpreter: not applicable Medical Hx: Vitals: Blood pressure 122/62, pulse 65. Medications, Med Hx reviewed with patient and updated in chart. Treatment Provided Dental procedures in this visit D1110 - PROPHYLAXIS - ADULT (Completed) Service provider: Jalen Cruz Billing provider: Rosalie Molina [id number] - DIAGNOSTIC - DIAGNOSTIC IMAGING - INTRAORAL - COMPREHENSIVE SERIES OF RADIOGRAPHIC IMAGES (Completed) Service provider: Jalen Cruz Billing provider: Rosalie Molina [id number] - ORAL HYGIENE INSTRUCTIONS (Completed) Service provider: Jalen Cruz Billing provider: Rosalie Molina [id number] - ADJUNCTIVE GENERAL SERVICES - PROFESSIONAL VISITS - CASE PRESENTATION, SUBSEQUENT TO DETAILED AND EXTENSIVE TREATMENT PLANNING (Completed) Service provider: Jalen Cruz Billing provider: Rosalie Molina Instruments Used: Ultrasonic Scalers and Prophy angle Fluoride: N/A Oral Cancer Screening: No lesions Head/Neck Exam: No Lesions Calculus: Moderate and Generalized Plaque: Light and Generalized Stain: Light and Generalized Bleeding: Light and Generalized Gingiva: Perio Charting Completed and Bleeding on probing OH: Fair Perio Chart: Completed Oral hygiene instructions provided to patient including brushing technique and flossing. Dental exam done by . Recommendations: Madison two times daily, modified pulliam technique, Floss daily Recall Frequency: 6 mo NV: leyla Hygienist: Jalen Cruz RDH * Rosalie Molina - 09/06/2024 3:00 PM EST Images from the original note were not included. Dental procedures in this visit D1110 - PROPHYLAXIS - ADULT (Completed) Service provider: Jalen Cruz Billing provider: Rosalie Molina D0210 - DIAGNOSTIC - DIAGNOSTIC IMAGING - INTRAORAL - COMPREHENSIVE SERIES OF RADIOGRAPHIC IMAGES (Completed) Service provider: Jalen Cruz Billing provider: Rosalie Molina D1330 - ORAL HYGIENE INSTRUCTIONS (Completed) Service provider: Jalen Cruz Billing provider: Rosalie Molina [id number] - ADJUNCTIVE GENERAL SERVICES - PROFESSIONAL VISITS - CASE PRESENTATION, SUBSEQUENT TO DETAILED AND EXTENSIVE TREATMENT PLANNING (Completed) Service provider: Jalen Cruz Billing provider: Rosalie Molina D0120 - PERIODIC ORAL EVALUATION - ESTABLISHED PATIENT (Completed) Service provider: Rosalie Molina Billing provider: Rosalie Molina D0180 - COMPREHENSIVE PERIODONTAL EVALUATION - NEW OR ESTABLISHED PATIENT (Completed) Service provider: Rosalie Molina Billing provider: Rosalie Molina Patient ID: Don Champagne is a 39 y.o. male. Time Out: Timeout Date: 09/06/24, Timeout Time: 1452 Location: [facility] Tooth: Maxilla and Mandible Procedure: Exam Verified the above with patient, certified registered dental assistant, and provider. Confirmed via patient's chart, intraorally and by radiographs. Per Diem Interpreter: not applicable Chief Complaint Patient presents with Routine Cleaning Dental Exam Medical Hx: Vitals: Blood pressure 122/62, pulse 65. Past Medical History: Diagnosis Date Anxiety Arthritis Asthma Diabetes ([facility]) High cholesterol Hypertension Medications: Outpatient Encounter Medications as of 09/06/2024 Medication Sig Dispense Refill albuterol (Ventolin HFA) 108 (90 Base) MCG/ACT inhaler INHALE 2 PUFFS BY MOUTH EVERY 4 TO 6 HOURS NEEDED FOR COUGH, FOR WHEEZING, OR SHORTNESS OF BREATH 18 g 1 Alcohol Swabs (Alcohol Prep) 70 % pads USE TWICE DAILY DIRECTED 100 each 11 atorvastatin (Lipitor) 20 MG tablet Take 1 tablet (20 mg) by mouth in the morning. 90 tablet [address] [facility] USE TO CHECK BLOOD PRESSURE DAILY cholecalciferol (Vitamin D-3) 50 MCG (1999 UT) tablet TAKE 1 TABLET BY MOUTH ONCE DAILY 90 tablet 3 clonazePAM (KlonoPIN) 1 MG tablet TAKE 1 TABLET BY MOUTH TWICE DAILY NEEDED Diclofenac Sodium 1 % gel APPLY 2 GRAMS TOPICALLY TO AFFECTED AREA(S) TWICE DAILY NEEDED (Patient not taking: Reported on 09/01/2023) 100 g 1 famotidine (Pepcid) 20 MG tablet TAKE 1 TABLET BY MOUTH TWICE DAILY IN THE MORNING AND AT BEDTIME NEEDED HEARTBURN 180 tablet 1 fluticasone (Flonase) 50 MCG/ACT nasal spray USE 2 SPRAYS IN EACH NOSTRIL ONCE DAILY 48 g 3 FREESTYLE LITE test strip TEST BLOOD SUGAR TWICE DAILY 100 strip 11 gabapentin (Neurontin) 300 MG capsule TAKE 1 CAPSULE BY MOUTH THREE TIMES DAILY hydroCHLOROthiazide (HYDRODiuril) 25 MG tablet TAKE 1 TABLET BY MOUTH EVERY MORNING 90 tablet 1 lidocaine (Lidoderm) 5 % patch APPLY 1 PATCH TOPICALLY TO SKIN, LEAVE ON FOR 12 HOURS AND OFF FOR 12 HOURS DIRECTED 30 patch 5 lisinopril 5 MG tablet TAKE 1 TABLET BY MOUTH EVERY EVENING 90 tablet 3 loratadine (Claritin) 10 MG tablet TAKE 1 TABLET BY MOUTH ONCE DAILY 90 tablet 3 metFORMIN XR (Glucophage-XR) 500 MG 24 hr tablet TAKE 1 TABLET BY MOUTH TWICE DAILY IN THE MORNING AND IN THE EVENING WITH MEALS. DO NOT BREAK, CRUSH, DISSOLVE OR CHEW 180 tablet 1 metoprolol succinate XL (Toprol-XL) 50 MG 24 hr tablet TAKE 1 TABLET BY MOUTH DAILY omeprazole (PriLOSEC) [address] capsule TAKE 1 CAPSULE BY MOUTH TWICE DAILY BEFORE MEALS 180 capsule1 oxybutynin XL (Ditropan-XL) 10 MG 24 hr tablet TAKE 1 TABLET BY MOUTH EVERY DAY QUEtiapine (SEROquel) 100 MG tablet Take 100 mg by mouth at bedtime. QUEtiapine (SEROquel) 25 MG tablet TAKE 1 TABLET BY MOUTH AT BEDTIME WITH 100 MG TABLET Symbicort 160-4.5 MCG/ACT inhaler INHALE 2 PUFFS BY MOUTH TWICE DAILY. RINSE MOUTH AFTER USING. terbinafine (LamISIL AT) 1 % cream Apply topically 2 times daily. 28 g 1 TRUEplus Lancets 33G misc USE TWICE DAILY DIRECTED 100 each 11 Trulicity 0.75 MG/0.5ML solution auto-injector INJECT ONE PEN (=0.75MG) SUBCUTANEOUSLY ONCE A WEEK DIRECTED 2 mL 3 zolpidem (Ambien) 10 MG tablet Take 1 tablet by mouth if needed at bedtime. No facility-administered encounter medications on file as of 09/06/2024. 39 y/o old male presents for a periodic exam done by Dr. Rosalie Molina, DMD. 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 Medical consult / medical clearance needed: None [place]: Pain: no Duration: n/a Scale of pain from 1-10 = n/a Aggravating factors: n/a Pain radiating: No Postural variation: No Allergies: Reviewed in EHR Medications: Reviewed in EHR Radiographs X-rays taken today: FMX Discussion: -Pt stated that pt has no pain or sensitivity to cold foods and beverages. -Findings, risks, benefits and alternatives discussed with pt. -Reviewed radiographs with pt. -Upon exam, #18 was RCT treated along with post and core completed by Dr. Tran in Sep 2023 but pt never got crown after that since pt didn't knew as stated by patient. -Upon exam, pt was informed that tooth #18 will be need extraction as of today since crown has fractured distally to the extent that tooth can't be restored with a crown anymore since tooth was not restored with crown right after RCT and post and core. Also, gingiva around #18 has mild redness and tooth has huge existing church that was prone tofracture. Pt understood and agreed. -Restorations planned as charted. -Pt was recommended upper and lower removable partial dentures after extraction of #18 - post healing to maintain edentulous spaces. -Entire treatment has been planned to preserve natural dentition for as long as possible. -OHI reviewed. Emphasis was laid on maintaining good oral hygiene regimen at home along with regular visits to dentist. -Pt understood, was satisfied with our conversation and agreed with tx plan; dismissed in good condition. -All questions answered. Soft tissue exam: mild redness in relation to #18; OCS- negative Head and neck exam: Lymph Nodes, Lips, Palate, Buccal Mucosa, Floor of Mouth, Tongue, Tonsils, Alveolar Ridges, Oropharynx, Salivary Ducts, Vestibules - no abnormal findings. TMJ/Occlusal - TMJ is within normal limits. Oral Cancer Risk - low Oral hygiene - poor Perio Risk - moderate Oral Hygiene Instruction Provided - Yes Oral Hygiene Instructions: Madison two times daily, modified pulliam technique, Floss daily, Electric toothbrush, Soft bristle toothbrush, Madison Tongue. Referrals - None Treatment plan: -Extraction #[address] Bey/ resident under supervision of Dr. Bey -Restorative -Upper/lower removable partial dentures -6 month recall All questions answered and expressed understanding. Dismissed in good condition. NV: Restorative Hygienist: Jalen Dentist: Dr. Rosalie Molina, DMD documented in this encounter Plan of Treatment Upcoming Encounters Date Type Department Care Team (Late st Contact Info) Description 10/11/2024 1:00 PM EST Office Visit [facility] ADULT D[facility] [address] [place] [address] Rosalie Molina [address] [place] [address] Scheduled Orders Name Type Priority Associated Diagnoses Orde r Schedule 5 DO 5 DO RESTORATIVE - RESIN-BASED COMPOSITE RESTORATIONS - DIRECT - RESIN-BASED COMPOSITE - TWO SURFACES, POSTERIOR Dental Routine 1 Occur rences starting 09/06/2024 18,19 18,19 MANDIBULAR PARTIAL DENTURE - RESIN BASE (INCLUDING, RETENTIVE/CLASPING MATERIALS, RESTS, AND TEETH) Dental Routine [address] arting 09/06/2024 DENTURE IMPRESSION Dental Routine 1 Occu rrences starting 09/06/2024 BITE REGISTRATION Dental Routine 1 Occur rences starting 09/06/2024 WAX TRY IN Dental Routine 1 Occurrences starting 09/06/2024 documented as of this encounter Goals Goal Patient Goal Type Associated Problems Recent Progress Patient-Stated? Author Blood Pressure < 140/90 Blood Pressure 112/60(2024 12:30 PM EST) No Magaly Lopez Record your blood sugar as directed Result Component No Magaly Lopez documented as of this encounter Procedures Procedure Name Priority Date/Time Associated Diagnosis Comments PROPHYLAXIS - ADULT Routine 09/06/2024 3 :00 PM EST PERIODIC ORAL EVALUATION - ESTABLISHED PATIENT Routine 09/06/2024 3:00 PM EST ORAL HYGIENE INSTRUCTIONS Routine 2024 3:00 PM EST INTRAORAL - COMPLETE SERIES OF RADIOGRAPHIC IMAGES Routine 09/06/2024 3:00 PM EST COMPREHENSIVE PERIODONTAL EVALUATION - NEW OR ESTABLISHED PATIENT Routine 09/06/2024 3:00 PM EST CASE PRESENTATION, DETAILED AND EXTENSIVE TREATMENT PLANNING Routine 09/06/2024 3:00 PM EST documented in this encounter Visit Diagnoses Diagnosis Dental calculus- Primary Accretions on teeth documented in this encounter Additional Health Concerns Assessment Noted Time PHQ-9 Depression Total Score: 11 024 11:49 AM EDT documented as of this encounter Care Teams Mechanical Detailer Relationship Specialty Start Date End Date Ngozi Payne DO [address] [place] [id number] PCP - General Family Medicine 08/11/18 documented as of this encounter
--- OUTSIDE RECORDS SUMMARY | 2024-09-24 13:08 | XMS_ITS | Encounter Summary ---
Author Organization [employer] [facility] Address [address] [place] [address] 7 [place] [address] Care Team Providers Care School Occupational Therapist Name Role Phone Ngozi Payne DO Primary Care Provider + [phone] Reason for Visit * Reason Comments Med Refill Encounter Details Date Type Department Care Team (Late st Contact Info) Description 11/02/2022 Refill [facility] [address] [place] [address] Shilpi Richardson MD [address] [place] [address] Right radial artery thrombus (CMS/HCC) Social History Tobacco Use Types Packs/Day Years Used Date Smoking Tobacco: Former Cigarettes Passive Smoke Exposure: Past Smokeless Tobacco: Never Alcohol Use Standard Drinks/Week Comments Never 0 (1 standard drink = 0.6 oz pur e alcohol) Depression Answer Date Recorded Patient Health Questionnaire-9 Score 9 09/06/2022 Depression Answer Date Recorded Patient Health Questionnaire-2 Score 2 09/06/2022 Sex and Gender Information Value Date Recorded Sex Assigned at Male 06/10/2022 10:19 AM EDT Legal Sex Male 10:19 AM EDT Gender Identity Male 06/10/2022 10:19 AM EDT Sexual Orientation Straight 06/10/2022 10 :19 AM EDT documented as of this encounter Plan of Treatment Upcoming Encounters Date Type Department Care Team (Late st Contact Info) Description 10/11/2024 1:00 PM EST Office Visit [facility] [address] [place], [place] [phone] Rosalie Molina [address] [place], [place] [phone] documented as of this encounter Visit Diagnoses Diagnosis Right radial artery thrombus (CMS/HCC) documented in this encounter Additional Health Concerns Assessment Noted Time PHQ-9 Depression Total Score: 9 09/06/19 23 10:03 AM EST documented as of this encounter Care Teams School Occupational Therapist Relationship Specialty Start Date End Date Ngozi Payne DO [address] [place] [address] PCP - General Family Medicine 08/11/18 documented as of this encounter
--- OUTSIDE RECORDS SUMMARY | 2024-09-24 13:08 | XMS_ITS | Encounter Summary ---
Author Organization [employer] Address [address] [facility] 7t [place] [address] Care Team Providers Care Cottrell Operator Name Role Phone Ngozi Payne DO Primary Care Provider [phone] Encounter Details Date Type Department Care Team (Latest Contact Info) Description 09/24/2024 Travel Social History Tobacco Use Types Packs/Day Years [...] Answer Date Recorded Patient Health Questionnaire-9 Score 10 09/24/2024 Patient Health Questionnaire-9 Score 10 09/24/2024 Last PHQ-9: Questionnaire Data Not on file 0 09/24/2024 Housing Stability Answer Date Recorded What is your housing situation today? I have gaylawin diego 09/24/[address] you li ve. Do you have problems with any of the following? Pests such as bugs, ants, or mice 09/24/2024 Food Insecurity Answer Date Recorded Within the past 12 months, y ou worried that your food would run out before you got money to buy more: Sometimes True 2024 Within the past 12 months,th e food you bought just didn't last and you didn't have enough money to get more: Never True 09/24/2024 Transportation Answer Date Recorded In the past [...] Date Recorded Patient Health Questionnaire-2 Score 2 09/24/2024 Internet Access Answer Date Recorded Internet Access Q1 Yes 09/24/2024 Internet Access Q2 Not on file 09/24/2024 Sex and Gender Information Value Date Recorded Sex Assigned at Male 06/10/2022 10:19 AM EDT Legal Sex Male 10:19 AM EDT Gender Identity Male 06/10/2022 10:19 AM EDT Sexual Orientation Straight 06/10/2022 10 :19 AM EDT documented as of this encounter Plan of Treatment Upcoming Encounters Date Type Department Care Team (Late st Contact Info) Description 10/11/2024 1:00 PM EST Office [facility] ADULT D[facility] [address] [place] [address] Bhaskar Molinaxu [address] [place] [address] documented as of this encounter Goals Goal Patient Goal Type Associated Problems Recent Progress Patient-Stated? Author Blood Pressure < 140/90 Blood Pressure 112/60(2024 12:30 PM EST) No Magaly Lopez Record your blood sugar as directed Result Component No Magaly Lopez documented as of this encounter Visit Diagnoses Not on filedocumented in this encounter Additional Health Concerns Assessment Noted Time PHQ-9 Depression Total Score: 10 025 11:51 AM EST documented as of this encounter Care Teams Cottrell Operator Relationship Specialty Start Date End Date Ngozi Payne DO [address] [place] [address] PCP - General Family Medicine 08/11/18 documented as of this encounter
--- OUTSIDE RECORDS SUMMARY | 2024-09-24 13:08 | XMS_ITS | Encounter Summary ---
Author Organization [employer] Address [address] [facility] [address] [place] [address] Care Team Providers Care Tree Surgeon Helper Name Role Phone Ngozi Payne DO Primary Care Provider + [phone] Reason for Visit * Reason Onset Date Comments Recall Appt. 08/27/2024 Encounter Details Date Type Department Care Team ([facility] st Contact Info) Description 08/27/2024 Telephone [facility] [address] [place] [address] Belén Ny [place] Recall Appt. Social History Tobacco Use Types Packs/Day Years [...] your housing situation today? I have gayla diego 10/30/[address] you li [...] AM EDT documented as of this encounter Miscellaneous Notes * Telephone Encounter - Belén Ny MA - 08/27/2024 10:09 AM EST 08/27/24-Spoke with patient schedule follow up appt. 09/24/24 at 11:30am. Mailed appt. Letter. documented in this encounter Plan of Treatment Upcoming Encounters Date Type Department Care Team (Late st Contact Info) Description 10/11/2024 1:00 PM EST Office Visit [facility] ADULT D[facility] [address] [place] [address] Bhaskar Molinacharbelmadison [address] [place] [address] documented as of this encounter Goals Goal [...] documented as of this encounter Care Teams Tree Surgeon Helper Relationship Specialty Start Date End Date Ngozi Payne DO [address] [place] [id number] PCP - General Family Medicine 08/11/18 documented as of this encounter
--- OUTSIDE RECORDS SUMMARY | 2024-09-24 13:08 | XMS_ITS | Encounter Summary ---
Author Organization [employer] [facility] Address [address] [place] [address] [address] [place] [address] Care Team Providers Care Development System Efficiency Manager Name Role Phone Ngozi Payne DO Primary Care Provider [phone] Reason for Visit * Reason Onset Date Comments Med Refill 04/16/2023 Appointment Request 04/16/2023 Encounter Details Date Type Department Care Team (Late st Contact Info) Description 04/16/2023 Telephone [facility] [address] [place] [address] Ngozi Payne DO [address] [place] [address] Med Refill; Appointment Request Social History Tobacco Use Types Packs/Day Years [...] encounter Miscellaneous Notes * Telephone Encounter - Rahel Cruz - 04/16/2023 9:41 AM EDT PT called to request a DM call states he has not been called for a month now and he's concerned about his levels. PT needs a call around 330pm due to his schedule. * Telephone Encounter - Mari Mcwilliams - 04/16/2023 9:35 AM EDT Tc from pt requesting med refill for medication metFORMIN XR (Glucophage-XR) 500 MG 24 hr tablet. documented in this encounter Plan of Treatment Upcoming Encounters Date Type Department Care Team (Late st Contact Info) Description 10/11/2024 1:00 PM EST Office Visit [facility] AD[facility] D[facility] [address] [place] [address] MolinarBandy dowlingvaleria [address] [place] [address] documented as of this encounter Visit Diagnoses Not on filedocumented in this encounter Additional Health Concerns Assessment Noted Time PHQ-9 Depression Total Score: 9 09/06/19 23 10:03 AM EST documented as of this encounter Care Teams Development System Efficiency Manager Relationship Specialty Start Date End Date Ngozi Payne DO [address] [place] [address] PCP - General Family Medicine 08/11/18 documented as of this encounter
--- OUTSIDE RECORDS SUMMARY | 2024-09-24 13:08 | XMS_ITS | Encounter Summary ---
Author Organization [employer] Address [address] [facility] [address]t [place] [address] Care Team Providers Care Internal Control Consultant Name Role Phone Ngozi Payne DO Primary Care Provider [phone] Encounter Details Date Type Department Care Team (Late st Contact Info) Description 06/17/2024 Telephone [facility] [address] [place] [address] Ngozi Payne DO [address] [place] [address] Social History Tobacco Use Types Packs/Day Years [...] Description 10/11/2024 1:00 PM EST Office Visit [facility]ULT [facility] [address] [place] [address] Rosalie Molina [address] [place] [address] documented as of this encounter Goals Goal [...] documented as of this encounter Care Teams Internal Control Consultant Relationship Specialty Start Date End Date Ngozi Payne DO [address] [place] [address] PCP - General Family Medicine 08/11/18 documented as of this encounter
--- OUTSIDE RECORDS SUMMARY | 2024-09-24 13:08 | XMS_ITS | Clinical Summary ---
Author Organization [employer] Address [address] [facility] [address] [place] [address] Care Team Providers Care Cardiology Technologist Name Role Phone Ngozi Payne Primary Care Provider [phone] Allergies Active Allergy Reactions Criticality Noted Date Comments Amlodipine Swelling Medium 08/06/2022 EDEMA OF LOWER EXTREMITY (SEVERE) Medications Blood Pressure Monitor misc USE TO CHECK BLOOD PRESSURE DAILY Active Symbicort 160-4.5 MCG/ACT inhaler INHALE 2 PUFFS BY MOUTH TWICE DAILY. RINSE MOUTH AFTER USING. Active clonazePAM (KlonoPIN) 1 MG tablet TAKE 1 TABLET BY MOUTH TWICE DAILY NEEDED Active gabapentin (Neurontin) 300 MG capsule TAKE 1 CAPSULE BY MOUTH THREE TIMES DAILY Active metoprolol succinate XL (Toprol-XL) 50 MG 24 hr tablet TAKE 1 TABLET BY MOUTH DAILY Active oxybutynin XL (Ditropan-XL) 10 MG 24 hr tablet TAKE 1 TABLET BY MOUTH EVERY DAY Active zolpidem (Ambien) 10 MG tablet Take 1 tablet by mouth if needed at bedtime. Active Diclofenac Sodium 1 % gelIndications: Chest pain, unspecified type APPLY 2 GRAMS TOPICALLY TO AFFECTED AREA(S) TWICE DAILY NEEDED 100 g 1 Active Additional Information Patient not taking.Reported on 09/01/2023 QUEtiapine (SEROquel) 100 MG tablet Take 100 mg by mouth at bedtime. Active QUEtiapine (SEROquel) 25 MG tablet TAKE 1 TABLET BY MOUTH AT BEDTIME WITH 100 MG TABLET Active lidocaine (Lidoderm) 5 % patchIndication s:Chronic thoracic back pain, unspecified back pain laterality APPLY 1 PATCH TOPICALLY TO SKIN, LEAVE ON FOR 12 HOURS AND OFF FOR 12 HOURS DIRECTED 30 patch 5 023 Active terbinafine (LamISIL AT) 1 % cream Apply topically 2 times daily. 28 g 1 023 Active loratadine (Claritin) 10 MG tabletIndicatio ns:Seasonal allergic rhinitis, unspecified trigger TAKE 1 TABLET BY MOUTH ONCE DAILY 90 tablet 3 024 Active atorvastatin (Lipitor) 20 MG tablet Take 1 tablet (20 mg) by mouth in the morning. 90 tablet 3 024 2024 Active FREESTYLE LITE test stripIndication s:Type 2 diabetes mellitus without complication, with long-term current use of insulin ([facility]) TEST BLOOD SUGAR TWICE DAILY 100 strip 11 024 Active Alcohol Swabs (Alcohol Prep) 70 % padsIndications :Type 2 diabetes mellitus without complication, with long-term current use of insulin ([facility]) USE TWICE DAILY DIRECTED 100 each 11 024 Active TRUEplus Lancets 33G miscIndications :Type 2 diabetes mellitus without complication, with long-term current use of insulin ([facility]) USE TWICE DAILY DIRECTED 100 each 11 024 Active hydroCHLOROthia zide (HYDRODiuril) 25 MG tablet TAKE 1 TABLET BY MOUTH EVERY MORNING 90 tablet 1 024 Active lisinopril 5 MG tabletIndicatio ns:Essential hypertension TAKE 1 TABLET BY MOUTH EVERY EVENING 90 tablet 3 024 Active albuterol (Ventolin HFA) 108 (90 Base) MCG/ACT inhaler INHALE 2 PUFFS BY MOUTH EVERY 4 TO 6 HOURS NEEDED FOR COUGH, FOR WHEEZING, OR SHORTNESS OF BREATH 18 g 1 024 Active fluticasone (Flonase) 50 MCG/ACT nasal sprayIndication s:Seasonal allergic rhinitis, unspecified trigger USE 2 SPRAYS IN EACH NOSTRIL ONCE DAILY 48 g 3 025 Active metFORMIN XR (Glucophage-XR) 500 MG 24 hr tabletIndicatio ns:Type 2 diabetes mellitus without complication, without long-term current use of insulin ([facility]) TAKE 1 TABLET BY MOUTH TWICE DAILY IN THE MORNING AND IN THE EVENING WITH MEALS DO NOT BREAK, CRUSH, DISSOLVE OR CHEW 180 tablet 1 025 Active famotidine (Pepcid) 20 MG tablet TAKE 1 TABLET BY MOUTH TWICE DAILY IN THE MORNING AND AT BEDTIME NEEDED HEARTBURN 180 tablet 1 025 Active cholecalciferol VITAMIN D (Vitamin D-3) 50 MCG (1999 UT) tabletIndicatio ns:Vitamin D deficiency TAKE 1 TABLET BY MOUTH ONCE DAILY 90 tablet 1 025 Active omeprazole (PriLOSEC) [address] capsule TAKE 1 CAPSULE BY MOUTH TWICE DAILY BEFORE MEALS 180 capsule 1 025 Active Dulaglutide (Trulicity) 1.5 MG/0.5ML solution auto-injector Inject 1.5 mg under the skin 1 (one) time per week. 2 mL 3 025 Active cholecalciferol (Vitamin D-3) 50 MCG (1999 UT) tabletIndicatio ns:Vitamin D deficiency TAKE 1 TABLET BY MOUTH ONCE DAILY 90 tablet 3 024 2024 Discontinued(R eorder (will not trigger notification to Pharmacy)) omeprazole (PriLOSEC) [address] capsule TAKE 1 CAPSULE BY MOUTH TWICE DAILY BEFORE MEALS 180 capsule 1 024 2024 Discontinued famotidine (Pepcid) 20 MG tablet TAKE 1 TABLET BY MOUTH TWICE DAILY IN THE MORNING AND AT BEDTIME NEEDED HEARTBURN 180 tablet 1 024 2024 Discontinued metFORMIN XR (Glucophage-XR) 500 MG 24 hr tabletIndicatio ns:Type 2 diabetes mellitus without complication, without long-term current use of insulin ([facility]) TAKE 1 TABLET BY MOUTH TWICE DAILY IN THE MORNING AND IN THE EVENING WITH MEALS. DO NOT BREAK, CRUSH, DISSOLVE OR CHEW 180 tablet 1 024 2024 Discontinued Trulicity 0.75 MG/0.5ML solution auto-injector INJECT ONE PEN (=0.75MG) SUBCUTANEOUSLY ONCE A WEEK DIRECTED 2 mL 3 024 2024 Discontinued Active Problems Patient Care Coordination No te Formatting of this note migh t be different from the original. C3/CM Mine Owen RN, TC Progress Note Problem Noted Date Diagnosed Date Healthcare maintenance 09/24/2024 S/P cardiac catheterization 03/01/2024 Periodontal disease 11/21/2023 Dental calculus 11/21/2023 Bilateral hand pain 10/30/2023 Assessment & Plan (10/30/2023 2:18 PM EDT): Sx improved -hand XR unremarkable JUL 2023 -continue pain meds prn -advised d/w ortho at upcoming visit Obstructive sleep apnea 08/27/2023 Assessment & Plan (10/30/2023 2:15 PM EDT): S/P sleep study Apr 2022 -encouraged CPAP nightly -encouraged schedule f/u with sleep medicine Type 2 diabetes mellitus 01/15/2023 Assessment & Plan (06/10/2024 12:04 PM EDT): -A1c at goal of 7%. POCT glucose 102 mg/dL today -continue: metformin and trulicity as prescribed -microalbumin: ordered today -foot exam: completed -dental: encouraged to set up an appointment -eye exam: encouraged to set up appointment -daily foot exams encouraged -low carb, low sugar diet and daily physical activity advised -follow-up 3 months with PCP Assessment & Plan (10/30/2023 2:12 PM EDT): A1c at goal -cont dietary changes -cont metformin BID -encouraged intermittent BS monitoring -start lipitor nightly -s/p optho eval Sep 2023 at [facility] -foot exam next visit History of COVID-19 01/03/2023 History of radial artery thrombosis, right 01/03 Essential hypertension 07/29/2022 Assessment & Plan (06/10/2024 12:05 PM EDT): -BP at target goal of <130/80 mmHg -continue current regimen with hydrochlorothiazide 25 mg and lisinopril 5mg -ASCVD risk: unable to calculate due to age being <40 -daily BP monitoring advised -low salt diet and 30 min moderate intensity daily exercise recommended -Reviewed ED precautions to include chest pain, shortness of breath, severe headache, sudden vision changes or BP >=180/>=120 mmHg. -Call clinic if three or more BP readings >130/80 mmHg. -follow-up 3 months w/ PCP Assessment & Plan (10/30/2023 2:12 PM EDT): BP controlled -cont lisinopril, hydrochlorothiazide and toprol daily -encouraged home BP monitoring -Cr/GFR and urine microalbumin nml December 2022->repeat prior to next visit -there is EKG in chart -optho as above BMI 40.0-44.9, adult 07/29/2022 Cardiomyopathy 07/29/2022 Assessment & Plan (10/30/2023 2:16 PM EDT): With intermittent L-sided rib/chest pain -ECHO with EF 45-50%, basal inferior wall motion abnormality, grade 1 diastolic dysfunction January 2022 -nuclear stress with mild to moderate ischemia Mar 2022 -cardiac catheterization with normal coronary arteries Apr 2022 -cont med mgmt -encouraged schedule sooner f/u with cardiology -advised go to ED if sx change or worsen Hyperlipidemia 07/29/2022 Assessment & Plan (06/10/2024 12:09 PM EDT): -lipids within normal limits with exception of low HDL 12/2022 -advised continuation of lipitor as prescribed by PCP -reviewed foods that will help increase HDL -repeat lab ordered today Assessment & Plan (10/30/2023 2:13 PM EDT): TG at goal, LDL near-goal December 2022 -change lofibra to lipitor nightly -cont fish oil supplementation -repeat lipids prior to next visit Chronic gastroesophageal reflux disease 07/29/20 Assessment & Plan (10/30/2023 2:16 PM EDT): With intermittent sx -change prilosec to pepcid prn Hypertriglyceridemia 07/29/2022 Fatty liver 07/29/2022 Assessment & Plan (10/30/2023 2:13 PM EDT): -abd US with echogenic liver with no focal lesion Oct 2018, referred for repeat -LFTs stable and AFP wnl December 2022, repeat with fasting labs -Hep A immune -s/p Hep B vaccines Mild persistent asthma 07/29/2022 Assessment & Plan (10/30/2023 2:14 PM EDT): With probable component of COPD, sx controlled -PFTs nml February 2019 -cont symbicort BID -cont albuterol as need -f/u with pulm as scheduled, review next visit Chronic back pain 07/29/2022 Assessment & Plan (10/30/2023 2:17 PM EDT): -dorsal spine XR unremarkable Mar 2016 -MRI T-spine with min spondylosis and small disc protrusion at T1-T2 MRI Sep 2017 -cont tylenol prn -cont robaxin as needed -cont lidocaine patch daily -cont gabapentin BID as per psychiatry -advised rtc if sx worsen Pulmonary nodules 07/29/2022 Assessment & Plan (10/30/2023 2:16 PM EDT): -CT chest with stable pulmonary nodules December 2022, no need for repeat imaging as per pulm Anxiety 07/29/2022 Major depression, recurrent, chronic 07/29/2022 Assessment & Plan (10/30/2023 2:13 PM EDT): -he denies any current SI/HI -he has the number for crisis and contracts for safety -cont current med regimen as per psychiatry -f/u with therapist and psychiatrist as scheduled Tobacco dependence 03/03/2012 Resolved Problems Problem Noted Date Diagnosed Date Resolved Date Depressive disorder 07/28/2023 07/28/2023 10/30/19 Obstructive sleep apnea syndrome 07/29/2022 08/27/2023 Encounters Date Type Department Care Team Description 09/24/2024 11:30 AM EST Office Visit [facility] MEDICINE [address] [place] [phone] Ngozi Payne DO Type 2 diabetes mellitus without complication, without long-term current use of insulin (CMS/HCC) (Primary Dx); Essential hypertension; Other hyperlipidemia; Major depression, recurrent, chronic (CMS/HCC); Cardiomyopathy, unspecified type (CMS/HCC); Mild persistent asthma without complication; Obstructive sleep apnea; Fatty liver; Chronic gastroesophageal reflux disease; Chronic bilateral thoracic back pain; Anemia, unspecified type; Healthcare maintenance; Dietary counseling; Exercise counseling; Need for vaccination 09/24/2024 Travel 09/23/2024 Refill [facility] DIABETES/NUTRITION [address] [place] [address] Ngozi Payne DO 09/07/2024 Refill [facility] MEDICINE [address] [place] [address] Patrizia Larose MD Vitamin D deficiency 09/07/2024 Refill [facility] MEDICINE [address] [place] [address] Ngozi Payne DO Type 2 diabetes mellitus without complication, without long-term current use of insulin ([facility]); Vitamin D deficiency 09/06/2024 3:00 PM EST Office Visit [facility] ADULT DENTAL [address] [place] [address] Jalen Cruz Dental calculus (Primary Dx) 08/27/2024 Telephone [facility] MEDICINE [address] [place] [address] Belén Ny [place] Recall Appt. 08/27/2024 Travel 08/10/2024 Refill [facility] MED[facility]INE [address] [place] [address] Patrizia Larose MD Seasonal allergic rhinitis, unspecified trigger 08/09/2024 Refill [facility] MED[facility] [address] [place] [address] Ngozi Payne DO 07/12/2024 Refill [facility] MED[facility] [address], [place] [phone] Ngozi Payne DO from Last 3 Months Immunizations Name Administration Dates Next Due Hep A, Adult 12/19/2016,02/26/2016 Hep B, Adolescent or Pediatric 10/26/2010,2007,04/15/2008 Hep B, adult 12/19/2016, 6,02/26/2016,12/09 Influenza injectable quadriv alent IIV4 with preservative 05/01/2016,06/08/2015 Influenza injectable quadriv alent preservative free 07/01/2023,09/06/2022,05/29/2021,05/15,07/28/2019,10/16/2018,05/16/2017 Influenza, IIV3, injectable 05/06/2014, 1,05/03/2010 Influenza, Split (incl. dhara fied surface antigen) 05/03/2013,07/13/2012 Influenza, seasonal, injecta ble, preservative free 09/24/2024 MMR 04/15/2008 Pfizer Covid-19 Vaccine 12+ 07/01/2023 Pfizer Covid-19 Vaccine 12+ Bivalent 01/03/2023 Pfizer Covid-19 Vaccine 12+ leeann-sucrose (Rand Cap) 11/06/2021 Pneumococcal Conjugate PCV 20 01/15/2023 Pneumococcal Polysaccharide PPSV23 05/10/2011 Pneumococcal, Unspecified 05/10/2011 TD (adult), 2 Lf tetanus tox oid, preservative free, adsorbed 05/29/2021,04/15/2008 Tdap 01/04/2011 Family History Medical History Relation Name Comments Coronary artery disease Maternal Grandmother Diabetes Mother Fibromyalgia Mother HIV Mother's Brother Lung cancer Mother's Sister Relation Name Status Comments Maternal Grandmother Mother Mother's Brother Mother's Sister Social History Tobacco Use Types Packs/Day Years Used Date Smoking Tobacco: Former Cigarettes Passive Smoke Exposure: Past Smokeless Tobacco: Never Tobacco Cessation:Counseling Given: Not Answered Alcohol Use Standard Drinks/Week Comments Never 0 [...] housing situation today? I have gayla diego 09/24/[address] you [...] Orientation Straight 06/10/2022 10 :19 AM EDT Last Filed Vital Signs Vital Sign Reading Time Taken Comments Blood Pressure 112/60 09/24/2024 12:30 PM EST Pulse 60 09/24/2024 12:30 PM EST Temperature 36.1 ??C (96.9 ??F) 09/24/2024 11:[address] Respiratory Rate 19 09/24/2024 11:38 AM EST Oxygen Saturation 98% 09/24/2024 11:38 AM EST Inhaled Oxygen Concentration - - Weight 119 kg (262 lb) 09/24/2024 11:38 AM EST Height 160 cm (5' 3 ) 09/24/2024 11:38 AM EST Body Mass Index 46.41 09/24/2024 11:38 AM EST Plan of Treatment Upcoming Encounters Date Type Department Care Team (Late st Contact Info) Description 10/11/2024 1:00 PM EST Office Visit [facility] [address] [place], [place] [phone] Rosalie Molina [address] [place] [address] Health Maintenance Due Date Last Done Comments Family Planning (PISQ) 2001 Lipid Panel 01/04/2024 01/03/2023, 10/31/2020 COVID-19 Vaccine ( season) 2024 07/01/2023, 01/03/2023, 11/06/2021, Additional history exists Diabetes: Foot Exam 08/06/2024 08/06/2023, 08/06/2023, 08/06/2023, Additional history exists Dental Oral Exam 03/07/2025 09/06/2024, 12/2023, 02/04/2022, Additional history exists Dental Prophylaxis 03/07/2025 09/06/2024, 0 11/21/2023, 02/04/2022, Additional history exists Alcohol/Substance Use Screening 03/10/2025 03/10/2024 Diabetes: Urine Protein Screening 03/11/2025 03/11/2024, 01/03/2023 Depression Monitoring (PHQ-9) 03/24/2025 09/24/2024, 09/24/2024 Diabetes: Hemoglobin A1C 03/24/2025 025, 03/11/2024, 03/01/2024, Additional history exists Dental X-Ray: Bitewings 09/07/2025 09/06/19 25, 08/15/2023, 06/23/2023, Additional history exists Eye Exam 09/11/2025 09/11/2023, 02/0 08/2023, 09/11/2023, Additional history exists Depression Screening 09/24/2025 09/24/2024, 09/24/19 SDOH Screening 09/24/2025 09/24/2024 Tobacco Screening 09/24/2025 09/24/2024 Dental X-Ray: Full Mouth 09/07/2027 025, 01/03/2021, 07/12/2015 DTaP/Tdap/Td Vaccines (3 - Td or Tdap) 05/29/2031 05/29/2021, 01/04/2011, 04/15/2008 Zoster Vaccines (1 of 2) 2036 RSV Patients and Patients Aged 60 years or older (1 - 1-dose 75+ series) 2061 Hepatitis A Vaccines Completed 12/19/2016, 02/26/20 16 Hepatitis B Vaccines Completed 12/19/2016, 03/25/2016, 02/26/2016, Additional history exists Pneumococcal Vaccine: Pediatrics (0 to 5 Years) and At-Risk Patients (6 to 49) Years) Completed 01/15/2023, 05/10/2011, 05/10/2011 HIV Screening Completed 03/11/2024, 12/10, 10/31/2020 Hepatitis C Screening Completed 03/11/2024 , 01/03/2023, 10/31/2020 Influenza Vaccine Completed 09/24/2024, , 09/06/2022, Additional history exists HIB Vaccines Aged Out No longer eligi ble based on patient's age to complete this topic HPV Vaccines Aged Out No longer eligi ble based on patient's age to complete this topic IPV Vaccines Aged Out No longer eligi ble based on patient's age to complete this topic Meningococcal Vaccine Aged Out No emely jennie eligible based on patient's age to complete this topic RSV under 20 months Aged Out No longe r eligible based on patient's age to complete this topic Rotavirus Vaccines Aged Out No longer eligible based on patient's age to complete this topic Goals Goal Patient Goal Type Associated Problems Recent Progress Patient-Stated? Author Blood Pressure < 140/90 Blood Pressure 112/60(2024 12:30 PM EST) No Magaly Lopez Record your blood sugar as directed Result Component No Magaly Lopez Procedures Procedure Name Priority Date/Time Associated Diagnosis Comments POCT GLYCATED HEMOGLOBIN, TOTAL Routine 09/24/2024 11:40 AM EST Type 2 diabetes mellitus without complication, without long-term current use of insulin ([facility]) POCT GLUCOSE Routine 09/24/2024 11:40 AM EST Type 2 diabetes mellitus without complication, without long-term current use of insulin ([facility]) COMPREHENSIVE PERIODONTAL EVALUATION - NEW OR ESTABLISHED PATIENT Routine 09/06/2024 3:00 PM EST PERIODIC ORAL EVALUATION - ESTABLISHED PATIENT Routine 09/06/2024 3:00 PM EST ORAL HYGIENE INSTRUCTIONS Routine 09/06/2024 3:00 PM EST INTRAORAL - COMPLETE SERIES OF RADIOGRAPHIC IMAGES Routine 09/06/2024 3:00 PM EST PROPHYLAXIS - ADULT Routine 09/06/2024 3 :00 PM EST CASE PRESENTATION, DETAILED AND EXTENSIVE TREATMENT PLANNING Routine 09/06/2024 3:00 PM EST ALBUMIN, RANDOM URINE W/CREATININE Routine 03/11/2024 8:26 AM EDT Type 2 diabetes mellitus without complication, without long-term current use of insulin (CMS/HCC) HEPATITIS C AB W/REFL TO HCV RNA, QN, PCR Routine 03/11/2024 8:16 AM EDT Healthcare maintenance HIV 1/2 ANTIGEN/ANTIBODY, FOURTH GENERATION W/RFL Routine 03/11/2024 8:16 AM EDT Healthcare maintenance LIPID PANEL, STANDARD Routine 01/03/2023 10:16 AM EDT from Last 3 Months or Most Recently Relevant to Health Maintenance Results * POCT HGB A1C (09/24/2024 11:40 AM EST) Hemoglobin A1C 5.9 4.0 - 6.0 % QC Media Lot # [id number] Lot# Expiration Date ,026 Blood 09/24/2024 11:4 0 AM EST us Ngozi Payne DO POINT OF CARE TEST ENTER/SHEILA T ORDERABLES Final Result * POCT Glucose (09/24/2024 11:40 AM EST) Glucose Blood, POC 163 60 - 200 mg/dL QC Media Lot # [id number] Lot# Expiration Date [id number] Blood Capillary blood specimen / Unknown 09/24/2024 11:40 AM EST Ngozi Payne DO POINT OF CARE TEST ENTER/SHEILA T ORDERABLES Final Result * Albumin, Random Urine W/Creatinine (03/11/2024 8:26 AM EDT) Creatinine, Urine 392.39 mg/dL [facility] Microalbumin Urine 15.0 mg/L [facility] Microalbum Creatinine Ratio Ur 3.8 <30 ug/mg cr [facility] Comment:Albumin/Creatinine R atio Reference Ranges: Normal: < 30 ug/mg creatinine Microalbuminuria: 30 - 300 ug/mg creatinineClinical Albuminuria: > 300 ug/mg creatinine Urine (Urine, Random) 03/11/2024 8:26 AM EDT 03/11/2024 10:58 AM EDT Ngozi Kerry DO LAB URINE ORDERABLES Final R esult Performing Organization Address [facility] Co de Phone Number [facility] [address] [place] [phone] * Hepatitis C Antibody with Reflex to HCV, RNA, Quantitative, Real-Time PCR (03/11/2024 8:16 AM EDT) Hepatitis C Antibody Nonreactive Nonreactive [facility] Comment:Antibodies to HCV no t detected; does not exclude early acuteHCV infection. Blood Venous blood specimen / Unknown 03/11/2024 8:16 AM EDT 03/11/2024 11:03 AM EDT Ngozi Kerry DO LAB BLOOD ORDERABLES Final R esult Performing Organization Address [facility] Co de Phone Number [facility] [address] [place] [phone] * HIV-1/2 Antigen and Antibodies, Fourth Generation, with Reflexes (03/11/2024 8:16 AM EDT) HIV AB/AG Nonreactive Nonreactive [facility] Comment:HIV-1 p24 Ag and/or HIV-1/HIV-2 Ab not detected.A test result that is nonreactive does not exclude thepossibility of exposure to or infection with HIV-1 and/orHIV-2. Nonreactive results in this assay for individualswith prior exposure to HIV-1 and/or HIV-2 may be due toantigen and antibody levels that are below the limit ofdetection of this assay.The [employer] Ver[employer] HIV Ag/Ab Combo assay result andsupplemental assay results should be interpreted inconjunction with the patient's clinical presentation,history and other laboratory results. If the results areinconsistent with clinical evidence, additional testing issuggested to confirm the result. Blood Venous blood specimen / Unknown 03/11/2024 8:16 AM EDT 03/11/2024 11:03 AM EDT us Ngozi Payne DO LAB BLOOD ORDERABLES Final R esult [facility] [address] [place] [phone] * (ABNORMAL) Lipid Panel, Standard (01/03/2023 10:16 AM EDT) Cholesterol, Total 133 <200 mg/dL [facility] [employer] [place] [employer] HDL Cholesterol 31(L) > OR = 40 mg/dL [facility] [employer] [place] [employer] Triglycerides 133 <150 mg/dL [facility] [employer] [place] [employer] LDL Cholesterol 79 mg/dL (calc) [facility] [employer] [employer] Comment: Reference range: <100 Desirable range <100 mg/dL for primary prevention; ?? <70 mg/dL for patients with CHD or diabetic patients with > or = 2 CHD risk factors. LDL-C is now calculated using the Parveen-Bert calculation, which is a validated novel method providing better accuracy than the Friedewald equation in the estimation of LDL-C. Parveen CH et al. CASSY. 2013;310(19): 6326-5744 (http://education.Talko.Sunnyloft/faq/UID241) Chol/HDLC Ratio 4.3 <5.0 (calc) [facility] Non-HDL Cholesterol 102 <130 mg/dL (calc) [facility] Comment: For patients with diabetes plus 1 major ASCVD risk factor, treating to a non-HDL-C goal of <100 mg/dL (LDL-C of <70 mg/dL) is considered a therapeutic option. 01/03/2023 10:1 6 AM EDT 01/03/2023 10:18 AM EDT Narrative [facility] - 01/08/2023 6:45 AM EDT FASTING:NO FASTING: NO us Ngozi Payne DO LAB BLOOD ORDERABLES Final R esult [facility] [address], [place] [phone] [facility] [employer] [place] [employer] [address] [place] [phone] from Last 3 Months or Most Recently Relevant to Health Maintenance Insurance C3 [facility] STAND ADULT Care Teams Cardiology Technologist Relationship Specialty Start Date End Date Ngozi Payne DO [address] [place] [address] PCP - General Family Medicine 08/11/18
--- OUTSIDE RECORDS SUMMARY | 2024-09-24 13:08 | XMS_ITS | Encounter Summary ---
Author Organization [employer] Address [address] [facility] 7t [place] [address] Care Team Providers Care Geophysical Data Technician Name Role Phone Ngozi Payne Primary Care Provider + [phone] Reason for Visit * Reason Comments Med Refill Encounter Details Date Type Department Care Team (Late st Contact Info) Description 09/07/[address] [facility] MEDICINE [address] [place] [address] Patrizia Larose MD [address] [place] [address] Vitamin D deficiency Social History Tobacco Use Types Packs/Day Years [...] Description 10/11/2024 1:00 PM EST Office Visit [facility] ADULT DENTAL [address] [place] [address] Brandy Molinaanpreet [address] [place] [address] documented as of this encounter Goals Goal Patient Goal Type Associated Problems Recent Progress Patient-Stated? Author Blood Pressure < 140/90 Blood Pressure 112/60(2024 12:30 PM EST) No Magaly Lopez Record your blood sugar as directed Result Component No Magaly Lopez documented as of this encounter Visit Diagnoses Diagnosis Vitamin D deficiency documented in this encounter Additional Health Concerns Assessment Noted Time PHQ-9 Depression Total Score: 11 024 11:49 AM EDT documented as of this encounter Care Teams Geophysical Data Technician Relationship Specialty Start Date End Date Ngozi Payne DO [address] [place] [address] PCP - General Family Medicine 08/11/18 documented as of this encounter
--- OUTSIDE RECORDS SUMMARY | 2024-09-24 13:08 | XMS_ITS | Encounter Summary ---
Author Organization [employer] Address [address] [facility] 7t [place] [address] Care Team Providers Care Children'S Librarian Name Role Phone Ngozi Payne DO Primary Care Provider [phone] Encounter Details Date Type Department Care Team (Latest Contact Info) Description 09/24/2024 11:30 AM EST Office Visit [facility] MEDICINE [address] [place] [address] Ngozi Payne DO [address] [place] [address] Type 2 diabetes mellitus without complication, without long-term current use of insulin (CMS/HCC) (Primary Dx); Essential hypertension; Other hyperlipidemia; Major depression, recurrent, chronic (CMS/HCC); Cardiomyopathy, unspecified type (CMS/HCC); Mild persistent asthma without complication; Obstructive sleep apnea; Fatty liver; Chronic gastroesophageal reflux disease; Chronic bilateral thoracic back pain; Anemia, unspecified type; Healthcare maintenance; Dietary counseling; Exercise counseling; Need for vaccination Social History Tobacco Use Types Packs/Day Years [...] Mass Index 46.41 09/24/2024 11:38 AM EST documented in this encounter Progress Notes * Ngozi Payne, DO - 09/24/2024 11:30 AM EST SUBJECTIVE: Don Champagne is a 39 y.o. year old male who presents for follow up. HPI He has no concerns. He had PE last summer in hopes of getting a job. He was looking at getting a job in [employer] but never got a call back. He's doing [employer] right now. He likes it because he can just close out the when he's done working for the day. He usually does ~ 4 hours/day. He doesn't like having someone on top of him. He says the money helps a lot. He doesn't really check his sugar. He is back to eating again at night and feels that that he has gained the weight that he had lost. He wants to go up on the injection. He is talking with his therapist every 3 weeks or so. He is following regularly with his psychiatrist. He has had no changes in his meds. He says that the best psychiatrist for him is god. He has not seen not seen pulm since last summer. Review of Systems Constitutional: Negative for chills, fatigue and fever. HENT: Negative for congestion. Eyes: Negative for visual disturbance. Respiratory: Negative for cough and shortness of breath. Cardiovascular: Negative for chest pain, palpitations and leg swelling. Gastrointestinal: Negative for abdominal pain, constipation, diarrhea and vomiting. Skin: Negative for rash. Neurological: Negative for dizziness and headaches. Patient Active Problem List Diagnosis Essential hypertension BMI 40.0-44.9, adult (CMS/HCC) Cardiomyopathy (CMS/HCC) Hyperlipidemia Chronic gastroesophageal reflux disease Hypertriglyceridemia Fatty liver Mild persistent asthma Chronic back pain Pulmonary nodules Anxiety Major depression, recurrent, chronic (CMS/HCC) Tobacco dependence History of COVID-19 History of radial artery thrombosis, right (CMS/HCC) Type 2 diabetes mellitus (CMS/HCC) Obstructive sleep apnea Bilateral hand pain Periodontal disease Dental calculus S/P cardiac catheterization Allergies Allergen Reactions Amlodipine Swelling EDEMA OF LOWER EXTREMITY (SEVERE) OBJECTIVE Vitals: 09/24/24 1138 09/24/24 1230 BP: 139/69 112/60 BP Location: Left arm Left arm Patient Position: Sitting Sitting BP Cuff Size: Large adult Large adult Pulse: (!) 42 60 Resp: 19 Temp: 96.9 ??F (36.1 ??C) TempSrc: Temporal SpO2: 98% Weight: 262 lb (119 kg) Height: 5' 3 (1.6 m) Physical Exam Constitutional: General: He is not in acute distress. Appearance: Normal appearance. Cardiovascular: Rate and Rhythm: Normal rate and regular rhythm. Heart sounds: Normal heart sounds. No murmur heard. Pulmonary: Effort: Pulmonary effort is normal. Breath sounds: Normal breath sounds. No wheezing or rhonchi. Neurological: General: No focal deficit present. Mental Status: He is alert and oriented to person, place, and time. Cranial Nerves: No cranial nerve deficit. Motor: No weakness. Gait: Gait normal. Psychiatric: Mood and Affect: Mood normal. Thought Content: Thought content normal. Hemoglobin A1c Date/Time Value Ref Range Status 03/11/2024 08:16 AM 6.8 (H) <6.0 % Final Comment: Hemoglobin A1C Reference Range Adults: 4.8 - 6.0 % Non diabetic: < 6.0 % Goal: < 7.0 %Additional Action Suggested: > 8.0 %Note: Hemoglobin A1c results are invalid for patients with abnormalamounts of HbF. Blood transfusions may impact the HbA1c concentration in the patient sample. Hemoglobin A1C Date/Time Value Ref Range Status 09/24/2024 11:40 AM 5.9 4.0 - 6.0 % Final ASSESSMENT/PLAN Diagnoses and all orders for this visit: Type 2 diabetes mellitus without complication, without long-term current use of insulin ([facility]) A1c well controlled, desiring wt loss -cont dietary changes -cont metformin BID -increase trulicity to 1.5mg weekly -encouraged intermittent BS monitoring -cont lipitor nightly -s/p optho eval Sep 2023 at [facility], advised schedule f/u -foot exam next visit* - POCT Glucose - POCT HGB A1C Essential hypertension BP controlled -cont lisinopril, HCTZ, and toprol daily -Cr/GFR and urine microalbumin nml Mar 2024 -there is EKG in chart -optho as above Other hyperlipidemia TG at goal, LDL near goal December 2022 -cont lipitor nightly -cont fish oil supplementation -check lipids as not done with recent labs Major depression, recurrent, chronic (CMS/HCC) -he denies any current SI/HI -he has the number for crisis and contracts for safety -cont current med regimen as per psychiatry -f/u with therapist and psychiatrist as scheduled Cardiomyopathy, unspecified type (CMS/HCC) -ECHO with EF 45-50%, basal inferior wall motion abnormality, grade 1 diastolic dysfunction January 2022, will get copy of recent results for review -nuclear stress with mild to moderate ischemia Mar 2022 -cardiac catheterization with normal coronary arteries Apr 2022 -cont med mgmt -f/u with cardiology as scheduled Mild persistent asthma without complication With probable component of COPD -PFTs nml February 2019 -cont symbicort BID -cont albuterol as needed -encouraged schedule f/u with pulm Obstructive sleep apnea s/p sleep study APR 2022 -encouraged CPAP nightly -encouraged f/u with sleep medicine Fatty liver -abd US with enlarged echogenic liver OCT 2023 -LFTs stable and AFP wnl Mar 2024 -Hep A immune -s/p Hep B vaccine Chronic gastroesophageal reflux disease With intermittent sx -cont pepcid prn Chronic bilateral thoracic back pain -dorsal spine XR unremarkable Mar 2016 -MRI T-spine with min spondylosis and small disc protrusion at T1-T2 MRI Sep 2017 -cont tylenol prn -cont robaxin as needed -cont lidocaine patch daily -cont gabapentin BID as per psychiatry -advised rtc if sx worsen Anemia, unspecified type -repeat CBC with iron studies - Vitamin B12 (Cobalamin) and Folate Panel, Serum; Future - Ferritin; Future - Iron And Total Iron Binding Capacity; Future - CBC; Future Healthcare maintenance -s/p flu vaccine JUN 2023, repeat today -s/p COVID vaccine JUN 2023, he declines repeat -s/p Tdap December 2010 -s/p Td May 2021 -s/p pneumovax Apr 2011 -s/p PCV20 January 2023 -Hep A immune -s/p Hep B vaccine -PPD negative May 2016 -STI/HIV screen negative Mar 2024 Dietary counseling Exercise counseling Need for vaccination - Flu vaccine greater than or equal to 6 months old, preservative free IM F/U with me in 4 mos or sooner prn Current Outpatient Medications: albuterol (Ventolin HFA) 108 (90 Base) MCG/ACT inhaler, INHALE 2 PUFFS BY MOUTH EVERY 4 TO 6 HOURS NEEDED FOR COUGH, FOR WHEEZING, OR SHORTNESS OF BREATH, Disp: 18 g, Rfl: 1 Alcohol Swabs (Alcohol Prep) 70 % pads, USE TWICE DAILY DIRECTED, Disp: 100 each, Rfl: 11 atorvastatin (Lipitor) 20 MG tablet, Take 1 tablet (20 mg) by mouth in the morning., Disp: 90 tablet, Rfl: 3 Blood Pressure Monitor [facility], USE TO CHECK BLOOD PRESSURE DAILY, Disp: , Rfl: cholecalciferol VITAMIN D (Vitamin D-3) 50 MCG (2000 UT) tablet, TAKE 1 TABLET BY MOUTH ONCE DAILY,Disp: 90 tablet, Rfl: 1 clonazePAM (KlonoPIN) 1 MG tablet, TAKE 1 TABLET BY MOUTH TWICE DAILY NEEDED, Disp: , Rfl: Diclofenac Sodium 1 % gel, APPLY 2 GRAMS TOPICALLY TO AFFECTED AREA(S) TWICE DAILY NEEDED (Patient not taking: Reported on 09/01/2023), Disp: 100 g, Rfl: 1 famotidine (Pepcid) 20 MG tablet, TAKE 1 TABLET BY MOUTH TWICE DAILY IN THE MORNING AND AT BEDTIME NEEDED HEARTBURN, Disp: 180 tablet, Rfl: 1 fluticasone (Flonase) 50 MCG/ACT nasal spray, USE 2 SPRAYS IN EACH NOSTRIL ONCE DAILY, Disp: 48 g, Rfl: 3 FREESTYLE LITE test strip, TEST BLOOD SUGAR TWICE DAILY, Disp: 100 strip, Rfl: 11 gabapentin (Neurontin) 300 MG capsule, TAKE 1 CAPSULE BY MOUTH THREE TIMES DAILY, Disp: , Rfl: hydroCHLOROthiazide (HYDRODiuril) 25 MG tablet, TAKE 1 TABLET BY MOUTH EVERY MORNING, Disp: 90 tablet, Rfl: 1 lidocaine (Lidoderm) 5 % patch, APPLY 1 PATCH TOPICALLY TO SKIN, LEAVE ON FOR 12 HOURS AND OFF FOR 12 HOURS DIRECTED, Disp: 30 patch, Rfl: 5 lisinopril 5 MG tablet, TAKE 1 TABLET BY MOUTH EVERY EVENING, Disp: 90 tablet, Rfl: 3 loratadine (Claritin) 10 MG tablet, TAKE 1 TABLET BY MOUTH ONCE DAILY, Disp: 90 tablet, Rfl: 3 metFORMIN XR (Glucophage-XR) 500 MG 24 hr tablet, TAKE 1 TABLET BY MOUTH TWICE DAILY IN THE MORNINGAND IN THE EVENING WITH MEALS DO NOT BREAK, CRUSH, DISSOLVE OR CHEW, Disp: 180 tablet, Rfl: 1 metoprolol succinate XL (Toprol-XL) 50 MG 24 hr tablet, TAKE 1 TABLET BY MOUTH DAILY, Disp: , Rfl: omeprazole (PriLOSEC) [address] capsule, TAKE 1 CAPSULE BY MOUTH TWICE DAILY BEFORE MEALS, Disp: 180capsule, Rfl: 1 oxybutynin XL (Ditropan-XL) 10 MG 24 hr tablet, TAKE 1 TABLET BY MOUTH EVERY DAY, Disp: , Rfl: QUEtiapine (SEROquel) 100 MG tablet, Take 100 mg by mouth at bedtime., Disp: , Rfl: QUEtiapine (SEROquel) 25 MG tablet, TAKE 1 TABLET BY MOUTH AT BEDTIME WITH 100 MG TABLET, Disp: , Rfl: Symbicort 160-4.5 MCG/ACT inhaler, INHALE 2 PUFFS BY MOUTH TWICE DAILY. RINSE MOUTH AFTER USING., Disp: , Rfl: terbinafine (LamISIL AT) 1 % cream, Apply topically 2 times daily., Disp: 28 g, Rfl: 1 TRUEplus Lancets 33G misc, USE TWICE DAILY DIRECTED, Disp: 100 each, Rfl: 11 Trulicity 0.75 MG/0.5ML solution auto-injector, INJECT ONE PEN (=0.75MG) SUBCUTANEOUSLY ONCE A WEEKAS DIRECTED, Disp: 2 mL, Rfl: 3 zolpidem (Ambien) 10 MG tablet, Take 1 tablet by mouth if needed at bedtime., Disp: , Rfl: documented in this encounter Plan of Treatment Upcoming Encounters Date Type Department Care Team (Late st Contact Info) Description 10/11/2024 1:00 PM EST Office Visit [facility] ADULT DENTAL [address] [place] [address] Rosalie Molina [address] [place] [address] Scheduled Orders Name Type Priority Associated Diagnoses Orde r Schedule Vitamin B12 (Cobalamin) and Folate Panel, Serum Lab Routine Anemia, unspecified type Expected: 09/24/2024, Expires: 09/24/2025 Ferritin Lab Routine Anemia, unspecified type Expected: 09/24/2024, Expires: 09/24/2025 Iron And Total Iron Binding Capacity Lab Routine Anemia, unspecified type Expected: 09/24/2024, Expires: 09/24/2025 CBC Lab Routine Anemia, unspecified type Expected: 09/24/2024, Expires: 09/24/2025 Lipid Panel, Standard Lab Routine Type 2 diabetes mellitus without complication, without long-term current use of insulin ([facility]) Other hyperlipidemia Expected: 09/24/2024 (Approximate), Expires: 09/24/2025 documented as of this encounter Goals Goal [...] complication, without long-term current use of insulin ([facility]) POCT GLUCOSE Routine 09/24/2024 11:40 AM EST Type 2 diabetes mellitus without complication, without long-term current use of insulin ([facility]) documented in this encounter Results * POCT HGB A1C (09/24/2024 11:40 AM EST) Hemoglobin A1C 5.9 4.0 - 6.0 % QC Media Lot # [id number] Lot# Expiration Date Blood 09/24/2024 11:4 0 AM EST Ngozi Payne DO POINT OF CARE TEST ENTER/SHEILA T ORDERABLES Final Result * POCT Glucose (09/24/2024 11:40 AM EST) Glucose Blood, POC 163 60 - 200 mg/dL QC Media Lot # [id number] Lot# Expiration Date ,025 Blood Capillary blood specimen / Unknown 09/24/2024 11:40 AM EST Ngozi Payne DO POINT OF CARE TEST ENTER/SHEILA T ORDERABLES Final Result documented in this encounter Visit Diagnoses Diagnosis Type 2 diabetes mellitus without complication, without long-term current use of insulin (CMS/HCC)- Primary Essential hypertension Unspecified essential hypertension Other hyperlipidemia Major depression, recurrent, chronic (CMS/HCC) Cardiomyopathy, unspecified type (CMS/HCC) Mild persistent asthma without complication Obstructive sleep apnea Obstructive sleep apnea (adult) (pediatric) Fatty liver Other chronic nonalcoholic liver disease Chronic gastroesophageal reflux disease Chronic bilateral thoracic back pain Anemia, unspecified type Healthcare maintenance Dietary counseling Dietary surveillance and counseling Exercise counseling Need for vaccination Need for prophylactic vaccination and inoculation against unspecified single disease documented in this encounter Additional Health Concerns Assessment Noted Time PHQ-9 Depression Total Score: 10 09/24/ 025 11:51 AM EST documented as of this encounter Care Teams Children'S Librarian Relationship Specialty Start Date End Date Ngozi Payne DO [address] [place] [id number] PCP - General Family Medicine 08/11/18 documented as of this encounter
--- OUTSIDE RECORDS SUMMARY | 2024-09-24 13:08 | XMS_ITS | Encounter Summary ---
Author Organization [employer] Address [address] [facility] [address]t [place] [address] Care Team Providers Care Eligibility Examiner Name Role Phone Ngozi Payne DO Primary Care Provider [phone] Reason for Visit * Reason Onset Date Comments Nurse Triage 01/06/2024 Encounter Details Date Type Department Care Team ([facility] st Contact Info) Description 01/06/2024 Telephone [facility] MEDICINE [address] [place] [address] Ngozi Payne DO [address] [place] [address] Nurse Triage Social History Tobacco Use Types Packs/Day Years [...] encounter Miscellaneous Notes * Telephone Encounter - Cece Mosher RN - 01/06/2024 11:17 AM EDT T/C to pt who states ongoing concern for lump in the back of neck. Pt was seen on Friday for a ball on back of neck that is causing neck and headpain. RN cannot review note at this time due to it not being complete. RN offers to send a message to provider expressing pts ongoing concerns. Pt states that provider is going to send an urgent referral for follow-up at this time. RN advises pt that he is always able to come to the walk-in clinic for any urgent concerns, but at this time RN will send message to pts PCP for follow-up inquiry. At this time pt request a note to be seen at the ER and bypass the waittime. RN explains to patient that this is not possible but if patient is in intense pain he is able to come to the walk-in clinic for more urgent evaluation. Pt expresses understanding and agrees to RN sending a message to PCP. * Telephone Encounter - Fanny Suarez - 01/06/2024 10:43 AM EDT Symptom: Headache, skin lump (back of neck) Outcome: Schedule a same-day appointment or talk to a nurse or provider today Reason: last seen 01/01, states symptoms is worsening The caller accepted this outcome Please contact pt at [phone] (pulp refiner operator) documented in this encounter Plan of Treatment Upcoming Encounters Date Type Department Care Team (Late st Contact Info) Description 10/11/2024 1:00 PM EST Office Visit [facility] ADULT DENTAL [address] [place] [address] Rosalie Molina [address] [place] [address] documented as of this encounter Goals Goal [...] Noted Time PHQ-9 Depression Total Score: 11 10/29/ 024 11:49 AM EDT documented as of this encounter Care Teams Eligibility Examiner Relationship Specialty Start Date End Date Ngozi Payne DO [address] [place] [id number] PCP - General Family Medicine 08/11/18 documented as of this encounter
--- OUTSIDE RECORDS SUMMARY | 2024-09-24 13:08 | XMS_ITS | Encounter Summary ---
Author Organization [employer] Address [address] [facility] [address]t [place] [address] Care Team Providers Care Metal Sprayer Protective Coating Name Role Phone Ngozi Payne DO Primary Care Provider + [phone] Reason for Visit * Reason Comments Med Refill Encounter Details Date Type Department Care Team (Late st Contact Info) Description 09/07/2024 Refill [facility] MEDICINE [address] [place] [address] Ngozi Payne DO [address] [place] [address] Type 2 diabetes mellitus without complication, without long-term current use of insulin ([facility]); Vitamin D deficiency Social History Tobacco Use [...] Description 10/11/2024 1:00 PM EST Office Visit [facility] ADULT DENTAL [address] [place] [address] Brandy Moliananpreet [address] [place] [address] documented as of this encounter Goals Goal Patient Goal Type Associated Problems Recent Progress Patient-Stated? Author Blood Pressure < 140/90 Blood Pressure 112/60(2024 12:30 PM EST) No Magaly Lopez Record your blood sugar as directed Result Component No Magaly Lopez documented as of this encounter Visit Diagnoses Diagnosis Type 2 diabetes mellitus without complication, without long-term current use of insulin ([facility]) Vitamin D deficiency documented in this encounter Additional Health Concerns Assessment Noted Time PHQ-9 Depression Total Score: 11 024 11:49 AM EDT documented as of this encounter Care Teams Metal Sprayer Protective Coating Relationship Specialty Start Date End Date Ngozi Payne DO [address] [place] [address] PCP - General Family Medicine 08/11/18 documented as of this encounter
--- OUTSIDE RECORDS SUMMARY | 2024-09-24 13:08 | XMS_ITS | Encounter Summary ---
Author Organization [employer] Address [address] [facility] [address]t [place] [address] Care Team Providers Care Junior Bookkeeper Name Role Phone Ngozi Payne DO Primary Care Provider + [phone] Reason for Visit * Reason Comments Med Refill Encounter Details Date Type Department Care Team ([facility] st Contact Info) Description 09/23/2024 Refill [facility] DIABET[facility]NUTRITION [address] [place] [address] Ngozi Payne DO [address] [place] [address] Social History Tobacco Use Types Packs/Day Years [...] Visit [facility] ADULT DENTAL [address] [place] [address] Bhaskar Molinaxu [address] [place] [address] documented as of this encounter Goals Goal [...] documented as of this encounter Care Teams Junior Bookkeeper Relationship Specialty Start Date End Date Ngozi Payne DO [address] [place] [address] PCP - General Family Medicine 08/11/18 documented as of this encounter
--- OUTSIDE RECORDS SUMMARY | 2024-09-24 13:08 | XMS_ITS | Encounter Summary ---
Author Organization [employer] [facility] Address [address] [place] [address] 7t [place] [address] Care Team Providers Care Lace Winder Name Role Phone Ngozi Payne DO Primary Care Provider [phone] Encounter Details Date Type Department Care Team (Latest Contact Info) Description 02/04/2022 Abstract [facility] CONVERSIONS Dental, Provider, DDS Social History Tobacco Use Types Packs/Day Years Used Date Smoking Tobacco: Never Assessed Sex and Gender Information Value Date Recorded Sex Assigned at Male 06/10/2022 10:19 AM EDT Legal Sex Male 10:19 AM EDT Gender Identity Male 06/10/2022 10:19 AM EDT Sexual Orientation Straight 06/10/2022 10 :19 AM EDT documented as of this encounter Plan of Treatment Upcoming Encounters Date Type Department Care Team (Late st Contact Info) Description 10/11/2024 1:00 PM EST Office Visit [facility] ADULT DENTAL [address] [place] [address] Brandy Molinaanpreet [address] [place] [address] documented as of this encounter Visit Diagnoses Not on filedocumented in this encounter Care Teams Lace Winder Relationship Specialty Start Date End Date Ngozi Payne DO [address] [place] [address] PCP - General Family Medicine 08/11/18 documented as of this encounter
--- OUTSIDE RECORDS SUMMARY | 2024-09-24 13:08 | XMS_ITS | Encounter Summary ---
Author Organization [facility] Address [address] [place] [address] [address] [place] [address] Care Team Providers Care Physiognomist Name Role Phone Ngozi Payne DO Primary Care Provider [phone] Reason for Visit * Reason Comments Med Refill Encounter Details Date Type Department Care Team (Late st Contact Info) Description 07/22/2022 Refill [facility] MEDICINE [address] [place] [address] Judith Cruz MD [address] [place] [address] Social History Tobacco Use Types Packs/Day Years [...] Description 10/11/2024 1:00 PM EST Office Visit [facility] ADULT DENTAL [address] [place] [address] Bhaskar Molinapreet [address] [place] [address] documented as of this encounter Visit Diagnoses Not on filedocumented in this encounter Care Teams Physiognomist Relationship Specialty Start Date End Date Ngozi Payne DO [address] [place] [address] PCP - General Family Medicine 08/11/18 documented as of this encounter
--- OUTSIDE RECORDS SUMMARY | 2024-09-24 13:08 | XMS_ITS | Encounter Summary ---
Author Organization [employer] Address [address] [facility] [address] [place] [address] Care Team Providers Care Grease Maker Name Role Phone Ngozi Payne DO Primary Care Provider [phone] Encounter Details Date Type Department Care Team (Latest Contact Info) Description 08/27/2024 Travel Social History Tobacco Use Types Packs/Day [...] housing situation today? I have gaylawin diego 10/30/[address] you [...] Description 10/11/2024 1:00 PM EST Office Visit [facility] [address] [place], [place] [id number] Rosalie Molina [address] [place] [address] documented as of this encounter Goals Goal Patient Goal Type Associated Problems Recent Progress Patient-Stated? Author Blood Pressure < 140/90 Blood Pressure 112/60(2024 12:30 PM EST) No Magaly Lopez Record your blood sugar as directed Result Component No aMgaly Lopez documented as of this encounter Visit Diagnoses Not on filedocumented in this encounter Additional Health Concerns Assessment Noted Time PHQ-9 Depression Total Score: 11 024 11:49 AM EDT documented as of this encounter Care Teams Grease Maker Relationship Specialty Start Date End Date Ngozi Payne DO [address] [place] [id number] PCP - General Family Medicine 08/11/18 documented as of this encounter
--- OUTSIDE RECORDS SUMMARY | 2024-09-24 13:08 | XMS_ITS | Encounter Summary ---
Author Organization [facility] Address [address] [place] [address] 7t [place] [address] Care Team Providers Care Tool Turret Lathe Set Up Operator Name Role Phone Ngozi Payne DO Primary Care Provider [phone] Encounter Details Date Type Department Care Team (Latest Contact Info) Description 01/03/2021 Abstract [facility] Dental, Provider, DDS Social History [...] Description 10/11/2024 1:00 PM EST Office Visit [facility] [address] [place] [address] Brandy Molinaanpreet [address] [place] [address] documented as of this encounter Visit Diagnoses Not on filedocumented in this encounter Care Teams Tool Turret Lathe Set Up Operator Relationship Specialty Start Date End Date Ngozi Payne DO [address] [place] [address] PCP - General Family Medicine 08/11/18 documented as of this encounter
[2024-09-24 16:30] LABS: Hemoglobin 14.5 g/dl (14.0-18.0); Mean Corpuscular HGB Conc 33.7 g/dl (31.0-36.0); Mean Platelet Volume 11.7 fL (9.4-12.4); Platelet Count 301 X10*3/uL (160-400); Red Blood Count 4.83 X10*6/uL (4.60-5.80); Red Cell Distribution Width 12.7 % (11.0-16.0); White Blood Count 9.9 X10*3/uL (4.8-10.8)
[2024-09-24 16:45] LABS: Iron 55 mcg/dL (45-160); Percent Iron Saturation 20 % (15-50); Total Iron Binding Capacity 274 mcg/dL (228-428); Unsaturated Iron Binding 219 ug/dL
[2024-09-24 17:03] LABS: Ferritin 248 ng/mL (20-250)
[2024-09-24 17:16] LABS: Folate 8.4 ng/mL (> or = 4.0); Vitamin B12 300 pg/mL (200-900)
== END 2024-09-24 12:47 | disposition home or self-care (01) ==
LOC: HO.HHCL 12:46
PROVIDERS: Visit Provider Family Medicine
DX: D64.9 Anemia, unspecified (principal)
CPT/HCPCS: 36415; 82607; 82728; 82746; 83540; 85027

== ENCOUNTER 2025-04-19 14:32 | Outpatient (AMB) | payer MEDICAID, SELFPAY ==
[2025-04-19 14:37] VITALS: BP 122/68; PULSE 58; BMI 38.7
--- NOTE | 2025-04-19 14:37 | MHC.OFFVIS ---
Vital Signs 04/19/25 14:37 Height 5 ft 9 in Weight 262 lb 5.601 oz BMI 38.7 BP 122/68 Blood Pressure Location Lt brachial Position Sitting Pulse 58 Pulse Source Monitor Intake Visit Reasons: 1 yr f/up r/s 03-01-25 Manufacturing Production Manager Required: Yes Manufacturing Production Manager Name: PAULA [id number] Allergies No Known Allergies Allergy (Verified 03/02/24 13:04) Medication List - Last Reconciled 04/19/25 by Bharathi Francois MD albuterol sulfate 90 mcg/actuation (ProAir HFA) 2 puffs inhalation Q4-6H PRN blood pressure kit-extra large As directed budesonide-formoterol 160-4.5 mcg/actuation (Symbicort) 2 puffs inhalation BID cholecalciferol (vitamin D3) 1 tab PO DAILY clonazepam 1 mg PO BID PRN fenofibrate 160 mg PO DAILY fluticasone propionate 50 mcg/actuation 2 sprays intranasal DAILY PRN hydrochlorothiazide 25 mg PO DAILY loratadine 10 mg PO DAILY metformin ER 500 mg PO metoprolol succinate ER 100 mg PO QPM omeprazole 20 mg PO BID@0630,1630 quetiapine 200 mg PO BEDTIME zolpidem 10 mg PO BEDTIME PRN HPI Comments Details: Don returns for follow-up. In the past, was seen regarding palpitations and chest pain. Morbidly obese. He underwent a stress test that was abnormal leading to cardiac catheterization. However, no significant coronary disease. [place] to be a false-positive stress test. Then there was complication of radial artery thrombosis post catheterization. This led to vascular surgery involvement and intervention. Overall, he seems to be doing okay for the most part. Random pains in the chest in no specific patterns. Nothing clearly exertional. Seems to be getting along okay. PFSH Medical History Hx of blood clots Radial artery thrombosis, right Abnormal nuclear stress test High cholesterol HTN (hypertension) Asthma Surgical History S/P cardiac catheterization Family History Mother Diabetes 1.5, managed as type 2 Arthritis Social History Household Members: Spouse Housing: House Do you presently have visiting nurse or other home services: No Alcohol intake: never Comment: Rt radial pulse present intermittently via doppler Patient Tobacco Use Status: Former Tobacco user Substance Use Type: Marijuana service: No Current occupational status: disabled Review of Systems Const Denies weakness ENT Denies dizziness Card Reports chest pain, Reports chest pain at rest, Reports chest pain with activity, Denies syncope, Denies rapid heart rate, Denies pedal edema, Denies edema, Denies leg edema, Denies lightheadedness, Denies palpitations, Denies dyspnea, Denies dyspnea on exertion and Denies orthopnea Resp Denies cough, Denies dyspnea and Denies dyspnea on exertion GI Denies hematochezia and Denies change in stool character Musc Denies abnormal gait, Denies muscle cramps, Denies muscle weakness, Denies numbness, Denies radiating pain into limb and Denies tingling Neuro Denies abnormal gait, Denies dizziness, Denies syncope, Denies numbness, Denies tingling and Denies weakness Endo Denies palpitations Physical Exam Vital Signs: Last Vital Signs Pulse 58 04/19/25 14:37 BP 122/68 04/19/25 14:37 BMI result Body Mass Index 38.7 Const General: comfortable and no acute distress Orientation/consciousness: patient oriented x3 HEENT Other: Unremarkable Head: Yes normal to inspection Neck Neck: Yes normal visual inspection Chest Chest palpation & inspection: normal inspection of the chest Resp Auscultation: clear to auscultation bilaterally Cardio Palpation: normal PMI Heart sounds: S1 normal heart sound present, S2 normal heart sound present, no gallops, no murmurs and no rubs GI Palpation (GI): Soft to palpation Back/Spine/Pelvis Other: unremarkable Skin General skin exam: no rashes or lesions noted Neuro General: patient oriented x3 Extrem General: Yes normal to inspection Psych Mental Status: mental status grossly normal Office Procedures EKG Details: EKG with sinus bradycardia at 58/Min; no ischemic changes; [place]. [id number], Complete Assessment & Plan Assessment & Plan (1) NICM (nonischemic cardiomyopathy): Code(s): I42.8 - Other cardiomyopathies Category: Medical Plan: Last LVEF 40-45%. In the cardiac catheterization, coronary arteries thought to be angiographically normal. Could be related to obesity/PVCs. Recheck echocardiogram. Consider cardiac MRI in the future. (2) PVC (premature ventricular contraction): Code(s): I49.3 - Ventricular premature depolarization Category: Medical Plan: In the last Holter, frequent ventricular ectopy with a burden of 8%. No malignant findings. Continue beta-blockers. (3) ESTEVAN (obstructive sleep apnea): Comment: Severe degree of sleep apnea. The total AHI was 90/hr and oxygen janice was 82%. Code(s): G47.33 - Obstructive sleep apnea (adult) (pediatric) Category: Medical Plan: Not using CPAP. (4) Morbid obesity: Code(s): E66.01 - Morbid (severe) obesity due to excess calories Category: Medical Plan: Weight loss will be highly beneficial but unclear how much he would be able to achieve. Orders: Orders CA echo transthoracic complete 04/19/25 I42.8 - Other cardiomyopathies Coding Level of Care Code Est Pt Level 4 (27346) Diagnoses NICM (nonischemic cardiomyopathy) I42.8 PVC (premature ventricular contraction) I49.3 ESTEVAN (obstructive sleep apnea) G47.33 Morbid obesity E66.01 CPT Codes EKG - CPT: 39001-[id number], Complete ([id number])
== END 2025-04-19 15:01 | disposition home or self-care (01) ==
LOC: HO.HCS 14:32
PROVIDERS: PCP Family Medicine; Visit Provider Internal Medicine
DX: I42.8 Other cardiomyopathies (principal); I49.3 Ventricular premature depolarization; G47.33 Obstructive sleep apnea (adult) (pediatric); E66.01 Morbid (severe) obesity due to excess calories
CPT/HCPCS: 93010; 99214

== ENCOUNTER → 2025-04-19 14:32 | Outpatient (BNVA) | payer MEDICAID, SELFPAY | PROVIDERS: PCP Family Medicine; Visit Provider Internal Medicine | DX: I42.8 Other cardiomyopathies (principal); I49.3 Ventricular premature depolarization; G47.33 Obstructive sleep apnea (adult) (pediatric); E66.01 Morbid (severe) obesity due to excess calories; Z68.38 Body mass index [BMI] 38.0-38.9, adult; I10 Essential (primary) hypertension; E78.5 Hyperlipidemia, unspecified; R07.9 Chest pain, unspecified | CPT/HCPCS: 93005; 99212 ==

== ENCOUNTER → 2025-05-19 10:02 | Outpatient (REF) | payer MEDICAID, SELFPAY ==
--- NOTE | 2025-05-19 10:04 | CA_ITS ---
Transthoracic Echocardiogram Patient (Last, First, Middle): Don Good E Gender: M Date of : 1985 Age: 39 Procedure Date: 05/19/2025 Procedure Type: Transthoracic Echocardiogram Location: OP Height: 175.26 cm Weight: 118.84 kg BSA: 2.32 m2 Heart Rate: bpm BP: 110 / 74 mmHg Blacksmith Apprentice: TO Referring MD: Bharathi Francois MD Batch Records Clerk: Brandon Seaman MD Symptoms: I42.8 - Other cardiomyopathies Study Quality: Adequate w contrast ECG Rhythm: Sinus Conclusions: - 1. Mild biventricular enlargement with mildly reduced LV ejection fraction 45-50% 2. Normal cardiac valvular Dopplers 3. No gross pericardial effusion Findings Procedure Information Contrast agent, definity, is being given per protocol without apparent complications. Left Ventricle Mildly increased left ventricular cavity size. There is normal left ventricular wall thickness. The left ventricular systolic function is mildly decreased. The visually estimated ejection fraction is between 45-50%. Spectral Doppler is indicative of a normal filling pattern. Right Ventricle Mildly increased right ventricular cavity size. There is normal right ventricular systolic function. Atria The left atrium is mildly dilated. There is no evidence of interatrial shunt. The right atrium is normal in size. Aortic Valve The aortic valve structure and function is likely normal. There is no aortic valve stenosis. There is no aortic valve regurgitation. Mitral Valve Likely normal mitral valve structure and function. There is trace mitral valve regurgitation. There is no mitral valve stenosis. Pulmonic Valve The pulmonic valve is likely normal. Tricuspid Valve Likely normal tricuspid valve structure and function. Tricuspid regurgitation envelope is inadequate for calculation of right ventricular systolic pressure. Normal right atrial pressure. Great Vessels The aorta was not well visualized. The pulmonary artery was not well visualized. There is no dilatation of the ascending aorta measuring 2.80 cm. Venous The inferior vena cava is normal in size. Pericardium/Pleural There is no evidence of pericardial effusion. Prior Study Comparison Changes noted compared to prior study dated: 04/23/2024. LV ejection fraction has marginally improved Measurements 2D Linear Measurements IVSd: 0.90 0.6-0.9/0.6-1.0 cm LVIDd: 6.14 3.9-5.3/4.2-5.9 cm LVIDd Index: 2.65 2.4-3.2/2.2-3.1 cm/m2 LVIDs: 4.26 2.0-3.6 cm LVPWd: 0.90 0.7-1.1 cm LA Diam: 4.20 2.7-3.8/3.0-4.0 cm LAIDs Index: 1.81 1.5-2.3 cm/m2 LV Mass: 280.05 67-162/88-224 g LV Mass Index: 120.71 43-95/49-115 g/m2 LVOT Diam: 2.60 3.0+(-)1.3 cm 2D Systolic Function EF 4C: 49.50 >55% EF 2C: 45.90 >55% EF BiP: 47.80 >55% Mitral Valve MV Pk E: 0.87 MV PK A: 0.47 MV Decel Time: 188.00 E/A: 1.90 E'Lateral: 9.46 E'Medial: 7.51 E/E' Med: 11.60 E/E' Lat: 9.20 PHT: 55.00 MVA PHT: 4.00 Decel Dundy: 4.61 Aortic Valve AoV Pk Richard: 1.23 AoV Mn Richard: 0.93 AoV VTI: 0.28 AoV Pk Grad: 6.00 Aov Mn Grad: 4.00 ART Cont.VTI: 3.46 LVOT LVOT Pk Richard: 0.84 LVOT Mn Richard: 0.57 LVOT VTI: 0.19 LVOT Pk Grad: 3.00 LVOT Mn Grad: 1.00 LVOT Diam: 2.60 LVOT Area: 5.31 Diastolic Function MV Pk E: 0.87 MV Pk A: 0.47 E/A: 1.90 E'Medial: 7.51 E/E' Med: 11.60 E' Laterial: 9.46 E/E' Lat: 9.20 Right Ventricle TAPSE (mm): 32.50 TVS' Richard: 13.30 Tricuspid Valve RA Press: 3.00 Great Vessels Aorta Sinus of Valsalva: 3.43 2.0-3.[address] [place]: 2.45 1.7-3.4 cm Ao Asc: 2.80 2.1-3.4 cm Updated in Other Vendor System with Status of Final Brandon Seaman MD electronically signed on 05/20/2025 12:56:15 PM with status of Final
== END ==
LOC: HO.CARD 10:02
PROVIDERS: PCP Family Medicine; Visit Provider Internal Medicine
DX: I42.8 Other cardiomyopathies (principal)
CPT/HCPCS: 93306; Q9957

== ENCOUNTER → 2025-05-19 10:04 | Outpatient (BNV) | payer MEDICAID, SELFPAY | PROVIDERS: PCP Family Medicine; Visit Provider Internal Medicine Cardiovascular Disease | DX: I51.7 Cardiomegaly (principal) | CPT/HCPCS: 93306 ==